=== PATIENT | female | born 1945 | race Caucasian/White ===

== ENCOUNTER 2019-09-13 08:36 | Outpatient (CLI) | payer MEDICARE, MEDICAID, SELFPAY ==
--- NOTE | 2019-09-13 08:41 | XR_ITS ---
WS: [id number] PROCEDURE: XR chest 2V* [id number] CLINICAL INFORMATION: COUGH COMPARISON: October 07, 2017 FINDINGS: Heart: Normal cardiac silhouette. Lungs: Lungs are clear. No consolidation or pleural fluid. Moderate chronic emphysematous changes. Bones: Mild thoracic curve convex right. Mild thoracic kyphosis. Cholecystectomy clips. XR/XR chest 2V* [id number] IMPRESSION: Moderate chronic emphysematous changes. No acute pulmonary infiltrates.
== END 2019-09-13 08:37 | disposition home or self-care (01) ==
LOC: RADWPI 08:41
PROVIDERS: Family Provider Physician Assistant Medical; PCP Physician Assistant Medical; Visit Provider Specialist
DX: R05 Cough (principal); J43.9 Emphysema, unspecified
CPT/HCPCS: 71046

== ENCOUNTER 2019-11-19 10:24 | Outpatient (CLI) | payer MEDICARE, MEDICAID, SELFPAY ==
[2019-11-19 10:56] LABS: Basophils % 0.5 %; Eosinophils # 0.2 10^3/uL (0.0-0.8); Eosinophils % 2.7 %; Hematocrit 44.4 % (37.0-47.0); Hemoglobin 14.2 g/dL (11.5-15.3); Lymphocytes # 2.4 10^3/uL (0.8-4.8); Lymphocytes % 32.2 %; Mean Corpuscular Hemoglobin 32.6 pg (28.0-34.0); Mean Corpuscular Volume 102.1 fL (81-99); Mean Platelet Volume 9.4 fL (7.4-10.4); Monocytes # 0.7 10^3/uL (0.2-0.9); Neutrophils # 4.15 10^3/uL (1.8-7.7); Neutrophils % 55.5 %; Nucleated Red Blood Cells % 0 %; Platelet Count 271 10^3/cmm (130-400); Red Blood Count 4.35 10^6/uL (4.1-5.3); Red Cell Distribution Width 12.6 % (12.1-15.1); White Blood Count 7.5 10^3/uL (4.0-10.0)
[2019-11-22 16:29] LABS: Bermuda Class 0/1; Bermuda Grass (G2) Ige 0.17 kU/L; Cat Dander (E1) Ige 0.17 kU/L; Cat Dander Class 0/1; Common Ragweed (Short) (W1) Ig 0.16 kU/L; Dog Dander (E5) Ige 0.26 kU/L; Dog Dander Class 0/1; Elm (T8) Ige <0.10 kU/L; Elm Class 0; English Plantain (W9) Ige 0.13 kU/L; English Plantain Class 0/1; Immunoglobulin E 359 kU/L (<OR=114); Immunoglobulin E 367 kU/L (<OR=114); Johnson Grass (G10) Ige 0.13 kU/L; Johnson Grass Cl 0/1; June Grass Class 0; June Grass(Kentucky Blue) (G8) <0.10 kU/L; Lamb'S Quarters (Goose Foot) 0.11 kU/L; Lamb'S Quarters Class 0/1; Maple (Box Elder) (T1) Ige <0.10 kU/L; Maple Class 0; Meadow Fescue (G4) Ige <0.10 kU/L; Meadow Fescue Class 0; Oak (T7) Ige 0.14 kU/L; Oak Class 0/1; Orchard Grass (Cocksfoot) (G3) <0.10 kU/L; Perennial Rye Grass Class 0/1; Ragweeed Class 0/1; Rough Marsh Elder (W16) Ige 0.13 kU/L; Rough Marsh Elder Class 0/1; Sweet Vernal Class 0/1; Sweet Vernal Grass (G1) Ige 0.12 kU/L; Timothy Grass (G6) Ige <0.10 kU/L; Timothy Grass Class 0
[2019-11-23 16:41] LABS: Alternaria Alternata (M6) Ige <0.10 kU/L; Alternaria Class 0; D. Farinae Class 1; Dermatophagoides Class 1; Dermatophagoides Farinae (D2) 0.51 kU/L; Dermatophagoides Pteronyssinus 0.57 kU/L; House Dust (Hollister- Stier) 0.19 kU/L; House Dust Class 0/1; Mucor Racemosus Class 0; Penicillium Class 0; Penicillium Notatum (M1) Ige <0.10 kU/L
== END 2019-11-19 10:25 | disposition home or self-care (01) ==
LOC: LAB 10:27
PROVIDERS: PCP Physician Assistant Medical; Visit Provider Internal Medicine Critical Care Medicine
DX: J45.909 Unspecified asthma, uncomplicated (principal); R06.02 Shortness of breath
CPT/HCPCS: 36415; 82785; 85025; 86003

== ENCOUNTER → 2019-12-23 09:19 | Outpatient (BNVA) | payer MEDICARE, MEDICAID, SELFPAY | PROVIDERS: PCP Nurse Practitioner Family; Visit Provider Podiatrist Foot & Ankle Surgery | DX: S92.502A Displaced unspecified fracture of left lesser toe(s), initial encounter for closed fracture (principal); X58.XXXA Exposure to other specified factors, initial encounter; M79.673 Pain in unspecified foot | CPT/HCPCS: 73630 ==

== ENCOUNTER → 2020-02-08 15:48 | Outpatient (BNVA) | payer MEDICARE, MEDICAID, SELFPAY | PROVIDERS: PCP Nurse Practitioner Family; Visit Provider Podiatrist Foot & Ankle Surgery | DX: S92.502A Displaced unspecified fracture of left lesser toe(s), initial encounter for closed fracture (principal); X58.XXXA Exposure to other specified factors, initial encounter | CPT/HCPCS: 73630 ==

== ENCOUNTER 2020-04-05 14:28 | Outpatient (RCR) | payer MEDICARE, MEDICAID, SELFPAY | END 2020-05-04 23:59 | disposition home or self-care (01) | LOC: SPT 14:28 | PROVIDERS: PCP Nurse Practitioner Family; Referring Provider Podiatrist Foot & Ankle Surgery; Visit Provider Podiatrist Foot & Ankle Surgery | DX: M76.72 Peroneal tendinitis, left leg (principal) | CPT/HCPCS: 97161 ==

== ENCOUNTER 2020-05-17 06:00 | Outpatient (RCR) | payer MEDICARE, MEDICAID, SELFPAY | END 2020-06-04 23:59 | disposition home or self-care (01) | LOC: SPT 06:00 | PROVIDERS: PCP Nurse Practitioner Family; Referring Provider Nurse Practitioner Family; Visit Provider Nurse Practitioner Family | DX: R42 Dizziness and giddiness (principal) | CPT/HCPCS: 95992; 97162 ==

== ENCOUNTER 2020-05-21 13:41 | Emergency (ER) | payer MEDICARE, MEDICAID, SELFPAY ==
[2020-05-21 13:47] VITALS: BP 120/58; PULSE 78; RESP 18; TEMP 37.1; O2SAT 98; BMI 31.5
--- NOTE | 2020-05-21 14:08 | ECG_ITS ---
[facility] Test Date: 2020-05-21 Pat Name: Elisabeth Brown Department: Room: Gender: Female Manager Of Purchasing: : 1945 Requested By: Mike Price Order Number: [id number] Alexys MD: Zach Patel M.D. Measurements Intervals [place] Rate: 80 P: 59 MT: 175 QRS: 1 QRSD: 85 T: 48 QT: 392 QTc: 454 Interpretive Statements SINUS RHYTHM LOW QRS VOLTAGE IN PRECORDIAL LEADS [QRS DEFLECTION < 1.0 mV IN CHEST LEADS] No previous ECG available for comparison Electronically Signed On 05-21-2020 20:22:11 FUR GLAZER by Zach Patel M.D. [id number]
--- NOTE | 2020-05-21 14:10 | W.ED.DIZZY ---
HPI - Dizziness General: Chief Complaint: Dizziness Stated Complaint: NEAR SYNCOPE/ HTN Time Seen by Provider: 05/21/20 13:42 History of Present Illness: HPI Narrative: The patient is a 74-year-old female with past medical history of hypertension who comes to the ER complaining that she passed out. She says she was eating a late Dwayne dinner with family and began to have abdominal cramping, went to urinate in the bathroom and on her way back she says she began to feel lightheaded and passed out falling on her couch as she was walking by it. She said if it was not there she would have hit the ground hard. She says her children helped her to the bathroom where she had a normal bowel movement and helped her back to the couch after. She says she continues to have abdominal cramping nausea, and vomiting. No other sick parties present. Associated symptoms: Reports nausea and vomiting; Denies chest pain, headache(s), nasal congestion or palpitations Associated neuro symptoms: Deny confusion or numbness in extremities Review of Systems General: Reports: 10 or more systems reviewed and unremarkable except in HPI and below Const: Denies: fatigue Eyes: Denies: change in vision, blurry vision or eye redness ENMT: Denies: throat pain, swelling of lips/tongue, ear or mastoid pain or nasal congestion Card: Denies: chest pain, palpitations, irregular heart rhythm, edema, dyspnea on exertion or orthopnea Resp: Denies: dyspnea, productive cough or non-productive cough GI: Reports: nausea, vomiting and GI cramping; Denies: abdominal pain or diarrhea : Denies: flank pain, difficulty voiding, urinary frequency or urinary urgency Musc: Denies: neck pain, back pain, extremity pain, joint pain, joint redness, limited range of motion or muscle weakness Skin/Breast: Denies: rash, pruritus, erythema, skin pain or skin tenderness Neuro: Denies: headache(s), numbness in extremities, weakness in extremities, sensory changes, difficulty walking, dizziness, confusion or Slurred speech present Psych: Denies: anxiety or depression Endo: Denies: polyuria All/Imm: Denies: urticaria, throat swelling or tongue swelling PFS ED PFSH: Medical History (Updated 05/21/20 @ 18:03 by Mike Price MD) Environmental and seasonal allergies Essential hypertension Patient was seen in the office several months ago and instructed to take home blood pressure readings and return to the office. Patient did not followup, but today has elevated pressure of 160/100. She states it goes up and down at home. GERD (gastroesophageal reflux disease) Surgical History S/P cholecystectomy Status post Hope fundoplication Patient reports GERD Wrap Surgery Status post total right knee replacement Social History Smoking and tobacco status: never smoked Second hand smoke exposure: No Alcohol intake: never Lives independently: Yes Household members: none Marital status: / Current occupational status: retired History of recent travel: No Current gender identity: Female Physical Exam Const: COMMON NORMALS: no acute distress, average body habitus, patient oriented x3, no limitations, healthy appearing, alert and well nourished GENERAL APPEARANCE: cooperative, comfortable, well kempt and well developed ORIENTATION/CONSCIOUSNESS: Yes awake, Yes oriented to person, Yes oriented to place and Yes oriented to time HENMT: COMMON NORMALS: normocephalic, external ears normal and Normal external nose present HEAD & SCALP: normal to inspection and normocephalic NOSE: Normal external nose present EXTERNAL EAR: Yes external ears normal MOUTH: Normal oral and palatal mucosa present THROAT: posterior oropharynx normal Eye: COMMON NORMALS: Equal, round and reactive pupils present and EOMs intact bilaterally GENERAL EYE: appearance normal, both eyes and all related structures PUPIL: Yes Equal, round and reactive pupils present Neck/C-Spine: COMMON NORMALS: full ROM, no lymphadenopathy, no meningeal signs and no JVD GENERAL: Yes normal visual inspection Lymph: LYMPHATIC: no lymphadenopathy noted Chest: COMMONS NORMALS: normal inspection of the chest and normal palpation of entire chest wall Resp: COMMON NORMALS: normal respiratory effort, No retractions, No use of accessory muscles, clear to auscultation bilaterally and percussion normal EFFORT & INSPECTION: Yes able to speak in complete sentences AUSCULTATION: clear to auscultation bilaterally PERCUSSION: percussion normal Cardio: COMMON NORMALS: no JVD, regular rate, regular rhythm, S1 normal heart sound present, S2 normal heart sound present and Peripheral pulses 2+ throughout RATE: regular rate RHYTHM: regular rhythm HEART SOUNDS: S1 normal heart sound present and S2 normal heart sound present PERIPHERAL PULSES: Peripheral pulses 2+ throughout GI: COMMON NORMALS: Normal to inspection, nondistended, normoactive bowel sounds present, Soft to palpation, non-tender and no masses INSPECTION: Yes normal to inspection PALPATION: Yes Soft to palpation : COMMON NORMALS: Yes no CVA tenderness BLADDER/KIDNEY EXAM: Yes no CVA tenderness Back/Pelvis: COMMON NORMALS: no CVA tenderness, thoracic and lumbar spine normal to inspection, no thoracic nor lumbar tenderness and thoraco-lumbar ROM normal Extremity: COMMON NORMALS: normal to inspection, full ROM, capillary refill normal, no joint enlargement and no pedal edema GENERAL: Yes normal exam except as noted Neuro: COMMON NORMALS: patient oriented x3, CN's II-XII intact bilaterally, moves all extremities, no focal motor deficits, no sensory deficits noted and gait normal SENSORIUM/ORIENTATION: Yes alert, Yes oriented to person, Yes oriented to place and Yes oriented to time MENINGEAL SIGNS: Yes no meningeal signs Psych: COMMON NORMALS: mental status grossly normal, Normal thought process present, cooperative, normal affect and speech normal APPEARANCE: Yes well kempt ATTITUDE: Yes calm SPEECH: Yes normal speech THOUGHT PROCESS: Normal thought process present Skin: COMMON NORMALS: no rashes or lesions noted GENERAL SKIN EXAM: no rashes or lesions noted Course Vital Signs: Vital signs: Vital Signs Temperature 98.7 F 05/21/20 13:47 Pulse Rate 78 05/21/20 17:33 Respiratory Rate 18 05/21/20 17:33 Blood Pressure 149/73 05/21/20 17:33 Pulse Oximetry 98 05/21/20 17:33 MDM - Dizziness MDM Narrative: Medical decision making narrative: The patient likely had a syncopal episode related to her gastroenteritis and dehydration. She vomited and regained consciousness at home. She was given IV fluids and Zofran here which resolved her symptoms completely. Recommended taking Zofran at home, drinking liquids, and getting her creatinine rechecked in a few days at primary care's office. Daughter is in the room and agrees with plan of care. She will not be home alone tonight Lab Data: Labs: Lab Results 05/21/20 05/21/20 05/21/20 Range/Units 15:00 15:00 15:14 WBC Corrected WBC RBC Hgb Hct MCV MCH MCHC RDW Plt Count MPV Gran % Neut % (Auto) Lymph % (Auto) [place] % (Auto) Eos % (Auto) Baso % (Auto) Neut # (Auto) Lymph # (Auto) [place] # (Auto) Eos # (Auto) Baso # (Auto) Absolute Gran (aut o) Nucleated RBC % (a uto) Nucleated RBCs # Sodium 140 (136-145) mmol/L Potassium 3.7 (3.5-5.1) mmol/L Chloride 101 (98-107) mmol/L Carbon Dioxide 28 (22-29) mmol/L Anion Gap 14.7 (5-19) BUN 19 (8-23) mg/dL Creatinine 1.6 H (0.5-0.9) mg/dL GFR Calculation Not Reportable Glucose 124 H (65-115) mg/dL Calculated Osmolal ity 294 (285-295) mOsm/k g Lactate (0.5-2.2) mmol/L Calcium 9.6 (8.5-10.5) mg/dL Total Bilirubin 0.9 (0.15-1.2) mg/dL AST 33 H (0-32) U/L ALT 14 (0-33) U/L Alkaline Phosphata se 92 (35-105) IU/L Troponin T Baselin e 30 H (0-10) ng/L Total Protein 7.4 (6.6-8.7) g/dL Albumin 4.0 (3.5-5.2) g/dL Globulin 3.4 (1.3-4.6) g/dL Lipase 28 (13-60) U/L Urine Color Yellow (Yellow) Urine Appearance Cloudy (CLEAR) Urine pH 5 (5-7) Ur Specific Gravit y 1.025 (1.005-1.030) Urine Protein 1+ H (Negative) Urine Glucose (UA) Norm (Normal) Urine Ketones 1+ H (Negative) Urine Blood Neg (Negative) Urine Nitrate Negative (Negative) Urine Bilirubin 1+ H (Negative) Urine Urobilinogen 1 H (Negative) mg/dL Ur Leukocyte Emilie ase Negative (Negative) Urine RBC None (0-2) /hpf Urine WBC 0-4 H (0-5) /hpf Ur Squamous Epith Cells None (0-5) /hpf Amorphous Sediment 3+ /hpf Urine Bacteria 1+ H (NONE) /hpf 05/21/20 05/21/20 05/21/20 Range/Units 16:25 16:48 16:48 WBC Cancelled 10.3 H Corrected WBC Cancelled RBC Cancelled 4.28 Hgb Cancelled 13.9 Hct Cancelled 42.8 MCV Cancelled 100.0 H MCH Cancelled 32.5 MCHC Cancelled 32.5 RDW Cancelled 12.0 L Plt Count Cancelled 164 MPV Cancelled 10.9 H Gran % Cancelled Neut % (Auto) Cancelled 76.3 Lymph % (Auto) Cancelled 15.7 [place] % (Auto) Cancelled 6.8 Eos % (Auto) Cancelled 0.6 Baso % (Auto) Cancelled 0.4 Neut # (Auto) Cancelled 7.84 H Lymph # (Auto) Cancelled 1.6 [place] # (Auto) Cancelled 0.7 Eos # (Auto) Cancelled 0.1 Baso # (Auto) Cancelled 0.0 Absolute Gran (aut o) Cancelled Nucleated RBC % (a uto) Cancelled 0 Nucleated RBCs # Cancelled 0.0 Sodium (136-145) mmol/L Potassium (3.5-5.1) mmol/L Chloride (98-107) mmol/L Carbon Dioxide (22-29) mmol/L Anion Gap (5-19) BUN (8-23) mg/dL Creatinine (0.5-0.9) mg/dL GFR Calculation Glucose (65-115) mg/dL Calculated Osmolal ity (285-295) mOsm/k g Lactate 1.8 (0.5-2.2) mmol/L Calcium (8.5-10.5) mg/dL Total Bilirubin (0.15-1.2) mg/dL AST (0-32) U/L ALT (0-33) U/L Alkaline Phosphata se (35-105) IU/L Troponin T Baselin e (0-10) ng/L Total Protein (6.6-8.7) g/dL Albumin (3.5-5.2) g/dL Globulin (1.3-4.6) g/dL Lipase (13-60) U/L Urine Color (Yellow) Urine Appearance (CLEAR) Urine pH (5-7) Ur Specific Gravit y (1.005-1.030) Urine Protein (Negative) Urine Glucose (UA) (Normal) Urine Ketones (Negative) Urine Blood (Negative) Urine Nitrate (Negative) Urine Bilirubin (Negative) Urine Urobilinogen (Negative) mg/dL Ur Leukocyte Emilie ase (Negative) Urine RBC (0-2) /hpf Urine WBC (0-5) /hpf Ur Squamous Epith Cells (0-5) /hpf Amorphous Sediment /hpf Urine Bacteria (NONE) /hpf Discharge Plan Discharge Patient Disposition: Home Clinical Impression: Gastroenteritis, Creatinine elevation Condition: Stable Prescriptions: New Zofran 4 mg tablet 4 mg PO Q8H 5 Days Qty: 15 RF: 0 No Action Combigan 0.2-0.5 % drops 1 drp ophthalmic (eye) BID RF: 0 Lumigan 0.01 % drops 1 drp ophthalmic (eye) DAILY RF: 0 amlodipine 5 mg tablet 5 mg PO DAILY@1000 RF: 0 losartan 100 mg tablet 100 mg PO DAILY@1000 RF: 0 Vitamin C 1 tab PO DAILY@1000 RF: 0 Discharge Orders: Discharge ED (Routine); Ordered 05/21/20 Ordered By: Mike Price Referrals: Ericka Collins FNP [Primary Care Provider] - Discharge Diet: Advance as tolerated Discharge Activity: Resume usual activity Patient Instructions: Gastroenteritis (ED), Impaired Kidney Function (ED) Activity Restrictions/Additional Instructions: You have gastroenteritis. Please take the Zofran to help you drink water and return to the ER if your symptoms worsen. Also your kidney function is impaired. Please get this rechecked to make sure it improves in a few days at your primary care physician's office. If you do not there is a small chance it could worsen and you could require dialysis in the future. Coding Level of Care Code ED Numerical Control Machine Machinist for Jose Fwd Exam Comprehensive
[2020-05-21] MEDS: sodium chloride 0.9% 1,000 ML 999 ML IV (14:25)
[2020-05-21] MEDS: ondansetron 2 mg/ML SDV 2 mL 4 MG IVP (14:26)
[2020-05-21] MEDS: ketorolac 30 mg/mL INJ 15 MG IVP (14:27)
[2020-05-21 15:50] LABS: Troponin(5th) Baseline 30 ng/L (0-10)
[2020-05-21 16:05] LABS: Alanine Aminotransferase 14 U/L (0-33); Alkaline Phosphatase 92 IU/L (35-105); Anion Gap 14.7 (5-19); Aspartate Amino Transferase 33 U/L (0-32); Blood Urea Nitrogen 19 mg/dL (8-23); Calcium 9.6 mg/dL (8.5-10.5); Carbon Dioxide 28 mmol/L (22-29); Chloride 101 mmol/L (98-107); Globulin 3.4 g/dL (1.3-4.6); Glucose 124 mg/dL (65-115); Lipase 28 U/L (13-60); Osmolality Calculated 294 mOsm/kg (285-295); Potassium 3.7 mmol/L (3.5-5.1); Sodium 140 mmol/L (136-145); Total Bilirubin 0.9 mg/dL (0.15-1.2); Total Protein 7.4 g/dL (6.6-8.7)
[2020-05-21 16:27] LABS: Specific Gravity, Urine 1.025 (1.005-1.030); Urine Appearance Cloudy (CLEAR); Urine Color Yellow (Yellow); pH Urine 5 (5-7)
[2020-05-21 16:28] LABS: Add Urine Culture? No; Add Urine Microscopic? YES; Amorphous Sediment Urine 3+ /hpf; Bacteria Urine 1+ /hpf; Bilirubin Urine 1+ (Negative); Blood Urine Neg (Negative); Glucose Urine UA Norm (Normal); Ketones Urine 1+ (Negative); Leukocyte Esterase Urine Negative (Negative); Nitrate Urine Negative (Negative); Protein Urine 1+ (Negative); Urobilinogen Urine 1 mg/dL (Negative); WBC Urine 0-4 /hpf (0-5)
[2020-05-21 16:56] LABS: Basophils % 0.4 %; Eosinophils # 0.1 10^3/uL (0.0-0.8); Eosinophils % 0.6 %; Hematocrit 42.8 % (37.0-47.0); Hemoglobin 13.9 g/dL (11.5-15.3); Lymphocytes # 1.6 10^3/uL (0.8-4.8); Lymphocytes % 15.7 %; Mean Corpuscular HGB Conc 32.5 g/dL (30.0-36.0); Mean Corpuscular Hemoglobin 32.5 pg (28.0-34.0); Mean Platelet Volume 10.9 fL (7.4-10.4); Monocytes # 0.7 10^3/uL (0.2-0.9); Monocytes % 6.8 %; Neutrophils # 7.84 10^3/uL (1.8-7.7); Neutrophils % 76.3 %; Nucleated Red Blood Cells % 0 %; Platelet Count 164 10^3/cmm (130-400); Red Blood Count 4.28 10^6/uL (4.1-5.3); White Blood Count 10.3 10^3/uL (4.0-10.0)
[2020-05-21 17:19] LABS: Lactate (Lactic Acid level) 1.8 mmol/L (0.5-2.2)
[2020-05-21 17:33] VITALS: BP 149/73; PULSE 78; RESP 18; O2SAT 98
[2020-05-21 18:33] VITALS: BP 124/76; PULSE 76; RESP 18; O2SAT 96
== END 2020-05-21 18:34 | disposition home or self-care (01) ==
PROVIDERS: Emergency Provider Family Medicine; PCP Nurse Practitioner Family
DX: K52.9 Noninfective gastroenteritis and colitis, unspecified (principal); R79.82 Elevated C-reactive protein (CRP); I10 Essential (primary) hypertension
CPT/HCPCS: 12345; 36415; 80053; 81001; 83605; 83690; 84484; 85025; 93005; 96361; 96374; 96375; 99282; 99283; J1885; J2405; J7030

== ENCOUNTER 2020-11-30 14:28 | Outpatient (CLI) | payer MEDICARE, MEDICAID, SELFPAY ==
--- NOTE | 2020-11-30 14:45 | CT_ITS ---
WS: [id number] Exam: CT thoracic spin wo con* [id number] Date/Time of Exam: 11/30/2020 2:45 PM Reason For Exam: T12 COMPRESSION FX DLP: 1112.[address] scans at [facility] use at least one of these dose optimization techniques: automat ed exposure control; mA and/or kV adjustment per patient size (includes targeted exams where dose is matched to clinical indication); or iterative reconstruction. The T-spine and evaluated in the axial plane with coronal and sagittal reformatted images. There is a compression fracture of the lower endplate of T12 with about 30% loss of vertebral height. No retropulsion or canal stenosis is identified. This may be a subacute fracture. The posterior lac vieux ents remain intact. There were no other fractures of the T-spine. There is increased thoracic kyphosi s noted. Facet DJD at all levels. Normal paraspinal soft tissue structures. CT/CT thoracic spin wo con* [id number] IMPRESSION: 1. Compression fracture of the lower endplate of T12 with about 30% loss of power tebral height. No retropulsion or canal stenosis is identified. The posterior e lements remain intact and no other fractures are seen. Fracture age is difficul t to determine but this could be a subacute fracture. 2. Increased thoracic kyphosis and mild degenerative changes.
== END 2020-11-30 14:29 | disposition home or self-care (01) ==
PROVIDERS: PCP Nurse Practitioner Family; Visit Provider Nurse Practitioner Family
DX: S22.080A Wedge compression fracture of T11-T12 vertebra, initial encounter for closed fracture (principal); X58.XXXA Exposure to other specified factors, initial encounter
CPT/HCPCS: 72128

== ENCOUNTER → 2020-12-05 14:18 | Outpatient (BNVA) | payer MEDICARE, MEDICAID, SELFPAY | PROVIDERS: PCP Nurse Practitioner Family; Referring Provider Nurse Practitioner Family; Visit Provider Orthopaedic Surgery | DX: S22.080A Wedge compression fracture of T11-T12 vertebra, initial encounter for closed fracture (principal); X58.XXXA Exposure to other specified factors, initial encounter | CPT/HCPCS: 72080 ==

== ENCOUNTER 2020-12-29 10:48 | Emergency (ER) | payer MEDICARE, MEDICAID, SELFPAY ==
--- NOTE | 2020-12-29 | XR_ITS ---
WS: [id number] Exam: XR elbow RT 2V [id number] Date/Time of Exam: 12/29/2020 12:00 AM Reason For Exam: TRAUMA; PT FELL R SHOULDER PAIN Lateral view of the elbow is suboptimal due to the patient's inability to fully cooperate for the adam dy. No acute fracture or dislocation noted. No obvious joint effusion is seen. XR/XR elbow RT 2V [id number] IMPRESSION: 1. No obvious elbow fracture or dislocation based on images presented.
[2020-12-29 11:10] VITALS: BP 135/90; PULSE 91; RESP 18; TEMP 37; O2SAT 94; BMI 31.8
--- NOTE | 2020-12-29 11:18 | CT_ITS ---
WS: [id number] CT FACIAL BONES HISTORY: laceration, R sided face TECHNIQUE: Images obtained from the supraorbital location through the mandible. Soft tissue and bone windows are reviewed. Coronal and sagittal reformats have also been submitted. DLP: 673.[address] scans at [facility] use at least one of these dose optimization techniques: automat ed exposure control; mA and/or kV adjustment per patient size (includes targeted exams where dose is matched to clinical indication); or iterative reconstruction. COMPARISON: None available. No facial bone fractures are identified. Nasal bones and zygomatic arches are intact. No fracture inv olving the roof or floor the orbits. Air-fluid level in the RIGHT sphenoid sinus. No sinus fractures are identified. Orbits and globes are intact. There is a moderate size acute scalp hematoma centered over the RIGHT superior orbit and extends acro ss the midline across the nasal bones. Hematoma extends into the RIGHT upper inner canthus but does n ot extend post septal. CT/CT facial bones wo con* [id number] IMPRESSION: 1. No facial bone fracture. 2. Scalp hematoma centered over the RIGHT superior orbit and extends across th e midline. 3. Suspect very tiny subdural bleed noted on the axial imaging over the RIGHT frontal lobe. This was not visualized on this CT head. Notified Sharonda Valiente MD at 12/29/2020 12:07 PM.
--- NOTE | 2020-12-29 11:18 | XR_ITS ---
WS: [id number] Exam: [place] [id number] Date/Time of Exam: 12/29/2020 11:21 AM Reason For Exam: rule out fx There is an impacted comminuted fracture of the surgical neck and head of the humerus. There is some posterior rotation of the humeral head. No dislocation is seen. XR/[place] [id number] IMPRESSION: 1. Impacted comminuted fracture of the surgical neck and head of the humerus wi th mild displacement and rotation as noted above. The remaining humerus appears to be intact.
--- NOTE | 2020-12-29 11:18 | CT_ITS ---
WS: [id number] CT HEAD NONCONTRAST HISTORY: fall, rule out brain bleed TECHNIQUE: Contiguous axial imaging performed through the brain in 2.5 mm imaging. Bone and soft tiss ue windows. Sagittal and coronal reformats reviewed. All CT scans at [facility] use at le ast one of these dose optimization techniques: automated exposure control; mA and/or kV adjustment pe r patient size (includes targeted exams where dose is matched to clinical indication); or iterative r econstruction. DLP: 1443.21 mGy.cm COMPARISON: None available. No acute intracranial hemorrhage, midline shift or mass effect. Mild atrophy and moderate chronic microvascular ischemic type changes. Ventricles: Normal size with no hydrocephalus. No inferior displacement of the cerebellar tonsils. Paranasal sinuses: Mucoperiosteal thickening in the RIGHT sphenoid sinus. No air-fluid levels otherwi se. Mastoid air cells: Well pneumatized. Calvarium and scalp: No skull fracture. Moderate acute scalp hematoma centered over the RIGHT frontal lobe extending into the anterior canthus of the RIGHT orbit and across the midline. CT/CT head wo con* [id number] IMPRESSION: 1. No acute intracranial hemorrhage or edema. 2. Moderate size frontal scalp hematoma centered along the superior RIGHT orbi t but does extend across the midline. No fracture identified.
--- NOTE | 2020-12-29 11:18 | XR_ITS ---
WS: [id number] Exam: XR shoulder RT min 2V* [id number] Date/Time of Exam: 12/29/2020 11:21 AM Reason For Exam: fall There is an impacted comminuted fracture of the surgical neck and head of the humerus. There is mild posterior rotation of the humeral head. No dislocation noted. Degenerative change and spurring at the AC joint. XR/XR shoulder RT min 2V* [id number] IMPRESSION: 1. Impacted comminuted fracture of the surgical neck and head of the humerus wi th some degree of rotation and displacement as noted.
--- NOTE | 2020-12-29 11:35 | W.ED.GENADLT ---
HPI - General Adult General: Chief complaint: Fall Stated complaint: R SHOULDER PAIN Time Seen by Provider: 12/29/20 10:55 History of Present Illness: HPI narrative: Patient is a 75-year-old female history of chronic cough, HTN, R hip replacement presents the emergency room for mechanical fall x 1 hr ago. Patient was walking when suddenly she fell to her right side. Patient cannot exactly what happened but reports significant right arm pain/shoulder after the incident. Also noticed a bump on the right side of her head. Patient denies any anticoagulation use. Denies any associated shortness of breath, chest pain, palpitation, abdominal complaints at this time. Patient denies any sensation of lightheadedness vertigo or other focal weakness. Onset: 1 hr ago Duration:1 hr Location:home Severity:mild Review of Systems Narrative: Constitutional: No fever, no chills. HEENT: No vision changes CV: No chest pain, no palpitations PULM: no cough, no dyspnea. GI: No abdominal pain, no N/V/D. : No dysuria MSKEL: +R shoulder/proximal arm pain SKIN: No new rashes, no lesions. NEURO: No headache, no focal weakness. HEME: No visible bruises PSYCH: Normal mood PFSH ED PFSH: Medical History (Updated 12/29/20 @ 11:44 by Sharonda Valiente MD) Environmental and seasonal allergies Essential hypertension Patient was seen in the office several months ago and instructed to take home blood pressure readings and return to the office. Patient did not followup, but today has elevated pressure of 160/100. She states it goes up and down at home. GERD (gastroesophageal reflux disease) Surgical History S/P cholecystectomy Status post Hope fundoplication Patient reports GERD Wrap Surgery Status post total right knee replacement Social History Smoking and tobacco status: never smoked Second hand smoke exposure: No Alcohol intake: never Lives independently: Yes Household members: none Marital status: / Current occupational status: retired History of recent travel: No Current gender identity: Female Physical Exam Narrative: EXAM NARRATIVE: Head: Atraumatic Eyes: PERRL, conjunctiva without injection ENT: Mucous membrane moist NECK: Supple, ROM intact LUNGS: LCTAB, no crackles/rhonchi CV: RRR ABDOMEN: Soft, nontender in all quadrants EXTREMITY: 2+ radial pulse R arm, R/M/U sensation intact in the R arm, patient able perform OK/Thumbs/Fist in the R hand, ROM of the R shoulder limited due to pain, +tenderness to palpation to the R proximal arm/+tenderness to palpation over the R elbow. R arm and forearm compartments nontense. SKIN:+R forehead hematoma NEURO: Awake and alert, no focal motor deficits PSYCH: Normal mood and affect Course Vital Signs: Vital signs: Vital Signs Temperature 98.6 F 12/29/20 11:10 Pulse Rate 86 12/29/20 14:41 Respiratory Rate 16 12/29/20 14:41 Blood Pressure 157/83 12/29/20 14:41 Pulse Oximetry 96 12/29/20 14:41 MDM - General Adult MDM Narrative: Medical decision making narrative: 75-year-old female presenting to the emergency room after mechanical fall with complaints of right elbow/shoulder pain. On exam, patient has a bump over the right temporal scalp and focal tenderness to palpation over the right proximal arm right shoulder area. XR showed surgical neck of the humerus fracture. Patient is placed in a sling. CT brain showed 2mm subdural R side. HDS, SBP < 160. HDS stable. GCS 15 on reassessment. No need for cardene drips currently. Case discussed with [facility] ER provider Dr. Wyatt who agrees with transfer. Disposition: Transfer to [facility]. Imaging Data^: Other Imaging: Radiologist's impression: [address] [address]QLmi ReportSigned Patient: Elisabeth Brown #: [id number]: 5Acct#:[id number]/Sex: 75 / FADM Date: 12/29/20Loc: ERRoom/Bed:Attending Dr: Ordering Provider/Ordering MD: Sharonda Valiente MD Date of Service: 12/29/20 Procedure(s): [place] [address] Accession Number(s): [id number] Report Number: [id number] WS: [id number] Exam: [place] [id number] Date/Time of Exam: 12/29/2020 11:21 AM Reason For Exam: rule out fx There is an impacted comminuted fracture of the surgical neck and head of the humerus. There is some posterior rotation of the humeral head. No dislocation is seen. XR/[place] [id number] IMPRESSION: 1. Impacted comminuted fracture of the surgical neck and head of the humerus with mild displacement and rotation as noted above. The remaining humerus appears to be intact. Dictated By:Jorge Bloom, BRAEDENigned By:Jorge Bloom, Earlene Date/Time:12/29/20 1144DD/ 1141 [facility] [place] [id number] Scan ReportSigned with Addenda Patient: Elisabeth Brown #: [id number]: 5Acct#:[id number]/Sex: 75 / FADM Date: 12/29/20Loc: ERRoom/Bed:Attending Dr: Ordering Provider/Ordering MD: Sharonda Valiente MD Date of Service: 12/29/20 Procedure(s): CT head wo con* [id number] Accession Number(s): [id number] Report Number: [id number] ADDENDUM WS: [email or web address] Addendum noncontrast head CT. There is a very small 2 mm acute subdural hematoma centered over the RIGHT temporal lobe. Suspected small amount of subdural blood on the facial bone CT but the blood centered along the anterior RIGHT frontal lobe is not identified with certainty on this head CT. Addendum Dictated By: Katie Fallon DOAddendum Signed By: Katie Fallon DOSigned Date/Time:12/29/20 1210Addendum Cosigned By: ADDENDUM CT/CT head wo con* [id number] IMPRESSION: Small acute, 2 mm, RIGHT subdural bleed centered over the RIGHT temporal lobe. Notified Sharonda Valiente MD at 12/29/2020 12:09 PM. Addendum Dictated By: Vasyl,Katie A DOAddendum Signed By: Katie Fallon DOSigned Date/Time:12/29/20 1214Addendum Cosigned By: WS: [email or web address] CT HEAD NONCONTRAST HISTORY: fall, rule out brain bleed TECHNIQUE: Contiguous axial imaging performed through the brain in 2.5 mm imaging. Bone and soft tissue windows. Sagittal and coronal reformats reviewed. All CT scans at [facility] use at least one of these dose optimization techniques: automated exposure control; mA and/or kV adjustment per patient size (includes targeted exams where dose is matched to clinical indication); or iterative reconstruction. DLP: 1443.21 mGy.cm COMPARISON: None available. No acute intracranial hemorrhage, midline shift or mass effect. Mild atrophy and moderate chronic microvascular ischemic type changes. Ventricles: Normal size with no hydrocephalus. No inferior displacement of the cerebellar tonsils. Paranasal sinuses: Mucoperiosteal thickening in the RIGHT sphenoid sinus. No air-fluid levels otherwise. Mastoid air cells: Well pneumatized. Calvarium and scalp: No skull fracture. Moderate acute scalp hematoma centered over the RIGHT frontal lobe extending into the anterior canthus of the RIGHT orbit and across the midline. CT/CT head wo con* [id number] IMPRESSION: 1. No acute intracranial hemorrhage or edema. 2. Moderate size frontal scalp hematoma centered along the superior RIGHT orbit but does extend across the midline. No fracture identified. Dictated By:Katie Fallon DOSigned By:Katie Fallon DOSigned Date/Time:12/29/20 1204DD/ [address] [id number] Scan ReportSigned Patient: Elisabeth Brown #: [id number]: 5Acct#:[id number]/Sex: 75 / FADM Date: 12/29/20Loc: ERRoom/Bed:Attending Dr: Ordering Provider/Ordering MD: Sharonda Valiente MD Date of Service: 12/29/20 Procedure(s): CT facial bones wo con* [id number] Accession Number(s): [id number] Report Number: [id number] WS: [email or web address] CT FACIAL BONES HISTORY: laceration, R sided face TECHNIQUE: Images obtained from the supraorbital location through the mandible. Soft tissue and bone windows are reviewed. Coronal and sagittal reformats have also been submitted. DLP: 673.[address] scans at [facility] use at least one of these dose optimization techniques: automated exposure control; mA and/or kV adjustment per patient size (includes targeted exams where dose is matched to clinical indication); or iterative reconstruction. COMPARISON: None available. No facial bone fractures are identified. Nasal bones and zygomatic arches are intact. No fracture involving the roof or floor the orbits. Air-fluid level in the RIGHT sphenoid sinus. No sinus fractures are identified. Orbits and globes are intact. There is a moderate size acute scalp hematoma centered over the RIGHT superior orbit and extends across the midline across the nasal bones. Hematoma extends into the RIGHT upper inner canthus but does not extend post septal. CT/CT facial bones wo con* [id number] IMPRESSION: 1. No facial bone fracture. 2. Scalp hematoma centered over the RIGHT superior orbit and extends across the midline. 3. Suspect very tiny subdural bleed noted on the axial imaging over the RIGHT frontal lobe. This was not visualized on this CT head. Notified Sharonda Valiente MD at 12/29/2020 12:07 PM. Dictated By:Katie Fallon DOSigned By:Katie Fallon DOSigned Date/Time:12/29/20 1208DD/ 1204 Discharge Plan Discharge Patient Disposition: Transfer to ED Clinical Impression: Fracture, humerus Condition: Stable Prescriptions: New Percocet 5-325 mg tablet 1 tab PO Q8H PRN (Reason: pain) 3 Days Qty: 12 RF: 0 No Action albuterol sulfate 2.5 mg /3 mL (0.083 %) solution for nebulization 2.5 mg inhalation QID PRN (Reason: shortness of breath or wheezing) Qty: 75 RF: 0 (DME) TLSO back brace See Rx Instructions .Route .MEDSUPPLY Qty: 1 RF: 0 Referrals: Ericka Collins FNP [Primary Care Provider] - Discharge Diet: Advance as tolerated Discharge Activity: Resume usual activity Activity Restrictions/Additional Instructions: Come back to the emergency room if you cannot fill your arm, if you have significant pain, numbness, or any other issue. Please follow-up with an orthopedic provider in the next few days for reevaluation of your fracture. Coding Level of Care Code ED Moderate Needs Teacher for Jose Terrell
[2020-12-29 11:48] VITALS: RESP 16
[2020-12-29] MEDS: fentaNYL 50 mcg/mL INJ 2mL IVP (11:48)
[2020-12-29] MEDS: tetanus-dipt-pertussis 0.5 mL SDV IM (11:51)
--- NOTE | 2020-12-29 12:17 | PC.PHAR ---
PT STATES SHE IS NOT TAKING THE AMLODIPINE 2.5MG DAILY. STATES SHE WAS TOLD AT HER LAST APPT THAT HER BP WAS HIGH AND WAS PRESCRIBED AMLODIPINE 2.5MG DAILY. PT ALSO STATES SHE DOES NOT TAKE HYDROCODONE-ACETAMINOPHEN OR CYCLOBENZAPRINE.
[2020-12-29 13:12] VITALS: BP 151/88; PULSE 83; RESP 16; O2SAT 98
[2020-12-29 14:41] VITALS: BP 157/83; PULSE 86; RESP 16; O2SAT 96
== END 2020-12-29 15:00 ==
PROVIDERS: Emergency Provider Emergency Medicine; PCP Nurse Practitioner Family
DX: S42.291A Other displaced fracture of upper end of right humerus, initial encounter for closed fracture (principal); S00.03XA Contusion of scalp, initial encounter; I10 Essential (primary) hypertension; W18.39XA Other fall on same level, initial encounter
CPT/HCPCS: 70450; 70486; 73030; 73060; 73070; 90471; 90715; 96374; 99285; J3010

== ENCOUNTER → 2021-01-18 13:18 | Outpatient (BNVA) | payer OTHER, MEDICARE, MEDICAID, SELFPAY | PROVIDERS: PCP Nurse Practitioner Family; Visit Provider Orthopaedic Surgery | DX: S22.080A Wedge compression fracture of T11-T12 vertebra, initial encounter for closed fracture (principal); X58.XXXA Exposure to other specified factors, initial encounter | CPT/HCPCS: 72080 ==

== ENCOUNTER → 2021-02-15 13:06 | Outpatient (BNVA) | payer MEDICARE, MEDICAID, SELFPAY | PROVIDERS: PCP Nurse Practitioner Family; Visit Provider Orthopaedic Surgery | DX: S22.080A Wedge compression fracture of T11-T12 vertebra, initial encounter for closed fracture (principal); X58.XXXA Exposure to other specified factors, initial encounter | CPT/HCPCS: 72080 ==

== ENCOUNTER → 2021-04-03 15:16 | Outpatient (BNVA) | payer MEDICARE, MEDICAID, SELFPAY | PROVIDERS: PCP Nurse Practitioner Family; Visit Provider Orthopaedic Surgery | DX: S22.080A Wedge compression fracture of T11-T12 vertebra, initial encounter for closed fracture (principal); X58.XXXA Exposure to other specified factors, initial encounter | CPT/HCPCS: 72080 ==

== ENCOUNTER 2021-05-11 12:18 | Outpatient (CLI) | payer MEDICARE, MEDICAID, SELFPAY ==
--- NOTE | 2021-05-11 13:00 | MR_ITS ---
WS: [email or web address] MRI THORACIC SPINE noncontrast HISTORY: S22.080A - Wedge compression fracture of T11-T12 vertebra... COMPARISON: 04/03/2021 TECHNIQUE: Multiplanar sequences are performed in sagittal and axial planes. Mild increase in the thoracic kyphosis. Mild LEFT curvature. No marrow edema within the vertebral bod ies. Severe compression fracture of T12 with 2 mm retropulsion of the superior and inferior endplate. There is still CSF surrounding the cord. There is minimal residual marrow edema body. Signal within the cord is normal. T1-2: Mild foraminal narrowing due to facet disease. T2-3: Moderate facet joint arthritis with moderate foraminal stenosis. T3-4: Mild facet arthritis. T4-5: Mild bilateral facet arthritis, moderate RIGHT foraminal stenosis. T5-6: Bilateral facet arthritis. Mild narrowing on the LEFT. T6-7: All foraminal narrowing due to facet disease. T7-8: Moderate bilateral facet joint arthritis with mild foraminal narrowing. T8-9: Moderate bilateral facet arthritis and foraminal narrowing. T9-10: Moderate bilateral facet joint arthritis and foraminal narrowing. T10-11: Facet joint arthritis encroaching into the thecal sac. There is near contact on the posterio r lateral thecal sac by the osteophytes. There is mild central and bilateral foraminal stenosis. T11-12: Bilateral facet joint arthritis and ligamentum flavum hypertrophy. Mild central and foramina l stenosis. T12-L1: Mild posterior encroachment upon the thecal sac at the retropulsion of the T12 vertebral body . Moderate bilateral facet joint arthritis. No central stenosis. Moderate bilateral foraminal stenosi s. Paravertebral soft tissues are normal. MR/MR thoracic spin wo con* [id number] IMPRESSION: 1. Severe, subacute T12 vertebral planar compression fracture with 2 mm retrop ulsion of the vertebral body. No contact on the cord. 2. There is multilevel facet joint arthritis throughout the thoracic spine. Fa cet joint arthritis resulting in mild to moderate bilateral foraminal stenosis as above. 3. Mild central and bilateral foraminal stenosis at T10-11 and T11-12. Moderat e bilateral facet joint arthritis and foraminal stenosis at T12-L1.
== END 2021-05-11 12:19 | disposition home or self-care (01) ==
PROVIDERS: PCP Nurse Practitioner Family; Visit Provider Orthopaedic Surgery
DX: S22.080A Wedge compression fracture of T11-T12 vertebra, initial encounter for closed fracture (principal); X58.XXXA Exposure to other specified factors, initial encounter; M48.04 Spinal stenosis, thoracic region
CPT/HCPCS: 72146

== ENCOUNTER → 2021-05-21 11:31 | Day surgery (SDC) | payer MEDICARE, MEDICAID, SELFPAY | PROVIDERS: PCP Nurse Practitioner Family; Visit Provider Orthopaedic Surgery | DX: Z01.818 Encounter for other preprocedural examination (principal); S22.080A Wedge compression fracture of T11-T12 vertebra, initial encounter for closed fracture; X58.XXXA Exposure to other specified factors, initial encounter | CPT/HCPCS: 87635; 93005 ==

== ENCOUNTER 2021-05-28 05:34 | Day surgery (SDC) | payer MEDICARE, MEDICAID, SELFPAY ==
[2021-05-21 08:00] VITALS: BMI 29.2
--- NOTE | 2021-05-21 08:06 | ECG_ITS ---
[facility] Test Date: 2021-05-21 Pat Name: Elisabeth Brown Department: Room: Gender: Female Pan Puller: : 1945 Requested By: Maximus Asher Order Number: [id number] Alexys MD: ALESSIA ANDREWS Measurements Intervals [place] Rate: 95 P: 22 NC: 149 QRS: -9 QRSD: 73 T: 25 QT: 347 QTc: 437 Interpretive Statements SINUS RHYTHM LOW QRS VOLTAGE IN PRECORDIAL LEADS [QRS DEFLECTION < 1.0 mV IN CHEST LEADS] Compared to ECG 05/21/2020 14:28:41 No significant changes Electronically Signed On 05-21-2021 20:57:02 SYSTEMS TEST TECHNICIAN by ALESSIA ANDREWS [email or web address]
--- NOTE | 2021-05-21 11:08 | ANES.PREANE2 ---
Pre-Anesthetic Assessment Pre-Anesthetic Assessment: Height/Weight: Height 1.63 m Weight 77.111 kg Proposed Procedure: Operation Date: 05/28/21 13:00 Proposed Procedures p T12 Kyphoplasty 59567 S22.080A(Not Applicable) - Herminio Barrios, DO Was Beta Danya taken within 24 hours: N/A Was Clonidine taken within 24 hours: N/A Social: Social History: No alcohol and No tobacco Exam: Pre-Anes Outpt Exam: alert, oriented x 3, clear to auscultation bilaterally and regular rate & rhythm Airway: Submandibular: WNL Cervical ROM: WNL MP: 2 Dentition: False (uppers) Pulmonary: Pulmonary: Asthma CV/HEM: CV/HEM: HTN Anesthetic Plan: ASA status: 3 Anesthesia: General Risk of > 500 ml blood loss (7ml/kg in children): No PFSH Anesthesia PFSH: Medical History Environmental and seasonal allergies Essential hypertension Patient was seen in the office several months ago and instructed to take home blood pressure readings and return to the office. Patient did not followup, but today has elevated pressure of 160/100. She states it goes up and down at home. GERD (gastroesophageal reflux disease) Surgical History S/P cholecystectomy Status post Hope fundoplication Patient reports GERD Wrap Surgery Status post total right knee replacement Social History Smoking and tobacco status: never smoked Second hand smoke exposure: No Alcohol intake: never Lives independently: Yes Household members: none Marital status: / Current occupational status: retired History of recent travel: No Current gender identity: Female Data Anesthesia Cardiac Studies: No Data to Display
[2021-05-28] VITALS (7 sets, daily range): BP systolic 107–176; BP diastolic 68–104; PULSE 67–92; RESP 18–20; TEMP 36.3–36.8; O2SAT 88–100
--- NOTE | 2021-05-28 | SCC_ITS ---
Procedure Done: T12 Kyphoplasty 60.9 seconds of fluoroscopic guidance, for a cumulative dose of 89.48 mGy and 14.99 mGy, was provided to Dr. Barrios by the radiology department. C-arm images of the thoracic spine were saved for the patient's permanent record. [facility]
--- NOTE | 2021-05-28 05:49 | SC_ITS ---
WS: [email or web address] C-arm fluoroscopy for kyphoplasty, 05/28/2021 Clinical Data: T12 kyphoplasty Comparison: None. Findings: T12 kyphoplasty. SC/C-arm FL for Kyphoplasty Impression: T12 kyphoplasty.
--- NOTE | 2021-05-28 06:31 | P.ANESUD_ITS ---
Pre-Anesthetic Update Pre-Anesthetic Assessment: Date of Surgery/Procedure: 05/28/21 Preop Kathleen gnosis: T12 compression fracture Proposed Procedure: Operation Date: 05/28/21 07:00 Proposed Procedures p T12 Kyphoplasty 47946 S22.080A(Not Applicable) - Herminio Barrios, DO Any changes to Pre-Anesthetic Assessment?: Yes Last Intake: Intake Last Liquid Date 05/27/21 Last Liquid Time 04:00 Last Solid Date 05/27/21 Last Solid Time 18:00 Vitals: Temperature 98.2 F 05/28/21 06:00 Temperature Source Temporal Artery S can 05/28/21 06:00 Pulse Rate 92 05/28/21 06:00 Respiratory Rate 20 H 05/28/21 06:00 Blood Pressure 176/104 05/28/21 06:00 Blood Pressure Amanda n 128 05/28/21 06:00 Pulse Oximetry 97 05/28/21 06:00 Oxygen Delivery Me thod 05/28/21 06:04 Exam: Pre-Anes Outpt Exam: alert, oriented x 3, clear to auscultation bilaterally and regular rate & rhythm Cardiac Studies: No Data to Display
[2021-05-28] MEDS: sodium chloride 0.9% 1,000 ML 30 ML IV (06:34)
--- NOTE | 2021-05-28 06:42 | W.PM.OPSUD ---
Surgery/Procedure H&P Update DATE OF PROCEDURE: May 28, 2021 DATE H&P PERFORMED: 05/17/21 H&P UPDATE INFORMATION: I have reviewed H&P completed within last 30 days, I have examined patient prior to procedure and No changes to prior documentation PREOP DIAGNOSIS: T12 compression fracture PLANNED PROCEDURE: Operation Date: 05/28/21 07:00 Proposed Procedures p T12 Kyphoplasty 78312 S22.080A(Not Applicable) - Herminio Barrios DO
[2021-05-28] MEDS: iohexol 300 mg/mL 50 mL Btl (OR ONLY) XX (07:41)
--- NOTE | 2021-05-28 08:06 | PM.OP ---
Operative Report Date of procedure: May 28, 2021 Pre-op Diagnosis: T12 pathologic osteoporotic wedge compression fracture Post-op diagnosis: same Procedure Done: T12 Kyphoplasty Surgeon: Herminio Barrios Anesthesia: General Estimated blood loss (mL): 5 Condition: stable Disposition: PACU Procedure: Patient was brought to the operative suite after undergoing anesthesia was placed in the prone position on the operating table. All areas impingement were well-padded. 2C arms were brought in to get AP and lateral fluoroscopy. Once the C arms were aligned patient was then prepped and draped in normal sterile fashion. Skin incision was made on the outside edge of the left pedicle at the 11 o'clock position the awl was inserted ensuring that it was on the lateral side of the medial aspect of the pedicle. Drill was then inserted this process then repeated on the right pedicle. Starting at the 1 o'clock position. Once the drill was inserted on the right side it was removed and then the balloons were placed and elevated. And then the cement was placed to fill the vertebral body this was done under C-arm guidance once all the cement was placed in the prone position x-rays were taken to ensure the fracture and the cement were good position the tubes were removed wounds were irrigated and closed with Steri-Strips. Sterile dressings were applied patient was transferred to the PACU in stable condition.
[2021-05-28] MEDS: HYDROcodone-acetaminophen 5-325 mg Tablet 1 TAB PO (09:04)
--- NOTE | 2021-05-28 09:54 | ANE.PACU2 ---
Inpatient post-anesthesia follow up: Airway intact: Yes Vital signs: Temperature 97.6 F Pulse Rate 68 Respiratory Rate 18 Blood Pressure 134/68 Pulse Oximetry 97 Oxygen Delivery Me thod Room Air Oxygen Flow Rate 6 Fraction of Inspir ed Oxygen Hydration adequate: Yes Nausea and vomiting: No Pain level: 3 Mental status: Baseline
== END 2021-05-28 09:30 | disposition home or self-care (01) ==
PROVIDERS: PCP Nurse Practitioner Family; Visit Provider Orthopaedic Surgery
PROC: (CPT 22513; principal; 2021-05-28 07:00)
DX: S22.080A Wedge compression fracture of T11-T12 vertebra, initial encounter for closed fracture (principal); X58.XXXA Exposure to other specified factors, initial encounter; I10 Essential (primary) hypertension; K21.9 Gastro-esophageal reflux disease without esophagitis
CPT/HCPCS: 22513; 76000; J0690; J2370; J2405; J2704; J2710; J3010; J3490; J7030

== ENCOUNTER → 2021-06-12 11:19 | Outpatient (BNVA) | payer MEDICARE, MEDICAID, SELFPAY | PROVIDERS: PCP Nurse Practitioner Family; Visit Provider Orthopaedic Surgery | DX: S22.080D Wedge compression fracture of T11-T12 vertebra, subsequent encounter for fracture with routine healing; X58.XXXD Exposure to other specified factors, subsequent encounter; Z47.89 Encounter for other orthopedic aftercare | CPT/HCPCS: 72070 ==

== ENCOUNTER 2021-06-15 16:53 | Emergency (ER) | payer MEDICARE, MEDICAID, SELFPAY ==
[2021-06-15 17:08] VITALS: BP 180/112; PULSE 88; RESP 16; TEMP 36.8; O2SAT 99; BMI 30.4
--- NOTE | 2021-06-15 17:17 | ED_ITS ---
HPI - Fall General: Chief Complaint: Fall Stated Complaint: fell, dizziness, knot on head, headache Time Seen by Provider: 06/15/21 17:17 History of Present Illness: 75-year-old female comes in today for evaluation of a fall from last Friday. Patient reports that she was getting out of bed last Friday and got up too fast causing her to become dizzy and fall to the ground. Patient hit the left side of her frontal scalp. Since then patient has had some dizziness and nausea that has persisted for the last week. Patient does have a history of a prior head injury with intracranial bleeding. Patient denies any nausea or vomiting. Patient denies any fever. Patient denies any o ther signs or symptoms. Patient has a history of arthritis, T12 compression fracture, right shoulder surgery, asthma, and hypertension. MD complaint: fall Onset (ago): day(s) Fall from: standing Fall witnessed: no Place fall occurred: home Loss of consciousness: None Prolonged down time: no Symptoms prior to fall: lightheadedness Context: tripped/slipped Location of injury: head Location of injury - extremities: Bilateral: knee Severity: mild Review of Systems General: Reports: 10 or more systems reviewed and unremarkable except in HPI and below GI: Reports: nausea Neuro: Reports: dizziness PFSH ED PFSH: Medical History (Updated 06/15/21 @ 19:39 by LEWIS Gracia) Environmental and seasonal allergies Essential hypertension Patient was seen in the office several months ago and instructed to take home blood pressure readings and return to the office. Patient did not followup, but today has elevated pressure of 160/100. She states it goes up and down at home. GERD (gastroesophageal reflux disease) Surgical History S/P cholecystectomy Status post Hope fundoplication Patient reports GERD Wrap Surgery Status post total right knee replacement Social History Smoking and tobacco status: never smoked Second hand smoke exposure: No Alcohol intake: never Lives independently: Yes Household members: none Marital status: / Current occupational status: retired History of recent travel: No Current gender identity: Female Physical Exam Const: COMMON NORMALS: alert HENMT: COMMON NORMALS: Normal external nose present HEAD & SCALP: contusion (Healing contusion left forehead); no palpable skull fracture NOSE: Normal external nose present and Normal nares present MOUTH: Normal oral and palatal mucosa present THROAT: posterior oropharynx normal Neck/C-Spine: COMMON NORMALS: full ROM and no lymphadenopathy CERVICAL SPINE: No Cervical spine tenderness Chest: COMMONS NORMALS: normal palpation of entire chest wall Resp: COMMON NORMALS: normal respiratory effort Cardio: COMMON NORMALS: regular rate and regular rhythm RATE: regular rate RHYTHM: regular rhythm GI: COMMON NORMALS: Soft to palpation and non-tender PALPATION: Yes Soft to palpation Back/Pelvis: THORACIC SPINE/UPPER BACK: No thoracic spinal tenderness LUMBAR SPINE/LOWER BACK: No lumbar spinal tenderness Extremity: RIGHT LOWER EXTREMITY: Yes knee joint (Anterior contusion) Right knee: Yes inspection, Yes palpation and Yes ROM LEFT LOWER EXTREMITY: Yes knee joint (Anterior contusion) Left knee: Yes inspection, Yes palpation and Yes ROM Neuro: MICHELLE COMA SCALE: document GCS findings Michelle coma scale eye opening: Spontaneous Sullivan coma scale verbal response: Orientated Sullivan coma scale motor response: Obey commands Michelle coma scale total score: 15 SENSORIUM/ORIENTATION: Yes alert CRANIAL NERVES: Yes CN normal except as noted GAIT: Yes Normal gait present MOTOR EXAM: Normal motor muscle tone present throughout PUPIL EXAM: Normal pupillary reactivity/response: bilateral Psych: COMMON NORMALS: cooperative Skin: TRAUMA: abrasion (Bilateral anterior knee, left forehead) Course Vital Signs: Vital signs: Vital Signs Temperature 98.2 F 06/15/21 17:08 Pulse Rate 81 06/15/21 19:10 Respiratory Rate 18 06/15/21 19:10 Blood Pressure 196/94 06/15/21 19:10 Pulse Oximetry 96 06/15/21 19:10 MDM - Fall Medical Decision Making 75-year-old female comes in for evaluation of head injury from 1 week ago. Patient has had a persistent headache since her fall and head injury. On exam patient is alert oriented. No signs of focal neural deficits. Pupils are equal and reactive. Patient does have some bruising to bilateral knees and a bruise to the left frontal scalp area. Differential diagnosis includes but not limited to skull fracture, intracranial bleeding, concussion syndrome. CT of the head was unremarkable except for some mild sinusitis. Patient believes that it might be a sinus infection after being informed of CT results. We will start patient on doxycycline 100 mg twice a day for the next 7 days. And also add some Flonase 1 spray each nostril twice a day for sinus inflammation. Encourage plenty of fluids and medications as directed and follow-up with primary care. Patient reported understanding. Lab Data Radiology Impressions Head CT 06/15/21 17:33 IMPRESSION: No acute intracranial abnormality. Mild sinusitis. Discharge Plan Discharge Patient Disposition: Home Clinical Impression: Acute rhinosinusitis Head injury Qualifiers: Encounter type: initial encounter Qualified Code(s): S09.90XA - Unspecified injury of head, initial encounter Headache Qualifiers: Headache type: post-traumatic Headache chronicity pattern: unspecified pattern Intractability: not intractable Qualified Code(s): G44.309 - Post-traumatic headache, unspecified, not intractable Condition: Stable Prescriptions: New doxycycline monohydrate 100 mg capsule 100 mg PO Q12H 7 Days Qty: 14 0RF Flonase Allergy Relief 50 mcg/actuation spray,suspension 1 spray intranasal BID 14 Days Qty: 16 0RF Rx Instructions: administer into each nostril No Action (DME) TLSO back brace See Rx Instructions .Route .MEDSUPPLY Qty: 1 0RF Rx Instructions: As directed prednisone 20 mg tablet 20 mg PO DAILY Qty: 15 0RF Rx Instructions: Take 60 mg daily for days 1, 2, 3 Take 40 mg daily for days 4, 5 Take 20 mg daily for 6, 7 hydrocodone-acetaminophen 5-325 mg tablet 1 - 2 tab PO .Q4-6H 7 Days Qty: 40 0RF hydrocodone-acetaminophen 5-325 mg tablet 1 tab PO QID 0RF Discharge Orders: Discharge ED (Routine); Ordered 06/15/21 Ordered By: Jorge Joel Referrals: Ericka Collins FNP [Primary Care Provider] - Discharge Diet: Usual diet Discharge Activity: Increase activity as tolerated Patient Instructions: Head Injury (ED), Opioid Safety Activity Restrictions/Additional Instructions: Drink plenty of fluids of medication. Take doxycycline for your sinus infection for the next 7 days. Use Flonase 1 spray each nostril twice a day to help with sinus inflammation. Drink plenty of water with medication. Follow-up with primary care. Return to ER for new concerns or worsening symptoms. Coding Level of Care Code ED Food And Nutrition Professor for Jose Fwd Exam Comprehensive
--- NOTE | 2021-06-15 17:33 | CTR_ITS ---
PROCEDURE INFORMATION: Exam: CT Head Without Contrast Exam date and time: 06/15/2021 5:33 PM Age: 75 years old Clinical indication: Injury or trauma; Fall; Blunt trauma (contusions or hematomas); Without loss of consciousness; Additional info: Fall head injury TECHNIQUE: Imaging protocol: Computed tomography of the head without contrast. Radiation optimization: All CT scans at this facility use at least one of these dose optimization techniques: automated exposure control; mA and/or kV adjustment per patient size (includes targeted exams where dose is matched to clinical indication); or iterative reconstruction. 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 Mild atrophy and mild white matter chronic microvascular changes are noted. No hemorrhage or evidence of acute infarction. Cerebral ventricles: No ventriculomegaly. Paranasal sinuses: Mild left sphenoid sinusitis is noted. Mastoid air cells: Visualized mastoid air cells are well aerated. Bones/joints: Unremarkable. No acute fracture. Soft tissues: Unremarkable. CT/CT head wo con* [id number] IMPRESSION: No acute intracranial abnormality. Mild sinusitis.
[2021-06-15 19:10] VITALS: BP 196/94; PULSE 81; RESP 18; O2SAT 96
[2021-06-15] MEDS: acetaminophen 500 mg Tablet 1000 MG PO (19:20)
[2021-06-15] MEDS: doxycycline 100 mg Tablet PO (19:46)
== END 2021-06-15 19:53 | disposition home or self-care (01) ==
PROVIDERS: Emergency Provider Nurse Practitioner Family; PCP Nurse Practitioner Family
DX: G44.309 Post-traumatic headache, unspecified, not intractable (principal); S09.90XA Unspecified injury of head, initial encounter; J01.90 Acute sinusitis, unspecified; I10 Essential (primary) hypertension; W18.30XA Fall on same level, unspecified, initial encounter
CPT/HCPCS: 70450; 99283

== ENCOUNTER → 2021-06-18 10:24 | Outpatient (BNVA) | payer MEDICARE, MEDICAID, SELFPAY | PROVIDERS: PCP Nurse Practitioner Family; Referring Provider Orthopaedic Surgery; Visit Provider Anesthesiology Pain Medicine | DX: S22.080A Wedge compression fracture of T11-T12 vertebra, initial encounter for closed fracture (principal); M19.072 Primary osteoarthritis, left ankle and foot; I10 Essential (primary) hypertension; X58.XXXA Exposure to other specified factors, initial encounter; Z79.891 Long term (current) use of opiate analgesic; M54.9 Dorsalgia, unspecified | CPT/HCPCS: 99205; 99214 ==

== ENCOUNTER 2021-07-07 18:03 | Emergency (ER) | payer MEDICARE, MEDICAID, SELFPAY ==
[2021-07-07 18:16] VITALS: BP 170/103; PULSE 88; RESP 20; TEMP 36.8; O2SAT 96; BMI 29.2
--- NOTE | 2021-07-07 19:06 | W.ED.EXTPRO ---
Documented by User: LEWIS Gracia 07/07/21 20:56 HPI - Extremity Problem General: Chief complaint: Extremity Injury, Lower Stated complaint: Right foot turning black Time Seen by Provider: 07/07/21 19:04 History of Present Illness: 76-year-old female comes in today with complaints of discoloration of the third and fourth digit of the right foot. Patient noticed it 2 days ago and her home health nurse had evaluated her today and thought she might have a blood clot. Patient reports soaking her foot in [place] salt water for the last 2 days. Patient denies injury that she can recall. Review of Systems General: Reports: 10 or more systems reviewed and unremarkable except in HPI and below Musc: Reports: extremity swelling (Swelling and ecchymosis to the right foot at the third and fourth toe) [facility] ED PFSH: Medical History (Updated 07/07/21 @ 20:52 by LEWIS Gracia) Environmental and seasonal allergies Essential hypertension Patient was seen in the office several months ago and instructed to take home blood pressure readings and return to the office. Patient did not followup, but today has elevated pressure of 160/100. She states it goes up and down at home. GERD (gastroesophageal reflux disease) Surgical History S/P cholecystectomy Status post Hope fundoplication Patient reports GERD Wrap Surgery Status post total right knee replacement Social History (Updated 06/18/21 @ 10:56 by Ghada Maurer LPN) Smoking and tobacco status: never smoked Second hand smoke exposure: No Alcohol intake: never Lives independently: Yes Household members: none Marital status: / Current occupational status: retired History of recent travel: No Current gender identity: Female Physical Exam Const: COMMON NORMALS: alert HENMT: COMMON NORMALS: normocephalic HEAD & SCALP: normocephalic Resp: COMMON NORMALS: normal respiratory effort Cardio: COMMON NORMALS: regular rate and regular rhythm RATE: regular rate RHYTHM: regular rhythm Extremity: RIGHT LOWER EXTREMITY: Yes foot & digits (Ecchymosis and mild swelling noted to the third and fourth digit of the rig) Right foot and digits: Yes inspection, Yes palpation, Yes ROM and Yes neurovascular exam Neuro: SENSORIUM/ORIENTATION: Yes alert Course Vital Signs: Vital signs: Vital Signs Temperature 98.2 F 07/07/21 18:16 Pulse Rate 75 07/07/21 21:19 Respiratory Rate 18 07/07/21 21:19 Blood Pressure 188/102 07/07/21 21:19 Pulse Oximetry 96 07/07/21 21:19 MDM - Extremity (Nontraumatic) Medical Decision Making 76-year-old female comes in today with concerns of discoloration to the third and fourth toe of the right foot. On exam patient appears well. Patient reports minimal pain and discomfort to the digits of the toe. Pulses are intact to the foot. Patient reports that home health said that they thought she might have a blood clot. Differential diagnosis includes contusion, fracture of the toe, DVT. Ultrasound of the extremity was negative for DVT. X-ray of the foot noted a distal tuft fracture of the third digit. Reviewed exam with patient with recommendations for treatment of fracture of the toe. Case management will make appointment for follow-up with orthopedics/podiatry for further evaluation and treatment. Patient routinely sees Dr. Cardenas for her care. Lab Data : 07/07/21 20:41 07/07/21 20:41 Radiology Impressions Foot X-Ray 07/07/21 19:14 IMPRESSION: No acute radiographic findings. Venous Duplex 07/07/21 19:14 IMPRESSION: No sonographic evidence of deep venous thrombosis. Laboratory Results WBC 6.7 10^3/uL (4.0-10.0) 07/07/21 20:41 RBC 4.55 10^6/uL (4.1-5.3) 07/07/21 20:41 Hgb 14.7 g/dL (11.5-15.3) 07/07/21 20:41 Hct 46.7 % (37.0-47.0) 07/07/21 20:41 MCV 102.6 fl (81-99) H 07/07/21 20:41 MCH 32.3 pg (28.0-34.0) 07/07/21 20:41 MCHC 31.5 g/dL (30.0-36.0) 07/07/21 20:41 RDW 13.2 % (12.1-15.1) 07/07/21 20:41 Plt Count 171 10^3/cmm (130-400) 07/07/21 20:41 MPV 10.8 fL (7.4-10.4) H 07/07/21 20:41 Neut % (Auto) 51.0 % 07/07/21 20:41 Lymph % (Auto) 36.1 % 07/07/21 20:41 Christian % (Auto) 9.1 % 07/07/21 20:41 Eos % (Auto) 3.3 % 07/07/21 20:41 Baso % (Auto) 0.4 % 07/07/21 20:41 Neut # (Auto) 3.42 10^3/uL (1.8-7.7) 07/07/21 20:41 Lymph # (Auto) 2.4 10^3/uL (0.8-4.8) 07/07/21 20:41 Christian # (Auto) 0.6 10^3/uL (0.2-0.9) 07/07/21 20:41 Eos # (Auto) 0.2 10^3/uL (0.0-0.8) 07/07/21 20:41 Baso # (Auto) 0.0 10^3/uL (0.0-0.1) 07/07/21 20:41 Nucleated RBC % (auto) 0 % 07/07/21 20: Nucleated RBCs # 0.0 /100WBC 07/07/21 20:41 PT 12.50 SECONDS (12.1-14.9) 07/07/21 20:41 INR 0.90 (0.8-1.2) 07/07/21 20:41 Sodium 137 mmol/L (136-145) 07/07/21 20:41 Potassium 5.3 mmol/L (3.5-5.1) H 07/07/21 20:41 Chloride 103 mmol/L (98-107) 07/07/21 20:41 Carbon Dioxide 22 mmol/L (22-29) 07/07/21 20:41 Anion Gap 17.3 (5-19) 07/07/21 20:41 BUN 15 mg/dL (8-23) 07/07/21 20:41 Creatinine 0.8 mg/dL (0.5-0.9) 07/07/21 20:41 GFR Calculation Not Reportable 07/07/21 20:41 Glucose 87 mg/dL (65-115) 07/07/21 20:41 Calculated Osmolality 284 mOsm/kg (285-295) L 07/07/21 20:41 Calcium 9.3 mg/dL (8.5-10.5) 07/07/21 20:41 Total Bilirubin 0.4 mg/dL (0.15-1.2) 07/07/21 20:41 AST 41 U/L (0-32) H 07/07/21 20:41 ALT 11 U/L (0-33) 07/07/21 20:41 Alkaline Phosphatase 86 IU/L (35-105) 07/07/21 20:41 Total Protein 7.4 g/dL (6.6-8.7) 07/07/21 20:41 Albumin 3.6 g/dL (3.5-5.2) 07/07/21 20:41 Globulin 3.8 g/dL (1.3-4.6) 07/07/21 20:41 Discharge Plan Discharge Patient Disposition: Home Clinical Impression: Fracture of toe Qualifiers: Encounter type: initial encounter Toe: lesser toe Fracture type: closed Phalanx: distal Fracture alignment: nondisplaced Laterality: right Qualified Code(s): S92.534A - Nondisplaced fracture of distal phalanx of right lesser toe(s), initial encounter for closed fracture Condition: Stable Prescriptions: No Action (DME) TLSO back brace See Rx Instructions .Route .MEDSUPPLY Qty: 1 0RF Rx Instructions: As directed prednisone 20 mg tablet 20 mg PO DAILY Qty: 15 0RF Rx Instructions: Take 60 mg daily for days 1, 2, 3 Take 40 mg daily for days 4, 5 Take 20 mg daily for 6, 7 hydrocodone-acetaminophen 5-325 mg tablet 1 - 2 tab PO .Q4-6H 7 Days Qty: 40 0RF hydrocodone-acetaminophen 5-325 mg tablet 1 tab PO QID 0RF Discharge Orders: Discharge ED (Routine); Ordered 07/07/21 Ordered By: Jorge Joel Referrals: Ericka Collins FNP [Primary Care Provider] - Discharge Diet: Usual diet Discharge Activity: Increase activity as tolerated Patient Instructions: Toe Fracture (ED), Opioid Safety Activity Restrictions/Additional Instructions: Ben tape the third and fourth toes together. Wear a supportive shoe. Elevate foot as much as possible. Follow-up with podiatry for further evaluation and treatment. Return to ER for new concerns. Coding Level of Care Code ED Hydrotreater Operator for Chg Fwd Exam Detailed Documented by User: Koffi Tejada, 07/07/21 23:04 HPI - Extremity Problem General: Chief complaint: Extremity Injury, Lower Stated complaint: Right foot turning black Time Seen by Provider: 07/07/21 19:04 PFSH ED PFSH: Medical History (Updated 07/07/21 @ 20:52 by LEWIS Gracia) Environmental and seasonal allergies Essential hypertension Patient was seen in the office several months ago and instructed to take home blood pressure readings and return to the office. Patient did not followup, but today has elevated pressure of 160/100. She states it goes up and down at home. GERD (gastroesophageal reflux disease) Surgical History S/P cholecystectomy Status post Hope fundoplication Patient reports GERD Wrap Surgery Status post total right knee replacement Social History (Updated 06/18/21 @ 10:56 by Ghada Maurer LPN) Smoking and tobacco status: never smoked Second hand smoke exposure: No Alcohol intake: never Lives independently: Yes Household members: none Marital status: / Current occupational status: retired History of recent travel: No Current gender identity: Female Course Vital Signs: Vital signs: Vital Signs Temperature 98.2 F 07/07/21 18:16 Pulse Rate 75 07/07/21 21:19 Respiratory Rate 18 07/07/21 21:19 Blood Pressure 188/102 07/07/21 21:19 Pulse Oximetry 96 07/07/21 21:19 MDM - Extremity (Nontraumatic) Medical Decision Making 76-year-old female comes in today with concerns of discoloration to the third and fourth toe of the right foot. On exam patient appears well. Patient reports minimal pain and discomfort to the digits of the toe. Pulses are intact to the foot. Patient reports that home health said that they thought she might have a blood clot. Differential diagnosis includes contusion, fracture of the toe, DVT. Ultrasound of the extremity was negative for DVT. X-ray of the foot noted a distal tuft fracture of the third digit. Reviewed exam with patient with recommendations for treatment of fracture of the toe. Case management will make appointment for follow-up with orthopedics/podiatry for further evaluation and treatment. Patient routinely sees Dr. Cardenas for her care. This patient was originally seen by LEWIS Pabon.? I agree with his history, evaluation, and treatment. Lab Data : 07/07/21 20:41 07/07/21 20:41 Radiology Impressions Foot X-Ray 07/07/21 19:14 IMPRESSION: No acute radiographic findings. Venous Duplex 07/07/21 19:14 IMPRESSION: No sonographic evidence of deep venous thrombosis. Laboratory Results WBC 6.7 10^3/uL (4.0-10.0) 07/07/21 20: RBC 4.55 10^6/uL (4.1-5.3) 07/07/21 20:41 Hgb 14.7 g/dL (11.5-15.3) 07/07/21 20:41 Hct 46.7 % (37.0-47.0) 07/07/21 20:41 MCV 102.6 fl (81-99) H 07/07/21 20:41 MCH 32.3 pg (28.0-34.0) 07/07/21 20: MCHC 31.5 g/dL (30.0-36.0) 07/07/21 20: RDW 13.2 % (12.1-15.1) 07/07/21 20:41 Plt Count 171 10^3/cmm (130-400) 07/07/21 20:41 MPV 10.8 fL (7.4-10.4) H 07/07/21 20:41 Neut % (Auto) 51.0 % 07/07/21 20:41 Lymph % (Auto) 36.1 % 07/07/21 20:41 Christian % (Auto) 9.1 % 07/07/21 20: Eos % (Auto) 3.3 % 07/07/21 20: Baso % (Auto) 0.4 % 07/07/21 20:41 Neut # (Auto) 3.42 10^3/uL (1.8-7.7) 07/07/21 20:41 Lymph # (Auto) 2.4 10^3/uL (0.8-4.8) 07/07/21 20:41 Christian # (Auto) 0.6 10^3/uL (0.2-0.9) 07/07/21 20:41 Eos # (Auto) 0.2 10^3/uL (0.0-0.8) 07/07/21 20:41 Baso # (Auto) 0.0 10^3/uL (0.0-0.1) 07/07/21 20:41 Nucleated RBC % (auto) 0 % 07/07/21 20: Nucleated RBCs # 0.0 /100WBC 07/07/21 20:41 PT 12.50 SECONDS (12.1-14.9) 07/07/21 20:41 INR 0.90 (0.8-1.2) 07/07/21 20:41 Sodium 137 mmol/L (136-145) 07/07/21 20:41 Potassium 5.3 mmol/L (3.5-5.1) H 07/07/21 20:41 Chloride 103 mmol/L (98-107) 07/07/21 20:41 Carbon Dioxide 22 mmol/L (22-29) 07/07/21 20:41 Anion Gap 17.3 (5-19) 07/07/21 20:41 BUN 15 mg/dL (8-23) 07/07/21 20:41 Creatinine 0.8 mg/dL (0.5-0.9) 07/07/21 20:41 GFR Calculation Not Reportable 07/07/21 20:41 Glucose 87 mg/dL (65-115) 07/07/21 20:41 Calculated Osmolality 284 mOsm/kg (285-295) L 07/07/21 20:41 Calcium 9.3 mg/dL (8.5-10.5) 07/07/21 20:41 Total Bilirubin 0.4 mg/dL (0.15-1.2) 07/07/21 20:41 AST 41 U/L (0-32) H 07/07/21 20:41 ALT 11 U/L (0-33) 07/07/21 20:41 Alkaline Phosphatase 86 IU/L (35-105) 07/07/21 20:41 Total Protein 7.4 g/dL (6.6-8.7) 07/07/21 20:41 Albumin 3.6 g/dL (3.5-5.2) 07/07/21 20:41 Globulin 3.8 g/dL (1.3-4.6) 07/07/21 20:41 Discharge Plan Discharge Patient Disposition: Home Clinical Impression: Fracture of toe Qualifiers: Encounter type: initial encounter Toe: lesser toe Fracture type: closed Phalanx: distal Fracture alignment: nondisplaced Laterality: right Qualified Code(s): S92.534A - Nondisplaced fracture of distal phalanx of right lesser toe(s), initial encounter for closed fracture Condition: Stable Prescriptions: No Action (DME) TLSO back brace See Rx Instructions .Route .MEDSUPPLY Qty: 1 0RF Rx Instructions: As directed prednisone 20 mg tablet 20 mg PO DAILY Qty: 15 0RF Rx Instructions: Take 60 mg daily for days 1, 2, 3 Take 40 mg daily for days 4, 5 Take 20 mg daily for 6, 7 hydrocodone-acetaminophen 5-325 mg tablet 1 - 2 tab PO .Q4-6H 7 Days Qty: 40 0RF hydrocodone-acetaminophen 5-325 mg tablet 1 tab PO QID 0RF Discharge Orders: Discharge ED (Routine); Ordered 07/07/21 Ordered By: Jorge Joel Referrals: Ericka Collins FNP [Primary Care Provider] - Discharge Diet: Usual diet Discharge Activity: Increase activity as tolerated Patient Instructions: Toe Fracture (ED), Opioid Safety Activity Restrictions/Additional Instructions: Ben tape the third and fourth toes together. Wear a supportive shoe. Elevate foot as much as possible. Follow-up with podiatry for further evaluation and treatment. Return to ER for new concerns. Coding Level of Care Code ED Hydrotreater Operator for Jose Fwema Exam Detailed
--- NOTE | 2021-07-07 19:14 | USR_ITS ---
PROCEDURE INFORMATION: Exam: US Duplex Right Lower Extremity Veins, Limited Exam date and time: 07/07/2021 7:14 PM Age: 76 years old Clinical indication: Pain; Leg, lower; Right; Additional info: Swelling, color changer right lower ext, R/O dvt TECHNIQUE: Imaging protocol: Real-time Duplex ultrasound of the Right Lower Extremity with 2-D santiago scale, color Doppler flow and spectral waveform analysis with image documentation. Limited exam was focused on the right lower extremity veins. COMPARISON: CR (LOW EXM, ) 07/07/2021 7:47 PM FINDINGS: Right deep veins: Unremarkable. The common femoral, femoral, proximal profunda femoral, popliteal, posterior tibial and peroneal veins are patent without thrombus. Normal Doppler waveforms. Normal compressibility and/or augmentation response. Right superficial veins: Unremarkable. Saphenofemoral junction is patent without thrombus. Soft tissues: Unremarkable. US/[place] [id number] IMPRESSION: No sonographic evidence of deep venous thrombosis.
--- NOTE | 2021-07-07 19:14 | XRR_ITS ---
PROCEDURE INFORMATION: Exam: XR Right Foot Exam date and time: 07/07/2021 7:14 PM Age: 76 years old Clinical indication: Injury or trauma; Fall; Blunt trauma; Right; Injury details: Bruising on top of foot. 3rd, 4th, 5th toes TECHNIQUE: Imaging protocol: XR Right foot. Views: 3 or more views. COMPARISON: CR Knee 3 views, RIGHT* [id number] 12/21/2016 1:51 PM FINDINGS: Bones/joints: Osteopenia. No radiographic evidence of acute fracture or dislocation. Alignment anatomic. Mild degenerative changes. Plantar calcaneal spur. Soft tissues: Enthesopathy at the Achilles tendon insertion. XR/XR foot RT min 3V* [id number] IMPRESSION: No acute radiographic findings.
[2021-07-07 20:52] LABS: Basophils % 0.4 %; Eosinophils # 0.2 10^3/uL (0.0-0.8); Eosinophils % 3.3 %; Hematocrit 46.7 % (37.0-47.0); Hemoglobin 14.7 g/dL (11.5-15.3); Lymphocytes # 2.4 10^3/uL (0.8-4.8); Lymphocytes % 36.1 %; Mean Corpuscular HGB Conc 31.5 g/dL (30.0-36.0); Mean Corpuscular Hemoglobin 32.3 pg (28.0-34.0); Mean Corpuscular Volume 102.6 fl (81-99); Mean Platelet Volume 10.8 fL (7.4-10.4); Monocytes # 0.6 10^3/uL (0.2-0.9); Monocytes % 9.1 %; Neutrophils # 3.42 10^3/uL (1.8-7.7); Nucleated Red Blood Cells % 0 %; Platelet Count 171 10^3/cmm (130-400); Red Blood Count 4.55 10^6/uL (4.1-5.3); Red Cell Distribution Width 13.2 % (12.1-15.1); White Blood Count 6.7 10^3/uL (4.0-10.0)
[2021-07-07 21:19] VITALS: BP 188/102; PULSE 75; RESP 18; O2SAT 96
[2021-07-07 21:53] LABS: Albumin Level 3.6 g/dL (3.5-5.2); Blood Urea Nitrogen 15 mg/dL (8-23); Calcium 9.3 mg/dL (8.5-10.5); Carbon Dioxide 22 mmol/L (22-29); Chloride 103 mmol/L (98-107); Globulin 3.8 g/dL (1.3-4.6); Glucose 87 mg/dL (65-115); Osmolality Calculated 284 mOsm/kg (285-295); Sodium 137 mmol/L (136-145); Total Bilirubin 0.4 mg/dL (0.15-1.2); Total Protein 7.4 g/dL (6.6-8.7)
[2021-07-07 21:55] LABS: Anion Gap 17.3 (5-19); Aspartate Amino Transferase 41 U/L (0-32); Potassium 5.3 mmol/L (3.5-5.1)
[2021-07-07 21:56] LABS: Alanine Aminotransferase 11 U/L (0-33)
[2021-07-07 21:58] LABS: Alkaline Phosphatase 86 IU/L (35-105)
--- NOTE | 2021-07-09 10:35 | DCPLANNER ---
Addendum entered by Lynn Gustafson 07/25/21 14:09: Patient had a follow up appointment scheduled for 07.12.[address] Cardenas at ortho - patient did attend appointment. Addendum entered by Lynn Gustafson 07/10/21 06:55: Patient has a follow up appointment scheduled for July at 3;[address] Cardenas at ortho. Clinic will call patient with appointment information. Original Note: central supply manager had message to schedule a follow up appointment for patient with ortho. central supply manager called the ortho clinic, spoke with Nena, gave clinic patients information. central supply manager was told that patients information would be printed and reviewed. Clinic will call patient with appointment information.
== END 2021-07-07 21:22 | disposition home or self-care (01) ==
PROVIDERS: Emergency Provider Nurse Practitioner Family; PCP Nurse Practitioner Family
DX: S92.534A Nondisplaced fracture of distal phalanx of right lesser toe(s), initial encounter for closed fracture (principal); I10 Essential (primary) hypertension; X58.XXXA Exposure to other specified factors, initial encounter
CPT/HCPCS: 36415; 73630; 80053; 85025; 85610; 93971; 99283

== ENCOUNTER → 2021-07-12 15:12 | Outpatient (BNVA) | payer MEDICARE, MEDICAID, SELFPAY | PROVIDERS: PCP Nurse Practitioner Family; Referring Provider Nurse Practitioner Family; Visit Provider Podiatrist Foot & Ankle Surgery | DX: M25.372 Other instability, left ankle (principal); Z46.89 Encounter for fitting and adjustment of other specified devices | CPT/HCPCS: 73630; 97760; L1902 ==

== ENCOUNTER 2021-07-12 16:21 | Outpatient (CLI) | payer MEDICARE, MEDICAID, SELFPAY | END 2021-07-12 16:22 | disposition home or self-care (01) | LOC: SPT 16:23 | PROVIDERS: PCP Nurse Practitioner Family; Visit Provider Podiatrist Foot & Ankle Surgery | DX: Z46.89 Encounter for fitting and adjustment of other specified devices (principal); M25.372 Other instability, left ankle | CPT/HCPCS: 73630; 97760; L1902 ==

== ENCOUNTER 2021-07-24 07:56 | Outpatient (CLI) | payer MEDICARE, MEDICAID, SELFPAY ==
--- NOTE | 2021-07-24 08:45 | MR_ITS ---
WS: [id number] MRI LUMBAR SPINE NONCONTRAST HISTORY: M54.50 - Low back pain, unspecified COMPARISON: None available. TECHNIQUE: Sagittal and axial multisequence imaging is submitted. Posterior lumbar alignment is normal. Again noted is the 50% compression fracture at T12 with prior k yphoplasty. Very slight retropulsion of posterior superior endplate by 2 mm. No progression. No acute fractures or marrow edema. Disc spaces are mildly desiccated. Vertebral body heights remain normal. Conus terminates normally at L2. At T11-12 and T12-L1 there is mild disc bulging and osteophytic ridging and facet arthritis causing m ild central and foraminal stenosis. Methylmethacrylate from the T12 kyphoplasty extends into the RIGH T thoracic canal at the T12 level. There is mild contact and displacement upon the RIGHT lateral cord . Methylmethacrylate extends over length of 12 mm and is centered just posterior to T12. L1-L2: Normal. L2-L3: Normal. L3-L4: Mild disc bulging with mild ligamentum flavum and facet arthritis. No stenosis or disc protrus ions. L4-L5: Mild asymmetric disc bulging with a shallow RIGHT proximal foraminal disc protrusion causing m ild contact on the traversing RIGHT L5 nerve root and subarticular recess narrowing on the RIGHT. L5-S1: Mild disc bulging with a focal LEFT paracentral disc protrusion contacting the LEFT S1 nerve r oot. Very mild central and LEFT subarticular recess stenosis. RIGHT renal cyst 3.6 cm. MR/MR lumbar spine wo con* [id number] IMPRESSION: 1. Prior kyphoplasty at T12. 50% compression fracture is unchanged. 2. LEFT paracentral disc protrusion at L5-S1 contacts the LEFT S1 nerve root. Mild central and LEFT subarticular recess stenosis at L5-S1. 3. Very minimal disc protrusion proximal RIGHT foramen of L4-5 with minimal co ntact on the traversing RIGHT L5 nerve root narrowing of the RIGHT subarticular recess. 4. Methylmethacrylate extends into the spinal canal at the T12 level extending over length of 12 mm. Very slight contact upon the RIGHT thoracic cord and dis placement at this level.
== END 2021-07-24 07:57 | disposition home or self-care (01) ==
LOC: RAD 07:58
PROVIDERS: PCP Nurse Practitioner Family; Visit Provider Orthopaedic Surgery
DX: M51.27 Other intervertebral disc displacement, lumbosacral region (principal); M48.07 Spinal stenosis, lumbosacral region
CPT/HCPCS: 72148

== ENCOUNTER → 2021-07-26 10:26 | Outpatient (BNVA) | payer MEDICARE, MEDICAID, SELFPAY | PROVIDERS: PCP Nurse Practitioner Family; Visit Provider Anesthesiology Pain Medicine | DX: M51.17 Intervertebral disc disorders with radiculopathy, lumbosacral region (principal); S22.080A Wedge compression fracture of T11-T12 vertebra, initial encounter for closed fracture; M19.072 Primary osteoarthritis, left ankle and foot; I10 Essential (primary) hypertension; X58.XXXA Exposure to other specified factors, initial encounter; Z79.891 Long term (current) use of opiate analgesic | CPT/HCPCS: 99214 ==

== ENCOUNTER → 2021-07-30 14:05 | Outpatient (BNVA) | payer MEDICARE, MEDICAID, SELFPAY | PROVIDERS: PCP Nurse Practitioner Family; Visit Provider Anesthesiology Pain Medicine | DX: M54.16 Radiculopathy, lumbar region (principal); Z79.891 Long term (current) use of opiate analgesic | CPT/HCPCS: 64483; 64484; J1100; J3490 ==

== ENCOUNTER 2021-08-11 11:31 | Emergency (ER) | payer MEDICARE, MEDICAID, SELFPAY ==
[2021-08-11 11:44] VITALS: BP 112/72; PULSE 90; RESP 18; TEMP 36.9; O2SAT 94; BMI 30.9
--- NOTE | 2021-08-11 11:50 | ECG_ITS ---
[facility] Test Date: 2021-08-11 Pat Name: Elisabeth Brown Department: Room: Gender: Female Visual Associate: : 1945 Requested By: Kevin Mg Order Number: [id number] Alexys MD: Zach Patel M.D. Measurements Intervals [place] Rate: 78 P: 53 IN: 171 QRS: 17 QRSD: 77 T: 45 QT: 366 QTc: 417 Interpretive Statements SINUS RHYTHM Compared to ECG 05/21/2021 08:15:25 No significant changes Electronically Signed On 08-11-2021 19:06:18 CDT by Zach Patel M.D. [id number]
--- NOTE | 2021-08-11 12:01 | CTR_ITS ---
PROCEDURE INFORMATION: Exam: CT Abdomen And Pelvis With Contrast Exam date and time: 08/11/2021 2:41 PM Age: 76 years old Clinical indication: Abdominal pain; Generalized; Prior surgery; Surgery date: 6+ months; Surgery type: Gb, al; Patient HX: C/O abd pain since last night TECHNIQUE: Imaging protocol: Computed tomography of the abdomen and pelvis with contrast. Radiation optimization: All CT scans at this facility use at least one of these dose optimization techniques: automated exposure control; mA and/or kV adjustment per patient size (includes targeted exams where dose is matched to clinical indication); or iterative reconstruction. Contrast material: OMNI 300; Contrast volume: 95 ml; Contrast route: INTRAVENOUS (IV); COMPARISON: CT Abdomen/Pelvis [facility] [id number] 02/14/2015 9:30 AM RADIATION DOSE METRICS: Total DLP (mGy-cm): 1661.51 FINDINGS: Lungs: Calcified granuloma anterior right lung base. Liver: Normal. No mass. Gallbladder and bile ducts: Cholecystectomy clips. No abnormal bile duct dilatation. Pancreas: Normal. No ductal dilation. Spleen: Normal. No splenomegaly. Adrenal glands: Normal. No mass. Kidneys and ureters: Left lower pole exophytic simple renal cyst measuring 4 cm. No hydronephrosis or obstructing calculi. Stomach and bowel: Colonic diverticulosis. There is a large amount of fecal retention in the ascending colon with moderate fecal burden in the distal descending colon, sigmoid and rectum. There is ascending colonic dilatation measuring up to 7.6 cm however no obvious obstructive mass or abrupt transition is identified. The transverse colon is also slightly distended and somewhat redundant. There is minimal proximal/mid sigmoid mural thickening with minimal regional pericolonic fat stranding and trace amount of non loculated fluid which may represent nonspecific colitis. Minimal cecal wall thickening is also present suggesting stercoral colitis or other nonspecific colitis, without significant pericolonic fat stranding. No obvious signs of regional acute diverticulitis. No pneumatosis. No small bowel dilatation. Gastric wall is suboptimally assessed due to nondistention. Irregular GE junction is likely related to prior Al fundoplication. Partially visualized distal esophagus demonstrates wall thickening which may be related to esophagitis. Follow-up assessment may be helpful. Appendix: No evidence of appendicitis. Intraperitoneal space: No free air or drainable abscess. Arteries: Unremarkable. No abdominal aortic aneurysm. Lymph nodes: No enlarged lymph nodes. Small calcified lymph node is again noted adjacent to the sigmoid colon, measuring 14 x 7 mm, unchanged with no regional acute inflammatory response. Urinary bladder: Unremarkable as visualized. Reproductive: Unremarkable as visualized. Bones/joints: No acute fracture. Soft tissues: No acute findings. There is a tiny fat containing umbilical hernia. CT/CT abdomen pelvis w con* [id number] IMPRESSION: 1. Significant colonic stool burden with distension of the ascending and transverse colon as described above, likely related to ileus. No other obvious imaging signs of mechanical bowel obstruction or obstructive mass. No pneumatosis, free air or drainable abscess. Mild proximal/mid sigmoid mural thickening with mild regional pericolonic fat stranding and trace amount of non loculated fluid, suggesting nonspecific colitis. Minimal cecal wall thickening is also present as described above. Clinical correlation and follow-up should be obtained. 2. Mild distal esophageal wall thickening. 3. Other nonacute findings as described. COMMENTS: Consistent with the [employer]'s Incidental Findings Committee white paper (J Am Danny Radiol 2018): Any incidental renal lesion less than 1 cm or classified as too small to characterize, or any incidental cystic renal lesion characterized as simple-appearing, is likely benign. No follow-up imaging is recommended for these lesions per consensus recommendations based on imaging criteria.
--- NOTE | 2021-08-11 12:02 | ED_ITS ---
HPI - Abdominal Pain General: Chief Complaint: Nausea/Vomiting/Diarrhea Stated Complaint: dizziness/vomiting/weakness Time Seen by Provider: 08/11/21 11:49 Source: patient Mode of arrival: ambulatory Limitations: no limitations History of Present Illness: 76-year-old female presents emergency room with complaint of moderate abdominal discomfort no bowel movement last several days she tried enemas suppositories with no significant relief. She not had any fever sweats chills she denies any hematochezia melena hematemesis or coffee- ground emesis. No dysuria urgency or frequency. Abdominal pain is crampy and intermittent. MD elicited complaint: abdominal pain Onset (ago): day(s) Pain Consistency: constant and colicky Location: Diffuse Severity: moderate Quality: cramping Radiation: none Migration to: no migration Exacerbating factors: nothing Relieving factors: nothing Associated Symptoms: Reports bloating, GI cramping, nausea, poor appetite and vomiting; Denies anorexia, belching, change in bowel habits, chills, coffee ground emesis, constipation, diarrhea, dyspepsia, dysuria, excessive flatus, fever(s), heartburn, hematochezia, hematuria, hematemesis, fecal incontinence, loose stools, melena and syncope Review of Systems Const: Denies: fever(s) or chills ENMT: Denies: throat pain, ear or mastoid pain, nasal discharge or nasal congestion Card: Denies: syncope Resp: Denies: dyspnea, productive cough or non-productive cough GI: Reports: abdominal pain, nausea, vomiting, bloating and GI cramping; Denies: hematemesis, coffee ground emesis, heartburn, diarrhea, constipation, belching, excessive flatus, fecal incontinence, change in bowel habits, hematochezia or melena : Denies: dysuria or hematuria Skin/Breast: Reports: rash and pruritus [facility] ED PFSH: Medical History (Updated 08/11/21 @ 16:42 by Kevin Arce DO) Environmental and seasonal allergies Essential hypertension Patient was seen in the office several months ago and instructed to take home blood pressure readings and return to the office. Patient did not followup, but today has elevated pressure of 160/100. She states it goes up and down at home. GERD (gastroesophageal reflux disease) Surgical History S/P cholecystectomy Status post Hope fundoplication Patient reports GERD Wrap Surgery Status post total right knee replacement Social History Smoking and tobacco status: never smoked Second hand smoke exposure: No Alcohol intake: never Lives independently: Yes Household members: none Marital status: / Current occupational status: retired History of recent travel: No Current gender identity: Female Physical Exam Const: COMMON NORMALS: no acute distress GENERAL APPEARANCE: cooperative and comfortable ORIENTATION/CONSCIOUSNESS: Yes awake, Yes oriented to person, Yes oriented to place and Yes oriented to time HENMT: COMMON NORMALS: normocephalic, atraumatic and hearing grossly normal b ilaterally HEAD & SCALP: normocephalic and atraumatic Neck/C-Spine: COMMON NORMALS: no JVD Resp: COMMON NORMALS: normal respiratory effort, No retractions, No use of accessory muscles and clear to auscultation bilaterally AUSCULTATION: clear to auscultation bilaterally Cardio: COMMON NORMALS: no JVD, regular rate, regular rhythm and No murmurs present (Cardio) RATE: regular rate RHYTHM: regular rhythm GI: COMMON NORMALS: No hepatosplenomegaly present INSPECTION: Yes abdominal distension AUSCULTATION: Yes normoactive bowel sounds PALPATION: Yes Tenderness to palpation present (GI) (difuse), No Guarding due to palpation present (GI) and Yes No hepatosplenomegaly present PERCUSSION: tympanic to percussion : COMMON NORMALS: Yes no CVA tenderness BLADDER/KIDNEY EXAM: Yes no CVA t enderness Back/Pelvis: COMMON NORMALS: no CVA tenderness Extremity: COMMON NORMALS: normal to inspection, capillary refill normal, no clubbing, cyanosis or edema, no calf tenderness and no pedal edema Neuro: SENSORIUM/ORIENTATION: Yes oriented to person, Yes oriented to place and Yes oriented to time Skin: COMMON NORMALS: no rashes or lesions noted GENERAL SKIN EXAM: no rashes or lesions noted Course Vital Signs: Vital signs: Vital Signs Temperature 98.5 F 08/11/21 11:44 Pulse Rate 76 08/11/21 16:18 Respiratory Rate 16 08/11/21 16:18 Blood Pressure 165/94 08/11/21 16:18 Pulse Oximetry 94 08/11/21 16:18 MDM - Abdominal Pain Medical Decision Making CT reviewed patient has large amount of constipation but no evidence of obs truction reviewed the findings with her. Will discharge home encourage clear liquid diet can use mag citrate or GoLYTELY can use suppositories versus glycerin or other [id number] suppositories would discourage the use of enemas at this point the stool mass causing concern is high enough to know that that will particularly be helpful and the CT finding of questionable diverticulitis. Recheck if has any worsening. White count is slightly elevated in the body of the CT report to suggest her may be a little mild diverticular inflammation. We will set her up on some Cipro and Flagyl. Medical Records I reviewed the patient's medical records. Lab Data I reviewed the patient's lab results. : 08/11/21 13:40 08/11/21 13:40 Labs/Radiology: Radiology Impressions Abdomen/Pelvis CT 08/11/21 12:01 IMPRESSION: 1. Significant colonic stool burden with distension of the ascending and transverse colon as described above, likely related to ileus. No other obvious imaging signs of mechanical bowel obstruction or obstructive mass. No pneumatosis, free air or drainable abscess. Mild proximal/mid sigmoid mural thickening with mild regional pericolonic fat stranding and trace amount of non loculated fluid, suggesting nonspecific colitis. Minimal cecal wall thickening is also present as described above. Clinical correlation and follow-up should be obtained. 2. Mild distal esophageal wall thickening. 3. Other nonacute findings as described. COMMENTS: Consistent with the [place] [employer]'s Incidental Findings Committee white paper (J Am Danny Radiol 2018): Any incidental renal lesion less than 1 cm or classified as too small to characterize, or any incidental cystic renal lesion characterized as simple-appearing, is likely benign. No follow-up imaging is recommended for these lesions per consensus recommendations based on imaging criteria. Laboratory Results WBC 14.0 10^3/uL (4.0-10.0) H 08/11/21 13:40 RBC 5.00 10^6/uL (4.1-5.3) 08/11/21 13:40 Hgb 16.0 g/dL (11.5-15.3) H 08/11/21 13:40 Hct 48.3 % (37.0-47.0) H 08/11/21 13:40 MCV 96.6 fl (81-99) 08/11/21 13:40 MCH 32.0 pg (28.0-34.0) 08/11/21 13:40 MCHC 33.1 g/dL (30.0-36.0) 08/11/21 13:40 RDW 12.9 % (12.1-15.1) 08/11/21 13:40 Plt Count 188 10^3/cmm (130-400) 08/11/21 13:40 MPV 10.1 fL (7.4-10.4) 08/11/21 13:40 Neut % (Auto) 83.0 % 08/11/21 13:40 Lymph % (Auto) 11.0 % 08/11/21 13:40 Toole % (Auto) 5.4 % 08/11/21 13:40 Eos % (Auto) 0.0 % 08/11/21 13:40 Baso % (Auto) 0.2 % 08/11/21 13:40 Neut # (Auto) 11.59 10^3/uL (1.8-7.7) H 08/11/21 13:40 Lymph # (Auto) 1.5 10^3/uL (0.8-4.8) 08/11/21 13:40 Toole # (Auto) 0.8 10^3/uL (0.2-0.9) 08/11/21 13:40 Eos # (Auto) 0.0 10^3/uL (0.0-0.8) 08/11/21 13:40 Baso # (Auto) 0.0 10^3/uL (0.0-0.1) 08/11/21 13:40 Nucleated RBC % (auto) 0 % 08/11/21 13:40 Nucleated RBCs # 0.0 /100WBC 08/11/21 13:40 Sodium 139 mmol/L (136-145) 08/11/21 13:40 Potassium 4.2 mmol/L (3.5-5.1) 08/11/21 13:40 Chloride 100 mmol/L (98-107) 08/11/21 13:40 Carbon Dioxide 30 mmol/L (22-29) H 08/11/21 13:40 Anion Gap 13.2 (5-19) 08/11/21 13:40 BUN 19 mg/dL (8-23) 08/11/21 13:40 Creatinine 0.7 mg/dL (0.5-0.9) 08/11/21 13:40 GFR Calculation Not Reportable 08/11/21 13:40 Glucose 123 mg/dL (65-115) H 08/11/21 13:40 Calculated Osmolality 292 mOsm/kg (285-295) 08/11/21 13:40 Lactic Acid 1.4 mmol/L (0.5-2.2) 08/11/21 13:40 Calcium 9.6 mg/dL (8.5-10.5) 08/11/21 13:40 Total Bilirubin 1.2 mg/dL (0.15-1.2) 08/11/21 13:40 AST 23 U/L (0-32) 08/11/21 13:40 ALT 9 U/L (0-33) 08/11/21 13:40 Alkaline Phosphatase 95 IU/L (35-105) 08/11/21 13:40 Total Protein 8.1 g/dL (6.6-8.7) 08/11/21 13:40 Albumin 4.1 g/dL (3.5-5.2) 08/11/21 13:40 Globulin 4.0 g/dL (1.3-4.6) 08/11/21 13:40 Lipase 11 U/L (13-60) L 08/11/21 13:40 Discharge Plan Discharge Patient Disposition: Home Clinical Impression: Constipation by delayed colonic transit, Diverticulitis Condition: Stable Prescriptions: New magnesium citrate Solution 150 ml PO BID PRN (Reason: constipation) Qty: 296 0RF ciprofloxacin HCl 500 mg tablet 500 mg PO BID Qty: 14 0RF metronidazole 500 mg tablet 500 mg PO TID Qty: 21 0RF No Action gabapentin 100 mg capsule 100 mg PO BID Qty: 60 0RF duloxetine 30 mg capsule,delayed release(DR/EC) 30 mg PO DAILY 0RF hydrocodone-acetaminophen 5-325 mg tablet 1 - 2 tab PO .Q4-6H PRN (Reason: Pain) 0RF Discharge Orders: Discharge ED (Routine); Ordered 08/11/21 Ordered By: Kevin Arce Referrals: Ericka Collins FNP [Primary Care Provider] - Discharge Diet: Clear Liquid Discharge Activity: Increase activity as tolerated Patient Instructions: Opioid Safety Activity Restrictions/Additional Instructions: Use [id number] glycerin suppositories or other suppositories to stimulate bowel movement can also use mag citrate half bottle every 8-12 hours until adequate results achieved follow-up with your primary care doctor. Coding Level of Care Code ED Value Analysis Coordinator for Chg Fwd Exam Comprehensive
--- NOTE | 2021-08-11 12:28 | PC.NURSE ---
RN made two attempts at IV, unsuccessful, another RN going in at this time.
--- NOTE | 2021-08-11 12:37 | PC.NURSE ---
conveyor monitor placed on patient.
[2021-08-11 12:59] VITALS: BP 148/74; PULSE 75; RESP 17; O2SAT 97
--- NOTE | 2021-08-11 13:13 | PC.NURSE ---
Delay in medication and blood work due to no IV access, RN and 2 other nurses attempted IV. Dr. Yazmin chris.
--- NOTE | 2021-08-11 13:27 | PC.NURSE ---
Dr. Arce at bedside.
[2021-08-11 13:50] LABS: Basophils % 0.2 %; Hematocrit 48.3 % (37.0-47.0); Lymphocytes # 1.5 10^3/uL (0.8-4.8); Mean Corpuscular HGB Conc 33.1 g/dL (30.0-36.0); Mean Corpuscular Volume 96.6 fl (81-99); Mean Platelet Volume 10.1 fL (7.4-10.4); Monocytes # 0.8 10^3/uL (0.2-0.9); Monocytes % 5.4 %; Neutrophils # 11.59 10^3/uL (1.8-7.7); Nucleated Red Blood Cells % 0 %; Platelet Count 188 10^3/cmm (130-400); Red Cell Distribution Width 12.9 % (12.1-15.1)
[2021-08-11] MEDS: sodium chloride 0.9% 1,000 ML 999 ML IV (13:51)
[2021-08-11 13:52] VITALS: RESP 16
[2021-08-11] MEDS: ondansetron 2 mg/ML SDV 2 mL 4 MG IVP (13:52)
[2021-08-11] MEDS: morphine 4 mg/mL SDV 1 mL IVP (13:52)
[2021-08-11 14:05] LABS: Lactic Sepsis W/Reflex 1.4 mmol/L (0.5-2.2)
[2021-08-11 14:11] VITALS: BP 140/79; PULSE 79; RESP 18; O2SAT 95
[2021-08-11 14:16] LABS: Alanine Aminotransferase 9 U/L (0-33); Albumin Level 4.1 g/dL (3.5-5.2); Alkaline Phosphatase 95 IU/L (35-105); Aspartate Amino Transferase 23 U/L (0-32); Blood Urea Nitrogen 19 mg/dL (8-23); Calcium 9.6 mg/dL (8.5-10.5); Carbon Dioxide 30 mmol/L (22-29); Chloride 100 mmol/L (98-107); Glucose 123 mg/dL (65-115); Lipase 11 U/L (13-60); Osmolality Calculated 292 mOsm/kg (285-295); Sodium 139 mmol/L (136-145); Total Bilirubin 1.2 mg/dL (0.15-1.2); Total Protein 8.1 g/dL (6.6-8.7)
[2021-08-11 14:25] LABS: Anion Gap 13.2 (5-19); Potassium 4.2 mmol/L (3.5-5.1)
[2021-08-11] MEDS: iohexol 300 mg/mL 100 mL Btl IV (14:41)
[2021-08-11 14:51] VITALS: BP 151/90; PULSE 75; RESP 13; O2SAT 93
--- NOTE | 2021-08-11 14:52 | PC.NURSE ---
Patient returned from CT, warm blankets provided, pain under control. Lights turned off.
--- NOTE | 2021-08-11 15:02 | PC.NURSE ---
RN verified with Dr. Arce regarding second dose of morphine, okay to hold off per DR. Arce, patient pain 0/10 at this time.
[2021-08-11 16:18] VITALS: BP 165/94; PULSE 76; RESP 16; O2SAT 94
--- NOTE | 2021-08-11 16:52 | PC.NURSE ---
medications called into [facility] per Dr. Arce Cipro 500mg PO BID x7days Flagyl 500mg PO TID x 7 days
== END 2021-08-11 16:20 | disposition home or self-care (01) ==
PROVIDERS: Emergency Provider Family Medicine; PCP Nurse Practitioner Family
DX: K59.01 Slow transit constipation (principal); K57.92 Diverticulitis of intestine, part unspecified, without perforation or abscess without bleeding; Z79.891 Long term (current) use of opiate analgesic
CPT/HCPCS: 74177; 80053; 83605; 83690; 85025; 93005; 96361; 96374; 96375; 99284; J2270; J2405; J7030; Q9967

== ENCOUNTER → 2021-08-29 09:20 | Outpatient (BNVA) | payer MEDICARE, MEDICAID, SELFPAY | PROVIDERS: PCP Nurse Practitioner Family; Visit Provider Anesthesiology Pain Medicine | DX: M51.16 Intervertebral disc disorders with radiculopathy, lumbar region (principal); S22.080A Wedge compression fracture of T11-T12 vertebra, initial encounter for closed fracture; M19.072 Primary osteoarthritis, left ankle and foot; X58.XXXA Exposure to other specified factors, initial encounter; I10 Essential (primary) hypertension; Z79.891 Long term (current) use of opiate analgesic | CPT/HCPCS: 99214 ==

== ENCOUNTER → 2021-09-05 14:25 | Outpatient (BNVA) | payer MEDICARE, MEDICAID, SELFPAY | PROVIDERS: PCP Nurse Practitioner Family; Visit Provider Anesthesiology Pain Medicine | DX: Z79.891 Long term (current) use of opiate analgesic (principal); M47.816 Spondylosis without myelopathy or radiculopathy, lumbar region | CPT/HCPCS: 64493; 64494; 64495 ==

== ENCOUNTER 2021-09-14 12:48 | Outpatient (CLI) | payer MEDICARE, MEDICAID, SELFPAY ==
--- NOTE | 2021-09-14 12:57 | MR_ITS ---
WS: [id number] MRI HEAD WITHOUT CONTRAST WITH ATTENTION TO THE INTERNAL AUDITORY CANALS TECHNIQUE: Sagittal T1, T2 axial, T2 axial flair, axial susceptibility weighted imaging, axial diffus ion weighted images, and coronal T2 images were obtained. Pre T1 axial and T1 coronal images. ADC and FSPGR images. Pregadolinium T1 images with attention to the internal auditory canals. Axial fiesta i maging. CLINICAL INFORMATION: DIZZINESS COMPARISON: CT June 15, 2021 FINDINGS: Gadolinium was not administered. Unable to obtain IV access. No evidence of restricted diffusion to suggest acute ischemia. Ventricular system and basal cisterns are patent. Moderate small vessel changes. Mild parenchymal volume loss. 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 Additional tiny chronic infarcts in the super cerebellum. Normal ICA f low voids at the skull base. Tiny basilar artery with dominant anterior circulation. No extra-axial f luid coallections. No evidence of mass or mass effect. Mild mucosal thickening in the paranasal sinus es. Mastoid air cells well aerated. No hemosiderin on the susceptibly weighted images. Normal optic chiasm and pituitary infundibulum. Mi ld symmetric atrophy temporal lobes and hippocampal formations. Noncontrast Proximal 7th and 8th cran ial nerves are normal. Normal trigeminal nerve root entry zones. MR/MR iac's wo con [id number] IMPRESSION: Gadolinium was not administered. Unable to obtain IV access. 1. No evidence of restricted diffusion to suggest acute ischemia. 2. Moderate small vessel changes with mild parenchymal volume loss. 3. 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 Additional tiny chronic lacunar infarcts in the cerebellum bilaterally. 4. Noncontrast IACs and 7th and 8th cranial nerves are normal in appearance. N ormal trigeminal nerve root entry zones. 5. Paranasal sinuses and mastoid air cells are well aerated. 6. No hemosiderin on susceptibly weighted images. 7. Tiny basilar artery flow-void. Dominant anterior circulation. This can be f urther evaluated with MRA head and neck without and with gadolinium enhancement if indicated.
== END 2021-09-14 12:49 | disposition home or self-care (01) ==
LOC: RAD 12:49
PROVIDERS: PCP Nurse Practitioner Family; Visit Provider Specialist
DX: R42 Dizziness and giddiness (principal)
CPT/HCPCS: 70551

== ENCOUNTER → 2021-09-26 09:29 | Outpatient (BNVA) | payer MEDICARE, MEDICAID, SELFPAY | PROVIDERS: PCP Nurse Practitioner Family; Visit Provider Anesthesiology Pain Medicine | DX: M51.16 Intervertebral disc disorders with radiculopathy, lumbar region (principal); M19.072 Primary osteoarthritis, left ankle and foot; S22.080A Wedge compression fracture of T11-T12 vertebra, initial encounter for closed fracture; I10 Essential (primary) hypertension; X58.XXXA Exposure to other specified factors, initial encounter; Z79.891 Long term (current) use of opiate analgesic | CPT/HCPCS: 99214 ==

== ENCOUNTER 2021-10-08 12:24 | Outpatient (RCR) | payer MEDICARE, MEDICAID, SELFPAY | END 2021-11-01 23:59 | disposition home or self-care (01) | LOC: SPT 12:24 | PROVIDERS: PCP Nurse Practitioner Family; Referring Provider Otolaryngology; Visit Provider Otolaryngology | DX: H81.12 Benign paroxysmal vertigo, left ear (principal) | CPT/HCPCS: 95992; 97112; 97162 ==

== ENCOUNTER → 2021-10-11 13:04 | Outpatient (BNVA) | payer MEDICARE, MEDICAID, SELFPAY | PROVIDERS: PCP Nurse Practitioner Family; Visit Provider Anesthesiology Pain Medicine | DX: Z79.891 Long term (current) use of opiate analgesic (principal); M47.816 Spondylosis without myelopathy or radiculopathy, lumbar region | CPT/HCPCS: 64635; 64636; J1030 ==

== ENCOUNTER → 2021-10-29 12:43 | Outpatient (BNVA) | payer MEDICARE, MEDICAID, SELFPAY | PROVIDERS: PCP Nurse Practitioner Family; Visit Provider Anesthesiology Pain Medicine | DX: Z79.891 Long term (current) use of opiate analgesic (principal); M47.816 Spondylosis without myelopathy or radiculopathy, lumbar region | CPT/HCPCS: 64635; 64636; J1030 ==

== ENCOUNTER → 2021-11-13 08:45 | Outpatient (BNVA) | payer MEDICARE, MEDICAID, SELFPAY | PROVIDERS: PCP Nurse Practitioner Family; Visit Provider Anesthesiology Pain Medicine | DX: M51.16 Intervertebral disc disorders with radiculopathy, lumbar region (principal); M19.072 Primary osteoarthritis, left ankle and foot; I10 Essential (primary) hypertension; S22.080A Wedge compression fracture of T11-T12 vertebra, initial encounter for closed fracture; X58.XXXA Exposure to other specified factors, initial encounter; Z79.891 Long term (current) use of opiate analgesic | CPT/HCPCS: 99214 ==

== ENCOUNTER → 2022-01-17 09:36 | Outpatient (BNVA) | payer MEDICARE, MEDICAID, SELFPAY | PROVIDERS: PCP Nurse Practitioner Family; Visit Provider Anesthesiology Pain Medicine | DX: M51.16 Intervertebral disc disorders with radiculopathy, lumbar region (principal); S22.080A Wedge compression fracture of T11-T12 vertebra, initial encounter for closed fracture; M19.072 Primary osteoarthritis, left ankle and foot; I10 Essential (primary) hypertension; X58.XXXA Exposure to other specified factors, initial encounter | CPT/HCPCS: 99214 ==

== ENCOUNTER → 2022-03-14 09:45 | Outpatient (BNVA) | payer MEDICARE, MEDICAID, SELFPAY | PROVIDERS: PCP Nurse Practitioner Family; Visit Provider Anesthesiology Pain Medicine | DX: M51.16 Intervertebral disc disorders with radiculopathy, lumbar region (principal); S22.080A Wedge compression fracture of T11-T12 vertebra, initial encounter for closed fracture; M19.072 Primary osteoarthritis, left ankle and foot; I10 Essential (primary) hypertension; I95.1 Orthostatic hypotension; M25.552 Pain in left hip; X58.XXXA Exposure to other specified factors, initial encounter; Z91.81 History of falling | CPT/HCPCS: 99213 ==

== ENCOUNTER 2022-03-17 09:08 | Emergency (ER) | payer MEDICARE, MEDICAID, SELFPAY ==
--- NOTE | 2022-03-17 09:16 | XRR_ITS ---
PROCEDURE INFORMATION: Exam: XR Right Hip Exam date and time: 03/17/2022 10:29 AM Age: 76 years old Clinical indication: Injury or trauma; Fall; Blunt trauma (contusions or hematomas); Right; Hip; Additional info: Fall/hip pain TECHNIQUE: Imaging protocol: Radiologic exam of the Right hip. Views: 1 view hip with pelvis when performed. COMPARISON: CT abdomen pelvis w con* [id number] 08/11/2021 2:41 PM FINDINGS: Bones/joints: No acute fracture or malalignment. Mild degenerative changes of the right hip. Osteopenia. Soft tissues: Unremarkable. XR/XR hip RT 2-3V wo/w pel* [id number] IMPRESSION: No acute fracture or malalignment.
[2022-03-17 09:20] VITALS: BP 130/70; PULSE 85; RESP 18; TEMP 36.8; O2SAT 95
--- NOTE | 2022-03-17 09:25 | W.ED.FALL ---
HPI - Fall General: Chief Complaint: Fall Stated Complaint: RIGHT HIP PAIN S/P FALL Time Seen by Provider: 03/17/22 09:12 Source: patient Mode of arrival: EMS History of Present Illness: 76-year-old female presents emergency room ground-level mechanical fall, stumbling while getting out of walkout shower. She complaining of right hip pain. EMS was called she was able to stand and bear weight to when she was assisted upright. She is not on any blood thinner she did not strike her head she did not lose consciousness she denies any other injuries. No chest pain or shortness of breath MD complaint: fall Onset (ago): minute(s) Fall from: standing Place fall occurred: home Loss of consciousness: None Prolonged down time: no Symptoms prior to fall: none Context: tripped/slipped Location of injury: pelvis (Right hip) Severity: moderate Quality: sharp Associated symptoms-after fall: Reports difficulty walking; Denies abdominal pain, chest pain, confusion, headache(s), hematuria, lightheadedness, neck pain, numbness, short of breath, vertigo or weakness Review of Systems Const: Denies: fever(s), chills, body aches, change in appetite, fatigue or malaise ENMT: Denies: throat pain, ear or mastoid pain, nasal discharge or nasal congestion Card: Denies: chest pain, palpitations or lightheadedness Resp: Denies: dyspnea, productive cough or non-productive cough GI: Denies: abdominal pain, nausea, vomiting or diarrhea : Denies: hematuria Musc: Reports: joint pain (Right hip); Denies: neck pain Skin/Breast: Denies: rash or pruritus Neuro: Reports: difficulty walking; Denies: headache(s), vertigo or confusion PFSH ED PFSH: Medical History (Updated 03/25/22 @ 00:00 by ) Environmental and seasonal allergies Essential hypertension Patient was seen in the office several months ago and instructed to take home blood pressure readings and return to the office. Patient did not followup, but today has elevated pressure of 160/100. She states it goes up and down at home. GERD (gastroesophageal reflux disease) Surgical History S/P cholecystectomy Status post Hope fundoplication Patient reports GERD Wrap Surgery Status post total right knee replacement Social History Smoking and tobacco status: never smoked Second hand smoke exposure: No Alcohol intake: never Lives independently: Yes Household members: none Marital status: / Current occupational status: retired History of recent travel: No Current gender identity: Female Physical Exam Const: COMMON NORMALS: no acute distress GENERAL APPEARANCE: cooperative and comfortable ORIENTATION/CONSCIOUSNESS: Yes awake, Yes oriented to person, Yes oriented to place and Yes oriented to time HENMT: COMMON NORMALS: normocephalic, atraumatic and hearing grossly normal bilaterally HEAD & SCALP: normocephalic and atraumatic Resp: COMMON NORMALS: normal respiratory effort, No retractions, No use of accessory muscles and clear to auscultation bilaterally AUSCULTATION: clear to auscultation bilaterally Cardio: COMMON NORMALS: regular rate, regular rhythm and No murmurs present (Cardio) RATE: regular rate RHYTHM: regular rhythm GI: COMMON NORMALS: Soft to palpation and No hepatosplenomegaly present AUSCULTATION: Yes normoactive bowel sounds PALPATION: Yes Soft to palpation, No Tenderness to palpation present (GI), No Guarding due to palpation present (GI) and Yes No hepatosplenomegaly present Extremity: COMMON NORMALS: normal to inspection, capillary refill normal, no clubbing, cyanosis or edema, no calf tenderness and no pedal edema OTHER: Examination of the right hip no external rotation no shortening dorsalis pedis posterior tibialis pulses are normal no difficulty with pain or discomfort or deformities with palpation of the foot ankle or knee. Patient is able to flex at the hip with active range of motion with little to no pain in the right hip Neuro: SENSORIUM/ORIENTATION: Yes oriented to person, Yes oriented to place and Yes oriented to time Skin: COMMON NORMALS: no rashes or lesions noted GENERAL SKIN EXAM: no rashes or lesions noted Course Vital Signs: Vital signs: Vital Signs Temperature 98.3 F 03/17/22 10:33 Pulse Rate 83 03/17/22 10:33 Respiratory Rate 18 03/17/22 10:33 Blood Pressure 155/64 03/17/22 10:33 Pulse Oximetry 99 03/17/22 10:33 Oxygen Delivery Me thod 03/17/22 09:20 MDM - Fall Medical Decision Making No acute fracture on CT patient able to ambulate will discharge home if has any worsening or change problems return to the emergency room for reevaluation. Medical Records I reviewed the patient's medical records. Lab Data I reviewed the patient's lab results. Radiology Impressions Hip/Pelvis X-Ray 03/17/22 09:16 IMPRESSION: No acute fracture or malalignment. Discharge Plan Discharge Patient Disposition: Home Clinical Impression: Fall, Acute hip pain Condition: Stable Prescriptions: No Action bupivacaine (PF) 0.25 % (2.5 mg/mL) solution 3 ml intra-articular ONCE Qty: 1 0RF duloxetine [Cymbalta] 20 mg capsule,delayed release(DR/EC) 20 mg PO BID prednisone 20 mg tablet 40 mg PO DAILY 5 Days Qty: 10 0RF gabapentin 100 mg capsule 200 mg PO TID 30 Days Qty: 180 1RF hydrocodone-acetaminophen 5-325 mg tablet 1 tab PO BID PRN (Reason: pain) 30 Days Qty: 60 0RF magnesium citrate Solution 150 ml PO BID PRN (Reason: constipation) Qty: 296 0RF Discharge Orders: Discharge ED (Routine); Ordered 03/17/22 Ordered By: Kevin Arce Referrals: Ericka Collins FNP [Primary Care Provider] - Discharge Diet: Usual diet Discharge Activity: Increase activity as tolerated Patient Instructions: Opioid Safety, Pain Management Activity Restrictions/Additional Instructions: Use previously prescribed hydrocodone as needed for pain. You can also use Tylenol or ibuprofen. Coding Level of Care Code ED Clinical Services Professional for Chg Fwd Exam Detailed
[2022-03-17 10:33] VITALS: BP 155/64; PULSE 83; RESP 18; TEMP 36.8; O2SAT 99
== END 2022-03-17 10:20 | disposition home or self-care (01) ==
PROVIDERS: Emergency Provider Family Medicine; PCP Nurse Practitioner Family
DX: M25.551 Pain in right hip (principal); W18.2XXA Fall in (into) shower or empty bathtub, initial encounter
CPT/HCPCS: 73502; 99283

== ENCOUNTER → 2022-04-20 14:24 | Outpatient (BNVA) | payer MEDICARE, MEDICAID, SELFPAY | PROVIDERS: PCP Nurse Practitioner Family; Visit Provider Nurse Practitioner | DX: N39.0 Urinary tract infection, site not specified (principal) | CPT/HCPCS: 81000 ==

== ENCOUNTER → 2022-05-16 10:41 | Outpatient (BNVA) | payer MEDICARE, MEDICAID, SELFPAY | PROVIDERS: PCP Nurse Practitioner Family; Visit Provider Anesthesiology Pain Medicine | DX: M51.16 Intervertebral disc disorders with radiculopathy, lumbar region (principal); S22.080A Wedge compression fracture of T11-T12 vertebra, initial encounter for closed fracture; M19.072 Primary osteoarthritis, left ankle and foot; I10 Essential (primary) hypertension; X58.XXXA Exposure to other specified factors, initial encounter | CPT/HCPCS: 99214 ==

== ENCOUNTER 2022-06-10 13:43 | Outpatient (CLI) | payer MEDICARE, MEDICAID, SELFPAY ==
--- NOTE | 2022-06-10 13:51 | XR_ITS ---
WS: [id number] DEXA (DUAL ENERGY X-RAY ABSORPTIOMETRY) Bone mineral density was performed using a [employer] machine. HISTORY: AGE RELATED OSTEOPOROSIS W/CURRENT PATHOLOGICAL FX COMPARISON: None available. Left forearm BMD: 0.638 g/cm2. T score: -2.7 Z score: -0.2 Total hip BMD: Left: 0.738 g/cm2. T score: -2.1 Z score: -0.6 Right: 0.773 g/cm2. T score: -1.9 Z score: -0.3 10 year probability of a major osteoporotic fracture is 24.4%. XR/XR DEXA axial skeleton* [id number] IMPRESSION: OSTEOPOROSIS based upon the WHO classification for females.
== END 2022-06-10 13:44 | disposition home or self-care (01) ==
LOC: RAD 13:45
PROVIDERS: PCP Nurse Practitioner Family; Visit Provider Nurse Practitioner
DX: M80.08XA Age-related osteoporosis with current pathological fracture, vertebra(e), initial encounter for fracture (principal)
CPT/HCPCS: 77080

== ENCOUNTER 2022-07-22 06:40 | Outpatient (CLI) | payer MEDICARE, MEDICAID, SELFPAY ==
--- NOTE | 2022-07-22 | US_ITS ---
WS: [id number] Right upper quadrant ultrasound, 07/22/2022 Clinical Data: RUQ Pain Comparison: Right upper quadrant ultrasound, 01/19/2014 Findings: The gallbladder is absent. The common bile duct is 0.5 cm and there are no intrahepatic ductal abnormalities. Liver shows no cysts, masses or dilated intrahepatic ducts. The liver shows fatty infiltration. The p ortal vein shows antegrade flow. The pancreas is not obscured by overlying bowel gas and no cyst, pseudocyst, or evidence of pancreati tis is noted. Right kidney measures 9.7 cm and there is a 4.50 simple cyst. The aorta and inferior vena cava show no vascular abnormalities. US/US abdomen limited [id number] Impression: 1. Absent gallbladder. 2. Right renal cyst. 3. Fatty infiltration of the liver.
== END 2022-07-22 06:41 | disposition home or self-care (01) ==
LOC: RAD 06:41
PROVIDERS: PCP Nurse Practitioner Family; Visit Provider Nurse Practitioner Family
DX: R10.11 Right upper quadrant pain (principal); N28.1 Cyst of kidney, acquired; K76.0 Fatty (change of) liver, not elsewhere classified
CPT/HCPCS: 76705

== ENCOUNTER → 2022-07-31 11:16 | Outpatient (BNVA) | payer MEDICARE, MEDICAID, SELFPAY | PROVIDERS: PCP Nurse Practitioner Family; Visit Provider Anesthesiology Pain Medicine | DX: M51.16 Intervertebral disc disorders with radiculopathy, lumbar region (principal); M19.072 Primary osteoarthritis, left ankle and foot; I10 Essential (primary) hypertension; S22.080A Wedge compression fracture of T11-T12 vertebra, initial encounter for closed fracture; X58.XXXA Exposure to other specified factors, initial encounter | CPT/HCPCS: 99214 ==

== ENCOUNTER → 2022-09-24 19:03 | Outpatient (BNVA) | payer MEDICARE, MEDICAID, SELFPAY | PROVIDERS: PCP Nurse Practitioner Family; Visit Provider Emergency Medicine | DX: N39.0 Urinary tract infection, site not specified (principal) | CPT/HCPCS: 81000; 87086 ==

== ENCOUNTER → 2022-09-26 10:37 | Outpatient (BNVA) | payer MEDICARE, MEDICAID, SELFPAY | PROVIDERS: PCP Nurse Practitioner Family; Visit Provider Anesthesiology Pain Medicine | DX: M51.16 Intervertebral disc disorders with radiculopathy, lumbar region (principal); M19.072 Primary osteoarthritis, left ankle and foot; X58.XXXA Exposure to other specified factors, initial encounter; S22.080A Wedge compression fracture of T11-T12 vertebra, initial encounter for closed fracture | CPT/HCPCS: 99214 ==

== ENCOUNTER → 2022-10-17 08:28 | Outpatient (BNVA) | payer MEDICARE, MEDICAID, SELFPAY | PROVIDERS: PCP Family Medicine; Visit Provider Family Medicine | DX: I10 Essential (primary) hypertension (principal); E55.9 Vitamin D deficiency, unspecified; J45.909 Unspecified asthma, uncomplicated; M51.16 Intervertebral disc disorders with radiculopathy, lumbar region; M81.0 Age-related osteoporosis without current pathological fracture; S22.080A Wedge compression fracture of T11-T12 vertebra, initial encounter for closed fracture; E03.9 Hypothyroidism, unspecified; Z13.6 Encounter for screening for cardiovascular disorders; X58.XXXA Exposure to other specified factors, initial encounter | CPT/HCPCS: 80053; 80061; 82306; 82607; 82652; 84443; 85025 ==

== ENCOUNTER 2022-12-09 09:18 | Outpatient (RCR) | payer MEDICARE, MEDICAID, SELFPAY | END 2023-01-02 23:59 | disposition home or self-care (01) | LOC: SPT 09:18 | PROVIDERS: Visit Provider Family Medicine | DX: R42 Dizziness and giddiness (principal) | CPT/HCPCS: 95992; 97161 ==

== ENCOUNTER 2022-12-10 21:14 | Emergency (ER) | payer MEDICARE, MEDICAID, SELFPAY ==
--- NOTE | 2022-12-10 21:24 | ECG_ITS ---
[facility] Test Date: 2022-12-10 Pat Name: Elisabeth Brown Department: Room: Gender: Female Booking Prizer: : 1945 Requested By: Adam Murphy Order Number: [id number] Reardon MD: Dillon Horn M.D. Measurements Intervals [place] Rate: 89 P: 17 ND: 168 QRS: -7 QRSD: 74 T: 32 QT: 348 QTc: 425 Interpretive Statements SINUS RHYTHM SEPTAL MYOCARDIAL INFARCTION , OF INDETERMINATE AGE [40+ ms Q WAVE IN V1/V2] Compared to ECG 08/11/2021 11:54:52 Myocardial infarct finding now present Electronically Signed On 12-11-2022 6:58:03 CDT by Dillon Horn M.D. [id number]
[2022-12-10 21:26] VITALS: BP 143/79; PULSE 101; RESP 16; TEMP 36.6; O2SAT 95; BMI 30.1
--- NOTE | 2022-12-10 22:10 | XRR_ITS ---
PROCEDURE INFORMATION: Exam: XR Chest Exam date and time: 12/10/2022 10:25 PM Age: 77 years old Clinical indication: Pain; Chest pressure; Additional info: Chest pain TECHNIQUE: Imaging protocol: Radiologic exam of the chest. Views: 1 view. COMPARISON: CR XR chest 2V* [id number] 09/13/2019 8:46 AM FINDINGS: Lungs: Left lower lobe atelectasis. Pleural spaces: Unremarkable. No pleural effusion. No pneumothorax. Heart/Mediastinum: Unremarkable. No cardiomegaly. Bones/joints: Unremarkable. XR/XR chest 1V portable [id number] IMPRESSION: Left lower lobe atelectasis.
[2022-12-10 22:51] VITALS: BP 166/90; PULSE 77; RESP 16; O2SAT 95
[2022-12-10 23:13] LABS: Basophils % 0.5 %; Eosinophils # 0.1 10^3/uL (0.0-0.8); Eosinophils % 1.7 %; Hematocrit 46.8 % (37.0-47.0); Hemoglobin 15.7 g/dL (11.5-15.3); Lymphocytes # 2.7 10^3/uL (0.8-4.8); Lymphocytes % 35.4 %; Mean Corpuscular HGB Conc 33.5 g/dL (30.0-36.0); Mean Corpuscular Hemoglobin 33.3 pg (28.0-34.0); Mean Corpuscular Volume 99.2 fl (81-99); Mean Platelet Volume 10.1 fL (7.4-10.4); Monocytes # 0.8 10^3/uL (0.2-0.9); Monocytes % 10.4 %; Neutrophils % 51.7 %; Nucleated Red Blood Cells % 0 %; Platelet Count 167 10^3/cmm (130-400); Red Blood Count 4.72 10^6/uL (4.1-5.3); Red Cell Distribution Width 12.7 % (12.1-15.1); White Blood Count 7.7 10^3/uL (4.0-10.0)
[2022-12-10 23:28] LABS: Alanine Aminotransferase 10 U/L (0-33); Albumin Level 4.1 g/dL (3.5-5.2); Alkaline Phosphatase 84 U/L (35-105); Blood Urea Nitrogen 21 mg/dL (8-23); Calcium 9.8 mg/dL (8.5-10.5); Carbon Dioxide 30 mmol/L (22-29); Chloride 100 mmol/L (98-107); Glucose 95 mg/dL (65-115); Osmolality Calculated 293 mOsm/kg (285-295); Sodium 140 mmol/L (136-145); Total Bilirubin 0.5 mg/dL (0.15-1.2); Total Protein 7.1 g/dL (6.6-8.7)
[2022-12-10 23:33] LABS: Anion Gap 14.4 (5-19); Aspartate Amino Transferase 31 U/L (0-32); Potassium 4.4 mmol/L (3.5-5.1)
[2022-12-10 23:35] LABS: Troponin(5th) Baseline 19 ng/L (0-10)
[2022-12-11] VITALS: BP 186/103; PULSE 75; RESP 16; O2SAT 100
--- NOTE | 2022-12-11 00:10 | ECG_ITS ---
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 Measurements Intervals [place] Rate: 71 P: 53 [place]: 184 QRS: 26 QRSD: 84 T: 61 QT: 401 QTc: 437 Interpretive Statements SINUS RHYTHM WITH SINUS ARRHYTHMIA Compared to ECG 12/10/2022 21:24:08 Myocardial infarct finding no longer present Electronically Signed On 12-11-2022 6:58:51 CDT by Dillon Horn M.D. [email or web address] [email or web address]/store/[id number]
[2022-12-11 00:12] VITALS: BP 186/103; PULSE 80; RESP 22; O2SAT 98
[2022-12-11] MEDS: labetalol 5 mg/mL SDV 20mL 10 MG IVP (00:26)
--- NOTE | 2022-12-11 00:30 | PC.NURSE ---
Spoke with Dr Murphy, re continued elevation of BP. verbal order for Labetolol 10mg given. rbvo. current bp 203/95
[2022-12-11 01:02] LABS: Troponin 5 2HR 20.31 ng/L (0-10)
[2022-12-11 01:03] LABS: Troponin 5 2HR Delta 1.31 ABS# (0-10)
[2022-12-11 01:30] VITALS: BP 153/96; PULSE 68; RESP 20; O2SAT 96
--- NOTE | 2022-12-11 02:22 | ED_ITS ---
HPI - Chest Pain General: Chief Complaint: Chest Pain Stated Complaint: chest pain Time Seen by Provider: 12/11/22 01:55 History of Present Illness: 77 yo f presents with chief complaint of chest discomfort aching in the right chest and arm that started at rest. She did have an episode of n/v the day before--she says she's in PT for BPPV (vertigo) and this is what makes her vomit. Pain resolved shortly after arrival. No cardiac hx. Denies dyspnea, diaphoresis, nausea today, jaw/neck/back pain, near syncope, palpitation. BP elevated on arrival--says its been up before but never dx'd with HTN. Associated symptoms: Deny abdominal pain, dyspnea, fever(s) or syncope Review of Systems General: Reports: 10 or more systems reviewed and unremarkable except in HPI and below Const: Denies: fever(s), chills or body aches Card: Denies: edema or syncope Resp: Denies: dyspnea or productive cough GI: Denies: abdominal pain or diarrhea : Denies: flank pain, dysuria or urinary frequency Musc: Denies: neck pain, back pain, extremity pain or extremity swelling Skin/Breast: Denies: rash or erythema Neuro: Denies: headache(s), numbness in extremities, weakness in extremities, lack of coordination or difficulty walking PFSH ED PFSH: Medical History (Updated 12/11/22 @ 02:22 by Adam Murphy MD) Environmental and seasonal allergies Essential hypertension Patient was seen in the office several months ago and instructed to take home blood pressure readings and return to the office. Patient did not followup, but today has elevated pressure of 160/100. She states it goes up and down at home. GERD (gastroesophageal reflux disease) Surgical History S/P cholecystectomy Status post Hope fundoplication Patient reports GERD Wrap Surgery Status post total right knee replacement Social History Smoking and tobacco status: never smoked Second hand smoke exposure: No Alcohol intake: never Substance/Drug Use: never Lives independently: Yes Household members: none Marital status: / Current occupational status: retired Do you think of yourself as: Straight/Heterosexual Current gender identity: Female Physical Exam Const: COMMON NORMALS: no limitations, alert and well nourished EXAM LIMITATIONS: no altered mental status HENMT: COMMON NORMALS: normocephalic, atraumatic and external ears normal HEAD & SCALP: normocephalic and atraumatic EXTERNAL EAR: Yes external ears normal MOUTH: no muffled voice Eye: COMMON NORMALS: conjunctivae normal and no scleral icterus CONJUNCTIVA: Yes conjunctivae normal Neck/C-Spine: COMMON NORMALS: no JVD GENERAL: Yes normal visual inspection and Yes trachea midline Resp: COMMON NORMALS: normal respiratory effort, No use of accessory muscles and clear to auscultation bilaterally AUSCULTATION: clear to auscultation bilaterally Cardio: COMMON NORMALS: no JVD, regular rate and regular rhythm RATE: regular rate RHYTHM: regular rhythm HEART SOUNDS: Murmur heart sound present (faint mitral) GI: COMMON NORMALS: Soft to palpation and non-tender PALPATION: Yes Soft to palpation and No Guarding due to palpation present (GI) Extremity: COMMON NORMALS: normal to inspection Neuro: COMMON NORMALS: moves all extremities, no focal motor deficits and no sensory deficits noted SENSORIUM/ORIENTATION: Yes alert SPEECH: speech normal Psych: COMMON NORMALS: mental status grossly normal, Normal thought process present, cooperative, normal affect and speech normal SPEECH: Yes normal speech THOUGHT PROCESS: Normal thought process present Skin: COMMON NORMALS: no rashes or lesions noted, turgor normal and no jaundice GENERAL SKIN EXAM: no rashes or lesions noted and turgor normal Course Vital Signs: Vital signs: Vital Signs Temperature 97.8 F 12/10/22 21:26 Pulse Rate 68 12/11/22 01:30 Respiratory Rate 20 H 12/11/22 01:30 Blood Pressure 153/96 12/11/22 01:30 Pulse Oximetry 96 12/11/22 01:30 Oxygen Delivery Me thod Room Air 12/11/22 01:30 MDM - Chest Pain Medical Decision Making This is a pleasant 77-year-old female who presents to the emergency department with chief complaint of chest discomfort radiating to her right arm. She was found to be quite hypertensive on arrival. EKG at 00 35 shows sinus arrhythmia at a rate of 71, normal axis, no ischemic changes, no ectopy. Patient was given medication for hypertension. 10 mg of labetalol IV. This brought her blood pressure down but not back to normal. It did resolve all of her discomfort. Her initial troponin was mildly elevated at 19 so a 2-hour delta was obtained which came back at 20. Patient was asking for discharge. I discussed the troponin test and what it means and its limitations. We discussed that the blood pressure could be the primary problem or a secondary issue. We discussed the need to follow-up with cardiology and consider stress test given the mildly elevated troponin and her chest discomfort. Patient is in agreement with this plan. I went ahead and made a referral through case managem ent. I am going to start her on metoprolol succinate 12.5 mg daily. I am also going to start her on clonidine 0.1 up to twice a day as needed for persistent hypertension. The patient knows that she is to check her blood pressure prior to taking her metoprolol. She was given hold parameters. She is also going to create a journal so that when she follows up we can tell if this was going to be chronic hypertension or just an anomaly today. She was noted to have some metabolic alkalosis. She says she has been vomiting intermittently for a while because of her vertigo. Chest x-ray does not show cardiomegaly, pulmonary edema or other acute pathology. Lab Data 12/10/22 23:05 12/10/22 23:05 Radiology Impressions Chest X-Ray 12/10/22 22:10 IMPRESSION: Left lower lobe atelectasis. Laboratory Results WBC 7.7 10^3/uL (4.0-10.0) 12/10/22 23:05 RBC 4.72 10^6/uL (4.1-5.3) 12/10/22 23:05 Hgb 15.7 g/dL (11.5-15.3) H 12/10/22 23:05 Hct 46.8 % (37.0-47.0) 12/10/22 23:05 MCV 99.2 fl (81-99) H 12/10/22 23:05 MCH 33.3 pg (28.0-34.0) 12/10/22 23:05 MCHC 33.5 g/dL (30.0-36.0) 12/10/22 23:05 RDW 12.7 % (12.1-15.1) 12/10/22 23:05 Plt Count 167 10^3/cmm (130-400) 12/10/22 23:05 MPV 10.1 fL (7.4-10.4) 12/10/22 23:05 Neut % (Auto) 51.7 % 12/10/22 23:05 Lymph % (Auto) 35.4 % 12/10/22 23:05 [place] % (Auto) 10.4 % 12/10/22 23:05 Eos % (Auto) 1.7 % 12/10/22 23:05 Baso % (Auto) 0.5 % 12/10/22 23:05 Neut # (Auto) 4.00 10^3/uL (1.8-7.7) 12/10/22 23:05 Lymph # (Auto) 2.7 10^3/uL (0.8-4.8) 12/10/22 23:05 [place] # (Auto) 0.8 10^3/uL (0.2-0.9) 12/10/22 23:05 Eos # (Auto) 0.1 10^3/uL (0.0-0.8) 12/10/22 23:05 Baso # (Auto) 0.0 10^3/uL (0.0-0.1) 12/10/22 23:05 Nucleated RBC % (auto) 0 % 12/10/22 23:05 Nucleated RBCs # 0.0 /100WBC 12/10/22 23:05 Sodium 140 mmol/L (136-145) 12/10/22 23:05 Potassium 4.4 mmol/L (3.5-5.1) 12/10/22 23:05 Chloride 100 mmol/L (98-107) 12/10/22 23:05 Carbon Dioxide 30 mmol/L (22-29) H 12/10/22 23:05 Anion Gap 14.4 (5-19) 12/10/22 23:05 BUN 21 mg/dL (8-23) 12/10/22 23:05 Creatinine 1.0 mg/dL (0.5-0.9) H 12/10/22 23:05 GFR Calculation Not Reportable 12/10/22 23:05 Glucose 95 mg/dL (65-115) 12/10/22 23:05 Calculated Osmolality 293 mOsm/kg (285-295) 12/10/22 23:05 Calcium 9.8 mg/dL (8.5-10.5) 12/10/22 23:05 Total Bilirubin 0.5 mg/dL (0.15-1.2) 12/10/22 23:05 AST 31 U/L (0-32) 12/10/22 23:05 ALT 10 U/L (0-33) 12/10/22 23:05 Alkaline Phosphatase 84 U/L (35-105) 12/10/22 23:05 Troponin T Baseline 19 ng/L (0-10) H 12/10/22 23:05 Troponin T 120 Minute 20.31 ng/L (0-10) H 12/11/22 00:26 Delta Troponin T 1.31 ABS# (0-10) 12/11/22 00:26 Total Protein 7.1 g/dL (6.6-8.7) 12/10/22 23:05 Albumin 4.1 g/dL (3.5-5.2) 12/10/22 23:05 Globulin 3.0 g/dL (1.3-4.6) 12/10/22 23:05 Discharge Plan Discharge Patient Disposition: Home Clinical Impression: Blood pressure elevated without history of HTN, Chest pain Condition: Stable Prescriptions: New Adult Aspirin Regimen 81 mg tablet,delayed release (DR/EC) 81 mg PO DAILY Qty: 30 0RF metoprolol succinate 25 mg tablet extended release 24 hr 12.5 mg PO DAILY Qty: 30 0RF clonidine HCl 0.1 mg tablet 0.1 mg PO BID PRN (Reason: hypertensive emergency) 30 Days Qty: 14 0RF Rx Instructions: PRN BP >160 on top or >90 on bottom despite metoprolol. Discontinued ondansetron 8 mg tablet,disintegrating 8 mg PO Q8H 5 Days Qty: 15 0RF No Action bupivacaine (PF) 0.25 % (2.5 mg/mL) solution 3 ml intra-articular ONCE Qty: 1 0RF gabapentin 100 mg capsule 100 mg PO BID 30 Days Qty: 60 1RF hydrocodone-acetaminophen 5-325 mg tablet 1 tab PO DAILY PRN (Reason: pain) 30 Days Qty: 60 0RF duloxetine [Cymbalta] 20 mg capsule,delayed release(DR/EC) 20 mg PO BID ondansetron 4 mg tablet,disintegrating 4 mg PO Q8H PRN (Reason: nausea and vomiting) Qty: 20 0RF magnesium citrate Solution 150 ml PO BID PRN (Reason: constipation) Qty: 296 0RF Discharge Orders: Discharge ED (Routine); Ordered 12/11/22 Ordered By: Adam Murphy Referrals: Dillon Horn M.D [Physician] - 4-7 days (Chest pain) Chad De La Fuente, [Primary Care Provider] - Discharge Diet: Usual diet Discharge Activity: Increase activity as tolerated Patient Instructions: Chest Pain (ED), Hypertension (ED), Opioid Safety, Pain Management Activity Restrictions/Additional Instructions: Keep a blood pressure log. Take medications as directed. Make a follow-up with cardiology. Additional information has been provided as handouts, please take the time to read and understand this information. It is very important that you follow up with a Doctor as discussed during your visit today, the information to contact your doctor is included in your discharge instructions. Failure to adhere to your follow up instructions may lead to severe disability, injury, or so please make sure to keep your appointments. Please return to the Emergency Department immediately and without fail if you experience any new, worsening, or concerning problems such as:_ chest pain, shortness of breath, headache or body pain, fever, lightheadedness, weakness, numbness, or any other concerning symptoms. Thank you for allowing us to participate in your care today. Coding Level of Care Code ED Neighborhood Aide for Jose Terrell
[2022-12-11] MEDS: metoprolol succinate ER (24 HR) 25 mg Tablet 12.5 MG PO (02:23)
[2022-12-11 02:24] VITALS: BP 150/82
[2022-12-11] MEDS: cloNIDine 0.1 mg Tablet PO (02:24)
[2022-12-11 02:29] VITALS: BP 157/87; PULSE 68; RESP 18; O2SAT 97
--- NOTE | 2022-12-11 07:53 | DCPLANNER ---
Addendum entered by Lynn Gustafson 12/12/22 11:33: Patient has a follow up appointment scheduled for Friday, January 13, 2023 at 1:[address] Horn at [facility]. Original Note: sales communications manager had message to schedule a follow up appointment for patient with cardiology. sales communications manager sent patients information to the front office staff at [facility]. Patients information will be printed and reviewed. Clinic will call patient with appointment information.
== END 2022-12-11 02:34 | disposition home or self-care (01) ==
PROVIDERS: Emergency Provider Emergency Medicine; PCP Family Medicine
DX: R07.9 Chest pain, unspecified (principal); R03.0 Elevated blood-pressure reading, without diagnosis of hypertension; Z79.899 Other long term (current) drug therapy
CPT/HCPCS: 71045; 80053; 84484; 85025; 93005; 96374; 99285; J3490

== ENCOUNTER 2023-01-03 06:00 | Outpatient (RCR) | payer MEDICARE, MEDICAID, SELFPAY | END 2023-02-01 23:59 | disposition home or self-care (01) | LOC: SPT 06:00 | PROVIDERS: PCP Family Medicine; Visit Provider Family Medicine | DX: R42 Dizziness and giddiness (principal) | CPT/HCPCS: 95992 ==

== ENCOUNTER → 2023-08-20 13:26 | Outpatient (BNVA) | payer MEDICARE, MEDICAID, SELFPAY | PROVIDERS: PCP Family Medicine; Visit Provider Dermatology | DX: L57.0 Actinic keratosis (principal); L82.1 Other seborrheic keratosis; D18.01 Hemangioma of skin and subcutaneous tissue; L81.4 Other melanin hyperpigmentation; L57.8 Other skin changes due to chronic exposure to nonionizing radiation | CPT/HCPCS: 17000; 99213 ==

== ENCOUNTER 2023-08-21 12:00 | Inpatient (IN) | payer MEDICARE, MEDICAID, SELFPAY ==
[2023-08-21] VITALS (10 sets, daily range): BP systolic 124–186; BP diastolic 65–93; PULSE 71–84; RESP 15–22; TEMP 36.7–37.1; O2SAT 94–99; BMI 30.8
--- NOTE | 2023-08-21 12:08 | ECG_ITS ---
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 Measurements Intervals [place] Rate: 84 P: 8 IA: 158 QRS: 15 QRSD: 81 T: 42 QT: 365 QTc: 432 Interpretive Statements SINUS RHYTHM LOW QRS VOLTAGE IN PRECORDIAL LEADS [QRS DEFLECTION < 1.0 mV IN CHEST LEADS] Compared to ECG 12/11/2022 00:35:52 Low QRS voltage now present Sinus arrhythmia no longer present Electronically Signed On 08-21-2023 14:20:43 CDT by Dillon Horn M.D. [id number]
--- NOTE | 2023-08-21 12:08 | CT_ITS ---
WS: [id number] CT HEAD TECHNIQUE: Noncontrast CT of the head obtained from the skullbase to the vertex. CLINICAL INFORMATION: Symptoms of acute stroke COMPARISON: 06/15/2021 DLP: 952.[address] scans at [facility] use at least one of these dose optimization techniques: automated e xposure control; mA and/or kV adjustment per patient size (includes targeted exams where dose is matc hed to clinical indication); or iterative reconstruction. FINDINGS: No evidence of intracranial hemorrhage or mass effect. Ventricular system and basal cisterns are casarez nt. Mild small vessel changes with moderate parenchymal volume loss. No extra-axial fluid collections . No evidence of mass or mass effect. Intracranial vascular calcification. Chronic infarct LEFT cereb ellum unchanged. Paranasal sinuses and mastoid air cells are well aerated. .Normal visualized soft tissues. IMPRESSION: 1. No evidence of intracranial hemorrhage or mass effect. 2. No acute intracranial findings. Notified Holly Smith MD at 08/21/2023 12:21 PM.
--- NOTE | 2023-08-21 12:08 | XR_ITS ---
WS: [id number] Exam: XR chest 1V portable [id number] Date/Time of Exam: 08/21/2023 12:08 PM Reason For Exam: cva No priors. The lungs are fully expanded. Mild plaque atelectasis in the LEFT base. Mildly elevated LEFT diaphrag m. Normal cardiomediastinal silhouette. No infiltrates. RIGHT reverse shoulder prosthesis. IMPRESSION: 1. No acute cardiopulmonary finding.
--- NOTE | 2023-08-21 12:10 | W.ED.NEUROSD ---
HPI - Neuro Symptoms/Deficit General: Chief Complaint: Neuro Symptoms/Deficit Stated Complaint: stroke like symptoms Time Seen by Provider: 08/21/23 12:03 Source: patient Mode of arrival: ambulatory Limitations: no limitations History of Present Illness: 78-year-old female whose history of stroke in the past. She states at 1030 this morning she started having some numbness to the right side of her face she denies any other symptoms she denies any weakness she denies any slurred speech she is able to transfer to the bed here denies headache denies any vision changes Associated symptoms: Deny chest pain, headache(s), nausea or vomiting Review of Systems Const: Denies: fever(s), chills, body aches or change in appetite ENMT: Denies: throat pain or dental pain Card: Denies: chest pain Resp: Denies: dyspnea GI: Denies: abdominal pain, nausea, vomiting or diarrhea Musc: Denies: neck pain or back pain Skin/Breast: Denies: rash Neuro: Reports: sensory changes; Denies: headache(s), weakness in extremities or Slurred speech present [facility] ED PFSH: Medical History (Updated 08/21/23 @ 13:45 by Holly Smith MD) Environmental and seasonal allergies Essential hypertension Patient was seen in the office several months ago and instructed to take home blood pressure readings and return to the office. Patient did not followup, but today has elevated pressure of 160/100. She states it goes up and down at home. GERD (gastroesophageal reflux disease) Surgical History Status post Hope fundoplication Patient reports GERD Wrap Surgery Status post total right knee replacement S/P cholecystectomy Social History Smoking and tobacco/nicotine status: never used tobacco/nicotine Second hand smoke exposure: No Alcohol intake: never Substance/Drug Use: never Lives independently: Yes Household members: none Marital status: / Current occupational status: retired Do you think of yourself as: Straight/Heterosexual Current gender identity: Female NIH stroke score NIHSS: Level Of Consciousness - 1a: 0 Level Of Consciousness Questions - 1b: Both Correct Level Of Consciousness Commands - 1c: Both Correct Best Gaze - 2: Normal Visual Swan - 3: No Visual Loss Facial Palsy - 4: Normal Motor Arm Right - 5: No Drift Motor Arm Left - 5: No Drift Motor Leg Right - 6: No Drift Motor Leg Left - 6: No Drift Limb Ataxia - 7: Absent Sensory - 8: Mild To Moderate Loss Best Language - 9: No Aphasia Dysarthia - 10: Normal Extinction And Inattention - 11: 0 Score: Total Score: 1 Physical Exam Const: COMMON NORMALS: no acute distress, patient oriented x3 and healthy appearing HENMT: COMMON NORMALS: normocephalic and atraumatic HEAD & SCALP: normocephalic and atraumatic Eye: COMMON NORMALS: Equal, round and reactive pupils present and EOMs intact bilaterally PUPIL: Yes Equal, round and reactive pupils present Neck/C-Spine: COMMON NORMALS: full ROM and supple Chest: COMMONS NORMALS: normal inspection of the chest Resp: COMMON NORMALS: normal respiratory effort Cardio: COMMON NORMALS: regular rate, regular rhythm and No murmurs present (Cardio) RATE: regular rate RHYTHM: regular rhythm Extremity: COMMON NORMALS: normal to inspection and full ROM Neuro: COMMON NORMALS: patient oriented x3, moves all extremities and no focal motor deficits CRANIAL NERVES: Yes CN normal except as noted SPEECH: speech normal MOTOR EXAM: 5/5 motor strength present throughout Psych: COMMON NORMALS: mental status grossly normal, Normal thought process present and cooperative THOUGHT PROCESS: Normal thought process present Skin: COMMON NORMALS: no rashes or lesions noted and no wounds GENERAL SKIN EXAM: no rashes or lesions noted Course Vital Signs: Vital signs: Vital Signs Temperature 98.8 F 08/21/23 13:19 Pulse Rate 84 08/21/23 13:19 Respiratory Rate 22 H 08/21/23 13:19 Blood Pressure 177/93 08/21/23 13:19 Pulse Oximetry 99 08/21/23 13:19 Oxygen Delivery Me thod Room Air 08/21/23 13:19 MDM - Neuro Symptoms/Deficit Medical Decision Making Patient presents here with right-sided facial paresthesias she said she felt wobbly walking she was able to ambulate here on her own patient was evaluated by neurologist at [facility] who did not recommend lytics due to low NIH. Spoke to the hospitalist and will admit at this time. Medical Records I reviewed the patient's medical records. Lab Data I reviewed the patient's lab results. 08/21/23 12:38 08/21/23 12:38 Laboratory Results WBC 7.92 10^3/uL (3.29-11.43) 08/21/23 12:38 RBC 4.37 10^6/uL (3.85-5.65) 08/21/23 12:38 Hgb 14.50 g/dL (11.27-16.99) 08/21/23 12:38 Hct 44.2 % (36-47) 08/21/23 12:38 MCV 101.1 fl (85-98) H 08/21/23 12:38 MCH 33.2 pg (27-33) H 08/21/23 12:38 MCHC 32.8 g/dL (30-55) 08/21/23 12:38 RDW 12.5 % (12.1-15.1) 08/21/23 12:38 Plt Count 150 10^3/cmm (157-399) L 08/21/23 12:38 MPV 10.5 fL (7.4-10.4) H 08/21/23 12:38 Neut % (Auto) 67.7 % 08/21/23 12:38 Lymph % (Auto) 23.9 % 08/21/23 12:38 [place] % (Auto) 5.6 % 08/21/23 12:38 Eos % (Auto) 2.0 % 08/21/23 12:38 Baso % (Auto) 0.5 % 08/21/23 12:38 Neut # (Auto) 5.37 10^3/uL (1.8-7.7) 08/21/23 12:38 Lymph # (Auto) 1.9 10^3/uL (0.8-4.8) 08/21/23 12:38 [place] # (Auto) 0.4 10^3/uL (0.2-0.9) 08/21/23 12:38 Eos # (Auto) 0.2 10^3/uL (0.0-0.8) 08/21/23 12:38 Baso # (Auto) 0.0 10^3/uL (0.0-0.1) 08/21/23 12:38 Nucleated RBC % (auto) 0 % 08/21/23 12:38 Nucleated RBCs # 0.0 /100WBC 08/21/23 12:38 PT 13.40 SECONDS (12.1-14.9) 08/21/23 12:38 INR 0.99 (0.8-1.2) 08/21/23 12:38 APTT 22.4 SECONDS (23.9-36.7) L 08/21/23 12:38 Sodium 141 mmol/L (136-145) 08/21/23 12:38 Potassium 4.2 mmol/L (3.5-5.1) 08/21/23 12:38 Chloride 103 mmol/L (98-107) 08/21/23 12:38 Carbon Dioxide 26 mmol/L (22-29) 08/21/23 12:38 Anion Gap 16.2 (5-19) 08/21/23 12:38 BUN 20 mg/dL (8-23) 08/21/23 12:38 Creatinine 0.8 mg/dL (0.5-0.9) 08/21/23 12:38 GFR Calculation Not Reportable 08/21/23 12:38 Glucose 126 mg/dL (65-115) H 08/21/23 12:38 POC Glucose 126 mg/dL (70-110) H 08/21/23 12:18 Calculated Osmolality 296 mOsm/kg (285-295) H 08/21/23 12:38 Calcium 9.2 mg/dL (8.5-10.5) 08/21/23 12:38 Total Bilirubin 0.7 mg/dL (0.15-1.2) 08/21/23 12:38 AST 39 U/L (0-32) H 08/21/23 12:38 ALT 14 U/L (0-33) 08/21/23 12:38 Alkaline Phosphatase 71 U/L (35-105) 08/21/23 12:38 Total Protein 7.4 g/dL (6.6-8.7) 08/21/23 12:38 Albumin 3.9 g/dL (3.5-5.2) 08/21/23 12:38 Globulin 3.5 g/dL (1.3-4.6) 08/21/23 12:38 All radiology interpretation(s) finalized by discharge EKG Data EKG 1: I personally reviewed and interpreted this EKG as follows: EKG interpretation date: 08/21/23 EKG interpretation time: 12:23 Interpretation: nsr hr [address] or t wave abnormalities qrs 81 qtc 406 Discharge Plan Discharge Patient Disposition: Admitted As Inpatient Clinical Impression: Cerebrovascular accident Condition: Stable Prescriptions: No Action hydrocodone-acetaminophen 5-325 mg tablet 1 tab PO DAILY PRN (Reason: pain) 30 Days Qty: 60 0RF Calcium 500 500 mg calcium (1,250 mg) Tablet 500 mg PO DAILY Vitamin D3 25 mcg (1,000 unit) Capsule 25 mcg PO DAILY [id number]-bku-ywo-jiw-ccqf-hor [phone] mg Tablet 1 tab PO DAILY Referrals: Chad De La Fuente DO [Primary Care Provider] - Coding Level of Care Code ED 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
[2023-08-21 12:43] LABS: Glucose Point of Care 126 mg/dL (70-110)
[2023-08-21 12:53] LABS: Basophils % 0.5 %; Eosinophils # 0.2 10^3/uL (0.0-0.8); Hematocrit 44.2 % (36-47); Lymphocytes # 1.9 10^3/uL (0.8-4.8); Lymphocytes % 23.9 %; Mean Corpuscular HGB Conc 32.8 g/dL (30-55); Mean Corpuscular Hemoglobin 33.2 pg (27-33); Mean Corpuscular Volume 101.1 fl (85-98); Mean Platelet Volume 10.5 fL (7.4-10.4); Monocytes # 0.4 10^3/uL (0.2-0.9); Monocytes % 5.6 %; Neutrophils # 5.37 10^3/uL (1.8-7.7); Neutrophils % 67.7 %; Nucleated Red Blood Cells % 0 %; Platelet Count 150 10^3/cmm (157-399); Red Blood Count 4.37 10^6/uL (3.85-5.65); Red Cell Distribution Width 12.5 % (12.1-15.1); White Blood Count 7.92 10^3/uL (3.29-11.43)
[2023-08-21 13:10] LABS: INR 0.99 (0.8-1.2)
[2023-08-21 13:11] LABS: Partial Thromboplastin Time 22.4 SECONDS (23.9-36.7)
[2023-08-21] MEDS: aspirin 81 mg Chew Tablet 324 MG PO (13:15)
[2023-08-21 13:18] LABS: Alanine Aminotransferase 14 U/L (0-33); Albumin Level 3.9 g/dL (3.5-5.2); Alkaline Phosphatase 71 U/L (35-105); Blood Urea Nitrogen 20 mg/dL (8-23); Calcium 9.2 mg/dL (8.5-10.5); Carbon Dioxide 26 mmol/L (22-29); Chloride 103 mmol/L (98-107); Globulin 3.5 g/dL (1.3-4.6); Glucose 126 mg/dL (65-115); Osmolality Calculated 296 mOsm/kg (285-295); Sodium 141 mmol/L (136-145); Total Bilirubin 0.7 mg/dL (0.15-1.2); Total Protein 7.4 g/dL (6.6-8.7)
[2023-08-21 13:38] LABS: Anion Gap 16.2 (5-19); Aspartate Amino Transferase 39 U/L (0-32); Potassium 4.2 mmol/L (3.5-5.1)
--- NOTE | 2023-08-21 13:57 | USCV_ITS ---
Kevin Elisabeth Age: 78 Gender: F : 1945 Exam Date: 08/21/2023 14:44 Ordering Phys: Marcus Da Silva MD Technologist: Exam Location: [facility] [place] Indication: cca disease Risk Factors: Previous Vascular Surgery: Right Brachial BP: / Left Brachial BP: / Right Left Velocity (cm/s) Spectral Plaque Velocity (cm/s) Spectral Plaque Syst/Diast Broadening Syst/Diast Broadening 91.30/ 23.70 Prox CCA 47.00 / 8.00 89.10/ 28.10 Mid CCA 46.70 / 7.50 110.90/28.10 Hetro Distal CCA 60.20 / 15.90 Hetro 132.60/32.50 Hetro Prox ICA 62.00 / 15.00 Hetro 92.10/ 23.20 Mid ICA 53.00 / 12.50 90.00/ 25.00 Distal ICA 55.00 / 14.00 108.70 ECA 84.60 1.20 ICA/CCA 0.90 Antegrade Vertebral Antegrade 22.00/ 6.00 cm/s 37.90/ 4.80 cm/s Tri Subclavian Tri 58.00 101.0 0 CONCLUSIONS Right ICA stenosis 50-69% at the lower end of the range. Moderate calcified atheromatous plaque right carotid bulb/ICA. Left ICA stenosis <50%. Moderate calcified atheromatous plaque left carotid bulb/ICA. Normal antegrade Doppler flow noted in the right vertebral artery. Normal antegrade Doppler flow noted in the left vertebral artery. Charly Judd MD (Electronically Signed) Final Date: 21 August 2023 15:28 S
--- NOTE | 2023-08-21 13:57 | USCV_ITS ---
Elisabeth Brown Age: 78 Gender: F : 1945 Exam Date: 08/21/2023 14:23 Ordering Phys: Marcus Da Silva MD Technologist: Exam Location: [facility] – [place] Indication: cva BP: 183 / 83 HR: 76 Rhythm: Sinus Technical Quality: Adequate MEASUREMENTS (Male / Female) Normal Values 2D ECHO LV Diastolic Diameter PLAX 4.0 cm 4.2 - 5.9 / 3.9 - 5.3 cm IVS Diastolic Thickness 0.7 cm 0.6 - 1.0 / 0.6 - 0.9 cm IVS Systolic Thickness 1.4 cm LVPW Diastolic Thickness 1.1 cm 0.6 - 1.0 / 0.6 - 0.9 cm LVPW Systolic Thickness 1.3 cm LV Ejection Fraction 2D Teich 61.1 % LV Ejection Fraction MOD 2C 61.1 % LV Ejection Fraction 2C AL 61.4 % RA Systolic Volume 4C AL 21.3 ml RA Systolic Volume 4C MOD 21.1 ml IVC Diameter 1.3 cm DOPPLER AV Peak Velocity 128.0 cm/s LVOT Peak Velocity 101.0 cm/s MV Area PHT 3.5 cm squared Mitral E to A Ratio 0.9 TR Peak Velocity 218.0 cm/s TR Peak Gradient 19.0 mmHg Right Atrial Pressure 3.0 mmHg Pulmonary Artery Systolic Pressu 22.0 mmHg PV Peak Velocity 98.0 cm/s FINDINGS Left Ventricle Normal left ventricular size and systolic function, EF 61%.no regional wall motion abnormalities. Grade I/IV diastolic dysfunction (abnormal relaxation filling pattern), normal to mildly elevated filling pressures. Right Ventricle The right ventricle is normal in size and function. Right Atrium The right atrium is normal in size. Left Atrium Mildly increased left atrial size. Mitral Valve No gross abnormalities noted Aortic Valve Thickened aortic valve. Tricuspid Valve Trace tricuspid valve regurgitation. Pulmonic Valve No gross abnormalities noted Pericardium Normal pericardium without effusion. Aorta Normal ascending aorta dimension. IVC The inferior vena cava appears normal. CONCLUSIONS Normal left ventricular size and systolic function, EF 61%.no regional wall motion abnormalities. Grade I/IV diastolic dysfunction (abnormal relaxation filling pattern), normal to mildly elevated filling pressures. Mildly increased left atrial size. Thickened aortic valve. Trace tricuspid valve regurgitation. Estimated pulmonary artery peak systolic pressure within normal limits There is no pericardial effusion. There are no intracardiac masses. Dr Zach Patel MD FACC (Electronically Signed) Final Date: 21 August 2023 16:57 S
--- NOTE | 2023-08-21 13:58 | P.HP_ITS ---
Providers/Chief Complaint 2 Primary Care Provider: Chad De La Fuente DO Chief Complaint: stroke like symptoms History of Present Illness Elisabeth Brown is a 78 year old female 78-year-old female, with a past medical history of hypertension not on medications, history of prior cerebellar CVA, history of subdural hematoma, history of T12 compression fracture, asthma, who presents [facility] due to right facial numbness, unsteadiness on her feet. Currently patient is alert oriented x 4, following all commands, she does have right facial numbness, along the right nasal bridge, right temporal region, no slurring of words, no facial droop, no visual deficits no focal neurologic deficits, however according to ER physician when they got her up and walked her she was unsteady on her feet, does have positive bilateral cerebellar signs, NIH stroke scale is 1, ER physician spoke to [facility], the patient did not meet criteria for tPA, I was told at [facility] want to admit for concerns for TIA versus stroke, MRI of the brain, medical management. Patient tells me that this morning she woke up around 6 AM, she watch TV in bed, nothing out of the ordinary, around 1045, she started noticing that the right side of her face was numb, she called her daughter, who is very worried, and told her to call 911, when her daughter emergently came over, she had noticed that Elisabeth was very unsteady on her feet, here in the emergency room when she ambulated she was unsteady on her feet no dizziness no vertigo, no other paresthesias, no tick bites, no facial droop, no history of A-fib, she had a history of stroke patient's daughter tells me that about 2 years ago, she came to the ER due to concerns for strokes this was around [place] time she was unsteady on her feet confused, and she was discharged home with concerns for dehydration however when she followed up with Dr. Eason due to persistent dizziness they he did a CAT scan which indeed showed a stroke, this was in 2020 Review of Systems 2 Card: Denies: chest pain Resp: Denies: dyspnea GI: Denies: abdominal pain : Denies: flank pain Musc: Denies: neck pain Neuro: Denies: headache(s) Medications/Allergies Home Medications Medication Instructions Recorded Confirmed Last Taken Type hydrocodone 5 mg-acetaminophen 325 1 tab PO DAILY PRN pain 30 days 07/16/23 08/21/23 Unknown Rx mg tablet #60 tabs calcium carbonate 500 mg PO DAILY 08/21/23 08/21/23 08/21/23 History cholecalciferol (vitamin D3) 25 25 mcg PO DAILY 08/21/23 08/21/23 08/21/23 History mcg (1,000 unit) capsule (Vitamin D3) wbsbuyly-jyniqo-mbm-noy-pog-msko-horse 1 tab PO DAILY 08/21/23 08/21/23 08/21/23 History 100 mg-100 mg-100 mg-125 mg tab Allergies Allergy/AdvReac Type Severity Reaction Status Date / Time sumatriptan [From Imitrex] Allergy ADR/ALGY-Pa Verified 08/21/23 12:44 lpitations PFSH Acute 2 PFSH: Medical History (Updated 08/21/23 @ 14:16 by Marcus Da Silva MD) Environmental and seasonal allergies Essential hypertension Patient was seen in the office several months ago and instructed to take home blood pressure readings and return to the office. Patient did not followup, but today has elevated pressure of 160/100. She states it goes up and down at home. GERD (gastroesophageal reflux disease) Surgical History Status post Hope fundoplication Patient reports GERD Wrap Surgery Status post total right knee replacement S/P cholecystectomy Social History Smoking and tobacco/nicotine status: never used tobacco/nicotine Second hand smoke exposure: No Alcohol intake: never Substance/Drug Use: never Lives independently: Yes Household members: none Marital status: / Current occupational status: retired Do you think of yourself as: Straight/Heterosexual Current gender identity: Female Vitals/I&O/Wt Last Vital Signs Temp 98.8 F 08/21/23 13:19 Pulse 84 08/21/23 13:19 Resp 22 H 08/21/23 13:19 BP 177/93 08/21/23 13:19 Pulse Ox 99 08/21/23 13:19 O2 Del Method Room Air 08/21/23 13:19 Physical Exam 2 Const: COMMON NORMALS: no acute distress and patient oriented x3 HENMT: COMMON NORMALS: normocephalic Eye: COMMON NORMALS: Equal, round and reactive pupils present and EOMs intact bilaterally Neck/C-Spine: COMMON NORMALS: full ROM Resp: COMMON NORMALS: normal respiratory effort, No retractions, No use of accessory muscles and clear to auscultation bilaterally AUSCULTATION: clear to auscultation bilaterally Cardio: COMMON NORMALS: regular rate, regular rhythm, S1 normal heart sound present and S2 normal heart sound present RATE: regular rate RHYTHM: r egular rhythm HEART SOUNDS: S1 normal heart sound present and S2 normal heart sound present GI: COMMON NORMALS: Normal to inspection, nondistended, normoactive bowel sounds present, Soft to palpation and non-tender Extremity: COMMON NORMALS: no pedal edema Neuro: COMMON NORMALS: patient oriented x3, CN's II-XII intact bilaterally, moves all extremities and no focal motor deficits OTHER: Right facial numbness, along right nasal bridge, right temporal region, pupils equal round reactive to light, Psych: COMMON NORMALS: mental status grossly normal Data 08/21/23 12:38 08/21/23 12:38 A&P Assessment and plan (1) CVA (cerebral vascular accident): (2) Hypertensive urgency: Plan Acute CVA versus TIA ? MRI in Chronic infarct in the LEFT cerebellum measuring 9 x 4 mm. Additional tiny chronic lacunar infarcts in the cerebellum bilaterally 09/2021 -NIH stroke scale 1, not a tPA candidate, [facility] neurology consulted Plan -Admit to medical floors ? Neurochecks -NIH stroke scale # IV fluids ? Carotid ultrasound ? Cardiac echo ? Telemetry monitoring ? Monitor closely A1c lipid panel ? Allow for permissive hypertension treat systolic blood pressure greater than 220 diastolic is greater than 120 ? Patient has had bilateral cerebellar strokes, possible atrial fibrillation?, Telemetry monitoring, will consider discharging patient on an event monitor ? Full code ? Lovenox for DVT prophylaxis Attestations 2 Medical Necessity Statement*: Patient requires hospitalization, outpatient observation, for concerns for acute CVA versus TIA, hypertensive urgency Diagnoses CVA (cerebral vascular accident) I63.9 Hypertensive urgency I16.0
--- NOTE | 2023-08-21 14:11 | ECG_ITS ---
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 Measurements Intervals [place] Rate: 70 P: 15 NE: 166 QRS: 15 QRSD: 80 T: 49 QT: 370 QTc: 401 Interpretive Statements SINUS RHYTHM LOW QRS VOLTAGE IN PRECORDIAL LEADS [QRS DEFLECTION < 1.0 mV IN CHEST LEADS] Compared to ECG 08/21/2023 12:23:54 No significant changes Electronically Signed On 08-21-2023 14:20:26 CDT by Dillon Horn M.D. [id number]
[2023-08-21 14:35] LABS: Troponin(5th) Baseline 13 ng/L (0-10)
[2023-08-21 15:17] LABS: Add Urine Microscopic? NO; Charge for UA Resulting for Rev
[2023-08-21 15:27] LABS: Bilirubin Urine Neg (Negative); Blood Urine Neg (Negative); Glucose Urine UA Norm (Normal); Ketones Urine Negative (Negative); Leukocyte Esterase Urine Negative (Negative); Nitrate Urine Negative (Negative); Protein Urine Neg (Negative); Specific Gravity, Urine 1.005 (1.005-1.030); Urine Appearance Clear (CLEAR); Urine Color Light yellow (Yellow); Urobilinogen Urine Norm (Negative); pH Urine 7 (5-7)
[2023-08-21 15:29] LABS: Amphetamines Screen Urine Negative (Negative); Barbiturates Screen Urine Negative (Negative); Benzodiazepines Screen Urine Negative (Negative); Cocaine Screen Urine Negative (Negative); Opiate Screen Urine Positive (Negative); PCP Screen Urine Negative (Negative); THC Screen Urine Negative (Negative)
--- NOTE | 2023-08-21 16:01 | CTR_ITS ---
PROCEDURE INFORMATION: Exam: CTA Head With Contrast, Arteriography Exam date and time: 08/21/2023 4:34 PM Age: 78 years old Clinical indication: Numbness and other: Right facial numbness; Additional info: Right carotid stenosis, CVA TECHNIQUE: Imaging protocol: Computed tomographic angiography of the head with contrast. Exam focused on the arteries. 3D rendering (Not supervised by radiologist): MIP and/or 3D reconstructed images were created by the technologist. Radiation optimization: All CT scans at this facility use at least one of these dose optimization techniques: automated exposure control; mA and/or kV adjustment per patient size (includes targeted exams where dose is matched to clinical indication); or iterative reconstruction. Contrast material: OMNI 350; Contrast volume: 100 ml; Contrast route: INTRAVENOUS (IV); COMPARISON: CT head thrombolytic [id number] 08/21/2023 12:12 PM RADIATION DOSE METRICS: Total DLP (mGy-cm): 968.85 FINDINGS: ANTERIOR CIRCULATION: Right internal carotid artery: Moderate calcified plaque is seen involving the right cavernous and supraclinoid carotid arteries without any significant stenosis. Right middle cerebral artery: No occlusion or significant stenosis. No aneurysm. Right anterior cerebral artery: No occlusion or significant stenosis. No aneurysm. Left internal carotid artery: Moderate calcified plaque is seen involving the left cavernous and supraclinoid carotid arteries without any significant stenosis. Left middle cerebral artery: No occlusion or significant stenosis. No aneurysm. Left anterior cerebral artery: No occlusion or significant stenosis. No aneurysm. POSTERIOR CIRCULATION: Right vertebral artery: Focal moderate narrowing of the right intradural vertebral artery secondary to atherosclerotic plaque. Left vertebral artery: Intradural left vertebral artery demonstrates no occlusion or significant stenosis. No aneurysm. The left vertebral artery terminates in the left posteroinferior cerebeller artery Basilar artery: . Diminutive basilar artery Right posterior cerebral artery: No occlusion or significant stenosis. No aneurysm. origin of the right posterior cerebral artery. Left posterior cerebral artery: No occlusion or significant stenosis. No aneurysm. origin of the left posterior cerebral artery. Brain: No acute confluent lobar ischemic infarct. Moderate nonspecific white matter low attenuation which may be related to microvascular ischemic changes. Left cerebellar lacune. Cerebral ventricles: The ventricles and sulci are prominent in size compatible with mild atrophy. Bones/joints: Unremarkable. No acute fracture. Soft tissues: Visualized soft tissues are unremarkable. PROCEDURE INFORMATION: Exam: CTA Neck With Contrast Exam date and time: 08/21/2023 4:34 PM Age: 78 years old Clinical indication: Numbness and other: Right facial numbness; Additional info: Right carotid stenosis, CVA TECHNIQUE: Imaging protocol: Computed tomographic angiography of the neck with contrast. Exam focused on the cervical segments of the vasculature. 3D rendering (Not supervised by radiologist): MIP and/or 3D reconstructed images were created by the technologist. Radiation optimization: All CT scans at this facility use at least one of these dose optimization techniques: automated exposure control; mA and/or kV adjustment per patient size (includes targeted exams where dose is matched to clinical indication); or iterative reconstruction. Contrast material: OMNI 350; Contrast volume: 100 ml; Contrast route: INTRAVENOUS (IV); COMPARISON: CT head thrombolytic [id number] 08/21/2023 12:12 PM RADIATION DOSE METRICS: Total DLP (mGy-cm): 968.85 FINDINGS: Right common carotid artery: No stenosis. No dissection or occlusion. Right internal carotid artery: Moderate calcified and noncalcified plaque is seen involving the left carotid bulb and proximal left cervical internal carotid artery resulting in a focal minimal narrowing of 2.3 mm with a distal reference diameter of 4.8 mm corresponding to a 52% stenosis by NASCET criteria. Right external carotid artery: No occlusion or stenosis of the origin. Left common carotid artery: No stenosis. No dissection or occlusion. Left internal carotid artery: Moderate calcified plaque is seen involving the left carotid bulb with a focal minimal narrowing of 3.0 mm in the distal reference diameter of 3.6 mm corresponding to a 17% stenosis by NASCET criteria. Left external carotid artery: No occlusion or stenosis of the origin. Right vertebral artery: No cervical vertebral artery stenosis. No dissection or occlusion. Left vertebral artery: No cervical vertebral artery stenosis. No dissection or occlusion. Soft tissues: Visualized soft tissues of the neck are unremarkable. Bones/joints: No acute bony abnormality. CT/CT angio headneck* [id number] IMPRESSION: Focal moderate narrowing of the right intradural vertebral artery. Otherwise, no significant intracranial arterial stenosis or aneurysm. IMPRESSION: Calcified and noncalcified plaque involving the right carotid bulb and proximal right cervical internal carotid artery resulting in a focal minimal narrowing of 2.3 mm corresponding to a 52% stenosis by NASCET criteria. Moderate calcified plaque involving the left carotid bulb with a focal minimal narrowing 3.0 mm corresponding to a 17% stenosis by NASCET criteria. REFERENCES: NASCET CRITERIA. The degree of stenosis in the cervical segment of the internal carotid artery is based on NASCET criteria. Normal is no stenosis. Mild is less than 50% stenosis. Moderate is 50-69% stenosis. Severe is 70% to 99% stenosis. Total occlusion is no detectable patent lumen.
--- NOTE | 2023-08-21 16:12 | ECG_ITS ---
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 Measurements Intervals Lee Rate: 79 P: 66 [place]: 185 QRS: 1 QRSD: 74 T: 37 QT: 366 QTc: 421 Interpretive Statements SINUS RHYTHM LOW QRS VOLTAGE IN PRECORDIAL LEADS [QRS DEFLECTION < 1.0 mV IN CHEST LEADS] Compared to ECG 08/21/2023 14:11:25 No significant changes Electronically Signed On 08-21-2023 17:25:46 CDT by Dillon Horn M.D. [id number]
[2023-08-21] MEDS: iohexol 350 mg/mL 500 mL Btl (per mL) IV (16:44)
[2023-08-21 17:26] LABS: Estmated Average Glucose 100; Hemoglobin A1C 5.1 % (4.0-6.0)
[2023-08-21 17:45] LABS: Chol HDL Ratio 2.79 mg/dL (0.0-4.40); Cholesterol 173 mg/dL (0-200); HDL Cholesterol 62 mg/dL (60-100); LDL Cholesterol Calculated 91 mg/dL (50-129); LDL HDL Ratio 1.47 RATIO (0.00-3.22); Thyroid Stimulating Hormone 3.78 uIU/mL (0.27-4.20); Triglycerides 102 mg/dL (0-150)
[2023-08-21] MEDS: sodium chloride 0.9% 1,000 ML 75 ML IV (18:02)
[2023-08-21] MEDS: enoxaparin 40 mg/0.4 mL Syringe SUBCUT (18:02)
[2023-08-21 20:51] LABS: Troponin 5 6HR 15.74 ng/L (0-10); Troponin 5 6HR Delta 2.74 ng/L (0-12)
--- NOTE | 2023-08-21 23:07 | PC.NURSE ---
pt refused SCD. pt stated they were uncomfortable and im getting the shot so i don't need them . pt is still getting Lovenox for VTE prevention.
[2023-08-22] VITALS (13 sets, daily range): BP systolic 124–174; BP diastolic 65–86; PULSE 69–84; RESP 16–19; TEMP 36.3–36.8; O2SAT 91–99
[2023-08-22 05:17] LABS: Basophils % 0.5 %; Eosinophils # 0.2 10^3/uL (0.0-0.8); Hematocrit 40.2 % (36-47); Lymphocytes # 1.7 10^3/uL (0.8-4.8); Lymphocytes % 28.4 %; Mean Corpuscular HGB Conc 32.8 g/dL (30-55); Mean Corpuscular Hemoglobin 33.4 pg (27-33); Mean Corpuscular Volume 101.8 fl (85-98); Mean Platelet Volume 10.6 fL (7.4-10.4); Monocytes # 0.5 10^3/uL (0.2-0.9); Monocytes % 8.4 %; Neutrophils # 3.64 10^3/uL (1.8-7.7); Neutrophils % 59.5 %; Nucleated Red Blood Cells % 0 %; Platelet Count 150 10^3/cmm (157-399); Red Blood Count 3.95 10^6/uL (3.85-5.65); Red Cell Distribution Width 12.5 % (12.1-15.1)
[2023-08-22 05:31] LABS: Anion Gap 10.1 (5-19); Blood Urea Nitrogen 15 mg/dL (8-23); Calcium 8.7 mg/dL (8.5-10.5); Carbon Dioxide 28 mmol/L (22-29); Chloride 107 mmol/L (98-107); Creatinine Clr Calc Pharmacy 58.9084; Glucose 93 mg/dL (65-115); Osmolality Calculated 293 mOsm/kg (285-295); Potassium 4.1 mmol/L (3.5-5.1); Sodium 141 mmol/L (136-145)
[2023-08-22] MEDS: sodium chloride 0.9% 1,000 ML 75 ML IV (06:23)
[2023-08-22] MEDS: aspirin 81 mg EC Tablet PO (08:01)
[2023-08-22] MEDS: clopidogrel 75 mg Tablet PO (08:01)
[2023-08-22] MEDS: albuterol 2.5 mg/3 mL Neb INHALATION (09:17)
--- NOTE | 2023-08-22 09:33 | PC.CHAP ---
Pastoral Care Encounter/Spiritual Assessment Type of Contact [] Declined operation manager visit [] Patient/Family/Request visit [] Outpatient visit [] Follow-up visit [] Physician referral [] Code/Alert [x] Routine visit [] Staff referral [] Actively dying [] Patient sleeping [] Family support [] [] Out of room [] Palliative care [] [] Receiving care in room [] Pre-surgical visit [] Trauma [] Long length of stay [] ICU visit [] Other: Relational/Emotional Strength [x] Patient feels connected with others/family/visitors/staff [] Distress [] Loneliness/isolation [] Abandonment Spirituality of Patient [x] Person of Gisella [] Attends Congregational of their Gisella [x] Believes in Prayer [] Reads Bible or Synagogue materials [] There are Spiritual issues 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 addressed 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 [x] Prayer [x Active listening [] Non-anxious presence [x] Spiritual/emotional support [] Crisis/trauma care [] Spiritual counseling [] Bereavement support [] Provided bereavement packet [] Provided Bible/devotional materials [] Provided toy/stuffed animal, coloring book to patient or family member [] Provided Communion [] Anointing/[place] [] Salvation [x] Completed spiritual assessment [] Other: Impact on Illness or Injury [] Angry [] Fearful [] Anxious [] Often cries [] Exhaustion [] Unable to work [] Unable to attend zoroastrian [] Unable to walk/stand [] Unable to read [] Unable to drive [] Unable to eat/drink [] Unable to sleep [] Unable to be with family [] Patient intubated [] Other: Summary Time spent with patient 5 min
[2023-08-22] MEDS: acetaminophen 325 mg Tablet 650 MG PO (11:51)
--- NOTE | 2023-08-22 13:13 | MR_ITS ---
WS: [id number] MRI BRAIN WITHOUT CONTRAST HISTORY: cva COMPARISON: 09/14/2021 TECHNIQUE: Diffusion imaging, multiplanar T1, T2 and FLAIR imaging obtained. No evidence for acute infarct or hemorrhage. Aguiar-white matter differentiation is normal. Remote lacunar infarct is reidentified in the cerebellum. Moderate periventricular small vessel ische kathryn disease. There has been mild progression of small vessel ischemic disease since 09/14/2021. Ventricles and extra-axial spaces are normal. No inferior displacement of cerebellar tonsils. The sella turcica and pituitary gland are unremarkabl e. Dural venous sinuses and [place] of [place] demonstrate no abnormality on this unenhanced studies. Paranasal sinuses: Clear. Mastoid air cells: Normal. Calvarium and scalp: Intact. IMPRESSION: 1. Normal diffusion imaging. No acute infarct. 2. Remote stable LEFT cerebellar lacunar infarct. 3. Moderate small vessel ischemic disease in the supratentorial white matter with mild progression s cortes 09/14/2021.
--- NOTE | 2023-08-22 14:05 | PM.PN ---
Subjective Subjective: Patient was seen this morning, she does report unsteadiness on her feet but improved, her facial numbness has improved, denies any other focal neurologic deficits, no headache, no blurry vision, no nausea, vomiting, spoke to patient daughter at bedside, concerns for persistent unsteadiness on her feet Vitals/I&O/Wt Last Vital Signs Temp 98.2 F 08/22/23 12:00 Pulse 69 08/22/23 12:00 Resp 17 08/22/23 12:00 BP 151/80 08/22/23 12:00 Pulse Ox 91 08/22/23 12:00 O2 Del Method Room Air 08/22/23 09:21 08/21/23 08/22/23 08/22/23 22:59 06:59 14:59 Intake Total 540 / 540 926.25 / 1466.25 150 / 150 Balance 540 / 540 926.25 / 1466.25 150 / 150 Weight last 48 hrs Weight 85.003 kg Weight 78.925 kg Physical Exam Const: COMMON NORMALS: no acute distress and patient oriented x3 Resp: COMMON NORMALS: normal respiratory effort, No retractions, No use of accessory muscles and clear to auscultation bilaterally AUSCULTATION: clear to auscultation bilaterally Cardio: COMMON NORMALS: regular rate, regular rhythm, S1 normal heart sound present and S2 normal heart sound present RATE: regular rate RHYTHM: regular rhythm HEART SOUNDS: S1 normal heart sound present and S2 normal heart sound present GI: COMMON NORMALS: Normal to inspection, nondistended, normoactive bowel sounds present and non-tender Extremity: COMMON NORMALS: no pedal edema Neuro: COMMON NORMALS: patient oriented x3 Psych: COMMON NORMALS: mental status grossly normal Data 08/22/23 04:51 08/22/23 04:51 A&P Assessment and plan (1) CVA (cerebral vascular accident): (2) Hypertensive urgency: Plan Acute CVA ? MRI in Chronic infarct in the LEFT cerebellum measuring 9 x 4 mm. Additional tiny chronic lacunar infarcts in the cerebellum bilaterally 09/2021 -NIH stroke scale 1, not a tPA candidate, [facility] neurology consulted ? Continues to have unsteadiness on her feet facial numbness has resolved CTA head and neck - CT/CT angio headneck* [id number] IMPRESSION: Focal moderate narrowing of the right intradural vertebral artery. Otherwise, no significant intracranial arterial stenosis or aneurysm. Plan -Admit to medical floors ? Continue aspirin, Plavix ? Neurochecks -NIH stroke scale ? Telemetry monitoring ? Monitor closely ? Allow for permissive hypertension treat systolic blood pressure greater than 220 diastolic is greater than 120 ? Patient has had bilateral cerebellar strokes, possible atrial fibrillation?, Telemetry monitoring, will consider discharging patient on an event monitor ? Full code ? Lovenox for DVT prophylaxis Plan for today, up out of bed PT OT, allow for permissive hypertension, monitor clinical status closely, MRI of the brain, plan on discharging in the next 24 hours Attestations Medical Necessity Statement*: Patient requires hospitalization inpatient, greater than 2 minutes for acute CVA Diagnoses CVA (cerebral vascular accident) I63.9 Hypertensive urgency I16.0
[2023-08-22] MEDS: enoxaparin 40 mg/0.4 mL Syringe SUBCUT (16:15)
[2023-08-23] VITALS (8 sets, daily range): BP systolic 147–182; BP diastolic 79–82; PULSE 73–93; RESP 16–18; TEMP 36.6; O2SAT 93–96
[2023-08-23] MEDS: acetaminophen 325 mg Tablet 650 MG PO (05:29)
[2023-08-23] MEDS: clopidogrel 75 mg Tablet PO (08:42)
[2023-08-23] MEDS: aspirin 81 mg EC Tablet PO (08:42)
[2023-08-23] MEDS: amlodipine 10 mg Tablet PO (10:11)
[2023-08-23] MEDS: HYDROcodone-acetaminophen 5-325 mg Tablet 1 TAB PO (10:11)
--- NOTE | 2023-08-23 11:59 | PM.DCS ---
Discharge Providers Date of Admission: 08/22/23 14:10 Date of Discharge: August 23, 2023 Attending Provider at Admission: Marcus Da Silva MD Attending Provider at Discharge: Marcus Da Silva MD Primary Care Provider: Chad De La Fuente DO Diagnoses at Discharge Discharge Diagnosis (1) CVA (cerebral vascular accident): Status: Acute (2) Hypertensive urgency: Status: Acute Reason for Visit Reason for Visit: stroke like symptoms Hospital Course Hospital Course Elisabeth Brown is a 78 year old female 78-year-old female, with a past medical history of hypertension not on medications, history of prior cerebellar CVA, history of subdural hematoma, history of T12 compression fracture, asthma, who presents [facility] due to right facial numbness, unsteadiness on her feet. Currently patient is alert oriented x 4, following all commands, she does have right facial numbness, along the right nasal bridge, right temporal region, no slurring of words, no facial droop, no visual deficits no focal neurologic deficits, however according to ER physician when they got her up and walked her she was unsteady on her feet, does have positive bilateral cerebellar signs, NIH stroke scale is 1, ER physician spoke to [facility], the patient did not meet criteria for tPA, I was told at [facility] want to admit for concerns for TIA versus stroke, MRI of the brain, medical management. Patient tells me that this morning she woke up around 6 AM, she watch TV in bed, nothing out of the ordinary, around 1045, she started noticing that the right side of her face was numb, she called her daughter, who is very worried, and told her to call 911, when her daughter emergently came over, she had noticed that Elisabeth was very unsteady on her feet, here in the emergency room when she ambulated she was unsteady on her feet no dizziness no vertigo, no other paresthesias, no tick bites, no facial droop, no history of A-fib, she had a history of stroke patient's daughter tells me that about 2 years ago, she came to the ER due to concerns for strokes this was around Dwayne time she was unsteady on her feet confused, and she was discharged home with concerns for dehydration however when she followed up with Dr. Eason due to persistent dizziness they he did a CAT scan which indeed showed a stroke, this was in 2020 Acute CVA ? MRI in Chronic infarct in the LEFT cerebellum measuring 9 x 4 mm. Additional tiny chronic lacunar infarcts in the cerebellum bilaterally 09/2021 -NIH stroke scale 1, not a tPA candidate, [facility] neurology consulted ? 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 Otherwise, no significant intracranial arterial stenosis or aneurysm. IMPRESSION: 1. Normal diffusion imaging. No acute infarct. 2. Remote stable LEFT cerebellar lacunar infarct. 3. Moderate small vessel ischemic disease in the supratentorial white matter with mild progression since 09/14/2021. -echo CONCLUSIONS Normal left ventricular size and systolic function, EF 61%.no regional wall motion abnormalities. Grade I/IV diastolic dysfunction (abnormal relaxation filling pattern), normal to mildly elevated filling pressures. Mildly increased left atrial size. Thickened aortic valve. Trace tricuspid valve regurgitation. Estimated pulmonary artery peak systolic pressure within normal limits There is no pericardial effusion. There are no intracardiac masses. -Patient was admitted to [facility] for acute CVA, NIH stroke scale 1, not a tPA candidate, [facility] neurology consulted, recommended medical management, patient was monitored as inpatient, on aspirin, Plavix, and a stroke scale neurochecks telemetry monitoring permissive hypertension ? Overall patient clinically improved to right facial numbness resolved ? In terms of her balance she continues to have unsteadiness on her feet, will be discharged home with home with outpatient physical therapy ? Discharged on aspirin 81 mg daily indefinitely, Plavix 75 mg once daily for 21 days, statin, Norvasc for hypertension ? In terms of the etiology of her stroke it could be ischemic stroke given her episodes of hypertension, discharged on Norvasc as above, record blood pressures follow-up with primary care provider for blood pressure monitoring ? However given that she has had these recurrent strokes, and bilateral cerebellar stroke, suspicious for A-fib events although telemetry monitoring has not shown any A-fib events, discharged with order for event monitor Patient was advised if she had were to have any recurrent strokelike symptoms call 911, if any chest pain or palpitations to go to the emergency room, had extensive discussion with her about her fall risk given the location of her strokes, ambulate with care, - Please follow-up with your primary care provider in 1 week ? Please monitor your blood pressures twice daily, please bring blood pressure logs to your primary care physician's office ? Please follow-up with neurology in 2 weeks ? Please follow-up with cardiology in 1 month ? Please continue aspirin 81 mg indefinitely ? Please continue 75 mg of Plavix once daily, stop after 21 days, this is being stopped early after 21 days due to ear bleed risk ? Continue statin ? If you have any recurrent strokelike symptoms please call 911, ? Please ambulate with care, given your cerebellar stroke event increased risk of falls especially as you are on antiplatelet agent as above you have high risk of bleeding, and trauma with bleeding, ? If you have any significant fall if you hit your head go to the emergency room ? Please change position and ambulate with extreme care ? Physical Exam Const: COMMON NORMALS: no acute distress and patient oriented x3 Resp: COMMON NORMALS: normal respiratory effort, No retractions, No use of accessory muscles and clear to auscultation bilaterally AUSCULTATION: clear to auscultation bilaterally Cardio: COMMON NORMALS: regular rate, regular rhythm, S1 normal heart sound present and S2 normal heart sound present RATE: regular rate RHYTHM: regular rhythm HEART SOUNDS: S1 normal heart sound present and S2 normal heart sound present GI: COMMON NORMALS: Normal to inspection, nondistended, normoactive bowel sounds present and non-tender Extremity: COMMON NORMALS: no pedal edema Neuro: COMMON NORMALS: patient oriented x3, CN's II-XII intact bilaterally, moves all extremities, no focal motor deficits and no sensory deficits noted Psych: COMMON NORMALS: mental status grossly normal Discharge Data Studies Completed and Pending Completed Studies During Hospitalization Category Date Time Status CT angio head neck [CT angio headneck* [id number]] Cat Scan 08/21/23 16:[address] head thrombolytic [id number] Stat Cat Scan 08/21/23 12:08 Completed XR chest 1V portable [id number] Stat Exams 08/21/23 12:08 Completed MR head wo con* [id number] Stat MRI 08/22/23 13:13 Completed CV carotid duplex BI* [id number] Routine Ultrasound 08/21/23 13:57 Completed CV. 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 Otherwise, no significant intracranial arterial stenosis or aneurysm. IMPRESSION: Calcified and noncalcified plaque involving the right carotid bulb and proximal right cervical internal carotid artery resulting in a focal minimal narrowing of 2.3 mm corresponding to a 52% stenosis by NASCET criteria. Moderate calcified plaque involving the left carotid bulb with a focal minimal narrowing 3.0 mm corresponding to a 17% stenosis by NASCET criteria. REFERENCES: NASCET CRITERIA. The degree of stenosis in the cervical segment of the internal carotid artery is based on NASCET criteria. Normal is no stenosis. Mild is less than 50% stenosis. Moderate is 50-69% stenosis. Severe is 70% to 99% stenosis. Total occlusion is no detectable patent lumen. Laboratory Results WBC 6.10 10^3/uL (3.29-11.43) 08/22/23 04:51 RBC 3.95 10^6/uL (3.85-5.65) 08/22/23 04:51 Hgb 13.20 g/dL (11.27-16.99) 08/22/23 04:51 Hct 40.2 % (36-47) 08/22/23 04:51 MCV 101.8 fl (85-98) H 08/22/23 04:51 MCH 33.4 pg (27-33) H 08/22/23 04:51 MCHC 32.8 g/dL (30-55) 08/22/23 04:51 RDW 12.5 % (12.1-15.1) 08/22/23 04:51 Plt Count 150 10^3/cmm (157-399) L 08/22/23 04:51 MPV 10.6 fL (7.4-10.4) H 08/22/23 04:51 Neut % (Auto) 59.5 % 08/22/23 04:51 Lymph % (Auto) 28.4 % 08/22/23 04:51 [place] % (Auto) 8.4 % 08/22/23 04:51 Eos % (Auto) 3.0 % 08/22/23 04:51 Baso % (Auto) 0.5 % 08/22/23 04:51 Neut # (Auto) 3.64 10^3/uL (1.8-7.7) 08/22/23 04:51 Lymph # (Auto) 1.7 10^3/uL (0.8-4.8) 08/22/23 04:51 [place] # (Auto) 0.5 10^3/uL (0.2-0.9) 08/22/23 04:51 Eos # (Auto) 0.2 10^3/uL (0.0-0.8) 08/22/23 04:51 Baso # (Auto) 0.0 10^3/uL (0.0-0.1) 08/22/23 04:51 Nucleated RBC % (auto) 0 % 08/22/23 04:51 Nucleated RBCs # 0.0 /100WBC 08/22/23 04:51 PT 13.40 SECONDS (12.1-14.9) 08/21/23 12:38 INR 0.99 (0.8-1.2) 08/21/23 12:38 APTT 22.4 SECONDS (23.9-36.7) L 08/21/23 12:38 Sodium 141 mmol/L (136-145) 08/22/23 04:51 Potassium 4.1 mmol/L (3.5-5.1) 08/22/23 04:51 Chloride 107 mmol/L (98-107) 08/22/23 04:51 Carbon Dioxide 28 mmol/L (22-29) 08/22/23 04:51 Anion Gap 10.1 (5-19) 08/22/23 04:51 BUN 15 mg/dL (8-23) 08/22/23 04:51 Creatinine 0.8 mg/dL (0.5-0.9) 08/22/23 04:51 GFR Calculation Not Reportable 08/22/23 04:51 Glucose 93 mg/dL (65-115) 08/22/23 04:51 POC Glucose 126 mg/dL (70-110) H 08/21/23 12:18 Estimat Average Glucose 100 08/21/23 12:38 Hemoglobin A1c 5.1 % (4.0-6.0) 08/21/23 12:38 Calculated Osmolality 293 mOsm/kg (285-295) 08/22/23 04:51 Calcium 8.7 mg/dL (8.5-10.5) 08/22/23 04:51 Total Bilirubin 0.7 mg/dL (0.15-1.2) 08/21/23 12:38 AST 39 U/L (0-32) H 08/21/23 12:38 ALT 14 U/L (0-33) 08/21/23 12:38 Alkaline Phosphatase 71 U/L (35-105) 08/21/23 12:38 Troponin T Baseline 13 ng/L (0-10) H 08/21/23 12:38 Troponin T 120 Minute Cancelled 08/21/23 17:42 Delta Troponin T Cancelled 08/21/23 17:42 Troponin T Hi Sens 6Hr 15.74 ng/L (0-10) H 08/21/23 20:10 Troponin T Hi Sens 6Hr Delta 2.74 ng/L (0-12) 08/21/23 20:10 Total Protein 7.4 g/dL (6.6-8.7) 08/21/23 12:38 Albumin 3.9 g/dL (3.5-5.2) 08/21/23 12:38 Globulin 3.5 g/dL (1.3-4.6) 08/21/23 12:38 Triglycerides 102 mg/dL (0-150) 08/21/23 12:38 Cholesterol 173 mg/dL (0-200) 08/21/23 12:38 LDL Cholesterol, Calc 91 mg/dL (50-129) 08/21/23 12:38 HDL Cholesterol 62 mg/dL (60-100) 08/21/23 12:38 LDL/HDL Ratio 1.47 RATIO (0.00-3.22) 08/21/23 12:38 Cholesterol/HDL Ratio 2.79 mg/dL (0.0-4.40) 08/21/23 12:38 TSH 3.78 uIU/mL (0.27-4.20) 08/21/23 12:38 Urine Color Light yellow (Yellow) 08/21/23 15:11 Urine Appearance Clear (CLEAR) 08/21/23 15:11 Urine pH 7 (5-7) 08/21/23 15:11 Ur Specific [place] 1.005 (1.005-1.030) 08/21/23 15:11 Urine Protein Neg (Negative) 08/21/23 15:11 Urine Glucose (UA) Norm (Normal) 08/21/23 15:11 Urine Ketones Negative (Negative) 08/21/23 15:11 Urine Blood Neg (Negative) 08/21/23 15:11 Urine Nitrate Negative (Negative) 08/21/23 15:11 Urine Bilirubin Neg (Negative) 08/21/23 15:11 Urine Urobilinogen Norm mg/dL (Negative) 08/21/23 15:11 Ur Leukocyte Esterase Negative (Negative) 08/21/23 15:11 Urine Opiates Screen Positive ng/mL (Negative) H 08/21/23 15:11 Ur Barbiturates Screen Negative ng/mL (Negative) 08/21/23 15:11 Ur Phencyclidine Scrn Negative ng/mL (Negative) 08/21/23 15:11 Ur Amphetamines Screen Negative ng/mL (Negative) 08/21/23 15:11 U Benzodiazepines Scrn Negative ng/mL (Negative) 08/21/23 15:11 Urine Cocaine Screen Negative ng/mL (Negative) 08/21/23 15:11 U Marijuana (THC) Screen Negative ng/mL (Negative) 08/21/23 15:11 Vitals Last Vital Signs Temp 97.9 F 08/23/23 11:56 Pulse 74 08/23/23 11:56 Resp 17 08/23/23 11:56 BP 182/80 08/23/23 11:56 Pulse Ox 96 08/23/23 11:56 O2 Del Method Room Air 08/23/23 11:56 Discharge Plan Discharge Patient Disposition: Home Condition: Stable Prescriptions: New amlodipine 10 mg Tablet 10 mg PO DAILY 30 Days Qty: 30 0RF aspirin 81 mg Tablet,Delayed Release (Dr/Ec) 81 mg PO DAILY 30 Days Qty: 30 0RF clopidogrel 75 mg Tablet 75 mg PO DAILY 21 Days Qty: 21 0RF atorvastatin 40 mg tablet 40 mg PO DAILY 30 Days Qty: 30 0RF Continued hydrocodone-acetaminophen 5-325 mg tablet 1 tab PO DAILY PRN (Reason: pain) 30 Days Qty: 60 0RF Calcium 500 500 mg calcium (1,250 mg) Tablet 500 mg PO DAILY Vitamin D3 25 mcg (1,000 unit) Capsule 25 mcg PO DAILY [id number] mg Tablet 1 tab PO DAILY Discharge Orders: Discharge Order (Routine); Ordered 08/23/23 Ordered By: Marcus Da Silva Other Ambulatory Orders: Physical Therapy Eval and Treat Outpatient (Order) Timeframe: 2 Days Facility: [facility] - Location: Physical Therapy [place] Ordered By: Marcus Da Silva MCT/Event Monitor 30 Days (Routine) Timeframe: 1 Day Facility: [facility] - Location: Radiology Ordered By: Marcus Da Silva Referrals: Jaskaran Eaton MD [Physician] - 2 weeks (cva) Zach Patel MD [Physician] - 1 month (event monitor) Chad De La Fuente DO [Primary Care Provider] - Discharge Diet: Cardiac Discharge Activity: Resume usual activity Patient Instructions: Ischemic Stroke (DC), Opioid Safety Activity Restrictions/Additional Instructions: - Please follow-up with your primary care provider in 1 week ? Please monitor your blood pressures twice daily, please bring blood pressure logs to your primary care physician's office ? Please follow-up with neurology in 2 weeks ? Please follow-up with cardiology in 1 month ? Please continue aspirin 81 mg indefinitely ? Please continue 75 mg of Plavix once daily, stop after 21 days, this is being stopped early after 21 days due to ear bleed risk ? Continue statin ? If you have any recurrent strokelike symptoms please call 911, ? Please ambulate with care, given your cerebellar stroke event increased risk of falls especially as you are on antiplatelet agent as above you have high risk of bleeding, and trauma with bleeding, ? If you have any significant fall if you hit your head go to the emergency room ? Please change position and ambulate with extreme care ? Discharge Attestations Time Spent in Discharge Care*: greater than 30 min Quality Metrics Clinical Quality Measures [ Cerebrovascular Accident { Contraindication to Antithrombotic: None; antithrombotic prescribed; Contraindication to Anticoagulation: Overlap treatment not indicated; Contraindication to Statin: None; Statin prescribed;}] Coding Level of Care Code 84255 Total time (in minutes) for Discharge: 45 Diagnoses CVA (cerebral vascular accident) I63.9 Hypertensive urgency I16.0
== END 2023-08-23 13:09 | disposition home or self-care (01) | DRG 66 ==
LOC: ER 13:45 → MEDSURG 15:32
PROVIDERS: Admitting Provider Family Medicine; Emergency Provider Emergency Medicine; PCP Family Medicine; Visit Provider Family Medicine
DX: I63.81 Other cerebral infarction due to occlusion or stenosis of small artery (principal); R29.810 Facial weakness; R29.701 NIHSS score 1; I16.0 Hypertensive urgency; I10 Essential (primary) hypertension; Z86.73 Personal history of transient ischemic attack (TIA), and cerebral infarction without residual deficits
CPT/HCPCS: 17000; 36415; 36416; 70450; 70496; 70498; 70551; 71045; 80048; 80053; 80061; 80306; 81003; 82962; 83036; 84443; 84484; 85025; 85610; 85730; 92523; 92610; 93005; 93306; 93880; 94640; 94664; 96372; 97110; 97161; 97165; 99213; 99285; G0378; J1650; J7030; J7613; Q9967

== ENCOUNTER → 2023-09-25 08:11 | Outpatient (BNVA) | payer MEDICARE, MEDICAID, SELFPAY | PROVIDERS: PCP Family Medicine; Visit Provider Specialist | DX: Z09 Encounter for follow-up examination after completed treatment for conditions other than malignant neoplasm (principal); R26.9 Unspecified abnormalities of gait and mobility; G45.9 Transient cerebral ischemic attack, unspecified; R42 Dizziness and giddiness | CPT/HCPCS: 99204; 99205 ==

== ENCOUNTER 2023-10-02 09:12 | Outpatient (RCR) | payer MEDICARE, MEDICAID, SELFPAY | END 2023-10-03 23:59 | disposition home or self-care (01) | LOC: SPT 09:12 | PROVIDERS: PCP Family Medicine; Visit Provider Family Medicine | DX: I63.9 Cerebral infarction, unspecified (principal) | CPT/HCPCS: 97161 ==

== ENCOUNTER 2023-10-04 06:00 | Outpatient (RCR) | payer MEDICARE, MEDICAID, SELFPAY | END 2023-11-02 23:59 | disposition home or self-care (01) | LOC: SPT 06:00 | PROVIDERS: PCP Family Medicine; Visit Provider Family Medicine | DX: I63.9 Cerebral infarction, unspecified (principal) | CPT/HCPCS: 97110 ==

== ENCOUNTER 2023-11-03 06:00 | Outpatient (RCR) | payer MEDICARE, MEDICAID, SELFPAY | END 2023-12-03 23:59 | disposition home or self-care (01) | LOC: SPT 06:00 | PROVIDERS: PCP Family Medicine; Visit Provider Family Medicine | DX: I63.9 Cerebral infarction, unspecified (principal) | CPT/HCPCS: 97110; 97530 ==

== ENCOUNTER 2023-12-04 06:00 | Outpatient (RCR) | payer MEDICARE, MEDICAID, SELFPAY | END 2024-01-03 23:59 | disposition home or self-care (01) | LOC: SPT 06:00 | PROVIDERS: PCP Family Medicine; Visit Provider Family Medicine | DX: I63.9 Cerebral infarction, unspecified (principal) | CPT/HCPCS: 97110; 97112; 97530 ==

== ENCOUNTER 2024-01-04 06:00 | Outpatient (RCR) | payer MEDICARE, MEDICAID, SELFPAY | END 2024-02-02 23:59 | disposition home or self-care (01) | LOC: SPT 06:00 | PROVIDERS: PCP Family Medicine; Visit Provider Radiology Diagnostic Radiology | DX: I63.9 Cerebral infarction, unspecified (principal) | CPT/HCPCS: 97110; 97530 ==

== ENCOUNTER 2024-02-03 07:27 | Outpatient (RCR) | payer MEDICARE, MEDICAID, SELFPAY | END 2024-03-04 23:59 | disposition home or self-care (01) | LOC: SPT 07:27 | PROVIDERS: PCP Family Medicine; Visit Provider Radiology Diagnostic Radiology | DX: I63.9 Cerebral infarction, unspecified (principal) | CPT/HCPCS: 97110 ==

== ENCOUNTER → 2024-02-20 11:22 | Outpatient (BNVA) | payer MEDICARE, MEDICAID, SELFPAY | PROVIDERS: PCP Family Medicine; Visit Provider Family Medicine | DX: I10 Essential (primary) hypertension (principal); I63.9 Cerebral infarction, unspecified; R42 Dizziness and giddiness | CPT/HCPCS: 80053; 85025 ==

== ENCOUNTER 2024-03-05 06:00 | Outpatient (RCR) | payer MEDICARE, MEDICAID, SELFPAY | END 2024-03-18 23:59 | disposition home or self-care (01) | LOC: SPT 06:00 | PROVIDERS: PCP Family Medicine; Visit Provider Radiology Diagnostic Radiology | DX: I63.9 Cerebral infarction, unspecified (principal) | CPT/HCPCS: 97110 ==

== ENCOUNTER 2024-07-20 14:35 | Emergency (ER) | payer MEDICARE, MEDICAID, SELFPAY ==
[2024-07-20 14:38] VITALS: BP 143/73; PULSE 84; TEMP 36.4; O2SAT 92
--- NOTE | 2024-07-20 14:38 | ECG_ITS ---
[facility] Test Date: 2024-07-20 Pat Name: Elisabeth Brown Department: Room: Gender: Female Manager Studio: : 1945 Requested By: Kevin Mg Order Number: [id number] Alexys MD: Zach Patel M.D. Measurements Intervals [place] Rate: 80 P: 1 [place]: 142 QRS: 6 QRSD: 80 T: 36 QT: 375 QTc: 433 Interpretive Statements SINUS RHYTHM LOW QRS VOLTAGE IN PRECORDIAL LEADS [QRS DEFLECTION < 1.0 mV IN CHEST LEADS] POSSIBLE ANTERIOR MYOCARDIAL INFARCTION , PROBABLY OLD [30 ms Q WAVE IN V3/V4, OR R < 0.2 mV IN V4] Compared to ECG 08/21/2023 16:12:40 Myocardial infarct finding now present Electronically Signed On 07-20-2024 19:17:50 CDT by Zach Patel M.D. [id number] [id number]
--- NOTE | 2024-07-20 15:49 | W.ED.WEAKNES ---
Documented by User: Kevin Arce DO 07/21/24 05:58 HPI - Weakness General: Chief complaint: Weakness Stated complaint: low bp, weakness, dizzy Time Seen by Provider: 07/20/24 15:25 History of Present Illness: 79-year-old female presents emergency room complaining of weakness dizziness low blood pressure. She denies any chest pain. Blood pressure normotensive on arrival here. No abdominal pain no shortness of breath no fever sweats chills no dysuria urgency or frequency. No diarrhea. Associated symptoms: Denies chest pain, chills, dysuria or fever(s) Review of Systems Const: Reports: fatigue; Denies: fever(s) or chills Card: Denies: chest pain Resp: Denies: dyspnea GI: Denies: abdominal pain : Denies: dysuria, urinary frequency or urinary urgency Musc: Denies: neck pain or back pain Skin/Breast: Denies: rash PFSH ED PFSH: Medical History Enrolled in chronic care management please do not remove from active Environmental and seasonal allergies Essential hypertension Patient was seen in the office several months ago and instructed to take home blood pressure readings and return to the office. Patient did not followup, but today has elevated pressure of 160/100. She states it goes up and down at home. GERD (gastroesophageal reflux disease) Surgical History Status post Hope fundoplication Patient reports GERD Wrap Surgery Status post total right knee replacement S/P cholecystectomy Social History Smoking and tobacco/nicotine status: never used tobacco/nicotine Second hand smoke exposure: No Alcohol intake: never Substance/Drug Use: never Lives independently: Yes Household members: none Marital status: / Current occupational status: retired Do you think of yourself as: Straight/Heterosexual Current gender identity: Female Physical Exam Const: COMMON NORMALS: no acute distress GENERAL APPEARANCE: cooperative and comfortable ORIENTATION/CONSCIOUSNESS: Yes awake HENMT: COMMON NORMALS: normocephalic, atraumatic and hearing grossly normal bilaterally HEAD & SCALP: normocephalic and atraumatic Resp: COMMON NORMALS: normal respiratory effort, No retractions, No use of accessory muscles and clear to auscultation bilaterally AUSCULTATION: clear to auscultation bilaterally Cardio: COMMON NORMALS: regular rate, regular rhythm and No murmurs present (Cardio) RATE: regular rate RHYTHM: regular rhythm GI: COMMON NORMALS: Soft to palpation and No hepatosplenomegaly present AUSCULTATION: Yes normoactive bowel sounds PALPATION: Yes Soft to palpation, No Tenderness to palpation present (GI), No Guarding due to palpation present (GI) and Yes No hepatosplenomegaly present Extremity: COMMON NORMALS: normal to inspection, capillary refill normal, no clubbing, cyanosis or edema, no calf tenderness and no pedal edema Skin: COMMON NORMALS: no rashes or lesions noted GENERAL SKIN EXAM: no rashes or lesions noted Course Vital Signs: Vital signs: Vital Signs Temperature 97.5 F L 07/20/24 14:38 Pulse Rate 71 07/20/24 21:47 Respiratory Rate 16 07/20/24 21:47 Blood Pressure 121/81 07/20/24 21:47 Pulse Oximetry 91 07/20/24 21:47 Oxygen Delivery Me thod Room Air 07/20/24 17:36 MDM - Weakness Medical Decision Making Care signed out to Dr. Jennings at change of shift. See final notes for diagnosis and disposition. Patient care transitioned me at shift change Medical decision making: Differential diagnosis for patient presenting with generalized weakness including but not limited to and based on the above HPI, review of systems and physical exam: Sepsis. Dehydration. Renal failure. Electrolyte abnormalities. Anemia. Congestive heart failure. Hypotension. Coronary syndrome. Hepatitis. Cirrhosis. Infections such as pneumonia, urinary tract infection, Tick bourne illness, Cellulitis, Viral infections including influenza and Covid-19. Chest x-ray: No acute process. No infiltrate. No pneumothorax. This was reviewed and interpreted by myself the emergency room physician. I also reviewed the radiology report. Lab Review: Laboratory results were reviewed and interpreted by myself the emergency room physician. No leukocytosis. No anemia. Patient does have increased BUN and creatinine over her baseline as well as concentrated urine which would indicate dehydration. No signs of infection. Chest x-ray is clear urinalysis clear. Flu COVID and RSV are negative. Serial troponins are negative I reviewed the patient's medical record. Reexamination: Patient remained stable. No increased work of breathing. No altered mental status. No focal motor deficits. Discussed better hydration and family agrees she does not drink enough. They are ready to go home. Patient says she is hungry Assessment and plan: Dehydration Weakness ? Normal saline bolus in the emergency room. - Discharged home - Discussed plan with patient. Answered any questions. - Evaluation and treatment of this problem were appropriate in the emergency setting. Lab Data 07/20/24 17:28 07/20/24 17: Radiology Impressions Chest X-Ray 07/20/24 17:33 IMPRESSION: No acute cardiopulmonary process. Laboratory Results WBC 10.20 10^3/uL (3.29-11.43) 07/20/24 17: RBC 4.54 10^6/uL (3.85-5.65) 07/20/24 17: Hgb 14.90 g/dL (11.27-16.99) 07/20/24 17: Hct 46.0 % (36-47) 07/20/24 17: MCV 101.3 fl (85-98) H 07/20/24 17: MCH 32.8 pg (27-33) 07/20/24 17: MCHC 32.4 g/dL (30-55) 07/20/24: RDW 13.2 % (12.1-15.1) 07/20/24 17: Plt Count 193 10^3/cmm (157-399) 07/20/24 17: MPV 10.4 fL (7.4-10.4) 07/20/24: Neut % (Auto) 70.7 % 07/20/24 17: Lymph % (Auto) 22.3 % 07/20/24 17: [place] % (Auto) 6.3 % 07/20/24: Eos % (Auto) 0.2 % 07/20/24: Baso % (Auto) 0.3 % 07/20/24: Neut # (Auto) 7.22 10^3/uL (1.8-7.7) 07/20/24 17: Lymph # (Auto) 2.3 10^3/uL (0.8-4.8) 07/20/24 17:28 [place] # (Auto) 0.6 10^3/uL (0.2-0.9) 07/20/24 17:28 Eos # (Auto) 0.0 10^3/uL (0.0-0.8) 07/20/24 17:28 Baso # (Auto) 0.0 10^3/uL (0.0-0.1) 07/20/24 17:28 Nucleated RBC % (auto) 0 % 07/20/24 17: Nucleated RBCs # 0.0 /100WBC 07/20/24 17:28 Sodium 140 mmol/L (136-145) 07/20/24 17: Potassium 4.1 mmol/L (3.5-5.1) 07/20/24 17: Chloride 100 mmol/L (98-107) 07/20/24 17: Carbon Dioxide 23 mmol/L (22-29) 07/20/24 17: Anion Gap 21.1 (5-19) H 07/20/24 17: BUN 30 mg/dL (8-23) H 07/20/24 17:28 Creatinine 1.1 mg/dL (0.5-0.9) H 07/20/24 17:28 GFR Calculation Not Reportable 07/20/24 17: Glucose 99 mg/dL (65-115) 07/20/24 17: Calculated Osmolality 296 mOsm/kg (285-295) H 07/20/24 17: Calcium 9.7 mg/dL (8.5-10.5) 07/20/24 17: Total Bilirubin 0.6 mg/dL (0.15-1.2) 07/20/24 17: AST 39 U/L (0-32) H 07/20/24 17:28 ALT 14 U/L (0-33) 07/20/24 17:28 Alkaline Phosphatase 79 U/L (35-105) 07/20/24 17:28 Troponin T Baseline 10 ng/L (0-10) 07/20/24 17:28 Troponin T 120 Minute 9.02 ng/L (0-10) 07/20/24 19:18 Delta Troponin T -0.98 ABS# (0-10) L 07/20/24 19:18 Total Protein 7.6 g/dL (6.6-8.7) 07/20/24 17: Albumin 4.2 g/dL (3.5-5.2) 07/20/24 17: Globulin 3.4 g/dL (1.3-4.6) 07/20/24 17:28 Urine Color Dark yellow (Yellow) A 07/20/24 16:40 Urine Appearance Cloudy (CLEAR) A 07/20/24 16:40 Urine pH 5.0 (5-7) 07/20/24 16:40 Ur Specific [place] 1.043 (1.005-1.030) H 07/20/24 16:40 Urine Protein 1+ (Negative) A 07/20/24 16:40 Urine Glucose (UA) Negative (Normal) 07/20/24 16:40 Urine Ketones Trace (Negative) 07/20/24 16:40 Urine Blood Negative (Negative) 07/20/24 16:40 Urine Nitrate Negative (Negative) 07/20/24 16:40 Urine Bilirubin Negative (Negative) 07/20/24 16:40 Urine Urobilinogen 1.0 mg/dL (Negative) 07/20/24 16:40 Ur Leukocyte Esterase Negative (Negative) 07/20/24 16:40 Urine RBC 3-5 /hpf (0-2) 07/20/24 16:40 Urine WBC 0-5 /hpf (0-5) 07/20/24 16:40 Ur Squamous Epith Cells 6-10 /hpf (0-5) 07/20/24 16:40 Calcium Oxalate Crystal 40-55 /hpf H 07/20/24 16:40 Amorphous Sediment Not Reportable 07/20/24 16:40 Urine Bacteria None seen /hpf (NONE) 07/20/24 16:40 Hyaline Casts 57.91 /lpf 07/20/24 16:40 Fine Granular Casts 0-4 /lpf H 07/20/24 16:40 Influenza A (PCR) Negative (Negative) 07/20/24 18:47 Influenza Type B (PCR) Negative (Negative) 07/20/24 18:47 RSV (PCR) Negative (Negative) 07/20/24 18:47 SARS-CoV-2 (PCR) Negative (Negative) 07/20/24 18:47 Discharge Plan Discharge Patient Disposition: Home Clinical Impression: Dehydration, Weakness Condition: Stable Prescriptions: No Action fluoxetine 20 mg capsule 20 mg PO DAILY Qty: 90 1RF amlodipine 5 mg tablet 5 mg PO DAILY Qty: 90 1RF hydrocodone-acetaminophen 5-325 mg tablet 1 tab PO DAILY PRN (Reason: pain) 30 Days Qty: 60 0RF atorvastatin 40 mg tablet 40 mg PO DAILY Rx Instructions: TAKE 1 TABLET BY MOUTH EVERY DAY aspirin 81 mg tablet,delayed release (DR/EC) 81 mg PO DAILY Rx Instructions: TAKE 1 TABLET BY MOUTH EVERY DAY multivitamin Tablet 1 tab PO DAILY Discharge Orders: Discharge ED (Routine); Ordered 07/20/24 Ordered By: Gladys Jennings Referrals: Chad De La Fuente DO [Primary Care Provider] - Discharge Diet: Usual diet Discharge Activity: Increase activity as tolerated Patient Instructions: Dehydration (ED), Opioid Safety, Pain Management Activity Restrictions/Additional Instructions: Thank you for choosing [facility] for your healthcare needs today. Please realize this is an emergency room and that we are providing you with a medical screening exam and this may not be complete and all inclusive of all the testing and or work up that you may need to determine your ailment or severity of your illness. You have been screened and evaluated and felt safe for discharge. Health conditions do change or evolve sometimes and as such it is important that you follow up with your Primary Doctor to be re checked, 3-5 days is a general good time frame for follow up. You are always welcome to return to the ED for re assessment if your symptoms are worsening or you have new concerns Print Language: Cypriot Coding Level of Care Code ED Information Systems Security Manager for Chg Fwd Related Data Home Medications ?Medication ?Instructions ?Recorded ?Confirmed aspirin 81 mg tablet,delayed 81 mg PO DAILY 07/20/24 07/20/24 release atorvastatin 40 mg tablet 40 mg PO DAILY 07/20/24 07/20/24 multivitamin 1 tab PO DAILY 07/20/24 07/20/24 Previous Rx's ?Medication ?Instructions ?Recorded amlodipine 5 mg tablet 5 mg PO DAILY bp #90 tabs 04/07/24 fluoxetine 20 mg capsule 20 mg PO DAILY depression #90 caps 04/07/24 hydrocodone 5 mg-acetaminophen 325 1 tab PO DAILY PRN pain 30 days 04/13/24 mg tablet #60 tabs Allergies Allergy/AdvReac Type Severity Reaction Status Date / Time sumatriptan (From Imitrex) Allergy ADR/ALGY-Pa Verified 07/20/24 14:47 lpitations Documented by User: Gladys Jennings MD 07/20/24 21:03 HPI - Weakness General: Chief complaint: Weakness Stated complaint: low bp, weakness, dizzy Time Seen by Provider: 07/20/24 15:25 PFSH ED PFSH: Medical History Enrolled in chronic care management please do not remove from active Environmental and seasonal allergies Essential hypertension Patient was seen in the office several months ago and instructed to take home blood pressure readings and return to the office. Patient did not followup, but today has elevated pressure of 160/100. She states it goes up and down at home. GERD (gastroesophageal reflux disease) Surgical History Status post Hope fundoplication Patient reports GERD Wrap Surgery Status post total right knee replacement S/P cholecystectomy Social History Smoking and tobacco/nicotine status: never used tobacco/nicotine Second hand smoke exposure: No Alcohol intake: never Substance/Drug Use: never Lives independently: Yes Household members: none Marital status: / Current occupational status: retired Do you think of yourself as: Straight/Heterosexual Current gender identity: Female Course Vital Signs: Vital signs: Vital Signs Temperature 97.5 F L 07/20/24 14:38 Pulse Rate 71 07/20/24 21:47 Respiratory Rate 16 07/20/24 21:47 Blood Pressure 121/81 07/20/24 21:47 Pulse Oximetry 91 07/20/24 21:47 Oxygen Delivery Me thod Room Air 07/20/24 17:36 MDM - Weakness Medical Decision Making Patient care transitioned me at shift change Medical decision making: Differential diagnosis for patient presenting with generalized weakness including but not limited to and based on the above HPI, review of systems and physical exam: Sepsis. Dehydration. Renal failure. Electrolyte abnormalities. Anemia. Congestive heart failure. Hypotension. Coronary syndrome. Hepatitis. Cirrhosis. Infections such as pneumonia, urinary tract infection, Tick bourne illness, Cellulitis, Viral infections including influenza and Covid-19. Chest x-ray: No acute process. No infiltrate. No pneumothorax. This was reviewed and interpreted by myself the emergency room physician. I also reviewed the radiology report. Lab Review: Laboratory results were reviewed and interpreted by myself the emergency room physician. No leukocytosis. No anemia. Patient does have increased BUN and creatinine over her baseline as well as concentrated urine which would indicate dehydration. No signs of infection. Chest x-ray is clear urinalysis clear. Flu COVID and RSV are negative. Serial troponins are negative I reviewed the patient's medical record. Reexamination: Patient remained stable. No increased work of breathing. No altered mental status. No focal motor deficits. Discussed better hydration and family agrees she does not drink enough. They are ready to go home. Patient says she is hungry Assessment and plan: Dehydration Weakness ? Normal saline bolus in the emergency room. - Discharged home - Discussed plan with patient. Answered any questions. - Evaluation and treatment of this problem were appropriate in the emergency setting. Lab Data 07/20/24 17:28 07/20/24 17:28 Radiology Impressions Chest X-Ray 07/20/24 17:33 IMPRESSION: No acute cardiopulmonary process. Laboratory Results WBC 10.20 10^3/uL (3.29-11.43) 07/20/24 17: RBC 4.54 10^6/uL (3.85-5.65) 07/20/24 17: Hgb 14.90 g/dL (11.27-16.99) 07/20/24 17: Hct 46.0 % (36-47) 07/20/24 17: MCV 101.3 fl (85-98) H 07/20/24 17: MCH 32.8 pg (27-33) 07/20/24 17: MCHC 32.4 g/dL (30-55) 07/20/24 17: RDW 13.2 % (12.1-15.1) 07/20/24 17: Plt Count 193 10^3/cmm (157-399) 07/20/24 17:28 MPV 10.4 fL (7.4-10.4) 07/20/24 17: Neut % (Auto) 70.7 % 07/20/24 17: Lymph % (Auto) 22.3 % 07/20/24 17: [place] % (Auto) 6.3 % 07/20/24 17: Eos % (Auto) 0.2 % 07/20/24 17: Baso % (Auto) 0.3 % 07/20/24 17: Neut # (Auto) 7.22 10^3/uL (1.8-7.7) 07/20/24 17: Lymph # (Auto) 2.3 10^3/uL (0.8-4.8) 07/20/24 17: [place] # (Auto) 0.6 10^3/uL (0.2-0.9) 07/20/24 17: Eos # (Auto) 0.0 10^3/uL (0.0-0.8) 07/20/24 17: Baso # (Auto) 0.0 10^3/uL (0.0-0.1) 07/20/24 17: Nucleated RBC % (auto) 0 % 07/20/24: Nucleated RBCs # 0.0 /100WBC 07/20/24 17: Sodium 140 mmol/L (136-145) 07/20/24 17: Potassium 4.1 mmol/L (3.5-5.1) 07/20/24: Chloride 100 mmol/L (98-107) 07/20/24: Carbon Dioxide 23 mmol/L (22-29) 07/20/24 17: Anion Gap 21.1 (5-19) H 07/20/24 17: BUN 30 mg/dL (8-23) H 07/20/24 17: Creatinine 1.1 mg/dL (0.5-0.9) H 07/20/24 17: GFR Calculation Not Reportable 07/20/24: Glucose 99 mg/dL (65-115) 07/20/24 17: Calculated Osmolality 296 mOsm/kg (285-295) H 07/20/24: Calcium 9.7 mg/dL (8.5-10.5) 07/20/24 17: Total Bilirubin 0.6 mg/dL (0.15-1.2) 07/20/24 17: AST 39 U/L (0-32) H 07/20/24 17: ALT 14 U/L (0-33) 07/20/24 17: Alkaline Phosphatase 79 U/L (35-105) 07/20/24 17: Troponin T Baseline 10 ng/L (0-10) 07/20/24 17: Troponin T 120 Minute 9.02 ng/L (0-10) 07/20/24 19:18 Delta Troponin T -0.98 ABS# (0-10) L 07/20/24 19:18 Total Protein 7.6 g/dL (6.6-8.7) 07/20/24 17: Albumin 4.2 g/dL (3.5-5.2) 07/20/24 17: Globulin 3.4 g/dL (1.3-4.6) 07/20/24 17: Urine Color Dark yellow (Yellow) A 07/20/24 16:40 Urine Appearance Cloudy (CLEAR) A 07/20/24 16:40 Urine pH 5.0 (5-7) 07/20/24 16:40 Ur Specific [place] 1.043 (1.005-1.030) H 07/20/24 16:40 Urine Protein 1+ (Negative) A 07/20/24 16:40 Urine Glucose (UA) Negative (Normal) 07/20/24 16:40 Urine Ketones Trace (Negative) 07/20/24 16:40 Urine Blood Negative (Negative) 07/20/24 16:40 Urine Nitrate Negative (Negative) 07/20/24 16:40 Urine Bilirubin Negative (Negative) 07/20/24 16:40 Urine Urobilinogen 1.0 mg/dL (Negative) 07/20/24 16:40 Ur Leukocyte Esterase Negative (Negative) 07/20/24 16:40 Urine RBC 3-5 /hpf (0-2) 07/20/24 16:40 Urine WBC 0-5 /hpf (0-5) 07/20/24 16:40 Ur Squamous Epith Cells 6-10 /hpf (0-5) 07/20/24 16:40 Calcium Oxalate Crystal 40-55 /hpf H 07/20/24 16:40 Amorphous Sediment Not Reportable 07/20/24 16:40 Urine Bacteria None seen /hpf (NONE) 07/20/24 16:40 Hyaline Casts 57.91 /lpf 07/20/24 16:40 Fine Granular Casts 0-4 /lpf H 07/20/24 16:40 Influenza A (PCR) Negative (Negative) 07/20/24 18:47 Influenza Type B (PCR) Negative (Negative) 07/20/24 18:47 RSV (PCR) Negative (Negative) 07/20/24 18:47 SARS-CoV-2 (PCR) Negative (Negative) 07/20/24 18:47 All radiology interpretation(s) finalized by discharge Discharge Plan Discharge Patient Disposition: Home Clinical Impression: Dehydration, Weakness Condition: Stable Prescriptions: No Action fluoxetine 20 mg capsule 20 mg PO DAILY Qty: 90 1RF amlodipine 5 mg tablet 5 mg PO DAILY Qty: 90 1RF hydrocodone-acetaminophen 5-325 mg tablet 1 tab PO DAILY PRN (Reason: pain) 30 Days Qty: 60 0RF atorvastatin 40 mg tablet 40 mg PO DAILY Rx Instructions: TAKE 1 TABLET BY MOUTH EVERY DAY aspirin 81 mg tablet,delayed release (DR/EC) 81 mg PO DAILY Rx Instructions: TAKE 1 TABLET BY MOUTH EVERY DAY multivitamin Tablet 1 tab PO DAILY Discharge Orders: Discharge ED (Routine); Ordered 07/20/24 Ordered By: Gladys Jennings Referrals: Chad De La Fuente, [Primary Care Provider] - Discharge Diet: Usual diet Discharge Activity: Increase activity as tolerated Patient Instructions: Dehydration (ED), Opioid Safety, Pain Management Activity Restrictions/Additional Instructions: Thank you for choosing [facility] for your healthcare needs today. Please realize this is an emergency room and that we are providing you with a medical screening exam and this may not be complete and all inclusive of all the testing and or work up that you may need to determine your ailment or severity of your illness. You have been screened and evaluated and felt safe for discharge. Health conditions do change or evolve sometimes and as such it is important that you follow up with your Primary Doctor to be re checked, 3-5 days is a general good time frame for follow up. You are always welcome to return to the ED for re assessment if your symptoms are worsening or you have new concerns Print Language: Cypriot Coding Level of Care Code ED Information Systems Security Manager for Chg Fwd Related Data Home Medications ?Medication ?Instructions ?Recorded ?Confirmed aspirin 81 mg tablet,delayed 81 mg PO DAILY 07/20/24 07/20/24 release atorvastatin 40 mg tablet 40 mg PO DAILY 07/20/24 07/20/24 multivitamin 1 tab PO DAILY 07/20/24 07/20/24 Previous Rx's ?Medication ?Instructions ?Recorded amlodipine 5 mg tablet 5 mg PO DAILY bp #90 tabs 04/07/24 fluoxetine 20 mg capsule 20 mg PO DAILY depression #90 caps 04/07/24 hydrocodone 5 mg-acetaminophen 325 1 tab PO DAILY PRN pain 30 days 04/13/24 mg tablet #60 tabs Allergies Allergy/AdvReac Type Severity Reaction Status Date / Time sumatriptan (From Imitrex) Allergy ADR/YUKI-Pa Verified 07/20/24 14:47 lpitations
[2024-07-20 16:48] LABS: Bilirubin Urine Negative (Negative); Blood Urine Negative (Negative); Glucose Urine UA Negative (Normal); Ketones Urine Trace (Negative); Leukocyte Esterase Urine Negative (Negative); Nitrate Urine Negative (Negative); Protein Urine 1+ (Negative); Urine Appearance Cloudy (CLEAR); Urine Color Dark Yellow (Yellow)
[2024-07-20 16:51] LABS: Add Urine Microscopic? YES; Bacteria Urine None Seen /hpf; Hyaline Casts Urine 57.91 /lpf; WBC Urine 0-5 /hpf (0-5)
[2024-07-20 17:01] VITALS: BP 147/102; BP 147/75; BP 149/99; PULSE 74; PULSE 77; PULSE 78
--- NOTE | 2024-07-20 17:01 | ECG_ITS ---
[facility] Test Date: 2024-07-20 Pat Name: Elisabeth Brown Department: Room: Gender: Female Front End Manager: : 1945 Requested By: Kevin Mg Order Number: [id number] Alexys MD: Zach Patel M.D. Measurements Intervals [place] Rate: 76 P: 60 NH: 170 QRS: 25 QRSD: 92 T: 52 QT: 364 QTc: 410 Interpretive Statements SINUS RHYTHM LOW QRS VOLTAGE IN PRECORDIAL LEADS [QRS DEFLECTION < 1.0 mV IN CHEST LEADS] SEPTAL MYOCARDIAL INFARCTION , OF INDETERMINATE AGE [40+ ms Q WAVE IN V1/V2] Compared to ECG 07/20/2024 14:43:30 No significant changes Electronically Signed On 07-20-2024 19:15:32 CDT by Zach Patel M.D. [email or web address]
[2024-07-20 17:03] LABS: Specific Gravity, Urine 1.043 (1.005-1.030); UA Slide Review UA Slide Review Perf
[2024-07-20 17:04] LABS: Add Urine Culture? No; Calcium Oxalate Crystals Urine 40-55 /hpf; Fine Granular Casts Urine 0-4 /lpf
[2024-07-20 17:32] LABS: Basophils % 0.3 %; Eosinophils % 0.2 %; Lymphocytes # 2.3 10^3/uL (0.8-4.8); Lymphocytes % 22.3 %; Mean Corpuscular HGB Conc 32.4 g/dL (30-55); Mean Corpuscular Hemoglobin 32.8 pg (27-33); Mean Corpuscular Volume 101.3 fl (85-98); Mean Platelet Volume 10.4 fL (7.4-10.4); Monocytes # 0.6 10^3/uL (0.2-0.9); Monocytes % 6.3 %; Neutrophils # 7.22 10^3/uL (1.8-7.7); Neutrophils % 70.7 %; Nucleated Red Blood Cells % 0 %; Platelet Count 193 10^3/cmm (157-399); Red Blood Count 4.54 10^6/uL (3.85-5.65); Red Cell Distribution Width 13.2 % (12.1-15.1)
--- NOTE | 2024-07-20 17:33 | XRR_ITS ---
PROCEDURE INFORMATION: Exam: XR Chest Exam date and time: 07/20/2024 5:58 PM Age: 79 years old Clinical indication: Dyspnea; Additional info: Dyspnea/cough TECHNIQUE: Imaging protocol: Radiologic exam of the chest. Views: 1 view. COMPARISON: CR XR chest 1V portable [id number] 08/21/2023 12:45 PM FINDINGS: Lungs: Unremarkable. No consolidation. Pleural spaces: Unremarkable. No pleural effusion. No pneumothorax. Heart/Mediastinum: Unremarkable. No cardiomegaly. Bones/joints: Partially visualized right shoulder arthroplasty. XR/XR chest 1V portable [id number] IMPRESSION: No acute cardiopulmonary process.
[2024-07-20 17:36] VITALS: PULSE 67; RESP 16; O2SAT 99
[2024-07-20 17:57] LABS: Troponin(5th) Baseline 10 ng/L (0-10)
[2024-07-20 18:15] LABS: Alanine Aminotransferase 14 U/L (0-33); Albumin Level 4.2 g/dL (3.5-5.2); Alkaline Phosphatase 79 U/L (35-105); Blood Urea Nitrogen 30 mg/dL (8-23); Calcium 9.7 mg/dL (8.5-10.5); Carbon Dioxide 23 mmol/L (22-29); Chloride 100 mmol/L (98-107); Globulin 3.4 g/dL (1.3-4.6); Glucose 99 mg/dL (65-115); Osmolality Calculated 296 mOsm/kg (285-295); Sodium 140 mmol/L (136-145); Total Bilirubin 0.6 mg/dL (0.15-1.2); Total Protein 7.6 g/dL (6.6-8.7)
[2024-07-20 18:18] LABS: Anion Gap 21.1 (5-19); Aspartate Amino Transferase 39 U/L (0-32); Potassium 4.1 mmol/L (3.5-5.1)
[2024-07-20] MEDS: sodium chloride 0.9% 1,000 ML 999 ML IV (18:53)
[2024-07-20 19:50] LABS: Troponin 5 2HR 9.02 ng/L (0-10)
[2024-07-20 19:52] LABS: Troponin 5 2HR Delta -0.98 ABS# (0-10)
[2024-07-20 20:47] LABS: Influenza A NEGATIVE (Negative); Influenza B NEGATIVE (Negative); Respiratory Syncytial Virus Ce NEGATIVE (Negative); SARS-CoV-2 PCR NEGATIVE (Negative)
[2024-07-20 21:47] VITALS: BP 121/81; PULSE 71; RESP 16; O2SAT 91
== END 2024-07-20 21:43 | disposition home or self-care (01) ==
PROVIDERS: Family Medicine; Emergency Provider Emergency Medicine; PCP Family Medicine
DX: R53.1 Weakness (principal); Z79.82 Long term (current) use of aspirin; E86.0 Dehydration; Z11.52 Encounter for screening for COVID-19; I10 Essential (primary) hypertension
CPT/HCPCS: 36415; 71045; 80053; 81001; 84484; 85025; 87637; 93005; 96360; 99285; J7030

== ENCOUNTER 2024-10-08 13:14 | Emergency (ER) | payer MEDICARE, MEDICAID, SELFPAY ==
[2024-10-08 13:15] VITALS: BP 146/73; PULSE 83; RESP 16; TEMP 36.7; O2SAT 96; BMI 29.4
--- NOTE | 2024-10-08 13:42 | USCV_ITS ---
Elisabeth Brown Age: 79 Gender: F : 1945 Exam Date: 10/08/2024 13:55 Ordering Phys: Ezekiel Pa MD Technologist: REZA [place] [facility] [place]: thigh pain left PROCEDURES: Venous duplex imaging was performed in only the left lower extremity. The following venous structures were evaluated: common femoral vein, profunda vein, proximal portion of the greater saphenous vein, superficial femoral vein, and the popliteal vein. In addition, the posterior tibial and peroneal trunk were evaluated. Serial compression, augmentation maneuvers, and spectral Doppler flow evaluation were performed. FINDINGS: Normal 2-D Doppler and augmentation and compressibility throughout the lower extremity venous structures. Additional imaging through the proximal calf veins also reveals no thrombus. Limited evaluation of the greater saphenous vein is patent with no thrombus. CONCLUSIONS No evidence of left lower extremity DVT. Charly Judd MD (Electronically Signed) Final Date: 08 October 2024 16:20 S
--- NOTE | 2024-10-08 13:42 | XR_ITS ---
WS: [id number] XR femur LT min 2V* [id number] REASON FOR EXAM: nontraumatic pain FINDINGS: The femur is intact without fracture. No periosteal reaction or focal bone lesion is identified. XR/XR femur LT min 2V* [id number] IMPRESSION: No acute abnormality.
[2024-10-08 13:55] VITALS: BP 127/65; PULSE 80; O2SAT 95
--- NOTE | 2024-10-08 14:53 | ED_ITS ---
HPI - Extremity Problem General: Chief complaint: Extremity Problem,Nontraumatic Stated complaint: pain in left leg Time Seen by Provider: 10/08/24 13:23 Source: patient History of Present Illness: Patient is an 79yo female who presents to the ED with acute onset left thigh pain that began at approximately 7:30 AM this morning. The pain is described as stabbing in nature, located in the anterior left thigh region. Patient denies any preceding trauma, falls, or injuries. The pain has been persistent and reportedly worsening throughout the day. Patient denies any radiation of pain to the buttocks or down the leg. No associated swelling, redness, or skin changes noted. Patient has not taken any medications for pain relief prior to presentation. Related Data Home Medications ?Medication ?Instructions ?Recorded ?Confirmed aspirin 81 mg tablet,delayed 81 mg PO DAILY 07/20/24 0 09/14/24 release atorvastatin 40 mg tablet 40 mg PO DAILY 07/20/2409/02 multivitamin 1 tab PO DAILY 07/20/2409/02 Previous Rx's ?Medication ?Instructions ?Recorded amlodipine 5 mg tablet 5 mg PO DAILY bp #90 tabs fluoxetine 20 mg capsule 20 mg PO DAILY depression #9 0 caps 04/07/24 hydrocodone 5 mg-acetaminophen 325 1 tab PO DAILY PRN pain 30 days 04/13/24 mg tablet #60 tabs Allergies Allergy/AdvReac Type Severity Reaction Status Date / Time sumatriptan (From Imitrex) Allergy ADR/ALGY-Pa Verified 10/08/24 13:19 lpitations [facility] ED 2 [facility]: Medical History Enrolled in chronic care management please do not remove from active Environmental and seasonal allergies Essential hypertension Patient was seen in the office several months ago and instructed to take home blood pressure readings and return to the office. Patient did not followup, but today has elevated pressure of 160/100. She states it goes up and down at home. GERD (gastroesophageal reflux disease) Surgical History Status post Hope fundoplication Patient reports GERD Wrap Surgery Status post total right knee replacement S/P cholecystectomy Social History Smoking and tobacco/nicotine status: never used tobacco/nicotine Second hand smoke exposure: No Alcohol intake: never Substance/Drug Use: never Lives independently: Yes Household members: none Marital status: / Current occupational status: retired Do you think of yourself as: Straight/Heterosexual Current gender identity: Female Physical Exam Const: COMMON NORMALS: no acute distress, average body habitus, alert and well nourished GENERAL APPEARANCE: cooperative ORIENTATION/CONSCIOUSNESS: Yes awake HENMT: COMMON NORMALS: normocephalic and atraumatic HEAD & SCALP: normocephalic and atraumatic Eye: COMMON NORMALS: conjunctivae normal CONJUNCTIVA: Yes conjunctivae normal Neck/C-Spine: GENERAL: Yes normal visual inspection Resp: COMMON NORMALS: normal respiratory effort, No retractions and No use of accessory muscles Cardio: COMMON NORMALS: regular rhythm and Peripheral pulses 2+ throughout RHYTHM: regular rhythm PERIPHERAL PULSES: Peripheral pulses 2+ throughout GI: COMMON NORMALS: Soft to palpation and non-tender PALPATION: Yes Soft to palpation Extremity: COMMON NORMALS: full ROM and no pedal edema Neuro: COMMON NORMALS: no focal motor deficits SENSORIUM/ORIENTATION: Yes alert Skin: COMMON NORMALS: no rashes or lesions noted GENERAL SKIN EXAM: no rashes or lesions noted Course Vital Signs: Vital signs: Vital Signs Temperature 98.0 F 10/08/24 13:15 Pulse Rate 80 10/08/24 13:55 Respiratory Rate 16 10/08/24 13:15 Blood Pressure 127/65 10/08/24 13:55 Pulse Oximetry 95 10/08/24 13:55 Oxygen Delivery Me thod Room Air 10/08/24 13:55 MDM - Extremity (Nontraumatic) Medical Decision Making ROS: Constitutional: Denies fever Musculoskeletal: Positive for left thigh pain. Denies knee pain, ankle pain except for known tendonitis Neurological: Denies radiating pain Skin: Denies redness or discoloration All other systems reviewed and negative MEDICATIONS AND ALLERGIES: Medications: - Aspirin (daily) - Parsley supplement - Multivitamin Allergies: No known drug allergies PAST HISTORICAL DATA: PMH: History of kidney stones PSH: None reported Social History: Not specifically discussed Family History: Not specifically discussed PHYSICAL EXAM: General: Alert, non-toxic appearing, in no apparent distress HEENT: Head normocephalic and atraumatic. Mucous membranes moist Neck: Supple Respiratory: No increased work of breathing, No wheezing Cardiac: Regular rate and rhythm, 2+ pulses in all extremities Abdomen: Soft, non-distended, no rebound or guarding Musculoskeletal: Left thigh examination reveals no visible swelling, erythema, or warmth compared to contralateral side Neuro: Neurovascularly intact to bilateral lower extremities. 5/5 strength to bilateral lower extremities Vascular: 2+ dorsalis pedis and posterior tibial pulses bilaterally INITIAL IMPRESSION AND PLAN: Given the acute onset of thigh pain without trauma, primary concern is to rule out deep vein thrombosis. Additional considerations include meralgia paresthetica, muscle strain, or contusion. Plan: 1. Left femur X-ray to evaluate for any bone abnormality 2. Venous duplex ultrasound of left lower extremity to rule out DVT TEST INTERPRETATIONS: Left Femur X-ray: Negative for acute abnormality Venous Duplex Ultrasound: Negative for deep vein thrombosis in left lower extremity PROCEDURES: No procedures performed during this encounter CONSIDERED BUT NOT PERFORMED: CT imaging was not performed due to negative X-ray findings and lack of trauma history Pain medications were offered but patient had not tried [id number] options yet FINAL IMPRESSION: Based on all the above, my clinical impression is most compatible with meralgia paresthetica versus musculoskeletal strain. The clinical picture is not currently suggestive of deep vein thrombosis, fracture, or other acute pathology. Although other conditions were also considered, they were deemed unlikely based on the clinical information available. CLINICAL DISPOSITION: The patient's current condition is stable in my estimation and the most appropriate and indicated disposition at this time is discharge home with supportive care and PCP follow-up. Rationale for Discharge: Patient is stable with normal vital signs, intact neurovascular exam, and negative diagnostic workup for concerning pathology. Patient demonstrates ability to ambulate, has good understanding of discharge instructions, and has appropriate follow-up resources. RISK STRATIFICATION AND CLINICAL DECISION RULES APPLIED: Wells DVT Score: Low risk (0 points) - No active cancer - No paralysis/recent cast - No recent surgery or immobilization - No tenderness along deep veins - No entire leg swelling - No calf swelling - No pitting edema - No collateral superficial veins - No alternative diagnosis less likely than DVT Combined with negative ultrasound, DVT effectively ruled out CASE SUMMARY: Patient presented with acute onset left thigh pain without trauma. Given concern for possible DVT, appropriate imaging studies were obtained including X-ray and venous duplex ultrasound, both of which were negative. Physical exam revealed no concerning findings, with intact neurovascular status and normal strength. Final diagnosis of meralgia paresthetica versus musculoskeletal strain was made, and patient was discharged home with conservative management instructions. Lab Data Radiology Impressions Femur X-Ray 10/08/24 13:42 IMPRESSION: No acute abnormality. All radiology interpretation(s) finalized by discharge Discharge Plan Discharge Patient Disposition: Home Clinical Impression: Acute thigh pain Condition: Stable Prescriptions: No Action fluoxetine 20 mg capsule 20 mg PO DAILY Qty: 90 1RF amlodipine 5 mg tablet 5 mg PO DAILY Qty: 90 1RF hydrocodone-acetaminophen 5-325 mg tablet 1 tab PO DAILY PRN (Reason: pain) 30 Days Qty: 60 0RF atorvastatin 40 mg tablet 40 mg PO DAILY Rx Instructions: TAKE 1 TABLET BY MOUTH EVERY DAY aspirin 81 mg tablet,delayed release (DR/EC) 81 mg PO DAILY Rx Instructions: TAKE 1 TABLET BY MOUTH EVERY DAY multivitamin Tablet 1 tab PO DAILY Discharge Orders: Discharge ED (Routine); Ordered 10/08/24 Ordered By: Ezekiel Pa Referrals: Chad De La Fuente DO [Primary Care Provider, Family Practice] Discharge Activity: Increase activity as tolerated Patient Instructions: Leg Pain (ED), Opioid Safety, Pain Management Activity Restrictions/Additional Instructions: DISCHARGE INSTRUCTIONS: You have been diagnosed with thigh pain likely due to nerve irritation or muscle strain. You may use [id number] pain medications such as acetaminophen or ibuprofen as needed for pain relief. Apply ice for 20 minutes at a time several times per day for the first 48 hours, then switch to heat if still having discomfort. Return to the Emergency Department if you develop: - Severe worsening of pain - New swelling or redness in the leg - Difficulty walking - Numbness or tingling in the leg - Fever Follow up with your primary care physician within 1 week or sooner if symptoms worsen. Print Language: Uzbek Coding Level of Care Code ED Research Staff Member for Jose Terrell
[2024-10-08 15:06] VITALS: BP 124/86; PULSE 81; O2SAT 94
== END 2024-10-08 15:07 | disposition home or self-care (01) ==
PROVIDERS: Emergency Provider Student in an Organized Health Care Education/Training Program; PCP Family Medicine
DX: M79.605 Pain in left leg (principal); Z79.82 Long term (current) use of aspirin; I10 Essential (primary) hypertension
CPT/HCPCS: 73552; 93971; 99284

== ENCOUNTER 2024-10-24 13:55 | Inpatient (IN) | payer MEDICARE, MEDICAID, SELFPAY ==
[2024-10-24] VITALS (9 sets, daily range): BP systolic 104–136; BP diastolic 51–87; PULSE 54–80; RESP 16; TEMP 36.8–36.9; O2SAT 92–99; BMI 29.2
--- NOTE | 2024-10-24 14:03 | XRR_ITS ---
PROCEDURE INFORMATION: Exam: XR Chest Exam date and time: 10/24/2024 2:14 PM Age: 79 years old Clinical indication: Injury or trauma; Fall; Blunt trauma (contusions or hematomas); Additional info: Preop TECHNIQUE: Imaging protocol: Radiologic exam of the chest. Views: 1 view. COMPARISON: CR XR chest 1V portable [id number] 07/20/2024 5:58 PM FINDINGS: Lungs: Unremarkable. No consolidation or mass. Pleural spaces: Unremarkable. No pleural effusion. No pneumothorax. Heart/Mediastinum: Unremarkable. No cardiomegaly. Bones/joints: A right shoulder prosthesis is well seated and well aligned. XR/XR chest 1V portable [id number] IMPRESSION: No acute findings.
--- NOTE | 2024-10-24 14:03 | XRR_ITS ---
PROCEDURE INFORMATION: Exam: XR Right Hip Exam date and time: 10/24/2024 2:14 PM Age: 79 years old Clinical indication: Right hip; RT hip pain post fall TECHNIQUE: Imaging protocol: Radiologic exam of the right hip. Views: 1 view hip with pelvis when performed. COMPARISON: CR XR hip RT 2-3V wo/w pel* [id number] 03/17/2022 10:29 AM FINDINGS: Bones/joints: There is an acute transverse displaced intertrochanteric fracture involving the proximal right femur. No other fracture noted. Soft tissues: Unremarkable. XR/XR hip RT 2-3V wo/w pel* [id number] IMPRESSION: Acute intertrochanteric fracture of the right hip
--- NOTE | 2024-10-24 14:08 | ED_ITS ---
HPI - Fall 2 General: Chief Complaint: Fall Stated Complaint: right hip pain s/p fall Time Seen by Provider: 10/24/24 13:58 History of Present Illness: 79-year-old female presents with right h ip pain. She reports that she turned wrong and lost her balance and fell on her right hip. She has obvious shortening and rotation and swelling of the right hip/femur area. Patient was brought in via EMS. She received 100 fentanyl and route. She denies any other injuries from the fall. Associated symptoms-after fall: Denies abdominal pain or chest pain Related Data Home Medications ?Medication ?Instructions ?Recorded ?Confirmed aspirin 81 mg tablet,delayed 81 mg PO DAILY 07/20/24 0 10/12/24 release atorvastatin 40 mg tablet 40 mg PO DAILY 07/20/2410/03 multivitamin 1 tab PO DAILY 07/20/2410/03 amlodipine 5 mg tablet 5 mg PO QPM bp 10/24/2410/04 fluoxetine 20 mg capsule 20 mg PO QPM depression 10/0410/24/24 Previous Rx's ?Medication ?Instructions ?Recorded hydrocodone 5 mg-acetaminophen 325 1 tab PO DAILY PRN pain 30 days 10/14/24 mg tablet #30 tabs Allergies Allergy/AdvReac Type Severity Reaction Status Date / Time sumatriptan (From Imitrex) Allergy ADR/ALGY-Pa Verified 10/12/24 16:09 lpitations Review of Systems 2 Const: Denies: fever(s) or chills Card: Denies: chest pain or palpitations Resp: Denies: dyspnea or wheezing GI: Denies: abdominal pain, nausea or vomiting Musc: Reports: other (Please see HPI) Skin/Breast: Denies: rash Psych: Denies: anxiety PFSH ED 2 PFSH: Medical History Enrolled in chronic care management please do not remove from active Environmental and seasonal allergies Essential hypertension Patient was seen in the office several months ago and instructed to take home blood pressure readings and return to the office. Patient did not followup, but today has elevated pressure of 160/100. She states it goes up and down at home. GERD (gastroesophageal reflux disease) Surgical History Status post Hope fundoplication Patient reports GERD Wrap Surgery Status post total right knee replacement S/P cholecystectomy Social History Smoking and tobacco/nicotine status: never used tobacco/nicotine Second hand smoke exposure: No Alcohol intake: never Substance/Drug Use: never Lives independently: Yes Household members: none Marital status: / Current occupational status: retired Do you think of yourself as: Straight/Heterosexual Current gender identity: Female Physical Exam 2 Const: COMMON NORMALS: patient oriented x3, alert and well nourished Resp: COMMON NORMALS: normal respiratory effort and clear to auscultation bilaterally AUSCULTATION: clear to auscultation bilaterally Cardio: COMMON NORMALS: regular rate and regular rhythm RATE: regular rate RHYTHM: regular rhythm GI: COMMON NORMALS: Soft to palpation and non-tender PALPATION: Yes Soft to palpation Extremity: NARRATIVE EXTREMITY EXAM: Right hip/femur with some obvious mild deformity with rotation shortening of the right leg Neuro: COMMON NORMALS: patient oriented x3 and no sensory deficits noted S ENSORIUM/ORIENTATION: Yes alert Psych: COMMON NORMALS: mental status grossly normal, normal affect and speech normal SPEECH: Yes normal speech Skin: COMMON NORMALS: no rashes or lesions noted and no wounds GENERAL SKIN EXAM: no rashes or lesions noted Course 2 Vital Signs: Vital signs: Vital Signs Temperature 98.2 F 10/24/24 13:58 Pulse Rate 80 10/24/24 13:58 Respiratory Rate 16 10/24/24 13:58 Blood Pressure 122/87 10/24/24 13:58 Pulse Oximetry 98 10/24/24 13:58 Oxygen Delivery Me thod Room Air 10/24/24 13:58 MDM - Fall Medical Decision Making Patient with a displaced subtrochanteric fracture of the right femur. Discussed case with Dr. Barrios grievance and appeals specialist with admission to hospitalist Dr. Da Silva. Patient's labs were reviewed and showed no acute findings. Lab Data 10/24/24 14:02 10/24/24 14:02 Laboratory Results WBC 10.55 10^3/uL (3.29-11.43) 10/24/24 14:02 RBC 4.63 10^6/uL (3.85-5.65) 10/24/24 14:02 Hgb 15.20 g/dL (11.27-16.99) 10/24/24 14:02 Hct 45.1 % (36-47) 10/24/24 14:02 MCV 97.4 fl (85-98) 10/24/24 14:02 MCH 32.8 pg (27-33) 10/24/24 14:02 MCHC 33.7 g/dL (30-55) 10/24/24 14:02 RDW 12.9 % (12.1-15.1) 10/24/24 14:02 Plt Count 182 10^3/cmm (157-399) 10/24/24 14:02 MPV 10.4 fL (7.4-10.4) 10/24/24 14:02 Neut % (Auto) 48.3 % 10/24/24 14:02 Lymph % (Auto) 41.1 % 10/24/24 14:02 Blanco % (Auto) 7.3 % 10/24/24 14:02 Eos % (Auto) 2.2 % 10/24/24 14:02 Baso % (Auto) 0.7 % 10/24/24 14:02 Neut # (Auto) 5.10 10^3/uL (1.8-7.7) 10/24/24 14:02 Lymph # (Auto) 4.3 10^3/uL (0.8-4.8) 10/24/24 14:02 Blanco # (Auto) 0.8 10^3/uL (0.2-0.9) 10/24/24 14:02 Eos # (Auto) 0.2 10^3/uL (0.0-0.8) 10/24/24 14:02 Baso # (Auto) 0.1 10^3/uL (0.0-0.1) 10/24/24 14:02 Nucleated RBC % (auto) 0 % 10/24/24 14:02 Nucleated RBCs # 0.0 /100WBC 10/24/24 14:02 Sodium 142 mmol/L (136-145) 10/24/24 14:02 Potassium 4.4 mmol/L (3.5-5.1) 10/24/24 14:02 Chloride 102 mmol/L (98-107) 10/24/24 14:02 Carbon Dioxide 25 mmol/L (22-29) 10/24/24 14:02 Anion Gap 19.4 (5-19) H 10/24/24 14:02 BUN 18 mg/dL (8-23) 10/24/24 14:02 Creatinine 0.9 mg/dL (0.5-0.9) 10/24/24 14:02 GFR Calculation Not Reportable 10/24/24 14:02 Glucose 104 mg/dL (65-115) 10/24/24 14:02 Calculated Osmolality 296 mOsm/kg (285-295) H 10/24/24 14:02 Calcium 9.6 mg/dL (8.5-10.5) 10/24/24 14:02 Total Bilirubin 0.9 mg/dL (0.15-1.2) 10/24/24 14:02 AST 38 U/L (0-32) H 10/24/24 14:02 ALT 15 U/L (0-33) 10/24/24 14:02 Alkaline Phosphatase 102 U/L (35-105) 10/24/24 14:02 Total Protein 7.8 g/dL (6.6-8.7) 10/24/24 14:02 Albumin 4.1 g/dL (3.5-5.2) 10/24/24 14:02 Globulin 3.7 g/dL (1.3-4.6) 10/24/24 14:02 All radiology interpretation(s) finalized by discharge Discharge Plan Discharge Patient Disposition: Admitted As Inpatient Clinical Impression: Subtrochanteric fracture of right femur Qualifiers: Encounter type: initial encounter Fracture type: closed Fracture alignment: d isplaced Qualified Code(s): S72.21XA - Displaced subtrochanteric fracture of right femur, initial encounter for closed fracture Condition: Stable Coding Level of Care Code ED Entry Level Account Executive for Jose Terrell
[2024-10-24 14:09] LABS: Basophils # 0.1 10^3/uL (0.0-0.1); Basophils % 0.7 %; Eosinophils # 0.2 10^3/uL (0.0-0.8); Eosinophils % 2.2 %; Hematocrit 45.1 % (36-47); Lymphocytes # 4.3 10^3/uL (0.8-4.8); Lymphocytes % 41.1 %; Mean Corpuscular HGB Conc 33.7 g/dL (30-55); Mean Corpuscular Hemoglobin 32.8 pg (27-33); Mean Corpuscular Volume 97.4 fl (85-98); Mean Platelet Volume 10.4 fL (7.4-10.4); Monocytes # 0.8 10^3/uL (0.2-0.9); Monocytes % 7.3 %; Neutrophils % 48.3 %; Nucleated Red Blood Cells % 0 %; Platelet Count 182 10^3/cmm (157-399); Red Blood Count 4.63 10^6/uL (3.85-5.65); Red Cell Distribution Width 12.9 % (12.1-15.1); White Blood Count 10.55 10^3/uL (3.29-11.43)
--- NOTE | 2024-10-24 14:24 | ECG_ITS ---
[employer] Test Date: 2024-10-24 Pat Name: Elisabeth Brown Department: Room: Gender: Female Stem Setter: : 1945 Requested By: Marbin Remy Order Number: [id number] Reardon MD: Gallito Traylor M.D. Measurements Intervals [place]ock Rate: 64 P: -2 AL: 161 QRS: -1 QRSD: 81 T: 31 QT: 422 QTc: 436 Interpretive Statements SINUS RHYTHM LOW QRS VOLTAGE IN PRECORDIAL LEADS [QRS DEFLECTION < 1.0 mV IN CHEST LEADS] Compared to ECG 07/20/2024 17:23:45 Myocardial infarct finding no longer present Electronically Signed On 10-24-2024 19:32:47 CDT by Gallito Traylor M.D. [email or web address]
[2024-10-24 14:28] LABS: Alanine Aminotransferase 15 U/L (0-33); Albumin Level 4.1 g/dL (3.5-5.2); Alkaline Phosphatase 102 U/L (35-105); Anion Gap 19.4 (5-19); Aspartate Amino Transferase 38 U/L (0-32); Blood Urea Nitrogen 18 mg/dL (8-23); Calcium 9.6 mg/dL (8.5-10.5); Carbon Dioxide 25 mmol/L (22-29); Chloride 102 mmol/L (98-107); Globulin 3.7 g/dL (1.3-4.6); Glucose 104 mg/dL (65-115); Osmolality Calculated 296 mOsm/kg (285-295); Potassium 4.4 mmol/L (3.5-5.1); Sodium 142 mmol/L (136-145); Total Bilirubin 0.9 mg/dL (0.15-1.2); Total Protein 7.8 g/dL (6.6-8.7)
[2024-10-24] MEDS: fentaNYL 50 mcg/mL INJ 2mL IVP (14:43)
--- OUTSIDE RECORDS SUMMARY | 2024-10-24 15:13 | XMS_ITS | Clinical Summary ---
Author Organization [facility] Address [address] [place] [address] Phone Care Team Providers Care Filler Spreader Name Role Phone Non-Staff, Physician Primary Care Provider Unava ilable Allergies Active Allergy Reactions Criticality Noted Date Comments Sumatriptan Succinate Palpitations Low 10/11/2008 Medications DEXTRAN 70/HYPROMELLOSE (ARTIFICIAL TEARS, PF, OP) by Ophthalmic route. Active calcium as carbonate (TUMS ES) 750 mg (300 mg elemental) Tablet, Chewable Take by mouth 1 time daily as needed. Active fluticasone propionate (FLONASE) 50 mcg/spray Cheney, Suspension nasal inhalerIndicati ons:Respiratory tract infection ADMINISTER 2 SPRAYS IN EACH NOSTRIL DAILY 48 Gram 2 0 Active umeclidinium-vi lanteroL (ANORO ELLIPTA) 62.5-25 mcg/actuation Disk with Device Take 1 Puff by inhalation daily. 1 Each 11 0 Active predniSONE (DELTASONE) 20 mg tablet Take 1 Tablet (20 mg) by mouth daily. 7 Tablet 0 Active amLODIPine (Norvasc) 5 mg tablet Take 1 Tablet (5 mg) by mouth daily. 90 Tablet 1 0 Active cetirizine (ZyrTEC) 10 mg tablet Take 1 Tablet (10 mg) by mouth daily. 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 Essential hypertension 10/30/2016 JORDI (obstructive sleep apnea) 10/30/2016 Tremor 10/30/2016 Thrombocytopenia 10/30/2016 Obesity (BMI 30.0-34.9) 10/30/2016 Elevated AST (SGOT) 10/30/2016 Elevated serum creatinine 10/30/2016 Chronic cough 01/26/2014 Hiatal hernia 12/05/2008 GERD (gastroesophageal reflux disease) 9 Overview (10/11/2008): S/P Hope Fundiplication Asthma 10/11/2008 Preoperative general physical examination Primary osteoarthritis of right knee Resolved Problems Problem Noted Date Diagnosed Date Resolved Date Breast CA Screening 10/11/2008 10/31/19 17 Overview (10/11/2008): Mammo: Fall 2007 Immunizations Immunization Administration Dates Next Due (PREVNAR 13)(6 WKS UP) PNEUM OCOCCAL CONJUGATE (PCV13) 0.5 ML, IM 02/05/2009 Influenza Seasonal Unspecifi ed Formulation IM 02/09/2018,02/17/2017,02/10/2004 Influenza Vaccine High Dose 65+ Yrs IM 6,03/07/2015 Influenza Vaccine Split 3+ Yrs PF IM 02/19/2013, 02/11/2012 Pneumococcal Polysaccharide Vacc 23-evan IM SCHIP 03/07/2015 Skin Test TB 10/22/2011 Family History Medical History Relation Name Comments Other Brother 1 Alexey Unknown Brother 2 Godwin Unknown Brother 3 Jimbo Unknown Brother 4 Clark Healthy Daughter 1 Samantha Other Daughter 2 Montserrat IBS Lung Cancer Father Melanoma Mother Unknown Sister 1 Tricia Unknown Sister 2 Kareen Unknown Sister 3 Daily Unknown Sister 4 Janey Breast Cancer Neg Hx Colon Cancer Neg Hx Heart Disease Neg Hx Ovarian Cancer Neg Hx Relation Name Status Comments Brother 1 Alexey (Age 66) Brother 2 Godwin Alive Brother 3 Jimbo Alive Brother 4 Clark Alive Daughter 1 Samantha Alive Daughter 2 Montserrat Alive Father (Age 62) Mother (Age 82) Sister 1 Tricia Alive Sister 2 Kareen Alive Sister 3 Daily Alive Sister 4 Janey Alive Social History Tobacco Use Types Packs/Day Years Used Date Smoking Tobacco: Never Smokeless Tobacco: Never Alcohol Use Standard Drinks/Week Comments No 0 (1 standard drink = 0.6 oz pur e alcohol) 1 glass of wine 2-3 x weekly Comments No Sex and Gender Information Value Date Recorded Sex Assigned at Not on file 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 Gender Identity Not on file Sexual Orientation Not on file Occupation Industry Job Start Date Job End Date Not on file Not on file Not on file Not on file Last Filed Vital Signs Vital Sign Reading Time Taken Comments Blood Pressure 142/90 08/04/2019 10:26 AM CDT Pulse 73 08/04/2019 10:26 AM CDT Temperature 36.3 C (97.3 F) 08/04/2019 10:26 AM CDT Respiratory Rate 18 08/04/2019 10:26 AM CDT Oxygen Saturation 97% 08/04/2019 10:26 AM CDT Inhaled Oxygen Concentration - - Weight 84.5 kg (186 lb 3.2 oz) 08/04/2019 10:26 AM CDT Height 162.6 cm (5' 4 ) 08/04/2019 10:26 AM CDT Body Mass Index 31.96 08/04/2019 10:26 AM CDT Plan of Treatment Health Maintenance Due Date Last Done Comments DTAP/TDAP/TD VACCINES (1 - Tdap) 07/04/1963 ZOSTER VACCINE (1 of 2) 1994 RSV VACCINE (60+ or ) (1 - 1-dose 75+ series) 07/04/2019 COLORECTAL SCREENING 12/11/2020 12/12/2015, 12/12/19 16 OSTEOPOROSIS SCREENING 08/11/2023 08/10/2018 INFLUENZA VACCINE (#1) 2023 8, 02/17/2017, 04/11/2016, Additional history exists PNEUMOCOCCAL VACCINE 50+ YEARS Completed 03/07/2015 , 02/05/2009 Medical Devices Implanted Type Area Horse Show Manager Device Identifier Shelf Expiration Date Model / Serial / Lot Cement Simplex Hvisc 6194-1-010 - [id number] Implanted:Qty: 1 on 11/08/2016 by Gibson Canas MD at [facility] Cement Right: Knee [employer]NE- [employer] 07/02/2018 6194-1-010 / / [id number] Cement Simplex Hvisc 6194-1-010 - [id number] Implanted:Qty: 1 on 11/08/2016 by Gibson Canas MD at [facility] Cement Right: Knee [employer]NE- [employer] 07/02/2018 6194-1-010 / / [id number] Patella Attune Fatuma 35mm 1518-10-035 - [id number] Implanted:Qty: 1 on 11/08/2016 by Gibson Canas MD at [facility] Knee Right: Knee [employer]- [employer] 08/02/2021 [id number] / / [id number] Ins Attn Fb Cr Sz5 5mm 1516-20-505 - [id number] Implanted:Qty: 1 on 11/08/2016 by Gibson Canas MD at [facility] Knee Right: Knee [employer] 08/02/2021 [id number] / / [id number] Comp Fem Attn Cr Cmnt Sz5 1504-00-225 - [id number] Implanted:Qty: 1 on 11/08/2016 by Gibson Canas MD at [facility] Knee Right: Knee [employer] 09/01/2026 [id number] / / [id number] Comp Tib Attn Fb Cmnt Sz4 1506-00-004 - [id number] Implanted:Qty: 1 on 11/08/2016 by Gibson Canas MD at [facility] Knee Right: Knee [employer] 08/02/2026 [id number] / / [id number] Procedures Procedure Name Priority Date/Time Associated Diagnosis Comments XR DEXA BONE DENSITY AXIAL 1 OR MORE SITES Routine 08/10/2018 1:44 PM CDT Postmenopausal ENDOSCOPY, COLON, DIAGNOSTIC Routine 12/12/2015 8:32 AM CDT Colon polyps from Last 3 Months or Most Recently Relevant to Health Maintenance Results * XR DEXA BONE DENSITY AXIAL 1 OR MORE SITES (08/10/2018 1:44 PM CDT) Anatomical Region Laterality Modality Digital Radiogra phy 08/10/2018 1:45 PM CDT Impressions 08/10/2018 5:48 PM CDT IMPRESSION: Abnormal examination Bone density lies in the osteoporotic range in the lumbar spine lying near the average the patient's age-matched control. NOF guidelines recommend consideration of FDA-approved medical therapies in patients with T-scores of the spine or hip equal to or less than -2.5. Also consider remeasuring no sooner than two years only as clinically needed. Narrative 08/10/2018 5:48 PM CDT DEXA Evaluation of the Lumbar Spine and Left Proximal Femur Reason for Consultation: Ovarian failure. Evaluation of bone mineral density. The following absorptiometry data were obtained. The quality of this examination is acceptable with regards to count density, processed images, data display and lack of important artifacts (including but not limited to motion and attenuation artifacts). Serial examination number one. L1-L4 BMD (g/cm2): 0.765 Adult T-score: -2.6 Adult Z-score: -0.2 Left Femoral Neck BMD (g/cm2): 0.608 Adult T-score: -2.2 Adult Z-score: -0.1 Left Total Hip BMD (g/cm2): 0.814 Adult T-score: -1.0 Adult Z-score: 0.7 Procedure Note Gunnar Thorne MD - 08/10/2018 DEXA Evaluation of the Lumbar Spine and Left Proximal Femur Reason for Consultation: Ovarian failure. Evaluation of bone mineral density. The following absorptiometry data were obtained. The quality of this examination is acceptable with regards to count density, processed images, data display and lack of important artifacts (including but not limited to motion and attenuation artifacts). Serial examination number one. L1-L4 BMD (g/cm2): 0.765 Adult T-score: -2.6 Adult Z-score: -0.2 Left Femoral Neck BMD (g/cm2): 0.608 Adult T-score: -2.2 Adult Z-score: -0.1 Left Total Hip BMD (g/cm2): 0.814 Adult T-score: -1.0 Adult Z-score: 0.7 IMPRESSION: Abnormal examination Bone density lies in the osteoporotic range in the lumbar spine lying near the average the patient's age-matched control. NOF guidelines recommend consideration of FDA-approved medical therapies in patients with T-scores of the spine or hip equal to or less than -2.5. Also consider remeasuring no sooner than two years only as clinically needed. Diaz [facility] ORDERABLES Final Result from Last 3 Months or Most Recently Relevant to Health Maintenance Insurance MEDICAID [place] MEDICARE PART A AND B Advance Directives For more information, please contact: [phone] * Full Code (Latest Code Status on File) Date Activated Date Inactivated Comments 07/30/2017 11:34 AM 07/30/2017 3:46 PM * Full Code Date Activated Date Inactivated Comments 11/08/2016 12:06 PM 11/10/2016 5:07 PM * Full Code Date Activated Date Inactivated Comments 11/08/2016 8:05 AM 11/08/2016 12:06 PM * Full Code Date Activated Date Inactivated Comments 12/12/2015 8:32 AM 12/12/2015 1:25 PM * Full Code Date Activated Date Inactivated Comments 08/08/2011 7:41 AM 08/08/2011 11:34 AM Care Teams Filler Spreader Relationship Specialty Start Date End Date Non-Staff, Physician NO ADDRESS ON FILE PCP - General 10/18/20
--- OUTSIDE RECORDS SUMMARY | 2024-10-24 15:13 | XMS_ITS | Encounter Summary ---
Author Organization [facility] Address [address] [place] [address] Care Team Providers Care Enforcement Manager Name Role Phone Non-Staff, Physician Primary Care Provider Unava ilable Reason for Referral * Radiology Services (Routine) - Closed Specialty Diagnoses / Procedures Referred By Contac t Referred To Contact Radiology Diagnoses Breast cancer screening by mammogram Procedures MAMMO SCREEN BILAT W OR WO CAD Ulices Yadav, E MARKETING SPECIALIST [facility] [address] Phone: tel: fax: [facility] [address] [place] [address] Phone: tel: fax: Referral ID Status Reason Start Date Expiration Date V isits Requested Visits Authorized [id number] Closed [facility] View CTS to Schedule (SGF) 01/27/2019 02/27/2020 1 1 Encounter Details Date Type Department Care Team (Latest Contact Info) Description 01/27/2019 Ancillary Orders [facility] Centralized Scheduling [address] [facility] [address] [place] [address] Ulices Yadav, E MARKETING SPECIALIST [address] [place] [phone] Breast cancer screening by mammogram Social History Tobacco Use Types Packs/Day Years Used Date Smoking Tobacco: Never Smokeless Tobacco: Never Alcohol Use Standard Drinks/Week Comments No 0 (1 standard drink = 0.6 oz pur e alcohol) 1 glass of wine 2-3 x weekly Comments No Sex and Gender Information Value Date Recorded Sex Assigned at Not on file Legal Sex Female 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 BI-RADS ASSESSMENT: 0 - Incomplete Recommendation: Additional Imaging [id number] Narrative 02/04/2019 2:42 PM CDT EXAM: MAMMO SCREEN BILAT W OR WO CAD INDICATION: Screening COMPARISON: Mammogram 08/18/2012, 03/24/2008, 03/23/2007 TECHNIQUE: MLO and CC digital mammographic images were acquired. This digital mammogram was also analyzed by the Computer Aided Detection System (CAD). FINDINGS: There are scattered areas of fibroglandular density. There is a focal asymmetry in the 12:00 left breast located 9.5 cm from the nipple . In the right breast, there are no suspicious masses, calcifications, or architectural distortions. us Dj Gross E MARKETING SPECIALIST MAMMO ORDERABLES Final Result documented in this encounter Visit Diagnoses Diagnosis Breast cancer screening by mammogram Breast cancer screening by mammogram documented in this encounter Care Teams Enforcement Manager Relationship Specialty Start Date End Date Non-Staff, Physician NO ADDRESS ON FILE PCP - General 10/18/20 documented as of this encounter
--- OUTSIDE RECORDS SUMMARY | 2024-10-24 15:14 | XMS_ITS | Encounter Summary ---
Author Organization [facility] Address [address] [place] [address] Care Team Providers Care Robotic Welding Operator Name Role Phone Non-Staff, Physician Primary Care Provider Unava ilable Encounter Details Date Type Department Care Team (Latest Contact Info) Description 02/10/2004 Outpatient Historical [address] [phone] Diaz Le PA NO ADDRESS ON FILE Vaccine for influenza (Primary Dx) Social History Tobacco Use Types Packs/Day Years Used Date Smoking Tobacco: Never Assessed Comments Unknown Sex and Gender Information Value Date Recorded Sex Assigned at Not on file Legal Sex Female 4:28 AM FLUOROSCOPE OPERATOR Gender Identity Not on file Sexual Orientation Not on file documented as of this encounter Plan of Treatment Not on file documented as of this encounter Visit Diagnoses Diagnosis Vaccine for influenza- Primary Need for prophylactic vaccination and inoculation against influenza documented in this encounter Care Teams Robotic Welding Operator Relationship Specialty Start Date End Date Non-Staff, Physician NO ADDRESS ON FILE PCP - General 10/18/20 documented as of this encounter
--- OUTSIDE RECORDS SUMMARY | 2024-10-24 15:14 | XMS_ITS | Encounter Summary ---
Author Organization [facility] Address [address] [place] [address] Care Team Providers Care Dynamite Reclaimer Name Role Phone Non-Staff, Physician Primary Care Provider Unava ilable Encounter Details Date Type Department Care Team (Latest Contact Info) Description 02/04/2019 Ancillary Orders [facility] [address] [facility] [address] [place] [address] Chelo Courtney MD [address] [place] [address] Inconclusive mammography Social History Tobacco Use Types Packs/Day Years Used Date Smoking Tobacco: Never Smokeless Tobacco: Never Alcohol Use Standard Drinks/Week Comments No 0 (1 standard drink = 0.6 oz pur e alcohol) 1 glass of wine 2-3 x weekly Comments No Sex and Gender Information Value Date Recorded Sex Assigned at Not on file Legal Sex Female 4:28 AM 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
--- OUTSIDE RECORDS SUMMARY | 2024-10-24 15:14 | XMS_ITS | Encounter Summary ---
Author Organization [facility] Address [address] [place] [address] Care Team Providers Care Director Prison Name Role Phone Non-Staff, Physician Primary Care Provider Unava ilable Encounter Details Date Type Department Care Team (Latest Contact Info) Description 07/28/2000 Outpatient Historical [facility] Medicine [address] [phone] Chata John MD [address] [place] [phone] Gynecologic examination (Primary Dx) Social History Tobacco Use Types Packs/Day Years Used Date Smoking Tobacco: Never Assessed Comments Unknown Sex and Gender Information Value Date Recorded Sex Assigned at Not on file Legal Sex Female 4:28 AM BRAND AMBASSADOR PROMOTIONAL MODEL Gender Identity Not on file Sexual Orientation Not on file documented as of this encounter Plan of Treatment Not on file documented as of this encounter Visit Diagnoses Diagnosis Gynecologic examination- Primary Gynecological examination documented in this encounter Care Teams Director Prison Relationship Specialty Start Date End Date Non-Staff, Physician NO ADDRESS ON FILE PCP - General 10/18/20 documented as of this encounter
--- OUTSIDE RECORDS SUMMARY | 2024-10-24 15:14 | XMS_ITS | Encounter Summary ---
Author Organization [facility] Address [address] [place] [address] Care Team Providers Care Analytical Engineer Name Role Phone Non-Staff, Physician Primary Care Provider Unava ilable Encounter Details Date Type Department Care Team (Latest Contact Info) Description 01/08/2005 Outpatient Historical [facility]- [address] [phone] Kit Boggs MD [address] [address] HYPERTENSION NOS (Primary Dx) Social History Tobacco Use Types Packs/Day Years Used Date Smoking Tobacco: Never Assessed Comments Unknown Sex and Gender Information Value Date Recorded Sex Assigned at Not on file Legal Sex Female 4:28 AM VIDEOGAME DESIGNER Gender Identity Not on file Sexual Orientation Not on file documented as of this encounter Plan of Treatment Not on file documented as of this encounter Visit Diagnoses Diagnosis Unspecified essential hypertension- Primary documented in this encounter Care Teams Analytical Engineer Relationship Specialty Start Date End Date Non-Staff, Physician NO ADDRESS ON FILE PCP - General 10/18/20 documented as of this encounter
--- OUTSIDE RECORDS SUMMARY | 2024-10-24 15:14 | XMS_ITS | Encounter Summary ---
Author Organization [facility] Address [address] [place] [address] Care Team Providers Care Distribution Center Manager Name Role Phone Non-Staff, Physician Primary Care Provider Unava ilable Encounter Details Date Type Department Care Team (Late st Contact Info) Description 02/12/2005 Outpatient Historical [facility]- 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
--- OUTSIDE RECORDS SUMMARY | 2024-10-24 15:14 | XMS_ITS | Encounter Summary ---
Author Organization [facility] Address [address] [place] [address] Care Team Providers Care Prime Minister Name Role Phone Non-Staff, Physician Primary Care Provider Unava ilable Encounter Details Date Type Department Care Team (Late st Contact Info) Description 07/08/2002 Outpatient Historical [facility] [address] [place] [address] Social History Tobacco Use Types Packs/Day Years Used Date Smoking Tobacco: Never Assessed Comments Unknown Sex and Gender Information Value Date Recorded Sex Assigned at Not on file Legal Sex Female 4:28 AM BRUISE TRIMMER Gender Identity Not on file Sexual Orientation Not on file documented as of this encounter Plan of Treatment Not on file documented as of this encounter Visit Diagnoses Not on filedocumented in this encounter Care Teams Prime Minister Relationship Specialty Start Date End Date Non-Staff, Physician NO ADDRESS ON FILE PCP - General 10/18/20 documented as of this encounter
--- OUTSIDE RECORDS SUMMARY | 2024-10-24 15:14 | XMS_ITS | Encounter Summary ---
Author Organization [facility] Address [address] [place] [address] Care Team Providers Care Reading Interventionist Name Role Phone Non-Staff, Physician Primary Care Provider Unava ilable Encounter Details Date Type Department Care Team (Latest Contact Info) Description 06/27/1999 Outpatient Historical [facility]- [address] [phone] Kit Boggs MD [address] [phone] Acute bronchitis (Primary Dx) Social History Tobacco Use Types Packs/Day Years Used Date Smoking Tobacco: Never Assessed Comments Unknown Sex and Gender Information Value Date Recorded Sex Assigned at Not on file 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
--- OUTSIDE RECORDS SUMMARY | 2024-10-24 15:14 | XMS_ITS | Encounter Summary ---
Author Organization [facility] Address [address] [place] [address] Care Team Providers Care Cartoon Designer Name Role Phone Non-Staff, Physician Primary Care Provider Unava ilable Encounter Details Date Type Department Care Team (Latest Contact Info) Description 04/13/1999 Outpatient Historical [facility] Medicine [address] [phone] Chata John MD [address] [place] [phone] Abn Pap Smear-Cervix (Primary Dx) Social History Tobacco Use Types Packs/Day Years Used Date Smoking Tobacco: Never Assessed Comments Unknown Sex and Gender Information Value Date Recorded Sex Assigned at Not on file Legal Sex Female 4:28 AM SOUND EFFECTS PERSON Gender Identity Not on file Sexual Orientation Not on file documented as of this encounter Plan of Treatment Not on file documented as of this encounter Visit Diagnoses Diagnosis Abn Pap Smear-Cervix- Primary Abnormal Papanicolaou smear of cervix and cervical HPV documented in this encounter Care Teams Cartoon Designer Relationship Specialty Start Date End Date Non-Staff, Physician NO ADDRESS ON FILE PCP - General 10/18/20 documented as of this encounter
--- OUTSIDE RECORDS SUMMARY | 2024-10-24 15:14 | XMS_ITS | Encounter Summary ---
Author Organization [facility] Address [address] [place] [address] Care Team Providers Care Electrical Hardware Engineer Name Role Phone Non-Staff, Physician Primary Care Provider Unava ilable Encounter Details Date Type Department Care Team (Latest Contact Info) Description 02/11/2000 Outpatient Historical [facility] Medicine [address] [phone] Chata John MD [address] [place] [phone] Dysplasia of cervix (uteri) (Primary Dx); Hiccough Social History Tobacco Use Types Packs/Day Years Used Date Smoking Tobacco: Never Assessed Comments Unknown Sex and Gender Information Value Date Recorded Sex Assigned at Not on file 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
--- OUTSIDE RECORDS SUMMARY | 2024-10-24 15:14 | XMS_ITS | Encounter Summary ---
Author Organization [facility] Address [address] [place] [address] Care Team Providers Care Customer Solutions Coordinator Name Role Phone Non-Staff, Physician Primary Care Provider Unava ilable Encounter Details Date Type Department Care Team (Latest Contact Info) Description 03/29/2002 Outpatient Historical [facility]- [address] [phone] Kit Boggs MD [address] [phone] URIN TRACT INFECTION NOS (Primary Dx) Social History Tobacco Use Types Packs/Day Years Used Date Smoking Tobacco: Never Assessed Comments Unknown Sex and Gender Information Value Date Recorded Sex Assigned at Not on file Legal Sex Female 4:28 AM PRESS MANAGER Gender Identity Not on file Sexual Orientation Not on file documented as of this encounter Plan of Treatment Not on file documented as of this encounter Visit Diagnoses Diagnosis Urinary tract infection, site not specified- Primary documented in this encounter Care Teams Customer Solutions Coordinator Relationship Specialty Start Date End Date Non-Staff, Physician NO ADDRESS ON FILE PCP - General 10/18/20 documented as of this encounter
--- OUTSIDE RECORDS SUMMARY | 2024-10-24 15:14 | XMS_ITS | Encounter Summary ---
Author Organization [facility] Address [address] [place]: Epic Prelude ADT [place] [address] Care Team Providers Care Rubber Worker Name Role Phone Non-Staff, Physician Primary Care Provider Unava ilable Encounter Details Date Type Department Care Team (Late st Contact Info) Description 07/20/1999 Outpatient Historical Chata John MD [address] [place] [phone] Social History Tobacco Use Types Packs/Day Years Used Date Smoking Tobacco: Never Assessed Comments Unknown Sex and Gender Information Value Date Recorded Sex Assigned at Not on file Legal Sex Female 4:28 AM RN MILITARY Gender Identity Not on file Sexual Orientation Not on file documented as of this encounter Plan of Treatment Not on file documented as of this encounter Visit Diagnoses Not on filedocumented in this encounter Care Teams Rubber Worker Relationship Specialty Start Date End Date Non-Staff, Physician NO ADDRESS ON FILE PCP - General 10/18/20 documented as of this encounter
--- OUTSIDE RECORDS SUMMARY | 2024-10-24 15:14 | XMS_ITS | Encounter Summary ---
Author Organization [facility] Address [address] [place] [address] Care Team Providers Care Transfer Pumper Name Role Phone Non-Staff, Physician Primary Care Provider Unava ilable Encounter Details Date Type Department Care Team ([facility] st Contact Info) Description 02/03/2019 Ancillary Orders [facility] [address] [facility] [address] [place] [address] Ulices Yadav, ELECTRICAL SUPERINTENDENT [address] [facility] [address] [place] [address] Breast cancer screening by mammogram Social [...] on file Legal Sex Female 4:28 AM MONUMENT CARVER Gender Identity Not on file Sexual Orientation Not on file Occupation Industry Job Start Date Job End Date Not on file Not on file Not on file Not on file documented as of this encounter Plan of Treatment Not on file documented as of this encounter Results * MAMMO PRIOR STUDY (08/18/2012 1:40 PM CDT) Narrative 02/03/2019 1:38 PM CDT This exam was auto finalized to allow images to be scanned to PACS. us Ulices Yadav ELECTRICAL SUPERINTENDENT DIAGNOSTIC IMAGING ORDERABLES Fi nal Result * MAMMO PRIOR STUDY (03/24/2008 1:40 PM MONUMENT CARVER) Narrative 02/03/2019 1:39 PM CDT This exam was auto finalized to allow images to be scanned to PACS. us Dj Gross ELECTRICAL SUPERINTENDENT DIAGNOSTIC IMAGING ORDERABLES Fi nal Result * MAMMO PRIOR STUDY (03/23/2007 1:40 PM MONUMENT CARVER) Narrative 02/03/2019 1:39 PM CDT This exam was auto finalized to allow images to be scanned to PACS. us Dj Gross ELECTRICAL SUPERINTENDENT DIAGNOSTIC IMAGING ORDERABLES Fi nal Result documented in this encounter Visit Diagnoses Diagnosis Breast cancer screening by mammogram Breast cancer screening by mammogram Breast cancer screening by mammogram Breast cancer screening by mammogram documented in this encounter Care Teams Transfer Pumper Relationship Specialty Start Date End Date Non-Staff, Physician NO ADDRESS ON FILE PCP - General 10/18/20 documented as of this encounter
--- OUTSIDE RECORDS SUMMARY | 2024-10-24 15:14 | XMS_ITS | Encounter Summary ---
Author Organization [facility] Address [address] [place] [address] Care Team Providers Care Green Jobs Trainer Name Role Phone Non-Staff, Physician Primary Care Provider Unava ilable Encounter Details Date Type Department Care Team (Latest Contact Info) Description 01/11/2004 Outpatient Historical [facility]- [address] [phone] Kit Boggs MD [address] [address] HYPERTENSION NOS (Primary Dx) Social History Tobacco Use Types Packs/Day Years Used Date Smoking Tobacco: Never Assessed Comments Unknown Sex and Gender Information Value Date Recorded Sex Assigned at Not on file Legal Sex Female 4:28 AM NURSE INFORMATICS EDUCATOR Gender Identity Not on file Sexual Orientation Not on file documented as of this encounter Plan of Treatment Not on file documented as of this encounter Visit Diagnoses Diagnosis Unspecified essential hypertension- Primary documented in this encounter Care Teams Green Jobs Trainer Relationship Specialty Start Date End Date Non-Staff, Physician NO ADDRESS ON FILE PCP - General 10/18/20 documented as of this encounter
--- OUTSIDE RECORDS SUMMARY | 2024-10-24 15:14 | XMS_ITS | Encounter Summary ---
Author Organization [facility] Address [address] [place] [address] Care Team Providers Care Supervisor Wet Pour Name Role Phone Non-Staff, Physician Primary Care Provider Unava ilable Encounter Details Date Type Department Care Team (Latest Contact Info) Description 06/29/2001 Outpatient Historical [facility] Medicine [address] [phone] Chata John MD [address] [place] [phone] Gynecologic examination (Primary Dx) Social History Tobacco Use Types Packs/Day Years Used Date Smoking Tobacco: Never Assessed Comments Unknown Sex and Gender Information Value Date Recorded Sex Assigned at Not on file Legal Sex Female 4:28 AM FIREFIGHTER MARINE Gender Identity Not on file Sexual Orientation Not on file documented as of this encounter Plan of Treatment Not on file documented as of this encounter Visit Diagnoses Diagnosis Gynecologic examination- Primary Gynecological examination documented in this encounter Care Teams Supervisor Wet Pour Relationship Specialty Start Date End Date Non-Staff, Physician NO ADDRESS ON FILE PCP - General 10/18/20 documented as of this encounter
--- OUTSIDE RECORDS SUMMARY | 2024-10-24 15:14 | XMS_ITS | Encounter Summary ---
Author Organization [facility] Address [address] [place] [address] Care Team Providers Care Apprentice Machinist Outside Name Role Phone Non-Staff, Physician Primary Care Provider Unava ilable Encounter Details Date Type Department Care Team (Latest Contact Info) Description 08/29/2003 Outpatient Historical [facility]- [address] [place] [phone] Saúl Gallardo MD NO ADDRESS ON FILE ALLERGIC RHINITIS NOS (Primary Dx); RESPIRATORY ABNORM NEC Social History Tobacco Use Types Packs/Day Years Used Date Smoking Tobacco: Never Assessed Comments Unknown Sex and Gender Information Value Date Recorded Sex Assigned at Not on file Legal Sex Female 4:28 AM CLAY TEMPERER Gender Identity Not on file Sexual Orientation Not on file documented as of this encounter Plan of Treatment Not on file documented as of this encounter Visit Diagnoses Diagnosis Allergic rhinitis, cause unspecified- Primary Other dyspnea and respiratory abnormality documented in this encounter Care Teams Apprentice Machinist Outside Relationship Specialty Start Date End Date Non-Staff, Physician NO ADDRESS ON FILE PCP - General 10/18/20 documented as of this encounter
--- OUTSIDE RECORDS SUMMARY | 2024-10-24 15:14 | XMS_ITS | Encounter Summary ---
Author Organization [facility] Address [address] [place] [address] Care Team Providers Care Animal Assisted Therapist Name Role Phone Non-Staff, Physician Primary Care Provider Unava ilable Encounter Details Date Type Department Care Team (Late st Contact Info) Description 12/19/1999 Outpatient Historical [facility] [address] [place] [phone] Alex Prince MD [address] [place] [address] Actinic keratosis (Primary Dx) Social History Tobacco Use Types Packs/Day Years Used Date Smoking Tobacco: Never Assessed Comments Unknown Sex and Gender Information Value Date Recorded Sex Assigned at Not on file Legal Sex Female 4:28 AM EARLY CHILDHOOD EDUCATION INSTRUCTOR Gender Identity Not on file Sexual Orientation Not on file documented as of this encounter Plan of Treatment Not on file documented as of this encounter Visit Diagnoses Diagnosis Actinic keratosis- Primary documented in this encounter Care Teams Animal Assisted Therapist Relationship Specialty Start Date End Date Non-Staff, Physician NO ADDRESS ON FILE PCP - General 10/18/20 documented as of this encounter
--- OUTSIDE RECORDS SUMMARY | 2024-10-24 15:14 | XMS_ITS | Encounter Summary ---
Author Organization [facility] Address [address] [place] [address] Care Team Providers Care Forepart Rounder Name Role Phone Non-Staff, Physician Primary Care Provider Unava ilable Encounter Details Date Type Department Care Team (Latest Contact Info) Description 04/03/2001 Outpatient Historical [address] [phone] Jakub Sims DO NO ADDRESS ON FILE ACUTE BRONCHITIS (Primary Dx) Social History Tobacco Use Types Packs/Day Years Used Date Smoking Tobacco: Never Assessed Comments Unknown Sex and Gender Information Value Date Recorded Sex Assigned at Not on file Legal Sex Female 4:28 AM SOLAR INSTALLATION MANAGER Gender Identity Not on file Sexual Orientation Not on file documented as of this encounter Plan of Treatment Not on file documented as of this encounter Visit Diagnoses Diagnosis Acute bronchitis- Primary documented in this encounter Care Teams Forepart Rounder Relationship Specialty Start Date End Date Non-Staff, Physician NO ADDRESS ON FILE PCP - General 10/18/20 documented as of this encounter
--- OUTSIDE RECORDS SUMMARY | 2024-10-24 15:14 | XMS_ITS | Encounter Summary ---
Author Organization [facility] Address [address] [place] [address] Care Team Providers Care Lithographic Proofer Name Role Phone Non-Staff, Physician Primary Care Provider Unava ilable Encounter Details Date Type Department Care Team (Late st Contact Info) Description 09/30/2007 Outpatient Historical [facility] [place] [address] [place] [address] Steve Winn MD NO ADDRESS ON FILE Social History Tobacco Use Types Packs/Day Years Used Date Smoking Tobacco: Never Assessed Comments Unknown Sex and Gender Information Value Date Recorded Sex Assigned at Not on file Legal Sex Female 4:28 AM DIESEL ENGINE OPERATOR Gender Identity Not on file Sexual Orientation Not on file documented as of this encounter Plan of Treatment Not on file documented as of this encounter Procedures Procedure Name Priority Date/Time Associated Diagnosis Comments PATHOLOGY Routine 10/08/2007 8:20 AM CDT documented in this encounter Results * PATHOLOGY (10/08/2007 8:20 AM CDT) PATHOLOGY/CYT OLOGY REPORT [facility] Anatomic Pathology Dept [address] [facility] [address] Patient: ELISABETH BROWN Accn No: [id number] Collected: 10/08/2007 8:20:00 AM SURGICAL PATHOLOGY FINAL REPORT Diagnosis A. Stomach, antrum, biopsy - mild chronic gastritis - no Helicobacter-li ke organisms identified with a Giemsa stain. Noemy Leon M.D. (Corky y signed by) Verified: 10/12/07 LISSY/NADER Clinical Information None. Specimen Source AStomach, ANTRUM Microscopic Description Microscopic examination was performed. Gross Description Part A. Submitted in a container of formalin labelled Kevin, #1 biopsy gastric antrum is a witt soft tissue fragment measuring 0.3 x 0.1 x 0.1 cm. The specimen is submitted The specimen is submitted entirely in A1. DLS/CEP INTERFACE SYSTEM 10/08/2007 8:20 AM CDT us Steve Winn MD PATHOLOGY/CYTOLOGY ORDERABLES F inal Result INTERFACE SYSTEM Refer to clinic/hospital department documented in this encounter Visit Diagnoses Not on filedocumented in this encounter Care Teams Lithographic Proofer Relationship Specialty Start Date End Date Non-Staff, Physician NO ADDRESS ON FILE PCP - General 10/18/20 documented as of this encounter
--- OUTSIDE RECORDS SUMMARY | 2024-10-24 15:14 | XMS_ITS | Encounter Summary ---
Author Organization [facility] Address [address] [place] [address] Care Team Providers Care Director Audience Marketing Name Role Phone Non-Staff, Physician Primary Care Provider Unava ilable Encounter Details Date Type Department Care Team (Latest Contact Info) Description 07/02/2002 Outpatient Historical [address] [phone] Elizabeth Sánchez MD NO ADDRESS ON FILE TINNITUS NOS (Primary Dx) Social History Tobacco Use Types Packs/Day Years Used Date Smoking Tobacco: Never Assessed Comments Unknown Sex and Gender Information Value Date Recorded Sex Assigned at Not on file Legal Sex Female 4:28 AM STRAIGHT PIN MAKING MACHINE OPERATOR Gender Identity Not on file Sexual Orientation Not on file documented as of this encounter Plan of Treatment Not on file documented as of this encounter Visit Diagnoses Diagnosis Unspecified tinnitus- Primary documented in this encounter Care Teams Director Audience Marketing Relationship Specialty Start Date End Date Non-Staff, Physician NO ADDRESS ON FILE PCP - General 10/18/20 documented as of this encounter
--- OUTSIDE RECORDS SUMMARY | 2024-10-24 15:14 | XMS_ITS | Encounter Summary ---
Author Organization [facility] Address [address] [place] [address] Care Team Providers Care Color Control Operator Name Role Phone Non-Staff, Physician Primary Care Provider Unava ilable Encounter Details Date Type Department Care Team (Late st Contact Info) Description 02/06/2015 Ancillary Orders [facility] [address] [place] [address] Wendy Zeng, AGRICULTURE SCIENCE TEACHER [address] [place] [address] Finger pain, right (Primary Dx) Social History Tobacco Use Types Packs/Day Years Used Date Smoking Tobacco: Never Smokeless Tobacco: Never Alcohol Use Standard Drinks/Week Comments No 0 (1 standard drink = 0.6 oz pur e alcohol) Comments No Sex and Gender Information Value Date Recorded Sex Assigned at Not on file Legal Sex Female 4:28 AM FOOD ORDER EXPEDITER Gender Identity Not on file Sexual Orientation Not on file Occupation Industry Job Start Date Job End Date Not on file Not on file Not on file Not on file documented as of this encounter Plan of Treatment Not on file documented as of this encounter Results * XR HAND 3+ VW RIGHT (02/06/2015 9:48 AM CDT) Anatomical Region Laterality Modality Wrist / Hand Computed Radiogr aphy 02/06/2015 9:42 AM CDT Narrative 02/06/2015 10:38 AM CDT PROCEDURE XR RIGHT HAND, 3 views, 06 February 2015 DESCRIPTION PA, oblique, and lateral views of the right hand show no acute fracture, dislocation, or deformity. Attention is drawn to the fourth digit on the lateral view showing no acute changes. No periosteal reaction or soft tissue changes are identified. There may be some early degenerative change with narrowing of the distal interphalangeal joints. IMPRESSION unremarkable right hand views Procedure Note Scott Horowitz MD - 02/06/2015 PROCEDURE XR RIGHT HAND, 3 views, 06 February 2015 DESCRIPTION PA, oblique, and lateral views of the right hand show no acute fracture, dislocation, or deformity. Attention is drawn to the fourth digit on the lateral view showing no acute changes. No periosteal reaction or soft tissue changes are identified. There may be some early degenerative change with narrowing of the distal interphalangeal joints. IMPRESSION unremarkable right hand views us Wendy DELATORREP DIAGNOSTIC IMAGING ORDERABL ES Final Result documented in this encounter Visit Diagnoses Diagnosis Finger pain, right Pain in limb Finger pain, right- Primary Pain in limb documented in this encounter Care Teams Color Control Operator Relationship Specialty Start Date End Date Non-Staff, Physician NO ADDRESS ON FILE PCP - General 10/18/20 documented as of this encounter
--- OUTSIDE RECORDS SUMMARY | 2024-10-24 15:14 | XMS_ITS | Encounter Summary ---
Author Organization [facility] Address [address] [place] [address] Care Team Providers Care Pile Operator Name Role Phone Non-Staff, Physician Primary Care Provider Unava ilable Encounter Details Date Type Department Care Team (Latest Contact Info) Description 07/20/1999 Outpatient Historical [facility] Medicine [address] [phone] Chata John MD [address] [place] [phone] Dysplasia of cervix (uteri) (Primary Dx) Social History Tobacco Use Types Packs/Day Years Used Date Smoking Tobacco: Never Assessed Comments Unknown Sex and Gender Information Value Date Recorded Sex Assigned at Not on file Legal Sex Female 4:28 AM GANDY DANCER Gender Identity Not on file Sexual Orientation Not on file documented as of this encounter Plan of Treatment Not on file documented as of this encounter Visit Diagnoses Diagnosis Dysplasia of cervix (uteri)- Primary documented in this encounter Care Teams Pile Operator Relationship Specialty Start Date End Date Non-Staff, Physician NO ADDRESS ON FILE PCP - General 10/18/20 documented as of this encounter
--- OUTSIDE RECORDS SUMMARY | 2024-10-24 15:14 | XMS_ITS | Encounter Summary ---
Author Organization [facility] Address [address] [place] [address] Care Team Providers Care Parking Patroller Name Role Phone Non-Staff, Physician Primary Care Provider Unava ilable Encounter Details Date Type Department Care Team (Latest Contact Info) Description 02/20/1999 Outpatient Historical [facility] Medicine [address] [phone] Chata John MD [address] [place] [phone] Gynecologic examination (Primary Dx); Cuong Social History Tobacco Use Types Packs/Day Years Used Date Smoking Tobacco: Never Assessed Comments Unknown Sex and Gender Information Value Date Recorded Sex Assigned at Not on file Legal Sex Female 4:28 AM GAS PUMPER Gender Identity Not on file Sexual Orientation Not on file documented as of this encounter Plan of Treatment Not on file documented as of this encounter Visit Diagnoses Diagnosis Gynecologic examination- Primary Gynecological examination Cuong documented in this encounter Care Teams Parking Patroller Relationship Specialty Start Date End Date Non-Staff, Physician NO ADDRESS ON FILE PCP - General 10/18/20 documented as of this encounter
--- OUTSIDE RECORDS SUMMARY | 2024-10-24 15:14 | XMS_ITS | Encounter Summary ---
Author Organization [facility] Address [address] [place] [address] Care Team Providers Care Commercial Teller Name Role Phone Non-Staff, Physician Primary Care Provider Unava ilable Encounter Details Date Type Department Care Team (Latest Contact Info) Description 01/26/2002 Outpatient Historical [address] [phone] Jakub Sims DO NO ADDRESS ON FILE ACUTE URI NOS (Primary Dx) Social History Tobacco Use Types Packs/Day Years Used Date Smoking Tobacco: Never Assessed Comments Unknown Sex and Gender Information Value Date Recorded Sex Assigned at Not on file Legal Sex Female 4:28 AM RAIL SPECIALIST Gender Identity Not on file Sexual Orientation Not on file documented as of this encounter Plan of Treatment Not on file documented as of this encounter Visit Diagnoses Diagnosis Acute upper respiratory infections of unspecified site- Primary documented in this encounter Care Teams Commercial Teller Relationship Specialty Start Date End Date Non-Staff, Physician NO ADDRESS ON FILE PCP - General 10/18/20 documented as of this encounter
--- OUTSIDE RECORDS SUMMARY | 2024-10-24 15:14 | XMS_ITS | Encounter Summary ---
Author Organization [facility] Address [address] [place] [address] Care Team Providers Care Social Studies Teacher Name Role Phone Non-Staff, Physician Primary Care Provider Unava ilable Encounter Details Date Type Department Care Team (Latest Contact Info) Description 03/20/1999 Outpatient Historical [facility] Medicine [address] [phone] Chata John MD [address] [place] [phone] Unspecified asthma(493.90) (Primary Dx); [place] Social History Tobacco Use Types Packs/Day Years Used Date Smoking Tobacco: Never Assessed Comments Unknown Sex and Gender Information Value Date Recorded Sex Assigned at Not on file Legal Sex Female 4:28 AM SR. STRATEGIC SOURCING MANAGER Gender Identity Not on file Sexual Orientation Not on file documented as of this encounter Plan of Treatment Not on file documented as of this encounter Visit Diagnoses Diagnosis Unspecified asthma(493.90)- Primary Unspecified asthma Cuong documented in this encounter Care Teams Social Studies Teacher Relationship Specialty Start Date End Date Non-Staff, Physician NO ADDRESS ON FILE PCP - General 10/18/20 documented as of this encounter
--- OUTSIDE RECORDS SUMMARY | 2024-10-24 15:14 | XMS_ITS | Clinical Summary ---
Author Organization [facility] de Address [address] [place] [address] Phone Care Team Providers Care Film Cutter Name Role Phone Non-Staff, Physician Primary Care Provider Unava ilable Allergies Active Allergy Reactions Criticality Noted Date Comments Sumatriptan Succinate Palpitations Low 10/11/2008 Medications calcium as carbonate (TUMS ES) 750 mg (300 mg elemental) Tablet, Chewable Take by mouth 1 time daily as needed. 0 Active predniSONE (DELTASONE) 20 mg tablet Take 1 Tablet (20 mg) by mouth daily. 7 Tablet 0 0 Active fluticasone propionate (FLONASE) 50 mcg/spray [place], Suspension nasal inhalerIndicati ons:Respiratory tract infection ADMINISTER 2 SPRAYS IN EACH NOSTRIL DAILY 48 Gram 2 0 Active amLODIPine (NORVASC) 5 mg tablet Take 1 Tablet (5 mg) by mouth daily. 90 Tablet 1 0 Active cetirizine (ZyrTEC) 10 mg tablet Take 1 Tablet (10 mg) by mouth daily. 90 Tablet 1 0 Active umeclidinium-vi lanteroL (ANORO ELLIPTA) 62.5-25 mcg/actuation Disk with Device Take 1 Puff by inhalation daily. 1 Each 11 0 Active dextran 70/hypromellose (ARTIFICIAL TEARS, PF, OP) by Ophthalmic route. 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 JORID (obstructive sleep apnea) 10/30/2016 Essential hypertension 10/30/2016 Tremor 10/30/2016 Thrombocytopenia 10/30/2016 Elevated AST (SGOT) 10/30/2016 Obesity (BMI 30.0-34.9) 10/30/2016 Elevated serum creatinine 10/30/2016 Chronic cough 01/26/2014 Hiatal hernia 12/05/2008 GERD (gastroesophageal reflux disease) 9 Overview (08/31/2020): S/P Hope Fundiplication Asthma 10/11/2008 Preoperative general physical examination Primary osteoarthritis of right knee Resolved Problems Problem Noted Date Diagnosed Date Resolved Date Breast CA Screening 10/11/2008 10/31/19 17 Overview (08/30/2020): Mammo: Fall 2007 Immunizations Immunization Administration Dates [...] Other Brother 1 Alexey Unknown Brother 2 Jimbo Unknown Brother 3 Clark Unknown Brother 4 Godwin Healthy Daughter 1 Samantha Other Daughter 2 Montserrat IBS Lung Cancer Father Melanoma Mother Unknown Sister 1 Tricia Unknown Sister 2 Janey Unknown Sister 3 Daily Unknown Sister 4 Kareen Breast Cancer Neg Hx Colon Cancer Neg Hx Heart Disease Neg Hx Ovarian Cancer Neg Hx Relation Name Status Comments Brother 1 Alexey (Age 66) Brother 2 Jimbo Alive Brother 3 Clark Alive Brother 4 Godwin Alive Daughter 1 Samantha Alive Daughter 2 Montserrat Alive Father (Age 62) Mother (Age 82) Sister 1 Tricia Alive Sister 2 Janey Alive Sister 3 Daily Alive Sister 4 Kareen Alive Social History Tobacco Use Types Packs/Day Years Used Date Smoking Tobacco: Never Smokeless Tobacco: Never Alcohol Use Standard Drinks/Week Comments No 0 (1 standard drink = 0.6 oz pur e alcohol) Comments Unknown Sex and Gender Information Value Date Recorded Sex Assigned at Not on file Legal Sex Female 3:32 PM INTAKE COORDINATOR Gender Identity Not on file Sexual Orientation Not on file Last Filed Vital Signs Vital Sign Reading Time Taken Comments Blood Pressure 142/90 08/04/2019 10:26 AM CDT Pulse 73 08/04/2019 10:26 AM CDT Temperature 36.3 C (97.3 F) 08/04/2019 10:26 AM CDT Respiratory Rate 18 08/04/2019 10:26 AM CDT Oxygen Saturation - - Inhaled Oxygen Concentration - - Weight 84.5 [...] , 02/05/2009 Medical Devices Implanted Type Area Crew Director Device Identifier Shelf Expiration Date Model / Serial / Lot Cement Simplex Hvisc 6194-1-010 - [id number] Implanted:Qty : 1 on 11/08/2016 by Gibson Canas MD Cement Right: Knee [employer]- [employer] 07/02/2018 6194-1-010 / / [id number] Cement Simplex Hvisc 6194-1-010 - [id number] Implanted:Qty : 1 on 11/08/2016 by Gibson Canas MD Cement Right: Knee [employer]- [employer] 07/02/2018 6194-1-010 / / [id number] Comp Fem Attn Cr Cmnt Sz5 1504-00-225 - [id number] Implanted:Qty : 1 on 11/08/2016 by Gibson Canas MD Knee Right: Knee [employer] 09/01/2026 [id number] / / [id number] Comp Tib Attn Fb Cmnt Sz4 1506-00-004 - [id number] Implanted:Qty : 1 on 11/08/2016 by Gibson Canas MD Knee Right: Knee [employer] 08/02/2026 [id number] / / [id number] Ins Attn Fb Cr Sz5 5mm 1516-20-505 - [id number] Implanted:Qty : 1 on 11/08/2016 by Gibson Canas MD Knee Right: Knee [employer] 08/02/2021 [id number] / / [id number] Patella Attune Fatuma 35mm 1518-10-035 - [id number] Implanted:Qty : 1 on 11/08/2016 by Gibson Canas MD Knee Right: Knee [employer] 08/02/2021 [id number] / / [id number] Procedures Procedure Name Priority Date/Time Associated Diagnosis Comments XR DEXA BONE DENSITY AXIAL 1 OR MORE SITES Routine 08/10/2018 1:44 PM CDT Postmenopausal from Last 3 Months or Most Recently Relevant to Health Maintenance Results * XR DEXA BONE DENSITY AXIAL 1 OR MORE SITES (08/10/2018 1:44 PM CDT) Anatomical Region Laterality Modality Other Impressions 08/10/2018 5:48 PM CDT Abnormal examination Bone density lies in the [...] 0.7 Procedure Note Gunnar Thorne MD - 09/19/2020 DEXA Evaluation of the Lumbar Spine and [...] 0.814 Adult T-score: -1.0 Adult Z-score: 0.7 IMPRESSION Abnormal examination Bone density lies in the [...] or Most Recently Relevant to Health Maintenance Care Teams Film Cutter Relationship Specialty Start Date End Date Non-Staff, Physician NO ADDRESS ON FILE PCP - General 10/18/20
--- OUTSIDE RECORDS SUMMARY | 2024-10-24 15:14 | XMS_ITS | Encounter Summary ---
Author Organization [facility] Address [address] [place] [address] Care Team Providers Care Motorman/Woman Name Role Phone Non-Staff, Physician Primary Care Provider Unava ilable Encounter Details Date Type Department Care Team (Latest Contact Info) Description 07/20/2002 Outpatient Historical [facility] Ear, Nose and Throat [address] [place] [address] Chad Magana MD [address] [address] TINNITUS NOS (Primary Dx); DIZZINESS AND GIDDINESS Social History Tobacco Use Types Packs/Day Years Used Date Smoking Tobacco: Never Assessed Comments Unknown Sex and Gender Information Value Date Recorded Sex Assigned at Not on file Legal Sex Female 4:28 AM DEMENTIA PROGRAM DIRECTOR Gender Identity Not on file Sexual Orientation Not on file documented as of this encounter Plan of Treatment Not on file documented as of this encounter Visit Diagnoses Diagnosis Unspecified tinnitus- Primary Dizziness and giddiness documented in this encounter Care Teams Motorman/Woman Relationship Specialty Start Date End Date Non-Staff, Physician NO ADDRESS ON FILE PCP - General 10/18/20 documented as of this encounter
--- OUTSIDE RECORDS SUMMARY | 2024-10-24 15:14 | XMS_ITS | Encounter Summary ---
Author Organization [facility] Address [address] [place] [address] Care Team Providers Care Compressed Gas Plant Worker Name Role Phone Non-Staff, Physician Primary Care Provider Unava ilable Encounter Details Date Type Department Care Team (Latest Contact Info) Description 01/28/2001 Outpatient Historical [facility]- [address] [phone] Jakub Sims DO NO ADDRESS ON FILE Migraine, unspecified, without mention of intractable migraine without mention of status migrainosus (Primary Dx); Unspecified essential hypertension Social History Tobacco Use Types Packs/Day Years Used Date Smoking Tobacco: Never Assessed Comments Unknown Sex and Gender Information Value Date Recorded Sex Assigned at Not on file Legal Sex Female 4:28 AM BUSINESS DEVELOPMENT EXECUTIVE Gender Identity Not on file Sexual Orientation Not on file documented as of this encounter Plan of Treatment Not on file documented as of this encounter Visit Diagnoses Diagnosis Migraine, unspecified, without mention of intractable migraine without mention of status migrainosus- Primary Unspecified essential hypertension documented in this encounter Care Teams Compressed Gas Plant Worker Relationship Specialty Start Date End Date Non-Staff, Physician NO ADDRESS ON FILE PCP - General 10/18/20 documented as of this encounter
--- OUTSIDE RECORDS SUMMARY | 2024-10-24 15:14 | XMS_ITS | Encounter Summary ---
Author Organization [facility] Address [address] [place] [address] Care Team Providers Care Air Export Logistics Manager Name Role Phone Non-Staff, Physician Primary Care Provider Unava ilable Encounter Details Date Type Department Care Team (Latest Contact Info) Description 07/08/2002 Outpatient Historical [facility] Ear, Nose and Throat [address] [place] [address] Chad Magana MD [address] [facility] [address] [place] [address] CHR NONSUP OM NOS/NEC (Primary Dx); TINNITUS NOS; PERIPHERAL VERTIGO NOS Social History Tobacco Use Types Packs/Day Years Used Date Smoking Tobacco: Never Assessed Comments Unknown Sex and Gender Information Value Date Recorded Sex Assigned at Not on file Legal Sex Female 4:28 AM WOOD DIE MAKER Gender Identity Not on file Sexual Orientation Not on file documented as of this encounter Plan of Treatment Not on file documented as of this encounter Visit Diagnoses Diagnosis Other and unspecified chronic nonsuppurative otitis media- Primary Unspecified tinnitus Peripheral vertigo, unspecified documented in this encounter Care Teams Air Export Logistics Manager Relationship Specialty Start Date End Date Non-Staff, Physician NO ADDRESS ON FILE PCP - General 10/18/20 documented as of this encounter
--- OUTSIDE RECORDS SUMMARY | 2024-10-24 15:14 | XMS_ITS | Encounter Summary ---
Author Organization [facility] Address [address] [place] [address] Care Team Providers Care Reference Librarian Name Role Phone Non-Staff, Physician Primary Care Provider Unava ilable Encounter Details Date Type Department Care Team (Latest Contact Info) Description 09/10/2002 Outpatient Historical [facility]- [address] [phone] Elizabeth Sánchez MD NO ADDRESS ON FILE URINARY FREQUENCY (Primary Dx); TINNITUS NOS Social History Tobacco Use Types Packs/Day Years Used Date Smoking Tobacco: Never Assessed Comments Unknown Sex and Gender Information Value Date Recorded Sex Assigned at Not on file Legal Sex Female 4:28 AM FEED CRUSHER Gender Identity Not on file Sexual Orientation Not on file documented as of this encounter Plan of Treatment Not on file documented as of this encounter Visit Diagnoses Diagnosis Urinary frequency- Primary Unspecified tinnitus documented in this encounter Care Teams Reference Librarian Relationship Specialty Start Date End Date Non-Staff, Physician NO ADDRESS ON FILE PCP - General 10/18/20 documented as of this encounter
--- OUTSIDE RECORDS SUMMARY | 2024-10-24 15:14 | XMS_ITS | Encounter Summary ---
Author Organization [facility] Address [address] [place] [address] Care Team Providers Care Client Insights Consultant Name Role Phone Non-Staff, Physician Primary Care Provider Unava ilable Encounter Details Date Type Department Care Team (Late st Contact Info) Description 10/16/[address] [facility] Dermatology- [address] [place] [address] Alex Prince MD [address] [place] [address] Foreign body granuloma of skin and subcutaneous tissue (Primary Dx) Social History Tobacco Use Types Packs/Day Years Used Date Smoking Tobacco: Never Assessed Comments Unknown Sex and Gender Information Value Date Recorded Sex Assigned at Not on file Legal Sex Female 4:28 AM RIVER PILOT Gender Identity Not on file Sexual Orientation Not on file documented as of this encounter Plan of Treatment Not on file documented as of this encounter Visit Diagnoses Diagnosis Foreign body granuloma of skin and subcutaneous tissue- Primary documented in this encounter Care Teams Client Insights Consultant Relationship Specialty Start Date End Date Non-Staff, Physician NO ADDRESS ON FILE PCP - General 10/18/20 documented as of this encounter
--- OUTSIDE RECORDS SUMMARY | 2024-10-24 15:14 | XMS_ITS | Encounter Summary ---
Author Organization [facility] Address [address] [place] [address] Care Team Providers Care Appliance Worker Name Role Phone Non-Staff, Physician Primary Care Provider Unava ilable Encounter Details Date Type Department Care Team (Latest Contact Info) Description 11/21/2000 Outpatient Historical [address] [phone] Jakub Sims DO NO ADDRESS ON FILE Wheezing (Primary Dx) Social History Tobacco Use Types Packs/Day Years Used Date Smoking Tobacco: Never Assessed Comments Unknown Sex and Gender Information Value Date Recorded Sex Assigned at Not on file Legal Sex Female 4:28 AM MOVEMENT EDUCATION SPECIALIST Gender Identity Not on file Sexual Orientation Not on file documented as of this encounter Plan of Treatment Not on file documented as of this encounter Visit Diagnoses Diagnosis Wheezing- Primary documented in this encounter Care Teams Appliance Worker Relationship Specialty Start Date End Date Non-Staff, Physician NO ADDRESS ON FILE PCP - General 10/18/20 documented as of this encounter
--- OUTSIDE RECORDS SUMMARY | 2024-10-24 15:14 | XMS_ITS | Encounter Summary ---
Author Organization [facility] Address [address] [place] [address] Care Team Providers Care Braided Rug Maker Name Role Phone Non-Staff, Physician Primary Care Provider Unava ilable Encounter Details Date Type Department Care Team (Late st Contact Info) Description 02/04/2003 Outpatient Historical [facility] Dermatology- [address] [place] [address] Alex Prince MD [address] [place] [address] DYSCHROMIA OTHER (Primary Dx); Inflamed seborr keratos Social History Tobacco Use Types Packs/Day Years Used Date Smoking Tobacco: Never Assessed Comments Unknown Sex and Gender Information Value Date Recorded Sex Assigned at Not on file Legal Sex Female 4:28 AM REGIONAL SALES COORDINATOR Gender Identity Not on file Sexual Orientation Not on file documented as of this encounter Plan of Treatment Not on file documented as of this encounter Visit Diagnoses Diagnosis Other dyschromia- Primary Inflamed seborr keratos Inflamed seborrheic keratosis documented in this encounter Care Teams Braided Rug Maker Relationship Specialty Start Date End Date Non-Staff, Physician NO ADDRESS ON FILE PCP - General 10/18/20 documented as of this encounter
--- OUTSIDE RECORDS SUMMARY | 2024-10-24 15:14 | XMS_ITS | Encounter Summary ---
Author Organization [facility] Address [address] [place] [address] Care Team Providers Care Laundry Assistant Name Role Phone Non-Staff, Physician Primary Care Provider Unava ilable Encounter Details Date Type Department Care Team (Latest Contact Info) Description 08/20/1999 Outpatient Historical [facility] [address] [phone] Chata John MD [address] [place] [phone] Unspecified asthma(493.90) (Primary Dx); Abn Pap Smear-Cervix Social History Tobacco Use Types Packs/Day Years Used Date Smoking Tobacco: Never Assessed Comments Unknown Sex and Gender Information Value Date Recorded Sex Assigned at Not on file Legal Sex Female 4:28 AM BODY TRIMMER UPHOLSTERER Gender Identity Not on file Sexual Orientation Not on file documented as of this encounter Plan of Treatment Not on file documented as of this encounter Visit Diagnoses Diagnosis Unspecified asthma(493.90)- Primary Unspecified asthma Abn Pap Smear-Cervix Abnormal Papanicolaou smear of cervix and cervical HPV documented in this encounter Care Teams Laundry Assistant Relationship Specialty Start Date End Date Non-Staff, Physician NO ADDRESS ON FILE PCP - General 10/18/20 documented as of this encounter
--- OUTSIDE RECORDS SUMMARY | 2024-10-24 15:14 | XMS_ITS | Encounter Summary ---
Author Organization [facility] Address [address] [place] [address] Care Team Providers Care Manager Corporate Marketing Name Role Phone Non-Staff, Physician Primary Care Provider Unava ilable Encounter Details Date Type Department Care Team (Latest Contact Info) Description 01/07/2001 Outpatient Historical [facility] Medicine- [address] [phone] Kit Boggs MD [address] [phone] Unspecified essential hypertension (Primary Dx); Dietary surveil/adult school counselor Social History Tobacco Use Types Packs/Day Years Used Date Smoking Tobacco: Never Assessed Comments Unknown Sex and Gender Information Value Date Recorded Sex Assigned at Not on file Legal Sex Female 4:28 AM GLOBAL CATEGORY MANAGER Gender Identity Not on file Sexual Orientation Not on file documented as of this encounter Plan of Treatment Not on file documented as of this encounter Visit Diagnoses Diagnosis Unspecified essential hypertension- Primary Dietary surveil/adult school counselor Dietary surveillance and counseling documented in this encounter Care Teams Manager Corporate Marketing Relationship Specialty Start Date End Date Non-Staff, Physician NO ADDRESS ON FILE PCP - General 10/18/20 documented as of this encounter
--- OUTSIDE RECORDS SUMMARY | 2024-10-24 15:14 | XMS_ITS | Encounter Summary ---
Author Organization [facility] Address [address] [place] [address] Care Team Providers Care Golf Teacher Name Role Phone Non-Staff, Physician Primary Care Provider Unava ilable Encounter Details Date Type Department Care Team (Latest Contact Info) Description 10/23/1999 Outpatient Historical [facility] Medicine [address] [phone] Chata John MD [address] [place] [phone] Personal history of malignant neoplasm of cervix uteri (Primary Dx); Other voice and resonance disorders Social History Tobacco Use Types Packs/Day Years Used Date Smoking Tobacco: Never Assessed Comments Unknown Sex and Gender Information Value Date Recorded Sex Assigned at Not on file Legal Sex Female 4:28 AM FIRE CHIEF'S AIDE Gender Identity Not on file Sexual Orientation Not on file documented as of this encounter Plan of Treatment Not on file documented as of this encounter Visit Diagnoses Diagnosis Personal history of malignant neoplasm of cervix uteri- Primary Other voice and resonance disorders documented in this encounter Care Teams Golf Teacher Relationship Specialty Start Date End Date Non-Staff, Physician NO ADDRESS ON FILE PCP - General 10/18/20 documented as of this encounter
--- OUTSIDE RECORDS SUMMARY | 2024-10-24 15:14 | XMS_ITS | Encounter Summary ---
Author Organization [facility] Address [address] [place] [address] Care Team Providers Care Lopper Name Role Phone Non-Staff, Physician Primary Care Provider Unava ilable Encounter Details Date Type Department Care Team (Latest Contact Info) Description 02/04/2000 Outpatient Historical [facility]- [address] [phone] Kit Boggs MD [address] [phone] Contusion of unspecified part of lower limb (Primary Dx) Social History Tobacco Use Types Packs/Day Years Used Date Smoking Tobacco: Never Assessed Comments Unknown Sex and Gender Information Value Date Recorded Sex Assigned at Not on file Legal Sex Female 4:28 AM CELL TESTER Gender Identity Not on file Sexual Orientation Not on file documented as of this encounter Plan of Treatment Not on file documented as of this encounter Visit Diagnoses Diagnosis Contusion of unspecified part of lower limb- Primary documented in this encounter Care Teams Lopper Relationship Specialty Start Date End Date Non-Staff, Physician NO ADDRESS ON FILE PCP - General 10/18/20 documented as of this encounter
--- OUTSIDE RECORDS SUMMARY | 2024-10-24 15:14 | XMS_ITS | Encounter Summary ---
Author Organization [facility] Address [address] [place] [address] Care Team Providers Care Transcription Manager Name Role Phone Non-Staff, Physician Primary Care Provider Unava ilable Encounter Details Date Type Department Care Team (Latest Contact Info) Description 02/03/2001 Outpatient Historical [address] [phone] Daily Finney MD [address] [place] [address] Unspecified asthma(493.90) (Primary Dx); Acute upper respiratory infections of unspecified site; Nasal/sinus dis NEC Social History Tobacco Use Types Packs/Day Years Used Date Smoking Tobacco: Never Assessed Comments Unknown Sex and Gender Information Value Date Recorded Sex Assigned at Not on file Legal Sex Female 4:28 AM GROUND EQUIPMENT MECHANIC Gender Identity Not on file Sexual Orientation Not on file documented as of this encounter Plan of Treatment Not on file documented as of this encounter Visit Diagnoses Diagnosis Unspecified asthma(493.90)- Primary Unspecified asthma Acute upper respiratory infections of unspecified site Nasal/sinus dis NEC Other diseases of nasal cavity and sinuses documented in this encounter Care Teams Transcription Manager Relationship Specialty Start Date End Date Non-Staff, Physician NO ADDRESS ON FILE PCP - General 10/18/20 documented as of this encounter
--- OUTSIDE RECORDS SUMMARY | 2024-10-24 15:14 | XMS_ITS | Data Portability ---
Author Organization [facility], [facility], [facility] Address [address] [place] [address] Care Team Providers Care Paste Thinner Name Role Phone ANDERSON SUAREZ Primary Care Provider Assessment No assessment recorded. Plan of Treatment Reminders Order Date Submit Date Provider Last Modified By Organization Details Last Modified Time Details Appointments None recorded. Lab None recorded. Referral orthopedic surgeon referral 2024 025 [facility], [address] [place], [address], 16:41:18 Procedures None recorded. Surgeries None recorded. Imaging XR, foot, 3 or more view 2024 025 [email or web address] [facility], [address] [place], [address], 11:30:43 Medication Orders amoxicillin 875 mg tablet 2023 025 [facility], [address], [place], [address], 5 17:42:30 Tessalon Perles 100 mg capsule 2023 024 [email or web address] Henderson [facility], [address], [place], [address], 16:08:25 fluconazole 150 mg tablet 2023 025 [facility], [address], [place], [address], 5 13:54:40 albuterol sulfate HFA 90 mcg/actuati on aerosol inhaler 2023 024 [facility], [address], [place], [address], 4 15:30:13 Patient TargetsNo targets recorded. Patient InstructionsNo instructions recorded. Reason for Referral Orthopedic Surgeon Referral for Closed fracture of fifth metatarsal bone Referring Physician: Latasha Ritter, Family Medicine, Encounter Date: 07/31/2024 Results Created Date Observation Date Name Description Value Unit Range Abnormal Flag Note LastModifiedBy Organization Detail LastModifiedTime 08/03/1908/02/2024 XR, foot, 3 or more view No observ ation record ed. [email or web address] [facility] [address] [facility] [address], [place], [address], 08/02/2024 13:17:17 08/21/19 25 07/31/2024 XR, foot, 3 or more view No observ ation record ed. [email or web address] [facility] [address] [facility] [address], [place], [address], 08/20/2024 13:21:31 Result Notes None recorded. Problems Name Problem SNOMED Code Status Onset Date Resolution Date Notes Provider Name and Address Organization Details Recorded Time Chronic cough 50226415 Active 2022 CHRONIC COUGH; Recorded 3 9:21AM by Yessenia Baker LPN, Office Visit; Promoted; acuity set as *; Not Available [facility] 3 15:21:15 Gastroesop hageal reflux disease 910337667 Active 2022 GERD (GASTROES OPHAGEAL REFLUX DISEASE); Impressio n: make appt with GI; Recorded 3 9:21AM by Yessenia Baker LPN, Office Visit; Promoted; acuity set as *; Not Available [facility] 3 15:21:15 Problem Notes None recorded. Medical Equipment None Reported. Allergies Allergen ID Allergen Name Allergen Category Reaction Reaction Severity Criticality Documentation Date Start Date Code Code System Note Provider Name and Address Organization Details Recorded Time 17524 Imitrex medicatio n irregular heart rate Not available Not available 11/30/2022 12194 3 RxNorm React ion: Irreg ular heart rate; Comme nt: Recor ded 05/21 9:21A M by Saundra maurice LPN, Offic e Visit ; Promo laverne; Mairaluisa jara ce: *; Reaso n: Drug aller gy; ; Not Available [facility] 3 02:23:47 Medications Name Sig Start Date Stop Date Status Note LastModified by Organization Details LastModified Time atorvasta tin 40 mg tablet TAKE 1 TABLET BY MOUTH EVERY DAY active Not Available Not Available No t Available albuterol sulfate 0.63 mg/3 mL solution for nebulizat ion inhale 3ml EVERY 6 HOURS NEEDED FOR bronchos pasm active Not Available Not Available No t Available prednison e 10 mg tablet TAKE 1 TABLET BY MOUTH EVERY DAY FOR INFLAMMA TION/COU GH 07/31 completed Not Available Not Available Not Available fluconazo le 150 mg tablet TAKE 1 TABLET BY MOUTH A ONE TIME DOSE NEEDED FOR SECONDAR Y YEAST INFECTIO N FROM ANTIBIOT IC USE 10/08 completed Not Available Not Available Not Available hydrocodo ne 5 mg-acetam inophen 325 mg tablet TAKE 1 TABLET BY MOUTH EVERY DAY NEEDED FOR PAIN FOR 30 DAYS 11/08 completed Not Available Not Available Not Available Space Chamber USE DIRECTED active Not Available Not Available No t Available clopidogr el 75 mg tablet 11/08 completed Not Available Not Available Not Available amlodipin e 5 mg tablet TAKE 1 TABLET BY MOUTH EVERY DAY FOR BLOOD PRESSURE 11/08 completed Not Available Not Available Not Available aspirin 81 mg tablet,de layed release TAKE 1 TABLET BY MOUTH EVERY DAY active Not Available Not Available No t Available amoxicill in 875 mg tablet TAKE 1 TABLET BY MOUTH EVERY 12 HOURS FOR 10 DAYS 07/31 completed Not Available Not Available Not Available amlodipin e 10 mg tablet TAKE 1 TABLET BY MOUTH EVERY DAY active Not Available Not Available No t Available benzonata te 100 mg capsule TAKE 1 CAPSULE BY MOUTH THREE TIMES DAILY 07/31 completed Not Available Not Available Not Available fluoxetin e 10 mg capsule take 1 capsule BY MOUTH EVERY DAY FOR depressi on 11/08 completed Not Available Not Available Not Available albuterol sulfate HFA 90 mcg/actua tion aerosol inhaler INHALE 2 PUFFS BY MOUTH EVERY 4 TO 6 HOURS NEEDED active Not Available Not Available No t Available fluoxetin e 20 mg capsule take 1 capsule BY MOUTH EVERY DAY FOR depressi on active Not Available Not Available No t Available cyclobenz aprine 5 mg tablet at bedtime 11/08 completed Recorded 06/21/19 22 1:41PM by Angelique Casas CMT, Historic al Summary; Refill Quantity : 30; Tablet; Not Available Not Available Not Available duloxetin e 30 mg capsule,d elayed release daily 11/08 completed Recorded 05/21/19 23 10:02AM by LEWIS Mclain, Office Visit; Refill Quantity : 90; Capsule; Not Available Not Available Not Available hydrocodo ne-acetam inophen as needed 11/[address] isabel; 0; Recorded 05/21/19 23 9:28AM by Yessenia Baker LPN, Office Visit; Not Available Not Available Not Available aspirin 07/31 completed Not Available Not Available Not Available nystatin two times daily 11/08 completed x 10 days; 0; Recorded 05/21/19 23 9:28AM by Yessenia Baker LPN, Office Visit; Not Available Not Available Not Available diclofena c sodium two times daily, as needed 11/08 completed Recorded 04/13/20 21 9:30AM by Lyudmila Elliott, Office Visit; Refill Quantity : 100; Gram; Not Available Not Available Not Available albuterol sulfate every 6 hours as needed for bronchos pasm 11/08 completed 03532; Recorded 12/07/19 22 11:20AM by Angelique Casas CMT (Authori zed through [facility]clain), Refill Request; Refill Quantity : 30; Millilit er; Not Available Not Available Not Available ibuprofen daily 11/08 completed 0; Recorded 05/21/19 9:28AM by Yessenia Baker LPN, Office Visit; Not Available Not Available Not Available gabapenti n three times daily 11/[address] isabel; 0; Recorded 05/21/19 9:28AM by Yessenia Baker LPN, Office Visit; Not Available Not Available Not Available Hydrocodo ne 07/31 completed Not Available Not Available Not Available amlodipin e besylate (bulk) daily 11/08 completed Recorded 05/21/19 9:50AM by LEWIS Mclain, Office Visit; Refill Quantity : 90; Tablet; Not Available Not Available Not Available Vitals Date Recorded Body height Body mass index (BMI) Body weight Body temperature Respiratory rate Heart rate Oxygen saturation Oxygen saturation in Arterial blood by Pulse oximetry Systolic blood pressure Diastolic blood pressure Provider Name and Address Organization Details Last Updated DateTime 5 160.02 cm 30.1 kg/m2 48182.7 g 98.1 [degF] 20 /min 90 /min 94 % 94 % 118 mm[Hg] 70 mm[Hg] GUILLERMO MOYER [facility] 5 17:51:10 Date Recorded Body height Body mass index (BMI) Body weight Oxygen saturation Oxygen saturation in Arterial blood by Pulse oximetry Heart rate Respiratory rate Body temperature Systolic blood pressure Diastolic blood pressure Provider Name and Address Organization Details Last Updated DateTime 5 160.02 cm 29.5 kg/m2 40753.1 3 g 95 % 95 % 86 /min 16 /min 98.2 [degF] 140 mm[Hg] 74 mm[Hg] Miracle He [facility] 5 14:02:03 Date Recorded Body height Body mass index (BMI) Body weight Oxygen saturation Oxygen saturation in Arterial blood by Pulse oximetry Heart rate Respiratory rate Body temperature Systolic blood pressure Diastolic blood pressure Provider Name and Address Organization Details Last Updated DateTime 4 160.02 cm 30.5 kg/m2 91572.8 9 g 92 % 92 % 108 /min 20 /min 98.2 [degF] 144 mm[Hg] 84 mm[Hg] Miracle He [facility] 14:50:34 Social History Question Answer Notes LastModified by Organizat ion Details LastModified Time Tobacco Smoking Status Never Smoker Miracle He hunter [facility] 11/09/2023 14:42:41 What Was The Date Of Your Most Recent Tobacco Screening? 10/08/2024 [email or web address] Information not available 10/08/2024 Sex: Unknown Functional Status None recorded. Mental Status None recorded. Family History Nothing Reported. Medical History No medical history recorded. Gynecological HistoryNo gynecological history recorded. Obstetrics History GPAL:G 0 P 0 0 0 0 Immunizations Vaccine Type Date Status Note Provider Nam e and Address Organization Details Recorded Time zoster recombinant 0 completed Not Available [facility] 11/30/2022 02:32:17 Pneumococcal conjugate PCV 13 0 completed Not Available [facility] 11/30/2022 02:32:17 Past Encounters Encounter ID Performer Location Encounter Start Date Encounter Closed Date Diagnosis/Indication Diagnosis SNOMED-CT Code Diagnosis ICD10 Code Diagnosis Note [id number] [facility]) [address] [place] [id number] 11/09/2023 14:19:00 11/09/2023 15:34:26 Acute suppurative otitis media without spontaneous rupture of ear drum 29450173 H66.002 Cough 95378504 R05.9 [id number] [facility] ([facility]) [address] [place] [phone] 07/31/2024 17:37:36 08/01/2024 08:16:09 Pain in right foot 4888795254 49154 M79.671 Closed fra cture of fifth metatarsal bone 62729694 S92.351A X ray to radiology. RICE. Walking boot placed. Will send to ortho. [id number] [facility] ([facility]) [address] [place] [address], [place] [address] 10/08/2024 13:51:49 10/08/2024 15:13:30 Pain in left lower limb 464314194 M79.605 Patient wishes to have imaging, no US available at time of visit. Discussed this with patient. She agrees to go to ER for further evaluation . Report called to ER nursing staff per Miracle BLACKWELL. Health Concerns Section Related Observation LastModified by Organization Detai ls LastModified Time None Recorded Concern Status LastModified by Organization Details LastModified Time None Recorded Advance Directives Directive None Recorded Payers Insurance Date Sequence Insurance Name Policy Number Policy Cornejo Covered Member ID Cornejo Member ID Guarantor Name 10/08/2024 [place] - [facility] (MEDICARE) Elisabeth Brown [id number] Elisabeth Brown 10/08/2024 1 [place] Elisabeth Brown [id number] Elisabeth Brown 08/17/2024 2 [place] Elisabeth Brown [id number] Elisabeth Brown Notes Date Note Type Note Provider Name and Address Organization Details Recorded Time 11/09/2023 text/html CoughReported bypatient.Quality:pro ductive Severity:worsening Duration:constant Associated Symptoms:no fever; no chills;wheezing;chest wall tenderness;shortness of breathNotes:Chest tenderness when coughing. walk in patientpatient is here today for a productive cough and chest congestion with a wheeze that started 2 days ago [facility] [address] [place], [address], [facility], [place] 11/09/2023 15:31:24 07/31/2024 text/html Musculoskeletal PainReported bypatient.Location:[facility] foot Quality:dull Severity:worsening Context:trauma Associated Symptoms:no tingling; no numbness of the legs/feet ADLs Affected:walking walk-inPt is here today for persistent Right foot pain and swelling. She stated that she tripped over a box on Friday and fell. She has had pain in foot since that is not improving. Uses a walker to assist with ambulation. [facility] [address] [place], [address], [facility], [place] 07/31/2024 18:15:19 10/08/2024 text/html walk in patientpatient is here today for upper left inner thigh pain that started about 5 hours ago without injury. Patient said that she was lying in bed and the pain started. States that pain is constant but does have times of less intensity. Patient states that the pain is 10/10 at worst. Currently 7/10 on pain scale. Denies any other symptoms. [facility] [address] [place], [address], [facility], [place] 10/08/2024 15:07:47 OBGyn Episode No OBEpisode recorded.
--- OUTSIDE RECORDS SUMMARY | 2024-10-24 15:14 | XMS_ITS | Encounter Summary ---
Author Organization [facility] Address [address] [place] [address] Care Team Providers Care Drying Room Operator Name Role Phone Non-Staff, Physician Primary Care Provider Unava ilable Encounter Details Date Type Department Care Team (Latest Contact Info) Description 12/08/2000 Outpatient Historical [facility]- [address] [phone] Jakub Sims DO NO ADDRESS ON FILE Headache(784.0) (Primary Dx); Unspecified asthma(493.90) Social History Tobacco Use Types Packs/Day Years Used Date Smoking Tobacco: Never Assessed Comments Unknown Sex and Gender Information Value Date Recorded Sex Assigned at Not on file Legal Sex Female 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
--- OUTSIDE RECORDS SUMMARY | 2024-10-24 15:14 | XMS_ITS | Encounter Summary ---
Author Organization [facility] Address [address] [place] [address] Care Team Providers Care Watcher Lookout Tower Name Role Phone Non-Staff, Physician Primary Care Provider Unava ilable Encounter Details Date Type Department Care Team (Latest Contact Info) Description 09/01/2000 Outpatient Historical [facility]- [address] [phone] Kit Boggs MD [address] [phone] Allergy, unspecified not elsewhere classified (Primary Dx); Acute upper respiratory infections of unspecified site Social History Tobacco Use Types Packs/Day Years Used Date Smoking Tobacco: Never Assessed Comments Unknown Sex and Gender Information Value Date Recorded Sex Assigned at Not on file Legal Sex Female 4:28 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
--- OUTSIDE RECORDS SUMMARY | 2024-10-24 15:14 | XMS_ITS | Data Portability ---
Author Organization [facility] [employer] [facility] Address [address] [address] Assessment No assessment recorded. Plan of Treatment Reminders Order Date Submit Date Provider Last Modified By Organization Details Last Modified Time Details Appointments None recorded. Lab None recorded. Referral None recorded. Procedures None recorded. Surgeries None recorded. Imaging ultrasound, lower extremity, nonvascular 2014 015 [email or web address] Not available 09:55:01 Medication Orders oxycodone-a cetaminophe n 5 mg-325 mg tablet 2015 016 [email or web address] [facility][id number], [address] [place] [address], [id number], 6 19:10:42 hydrocodone 5 mg-acetamin ophen 325 mg tablet 2014 015 [email or web address] [facility] #[id number], [address] [place] [address], [id number], 5 09:37:05 Patient TargetsNo targets recorded. Patient Instructions Encounter Date Encounter Id Patient Instructions Last Modified By Organization Details Last Modified Time 03/03/2015 [id number] knee arthritis: care instructions [email or web address] Not available 03/03/2015 09:37:05 03/03/2015 [id number] knee arthritis: care instructions [email or web address] Not available 03/03/2015 09:37:05 06/16/2015 [id number] knee arthritis: care instructions [email or web address] Not available 06/16/2015 19:10:42 Reason for Referral None Reported. Problems Name Problem SNOMED Code Status Onset Date Resolution Date Notes Provider Name and Address Organization Details Recorded Time Osteoarthritis of knee 165668034 [facility] 17:37[facility]43 Problem Notes None recorded. Procedures Surgical History Date Name Laterality Status Provider Name and Address Organization Details Recorded Time 6 Generic Procedure completed Becky Nelson [facility] 06/16/2015 19:13:47 5 Generic Procedure completed Becky Nelson [facility] 03/03/2015 09:14:06 Imaging Results None recorded. Procedure Notes None recorded. Medical Equipment None Reported. Allergies Allergen ID Allergen Name Allergen Category Reaction Reaction Severity Criticality Documentation Date Start Date Code Code System Note Provider Name and Address Organization Details Recorded Time 32423 prednisol one medicatio n Not available Not available Not available 03/03/2015 8638 RxNorm Shiv Casas [facility] 5 08:42:36 74719 Imitrex medicatio n Not available Not available Not available 03/03/2015 76129 3 RxNorm Sihv Casas [facility] 5 08:42:36 Medications Name Sig Start Date Stop Date Status Note LastModified by Organization Details LastModified Time nystatin 100,000 unit/mL oral suspension active Not Available Not Available N ot Available prednisone 10 mg tablet active Not Available Not Available No t Available doxycycline hyclate 100 mg capsule active Not Available Not Available N ot Available azithromycin 250 mg tablet active Not Available Not Availabl e Not Available hydrocodone 5 mg-acetaminop hen 325 mg tablet Take 1 or 2 tabs PO Q 4-6 PRN Pain active Not Available Not Available No t Available prednisone 20 mg tablet active Not Available Not Available No t Available Nexium 40 mg capsule,delay ed release active Not Available Not Available N ot Available TobraDex 0.3 %-0.1 % eye ointment active Not Available Not Available Not Available acyclovir 800 mg tablet active Not Available Not Available No t Available oxycodone-tiera taminophen 5 mg-325 mg tablet Take 1 to 2 tablet(s) EVERY 4-6 HOURS by oral route PRN pain active Not Available Not Available No t Available meclizine 25 mg tablet active Not Available Not Available No t Available cephalexin 500 mg capsule active Not Available Not Available Not Available erythromycin 5 mg/gram (0.5 %) eye ointment active Not Available Not Available Not Available gabapentin 300 mg capsule active Not Available Not Available Not Available diazepam 10 mg tablet TAKE 1 TAB PO 90 MINS PRIOR TO TREATMENT PRN ANXIETY, REPEAT W/ 1 TAB PO Q HR PRN 2014 active Not Available Not Available Not Avai lable methylprednis olone 4 mg tablets in a dose pack active Not Available Not Available No t Available cefdinir 300 mg capsule active Not Available Not Available N ot Available amoxicillin 875 mg-potassium clavulanate 125 mg tablet active Not Available Not Availabl e Not Available tobramycin 0.3 %-dexamethaso ne 0.1 % eye drops,suspens ion active Not Available Not Available Not Available Vigamox 0.5 % eye drops active Not Available Not Available No t Available albuterol active Not Available Not Katherine ilable Not Available Singulair active Not Available Not Katherine ilable Not Available Vibramycin active Not Available Not Av ailable Not Available gabapentin active Not Available Not Av ailable Not Available Xopenex active Not Available Not Avail able Not Available Nexium active Not Available Not Availa ble Not Available Ventolin HFA active Not Available Not Available Not Available Xopenex HFA 45 mcg/actuation aerosol inhaler active Not Available Not Available Not Available Durezol 0.05 % eye drops active Not Available Not Available Not Available Dexilant 60 mg capsule, delayed release active Not Available Not Available Not Available Lotemax 0.5 % eye gel drops active Not Available Not Availabl e Not Available Breo Ellipta 100 mcg-25 mcg/dose powder for inhalation active Not Available Not Available N ot Available Vitals Date Recorded Body height Heart rate Body mass index (BMI) Body weight Systolic blood pressure Diastolic blood pressure Provider Name and Address Organization Details Last Updated DateTime 6 160.02 cm 88 /min 32.4 kg/m2 86533.4 0371 g 140 mm[Hg] 100 mm[Hg] Shiv AUGUSTE [facility] [employer] [facility], [facility] 6 17:37:43 Date Recorded Body height Body mass index (BMI) Heart rate Body weight Body height Body mass index (BMI) Heart rate Body weight Systolic blood pressure Diastolic blood pressure Systolic blood pressure Diastolic blood pressure Provider Name and Address Organization Details Last Updated DateTime 10/30/201 5 160.02 cm 32.8 kg/m2 84 /min 75282.5 8845 g 160.02 cm 32.8 kg/m2 84 /min 21829.5 8845 g 110 mm[Hg] 70 mm[Hg] 110 mm[Hg] 70 mm[Hg] Shiv Yessenia [facility] [employer] 5 08:52:20 Social History Question Answer Notes LastModified by Organization D etails LastModified Time Marital Status [email or web address] Informatio n not available 03/03/2015 How Much Tobacco Do You Smoke? No [email or web address] Information not available 03/03/2015 General Stress Level Low [email or web address] Information not available 03/03/2015 Sex: Unknown Functional Status Question Answer Note LastModified by Organization D etails LastModified Time What is your level of alcohol consumption? None [email or web address] Information not available 03/03/2015 Mental Status None recorded. Family History Nothing Reported. Medical History Condition Response HIV or AIDS N Coronary Artery Disease N Gout N Kidney Stones N Hyperthyroidism N Head Trauma/Injury N Hernia N COPD Y Depression N Hypothyroidism N Lung Disease N Blood Clots N Pacemaker N Anxiety Disorder N Arthritis N Cancer N Stroke N Leg or Foot Ulcers N Neck Injury N High Cholesterol N Liver Disease N Rheumatoid Arthritis N Fibromyalgia N Headaches N Kidney Disease N Heart Problems N Migraines N Thyroid Problems N Anemia N Multiple Sclerosis N Ulcers N Heart Attack (DC) N Diabetes N Bleeding Disorder N Seizures/Epilepsy N Tuberculosis N Urinary Tract Infection N Back Problems N Diverticulitis N Asthma Y Lupus N Peripheral Vascular Disease N Sleep Disorder N GERD/Reflux Y Hepatitis N Aneurysm N Heart Disease N Pulmonary Embolism N Hypertension N Osteoporosis N Gynecological HistoryNo gynecological history recorded. Obstetrics History GPAL:G 0 P 0 0 0 0 Past Encounters Encounter ID Performer Location Encounter Start Date Encounter Closed Date Diagnosis/Indication Diagnosis SNOMED-CT Code Diagnosis ICD10 Code Diagnosis Note [id number] Becky Nelson MD [facility] [address] [place] [phone] 03/03/2015 07:56:09 03/03/2015 09:55:07 Osteoarthritis of knee 213605766 M17.0 [id number] Becky Nelson MD [facility] [address] [address] 03/03/2015 08:43:46 03/03/2015 09:55:01 Osteoarthritis of knee 984141328 M17.0 [id number] Becky Nelson MD [facility] [address] [facility], [address] [place] [address] 06/16/2015 16:11:33 06/16/2015 17:01:00 Osteoarthritis of knee 517983078 M17.0 Health Concerns Section Related Observation LastModified by Organization Detai ls LastModified Time None Recorded Concern Status LastModified by Organization Details LastModified Time None Recorded Advance Directives Directive None Recorded Payers Insurance Date Sequence Insurance Name Policy Number Policy Cornejo Covered Member ID Cornejo Member ID Guarantor Name 06/16/2015 2 [place] Elisabeth Brown [id number] Elisabeth Brown 08/08/2015 1 [place] Elisabeth Brown [id number] Elisabeth Brown Notes Date Note Type Note Provider Name and Address Organization Details Recorded Time 06/16/2015 text/html overall L knee is 50% improved but R is only 25% vs pretx levels Becky [facility] [employer] [facility] 06/16/2015 19:15:47 OBGyn Episode No OBEpisode recorded.
--- OUTSIDE RECORDS SUMMARY | 2024-10-24 15:14 | XMS_ITS | Encounter Summary ---
Author Organization [facility] Address [address] [place] [address] Care Team Providers Care Section Gang Worker Name Role Phone Non-Staff, Physician Primary Care Provider Unava ilable Encounter Details Date Type Department Care Team (Latest Contact Info) Description 02/17/1998 Outpatient Historical [facility] Medicine [address] [phone] Chata John MD [address] [place] [phone] Gynecologic examination (Primary Dx) Social History Tobacco Use Types Packs/Day Years Used Date Smoking Tobacco: Never Assessed Comments Unknown Sex and Gender Information Value Date Recorded Sex Assigned at Not on file 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
--- OUTSIDE RECORDS SUMMARY | 2024-10-24 15:14 | XMS_ITS | Encounter Summary ---
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
--- OUTSIDE RECORDS SUMMARY | 2024-10-24 15:14 | XMS_ITS | Encounter Summary ---
Author Organization [facility] Address [address] [place] [address] Care Team Providers Care Sales Designer Name Role Phone Non-Staff, Physician Primary Care Provider Unava ilable Encounter Details Date Type Department Care Team (Latest Contact Info) Description 06/16/2002 Outpatient Historical [facility]- [address] [phone] Kit Boggs MD [address] [phone] Dysfunct eustachian tube (Primary Dx) Social History Tobacco Use Types Packs/Day Years Used Date Smoking Tobacco: Never Assessed Comments Unknown Sex and Gender Information Value Date Recorded Sex Assigned at Not on file Legal Sex Female 4:28 AM LAST WAXER Gender Identity Not on file Sexual Orientation Not on file documented as of this encounter Plan of Treatment Not on file documented as of this encounter Visit Diagnoses Diagnosis Dysfunct eustachian tube- Primary Dysfunction of Eustachian tube documented in this encounter Care Teams Sales Designer Relationship Specialty Start Date End Date Non-Staff, Physician NO ADDRESS ON FILE PCP - General 10/18/20 documented as of this encounter
--- OUTSIDE RECORDS SUMMARY | 2024-10-24 15:14 | XMS_ITS | Encounter Summary ---
Author Organization [facility] Address [address] [place] [address] Care Team Providers Care Embedded Case Manager Name Role Phone Non-Staff, Physician Primary Care Provider Unava ilable Encounter Details Date Type Department Care Team (Latest Contact Info) Description 04/13/2002 Outpatient Historical [facility]- [address] [phone] Kit Boggs MD [address] [phone] URIN TRACT INFECTION NOS (Primary Dx) Social History Tobacco Use Types Packs/Day Years Used Date Smoking Tobacco: Never Assessed Comments Unknown Sex and Gender Information Value Date Recorded Sex Assigned at Not on file Legal Sex Female 4:28 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
--- OUTSIDE RECORDS SUMMARY | 2024-10-24 15:14 | XMS_ITS | Encounter Summary ---
Author Organization [facility] Address [address] [place] [address] Care Team Providers Care Railcar Switchman Name Role Phone Non-Staff, Physician Primary Care Provider Unava ilable Encounter Details Date Type Department Care Team (Latest Contact Info) Description 11/09/2003 Outpatient Historical [facility] Medicine- [address] [phone] Kit Boggs MD [address] [phone] ACUTE BRONCHITIS (Primary Dx) Social History Tobacco Use Types Packs/Day Years Used Date Smoking Tobacco: Never Assessed Comments Unknown Sex and Gender Information Value Date Recorded Sex Assigned at Not on file Legal Sex Female 4:28 AM PADDING GLUER Gender Identity Not on file Sexual Orientation Not on file documented as of this encounter Plan of Treatment Not on file documented as of this encounter Visit Diagnoses Diagnosis Acute bronchitis- Primary documented in this encounter Care Teams Railcar Switchman Relationship Specialty Start Date End Date Non-Staff, Physician NO ADDRESS ON FILE PCP - General 10/18/20 documented as of this encounter
--- OUTSIDE RECORDS SUMMARY | 2024-10-24 15:14 | XMS_ITS | Encounter Summary ---
Author Organization [facility] Address [address] [place] [address] Care Team Providers Care Mysql Database Developer Name Role Phone Non-Staff, Physician Primary Care Provider Unava ilable Encounter Details Date Type Department Care Team (Latest Contact Info) Description 09/22/2003 Outpatient Historical [facility] Allergy and Asthma- [address] [place] [phone] Saúl Gallardo MD NO ADDRESS ON FILE ALLERGIC RHINITIS NOS (Primary Dx); RESPIRATORY ABNORM NEC Social History Tobacco Use Types Packs/Day Years Used Date Smoking Tobacco: Never Assessed Comments Unknown Sex and Gender Information Value Date Recorded Sex Assigned at Not on file Legal Sex Female 4:28 AM ICT BUSINESS ANALYST Gender Identity Not on file Sexual Orientation Not on file documented as of this encounter Plan of Treatment Not on file documented as of this encounter Visit Diagnoses Diagnosis Allergic rhinitis, cause unspecified- Primary Other dyspnea and respiratory abnormality documented in this encounter Care Teams Mysql Database Developer Relationship Specialty Start Date End Date Non-Staff, Physician NO ADDRESS ON FILE PCP - General 10/18/20 documented as of this encounter
--- OUTSIDE RECORDS SUMMARY | 2024-10-24 15:14 | XMS_ITS | Encounter Summary ---
Author Organization [facility] Address [address] [place] [address] Care Team Providers Care Advisory Intern Name Role Phone Non-Staff, Physician Primary Care Provider Unava ilable Encounter Details Date Type Department Care Team (Latest Contact Info) Description 02/11/2001 Outpatient Historical [facility] Medicine- [address] [phone] Kit Boggs MD [address] [phone] Migraine, unspecified, without mention of intractable migraine without mention of status migrainosus (Primary Dx) Social History Tobacco Use Types Packs/Day Years Used Date Smoking Tobacco: Never Assessed Comments Unknown Sex and Gender Information Value Date Recorded Sex Assigned at Not on file 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
--- OUTSIDE RECORDS SUMMARY | 2024-10-24 15:14 | XMS_ITS | Encounter Summary ---
Author Organization [facility] Address [address] [place] [address] Care Team Providers Care Commission Specialist Name Role Phone Non-Staff, Physician Primary Care Provider Unava ilable Encounter Details Date Type Department Care Team (Latest Contact Info) Description 06/25/1999 Outpatient Historical [facility]- [address] [phone] Jakub Sims DO NO ADDRESS ON FILE Acute upper respiratory infections of unspecified site (Primary Dx); Unspecified asthma(493.90) Social History Tobacco Use Types Packs/Day Years Used Date Smoking Tobacco: Never Assessed Comments Unknown Sex and Gender Information Value Date Recorded Sex Assigned at Not on file Legal Sex Female 4:28 AM BILLING CLERK Gender Identity Not on file Sexual Orientation Not on file documented as of this encounter Plan of Treatment Not on file documented as of this encounter Visit Diagnoses Diagnosis Acute upper respiratory infections of unspecified site- Primary Unspecified asthma(493.90) Unspecified asthma documented in this encounter Care Teams Commission Specialist Relationship Specialty Start Date End Date Non-Staff, Physician NO ADDRESS ON FILE PCP - General 10/18/20 documented as of this encounter
--- OUTSIDE RECORDS SUMMARY | 2024-10-24 15:14 | XMS_ITS | Encounter Summary ---
Author Organization [facility] Address [address] [place] [address] Care Team Providers Care Timber Sprinkler Name Role Phone Non-Staff, Physician Primary Care Provider Unava ilable Encounter Details Date Type Department Care Team (Latest Contact Info) Description 12/26/2000 Outpatient Historical [facility] Family Medicine- [place] [address] [place] [phone] Jakub Sims DO NO ADDRESS ON FILE Headache(784.0) (Primary Dx); Unspecified asthma(493.90) Social History Tobacco Use Types Packs/Day Years Used Date Smoking Tobacco: Never Assessed Comments Unknown Sex and Gender Information Value Date Recorded Sex Assigned at Not on file Legal Sex Female 4:28 AM 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
--- OUTSIDE RECORDS SUMMARY | 2024-10-24 15:14 | XMS_ITS | Encounter Summary ---
Author Organization [facility] Address [address] [place] [address] Care Team Providers Care Manager Technology Name Role Phone Non-Staff, Physician Primary Care Provider Unava ilable Encounter Details Date Type Department Care Team (Latest Contact Info) Description 02/13/2001 Outpatient Historical [facility] Medicine- [address] [phone] Kit Boggs MD [address] [phone] Migraine, unspecified, without mention of intractable migraine without mention of status migrainosus (Primary Dx); Anxiety state, unspecified Social History Tobacco Use Types Packs/Day Years Used Date Smoking Tobacco: Never Assessed Comments Unknown Sex and Gender Information Value Date Recorded Sex Assigned at Not on file Legal Sex Female 4:28 AM CONCRETE BUCKET LOADER Gender Identity Not on file Sexual Orientation Not on file documented as of this encounter Plan of Treatment Not on file documented as of this encounter Visit Diagnoses Diagnosis Migraine, unspecified, without mention of intractable migraine without mention of status migrainosus- Primary Anxiety state, unspecified documented in this encounter Care Teams Manager Technology Relationship Specialty Start Date End Date Non-Staff, Physician NO ADDRESS ON FILE PCP - General 10/18/20 documented as of this encounter
--- OUTSIDE RECORDS SUMMARY | 2024-10-24 15:14 | XMS_ITS | Encounter Summary ---
Author Organization [facility] Address [address] [place] [address] Care Team Providers Care Environmental Services Specialist Name Role Phone Non-Staff, Physician Primary Care Provider Unava ilable Encounter Details Date Type Department Care Team (Latest Contact Info) Description 09/12/2003 Outpatient Historical [facility] Allergy and Asthma- [address] [place] [phone] Saúl Gallardo MD NO ADDRESS ON FILE ALLERGIC RHINITIS NOS (Primary Dx); RESPIRATORY ABNORM NEC Social History Tobacco Use Types Packs/Day Years Used Date Smoking Tobacco: Never Assessed Comments Unknown Sex and Gender Information Value Date Recorded Sex Assigned at Not on file Legal Sex Female 4:28 AM HIDE HANDLER Gender Identity Not on file Sexual Orientation Not on file documented as of this encounter Plan of Treatment Not on file documented as of this encounter Visit Diagnoses Diagnosis Allergic rhinitis, cause unspecified- Primary Other dyspnea and respiratory abnormality documented in this encounter Care Teams Environmental Services Specialist Relationship Specialty Start Date End Date Non-Staff, Physician NO ADDRESS ON FILE PCP - General 10/18/20 documented as of this encounter
--- OUTSIDE RECORDS SUMMARY | 2024-10-24 15:14 | XMS_ITS | Encounter Summary ---
Author Organization [facility] Address [address] [place] [address] Care Team Providers Care Cafe Lead Name Role Phone Non-Staff, Physician Primary Care Provider Unava ilable Encounter Details Date Type Department Care Team (Late st Contact Info) Description 04/22/2003 Outpatient Historical [facility] [address] [place] [address] Alex Prince MD [address] [place] [address] VIRAL WARTS NOS (Primary Dx) Social History Tobacco Use Types Packs/Day Years Used Date Smoking Tobacco: Never Assessed Comments Unknown Sex and Gender Information Value Date Recorded Sex Assigned at Not on file Legal Sex Female 4:28 AM [employer] Gender Identity Not on file Sexual Orientation Not on file documented as of this encounter Plan of Treatment Not on file documented as of this encounter Visit Diagnoses Diagnosis Viral warts, unspecified- Primary documented in this encounter Care Teams Cafe Lead Relationship Specialty Start Date End Date Non-Staff, Physician NO ADDRESS ON FILE PCP - General 10/18/20 documented as of this encounter
[2024-10-24 16:25] LABS: Bilirubin Urine 1+ (Negative); Blood Urine Negative (Negative); Glucose Urine UA Negative (Normal); Ketones Urine 1+ (Negative); Leukocyte Esterase Urine 1+ (Negative); Nitrate Urine Negative (Negative); Protein Urine Trace (Negative); Specific Gravity, Urine 1.026 (1.005-1.030); Urine Appearance Clear (CLEAR); Urine Color Dark Yellow (Yellow); pH Urine 5.5 (5-7)
--- NOTE | 2024-10-24 16:25 | PM.HP ---
Providers/Chief Complaint Admitting Physician: Marcus Da Silva MD Primary Care Provider: Chad De La Fuente DO Chief Complaint: right hip pain s/p fall History of Present Illness Elisabeth Brown is a 79 year old female with a past medical history of acute CVA, depression, hypertension, who presents [facility] for a fall. Patient reports that she had turned today, and she lost her balance and fell on her right hip, no loss of consciousness no significant head trauma, no preceding chest pain or palpitations or strokelike symptoms. Patient was found to have a displaced left trochanteric fracture of the right femur, hospitalist team was called for admission, currently patient alert oriented x 3, following all commands, patient's daughters at bedside Review of Systems Const: Denies: fever(s) Card: Denies: chest pain Resp: Denies: dyspnea GI: Denies: abdominal pain Neuro: Denies: headache(s) Medications/Allergies Home Medications ?Medication ?Instructions ?Recorded ?Confirmed ?Last Taken ?Type aspirin 81 mg tablet,delayed 81 mg PO QPM 07/20/24 10/24/24 10/23/24 History release atorvastatin 40 mg tablet 40 mg PO QPM 07/20/24 10/24/24 10/23/24 History multivitamin 1 tab PO QPM 07/20/24 10/24/24 10/23/24 History hydrocodone 5 mg-acetaminophen 325 1 tab PO DAILY PRN pain 30 days 10/14/24 10/24/24 Unknown Rx mg tablet #30 tabs amlodipine 5 mg tablet 5 mg PO QPM bp 10/24/24 10/24/24 10/23/24 History fluoxetine 20 mg capsule 20 mg PO QPM depression 10/24/24 10/24/24 10/23/24 History Allergies Allergy/AdvReac Type Severity Reaction Status Date / Time sumatriptan (From Imitrex) Allergy ADR/ALGY-Pa Verified 10/12/24 16:09 lpitations PFSH Acute PFSH: Medical History Enrolled in chronic care management please do not remove from active Environmental and seasonal allergies Essential hypertension Patient was seen in the office several months ago and instructed to take home blood pressure readings and return to the office. Patient did not followup, but today has elevated pressure of 160/100. She states it goes up and down at home. GERD (gastroesophageal reflux disease) Surgical History Status post Hope fundoplication Patient reports GERD Wrap Surgery Status post total right knee replacement S/P cholecystectomy Social History Smoking and tobacco/nicotine status: never used tobacco/nicotine Second hand smoke exposure: No Alcohol intake: never Substance/Drug Use: never Lives independently: Yes Household members: none Marital status: / Current occupational status: retired Do you think of yourself as: Straight/Heterosexual Current gender identity: Female Vitals/I&O/Wt Last Vital Signs Temp 98.2 F 10/24/24 13:58 Pulse 72 10/24/24 16:04 Resp 16 10/24/24 13:58 BP 136/78 10/24/24 16:04 Pulse Ox 99 10/24/24 16:04 O2 Del Method Room Air 10/24/24 13:58 Physical Exam Const: COMMON NORMALS: no acute distress and patient oriented x3 HENMT: COMMON NORMALS: normocephalic HEAD & SCALP: normocephalic Resp: COMMON NORMALS: normal respiratory effort, No retractions, No use of accessory muscles and clear to auscultation bilaterally AUSCULTATION: clear to auscultation bilaterally Cardio: COMMON NORMALS: no JVD, regular rate, regular rhythm, S1 normal heart sound present and S2 normal heart sound present RATE: regular rate RHYTHM: regular rhythm HEART SOUNDS: S1 normal heart sound present and S2 normal heart sound present GI: COMMON NORMALS: Normal to inspection, nondistended, normoactive bowel sounds present, Soft to palpation and non-tender Extremity: COMMON NORMALS: no calf tenderness and no pedal edema NARRATIVE EXTREMITY EXAM: DP PT pulses palpable bilateral extremity Neuro: COMMON NORMALS: patient oriented x3, CN's II-XII intact bilaterally and moves all extremities Psych: COMMON NORMALS: mental status grossly normal Data 10/24/24 14:02 10/24/24 14:02 A&P Assessment and plan (1) Essential hypertension: (2) Subtrochanteric fracture of right femur: Plan Acute intertrochanteric fracture of the right hip - X-ray shows Bones/joints: There is an acute transverse displaced intertrochanteric fracture involving the proximal right femur. No other fracture noted. Soft tissues: Unremarkable. Plan - Orthopedic service has been consulted - N.p.o. midnight, for possible surgical invention tomorrow - Dilaudid for pain control - IV for fluids -Zofran for nausea - Full code - Lovenox for DVT prophylaxis PDMP PDMP Reviewed: Not Reviewed Attestations Medical Necessity Statement*: Patient requires hospitalization, inpatient, greater than 2 midnights, for right hip fracture Diagnoses Essential hypertension I10 Subtrochanteric fracture of right femur S72.21XA Encounter type: initial encounter Fracture alignment: displaced Fracture type: closed
[2024-10-24 16:28] LABS: Bacteria Urine None Seen /hpf; Hyaline Casts Urine 2.05 /lpf; Squamous Epithelial Cell Urine 0-5 /hpf (0-5); Universal Test for UA Present (0)
[2024-10-24] MEDS: HYDROmorphone 0.5 MG/0.5 ML INJ IVP ×3 (16:38→20:46)
[2024-10-24] MEDS: enoxaparin 40 mg/0.4 mL Syringe SUBCUT (16:39)
[2024-10-24 16:49] LABS: UA Slide Review UA Slide Review Perf
[2024-10-24 16:55] LABS: Procalcitonin 0.08 ng/mL (0-0.5); Thyroid Stimulating Hormone 7.01 uIU/mL (0.27-4.20)
[2024-10-24] MEDS: dextrose 5%-sod chloride 0.9% 1,000 ML 75 ML IV (17:04)
[2024-10-24] MEDS: pantoprazole 40 mg SDV IVP (17:04)
[2024-10-24] MEDS: atorvastatin 40 mg Tablet PO (17:04)
[2024-10-24] MEDS: fluoxetine 20 mg Capsule PO (17:05)
[2024-10-24] MEDS: aspirin 81 mg EC Tablet PO (17:05)
[2024-10-24] MEDS: amlodipine 5 mg Tablet PO (18:16)
[2024-10-24] MEDS: sodium chloride 0.45% 1,000 ML 200 ML IV (21:32)
[2024-10-25] VITALS (24 sets, daily range): BP systolic 94–148; BP diastolic 20–72; PULSE 60–88; RESP 13–24; TEMP 36.4–37.4; O2SAT 92–100
--- NOTE | 2024-10-25 | XR_ITS ---
WS: [id number] C-ARM RADIOGRAPHS RIGHT HIP; 6 IMAGES HISTORY: OR PICS COMPARISON: Radiograph 10/24/2024 Intraoperative imaging during ORIF RIGHT intertrochanteric hip fracture. Gamma nail has been placed and short intramedullary keyana with distal locking screw. Fracture in good position and alignment. XR/XR hip RT 2-3V wo/w pel* [id number] IMPRESSION: Status post ORIF RIGHT intertrochanteric hip fracture in good alignment.
[2024-10-25] MEDS: HYDROmorphone 0.5 MG/0.5 ML INJ IVP ×3 (00:31→08:26)
[2024-10-25] MEDS: dextrose 5%-sod chloride 0.9% 1,000 ML 75 ML IV (07:26)
[2024-10-25 07:38] LABS: Basophils % 0.5 %; Eosinophils # 0.2 10^3/uL (0.0-0.8); Eosinophils % 2.5 %; Hematocrit 39.4 % (36-47); Lymphocytes # 1.9 10^3/uL (0.8-4.8); Lymphocytes % 21.4 %; Mean Corpuscular Hemoglobin 33.2 pg (27-33); Mean Platelet Volume 10.6 fL (7.4-10.4); Monocytes % 11.1 %; Neutrophils # 5.59 10^3/uL (1.8-7.7); Neutrophils % 64.4 %; Nucleated Red Blood Cells % 0 %; Platelet Count 153 10^3/cmm (157-399); Red Blood Count 3.79 10^6/uL (3.85-5.65); Red Cell Distribution Width 13.2 % (12.1-15.1); White Blood Count 8.68 10^3/uL (3.29-11.43)
--- NOTE | 2024-10-25 08:53 | PC.NURSE ---
bmp and type and screen (not ordered) but just in case it was needed from peripheral iv site after withdrawing 10mls of blood prior to draw.
[2024-10-25 09:21] LABS: Anion Gap 10.1 (5-19); Blood Urea Nitrogen 20 mg/dL (8-23); Calcium 8.1 mg/dL (8.5-10.5); Carbon Dioxide 26 mmol/L (22-29); Chloride 103 mmol/L (98-107); Creatinine Clr Calc Pharmacy 48.3061; Glucose 164 mg/dL (65-115); Osmolality Calculated 286 mOsm/kg (285-295); Potassium 4.1 mmol/L (3.5-5.1); Sodium 135 mmol/L (136-145)
[2024-10-25] MEDS: HYDROmorphone 0.5 MG/0.5 ML INJ 1 MG IVP ×2 (11:58→21:15)
[2024-10-25 12:40] LABS: Hematocrit 35.6 % (36-47)
--- NOTE | 2024-10-25 12:41 | P.PN_ITS ---
Subjective 2 Subjective: Patient was seen this morning, currently alert oriented x 3, following all commands, denies any fever, chills, cough Vitals/I&O/Wt Last Vital Signs Temp 98.4 F 10/25/24 07:50 Pulse 78 10/25/24 07:50 Resp 18 10/25/24 07:50 BP 117/69 10/25/24 07:50 Pulse Ox 96 10/25/24 10:54 O2 Del Method Nasal Cannula 10/25/24 10:54 O2 Flow Rate 2 10/25/24 10:54 10/24/24 10/25/24 10/25/24 22:59 06:59 14:59 Intake Total 335 / 335 1000 / 1335 315 / 315 Output Total 80 / 80 190 / 270 90 / 90 Balance 255 / 255 810 / 1065 225 / 225 Weight last 48 hrs Weight 74.843 kg Physical Exam 2 Const: COMMON NORMALS: no acute distress and patient oriented x3 Resp: COMMON NORMALS: normal respiratory effort, No retractions, No use of accessory muscles and clear to auscultation bilaterally AUSCULTATION: clear to auscultation bilaterally Cardio: COMMON NORMALS: regular rate, regular rhythm, S1 normal heart sound present and S2 normal heart sound present RATE: regular rate RHYTHM: r egular rhythm HEART SOUNDS: S1 normal heart sound present and S2 normal heart sound present GI: COMMON NORMALS: Normal to inspection, nondistended, normoactive bowel sounds present and non-tender Extremity: COMMON NORMALS: no pedal edema Neuro: COMMON NORMALS: patient oriented x3 Psych: COMMON NORMALS: mental status grossly normal Data 10/25/24 12:25 10/25/24 08:45 A&P Assessment and plan (1) Essential hypertension: (2) Subtrochanteric fracture of right femur: Plan Acute intertrochanteric fracture of the right hip - X-ray shows Bones/joints: There is an acute transverse displaced intertrochanteric fracture involving the proximal right femur. No other fracture noted. Soft tissues: Unremarkable. Plan - Orthopedic service has been consulted - N.p.o. midnight, for possible surgical invention today - Dilaudid for pain control - IV for fluids -Zofran for nausea - Full code - Lovenox for DVT prophylaxis PDMP PDMP Reviewed: Not Reviewed Attestations 2 Medical Necessity Statement*: Patient requires hospitalization for right hip fracture requiring surgical intervention Diagnoses Essential hypertension I10 Subtrochanteric fracture of right femur S72.21XA Encounter type: initial encounter Fracture alignment: displaced Fracture type: closed
--- NOTE | 2024-10-25 12:43 | PM.CONSULT ---
Providers/Reason For Consult Consulting Physician/Specialty*: Hospitalist Reason for Consult*: Right hip fracture Attending Physician: Marcus Da Silva MD Primary Care Provider: Chad De La Fuente DO History of Present Illness History of Present Illness Elisabeth Brown is a 79 year old female presents [facility] for a fall. Patient reports that she had turned today, and she lost her balance and fell on her right hip. X-ray shows a right reverse obliquity hip fracture Review of Systems Const: Denies: fever(s) Card: Denies: chest pain Resp: Denies: dyspnea GI: Denies: abdominal pain Neuro: Denies: headache(s) Medications/Allergies Home Medications ?Medication ?Instructions ?Recorded ?Confirmed ?Last Taken ?Type aspirin 81 mg tablet,delayed 81 mg PO QPM 07/20/24 10/24/24 10/23/24 History release atorvastatin 40 mg tablet 40 mg PO QPM 07/20/24 10/24/24 10/23/24 History multivitamin 1 tab PO QPM 07/20/24 10/24/24 10/23/24 History hydrocodone 5 mg-acetaminophen 325 1 tab PO DAILY PRN pain 30 days 10/14/24 10/24/24 Unknown Rx mg tablet #30 tabs amlodipine 5 mg tablet 5 mg PO QPM bp 10/24/24 10/24/24 10/23/24 History fluoxetine 20 mg capsule 20 mg PO QPM depression 10/24/24 10/24/24 10/23/24 History Allergies Allergy/AdvReac Type Severity Reaction Status Date / Time sumatriptan (From Imitrex) Allergy ADR/ALGY-Pa Verified 10/12/24 16:09 lpitations Current Medications Generic Name Dose Route Start Last Admin Trade Name Freq PRN Reason Stop Dose Admin Amlodipine Besylate 5 mg 10/24/24 18:00 10/24/24 18:16 Amlodipine 5 Mg Tablet PO 5 mg QPM VIANEY Administration Aspirin 81 mg 10/24/24 18:00 10/24/24 17:05 Aspirin 81 Mg Ec Tablet PO 81 mg QPM VIANEY Administration Atorvastatin Calcium 40 mg 10/24/24 18:00 10/24/24 17:04 Atorvastatin 40 Mg Tablet PO 40 mg QPM VIANEY Administration Enoxaparin Sodium 40 mg 10/24/24 16:30 10/24/24 16:39 Enoxaparin 40 Mg/0.4 Ml Syringe SUBCUT 40 mg Q24H VIANEY Administration Fluoxetine HCl 20 mg 10/24/24 18:00 10/24/24 17:05 Fluoxetine 20 Mg Capsule PO 20 mg QPM VIANEY Administration Hydromorphone HCl 1 mg 10/25/24 09:40 10/25/24 11:58 Hydromorphone 0.5 Mg/0.5 Ml Inj IVP 1 mg Q4H PRN Administration PAIN Dextrose/Sodium Chloride 1,000 mls @ 75 mls/hr 10/24/24 16:30 10/25/24 07:26 Dextrose 5%-Sod Chloride 0.9% IV 75 mls/hr .[id number] VIANEY Administration Sodium Chloride 1,000 mls @ 200 mls/hr 10/24/24 21:15 10/25/24 03:14 Sodium Chloride 0.45% IV Infused .Q5H VIANEY Infusion Pantoprazole Sodium 40 mg 10/24/24 17:00 10/24/24 17:04 Pantoprazole 40 Mg Sdv IVP 40 mg Q24H VIANEY Administration PFSH Acute PFSH: Medical History Enrolled in chronic care management please do not remove from active Environmental and seasonal allergies Essential hypertension Patient was seen in the office several months ago and instructed to take home blood pressure readings and return to the office. Patient did not followup, but today has elevated pressure of 160/100. She states it goes up and down at home. GERD (gastroesophageal reflux disease) Surgical History Status post Hope fundoplication Patient reports GERD Wrap Surgery Status post total right knee replacement S/P cholecystectomy Social History Smoking and tobacco/nicotine status: never used tobacco/nicotine Second hand smoke exposure: No Alcohol intake: never Substance/Drug Use: never Lives independently: Yes Household members: none Marital status: / Current occupational status: retired Do you think of yourself as: Straight/Heterosexual Current gender identity: Female Vitals/I&O/Wt Last Vital Signs Temp 98.4 F 10/25/24 07:50 Pulse 78 10/25/24 07:50 Resp 18 10/25/24 07:50 BP 117/69 10/25/24 07:50 Pulse Ox 96 10/25/24 10:54 O2 Del Method Nasal Cannula 10/25/24 10:54 O2 Flow Rate 2 10/25/24 10:54 10/24/24 10/25/24 10/25/24 22:59 06:59 14:59 Intake Total 335 / 335 1000 / 1335 315 / 315 Output Total 80 / 80 190 / 270 90 / 90 Balance 255 / 255 810 / 1065 225 / 225 Weight last 48 hrs Weight 165 lb Physical Exam Narrative: Alert and oriented x 3 Head is normocephalic atraumatic Respirations are intact Right leg shortened externally rotated Data 10/25/24 12:25 10/25/24 08:45 A&P Assessment and plan (1) Subtrochanteric fracture of right femur: Plan for intramedullary nail today PDMP PDMP Reviewed: Not Reviewed Coding Level of Care Code Acute Code for [facility] Fwd Diagnoses Subtrochanteric fracture of right femur S72.21XA Encounter type: initial encounter Fracture alignment: displaced Fracture type: closed
--- NOTE | 2024-10-25 13:55 | PC.OT ---
Hold OT eval due to surgery today; will attempt OT evaluation again at later time.
--- NOTE | 2024-10-25 16:44 | ANES.PREANE2 ---
Pre-Anesthetic Assessment Height/Weight: Height 1.6 m Weight 74.843 kg Temp Pulse Resp BP Pulse Ox O2 Del Method O2 Flow Rate 98.4 F 78 18 117/69 96 Nasal Cannula 2 10/25/24 12:00 10/25/24 12:00 10/25/24 12:00 10/25/24 12:00 10/25/24 10:54 10/25/24 10:54 10/25/24 10:54 Operation Date: 10/25/24 18:30 Proposed Procedures p Trochanteric Femoral Nail(Right) - Herminio Barrios, DO Familial anesthetic complications: None Was Beta Danya taken within 24 hours: N/A Was Clonidine taken within 24 hours: N/A Last intake: > 8 hrs Social No alcohol and No tobacco Exam alert, oriented x 3, clear to auscultation bilaterally and regular rate & rhythm Airway Mallampati: Class I Pulmonary Asthma CV/HEM Hypertension Neuropsych Cerebrovascular Accident Anesthetic Plan ASA status: 3 Anesthesia: General Risk of > 500 ml blood loss (7ml/kg in children): No Medications/Allergies Home Medications ?Medication ?Instructions ?Recorded ?Confirmed ?Last Taken ?Type aspirin 81 mg tablet,delayed 81 mg PO QPM 07/20/24 10/24/24 10/23/24 History release atorvastatin 40 mg tablet 40 mg PO QPM 07/20/24 10/24/24 10/23/24 History multivitamin 1 tab PO QPM 07/20/24 10/24/24 10/23/24 History hydrocodone 5 mg-acetaminophen 325 1 tab PO DAILY PRN pain 30 days 10/14/24 10/24/24 Unknown Rx mg tablet #30 tabs amlodipine 5 mg tablet 5 mg PO QPM bp 10/24/24 10/24/24 10/23/24 History fluoxetine 20 mg capsule 20 mg PO QPM depression 10/24/24 10/24/24 10/23/24 History Allergies Allergy/AdvReac Type Severity Reaction Status Date / Time sumatriptan (From Imitrex) Allergy ADR/ALGY-Pa Verified 10/12/24 16:09 lpitations Current Medications Generic Name Dose Route Start Last Admin Trade Name Freq PRN Reason Stop Dose Admin Amlodipine Besylate 5 mg 10/24/24 18:00 10/24/24 18:16 Amlodipine 5 Mg Tablet PO 5 mg QPM VIANEY Administration Aspirin 81 mg 10/24/24 18:00 10/24/24 17:05 Aspirin 81 Mg Ec Tablet PO 81 mg QPM VIANEY Administration Atorvastatin Calcium 40 mg 10/24/24 18:00 10/24/24 17:04 Atorvastatin 40 Mg Tablet PO 40 mg QPM VIANEY Administration Enoxaparin Sodium 40 mg 10/24/24 16:30 10/24/24 16:39 Enoxaparin 40 Mg/0.4 Ml Syringe SUBCUT 40 mg Q24H VIANEY Administration Fluoxetine HCl 20 mg 10/24/24 18:00 10/24/24 17:05 Fluoxetine 20 Mg Capsule PO 20 mg QPM VIANEY Administration Hydromorphone HCl 1 mg 10/25/24 09:40 10/25/24 11:58 Hydromorphone 0.5 Mg/0.5 Ml Inj IVP 1 mg Q4H PRN Administration PAIN Dextrose/Sodium Chloride 1,000 mls @ 75 mls/hr 10/24/24 16:30 10/25/24 07:26 Dextrose 5%-Sod Chloride 0.9% IV 75 mls/hr .[id number] VIANEY Administration Sodium Chloride 1,000 mls @ 200 mls/hr 10/24/24 21:15 10/25/24 03:14 Sodium Chloride 0.45% IV Infused .Q5H VIANEY Infusion Pantoprazole Sodium 40 mg 10/24/24 17:00 10/24/24 17:04 Pantoprazole 40 Mg Sdv IVP 40 mg Q24H VIANEY Administration PFS Anesthesia Medical History Enrolled in chronic care management please do not remove from active Environmental and seasonal allergies Essential hypertension Patient was seen in the office several months ago and instructed to take home blood pressure readings and return to the office. Patient did not followup, but today has elevated pressure of 160/100. She states it goes up and down at home. GERD (gastroesophageal reflux disease) Surgical History Status post Hope fundoplication Patient reports GERD Wrap Surgery Status post total right knee replacement S/P cholecystectomy Social History Smoking and tobacco/nicotine status: never used tobacco/nicotine Second hand smoke exposure: No Alcohol intake: never Substance/Drug Use: never Lives independently: Yes Household members: none Marital status: / Current occupational status: retired Do you think of yourself as: Straight/Heterosexual Current gender identity: Female Data Anesthesia 10/25/24 12:25 10/25/24 08:45 Short CBC 10/24/24 10/25/24 10/25/24 Range/Units 14:02 07:15 12:25 WBC 10.55 8.68 (3.29-11.43) 10^3/uL Hgb 15.20 12.60 11.50 (11.27-16.99) g/dL Hct 45.1 39.4 35.6 L (36-47) % MCV 97.4 104.0 H D (85-98) fl Plt Count 182 153 L (157-399) 10^3/cmm Neut % (Auto) 48.3 64.4 % Neut # (Auto) 5.10 5.59 (1.8-7.7) 10^3/uL BMP 10/24/24 10/25/24 10/25/24 14:02 07:19 08:45 Sodium 142 Cancelled 135 L Potassium 4.4 Cancelled 4.1 Chloride 102 Cancelled 103 Carbon Dioxide 25 Cancelled 26 BUN 18 Cancelled 20 Creatinine 0.9 Cancelled 0.9 Glucose 104 Cancelled 164 H Calcium 9.6 Cancelled 8.1 L Liver Function 10/24/24 Range/Units 14:02 Total Bilirubin 0.9 (0.15-1.2) mg/dL AST 38 H (0-32) U/L ALT 15 (0-33) U/L Alkaline Phosphatase 102 (35-105) U/L Albumin 4.1 (3.5-5.2) g/dL Urine 10/24/24 Range/Units Unknown Urine Color Dark yellow A (Yellow) Urine Appearance Clear (CLEAR) Urine pH 5.5 (5-7) Ur Specific [place] 1.026 (1.005-1.030) Urine Protein Trace A (Negative) Urine Glucose (UA) Negative (Normal) Urine Ketones 1+ H (Negative) Urine Nitrate Negative (Negative) Urine Bilirubin 1+ H (Negative) Ur Leukocyte Esterase 1+ A (Negative) Urine RBC 3-5 (0-2) /hpf Urine WBC 6-10 (0-5) /hpf Cardiac Studies: Echocardiogram 08/21/23
--- NOTE | 2024-10-25 16:54 | PC.NURSE ---
PATIENT TO OR VIA BED
[2024-10-25] MEDS: ceFAZolin 2,000 mg SDV 2000 MG IVP ×2 (17:20→21:16)
--- NOTE | 2024-10-25 18:15 | PM.OP ---
Operative Report Date of procedure: October 25, 2024 Pre-op diagnosis: Right intertrochanteric hip fracture Post-op diagnosis: same Procedure done: Right intramedullary hip nail Surgeon: Herminio Barrios DO Estimated blood loss (mL): 30 Procedure: Right intramedullary hip nail Patient brought the op suite after undergoing anesthesia was placed in the supine position on the pressure stable. Traction was applied and hip was reduced patient then prepped draped sterile fashion. Skin incision made proximal to the greater trochanter. The starting wire was inserted. Once is inserted then attention was brought to open reamer of the greater trochanter. The opening was inserted the intramedullary nail was inserted. And then attention was brought to the placement lesser. This was done at the 125 degree lag screw. Wire was inserted first followed by the reamer followed by the screw. Was then 9 mm screw was placed. The locking cap was placed proximally. Distally in the distal locking screw was placed as a 35 mm screw canal was drilled the screw was placed. AP lateral fluoroscopy showed the fracture in good position and the hardware is in good position. Wounds irrigated closed with Vicryl and tristian. Sterile dressings applied patient transferred the PACU in stable addition.
[2024-10-25] MEDS: fluoxetine 20 mg Capsule PO (21:03)
[2024-10-25] MEDS: aspirin 81 mg EC Tablet PO (21:03)
[2024-10-25] MEDS: amlodipine 5 mg Tablet PO (21:03)
[2024-10-25] MEDS: atorvastatin 40 mg Tablet PO (21:04)
[2024-10-25] MEDS: enoxaparin 40 mg/0.4 mL Syringe SUBCUT (21:11)
[2024-10-25] MEDS: pantoprazole 40 mg SDV IVP (21:24)
[2024-10-26] VITALS (13 sets, daily range): BP systolic 91–118; BP diastolic 45–65; PULSE 64–93; RESP 15–18; TEMP 36.5–36.9; O2SAT 96–98
[2024-10-26] MEDS: sodium chloride 0.9% 1,000 ML 100 ML IV (02:03)
[2024-10-26] MEDS: acetaminophen 325 mg Tablet 650 MG PO (03:07)
[2024-10-26 04:12] LABS: Basophils % 0.1 %; Hematocrit 30.3 % (36-47); Lymphocytes # 1.1 10^3/uL (0.8-4.8); Lymphocytes % 10.6 %; Mean Corpuscular HGB Conc 32.3 g/dL (30-55); Mean Corpuscular Hemoglobin 32.9 pg (27-33); Mean Corpuscular Volume 101.7 fl (85-98); Mean Platelet Volume 10.7 fL (7.4-10.4); Monocytes # 0.6 10^3/uL (0.2-0.9); Monocytes % 5.8 %; Neutrophils # 8.27 10^3/uL (1.8-7.7); Neutrophils % 83.1 %; Nucleated Red Blood Cells % 0 %; Platelet Count 111 10^3/cmm (157-399); Red Blood Count 2.98 10^6/uL (3.85-5.65); Red Cell Distribution Width 12.9 % (12.1-15.1); White Blood Count 9.95 10^3/uL (3.29-11.43)
[2024-10-26 04:27] LABS: Anion Gap 14.6 (5-19); Blood Urea Nitrogen 21 mg/dL (8-23); Calcium 7.8 mg/dL (8.5-10.5); Carbon Dioxide 23 mmol/L (22-29); Chloride 105 mmol/L (98-107); Creatinine Clr Calc Pharmacy 43.4755; Glucose 132 mg/dL (65-115); Osmolality Calculated 291 mOsm/kg (285-295); Potassium 4.6 mmol/L (3.5-5.1); Sodium 138 mmol/L (136-145)
[2024-10-26] MEDS: sodium chloride 0.9% 1,000 ML 500 ML IV (04:45)
[2024-10-26] MEDS: ceFAZolin 2,000 mg SDV 2000 MG IVP (04:45)
[2024-10-26] MEDS: oxyCODONE-APAP 5-325 mg Tablet 1 TAB PO ×3 (08:34→21:39)
--- NOTE | 2024-10-26 14:46 | P.PN_ITS ---
Subjective 2 Subjective: Patient was seen this morning, she is alert oriented x 3, following commands, working with physical therapy Vitals/I&O/Wt Last Vital Signs Temp 98.4 F 10/26/24 12:00 Pulse 70 10/26/24 12:00 Resp 16 10/26/24 12:00 BP 104/52 10/26/24 12:00 Pulse Ox 97 10/26/24 08:35 O2 Del Method Room Air 10/26/24 12:00 O2 Flow Rate 2 10/26/24 07:05 10/25/24 10/26/24 10/26/24 22:59 06:59 14:59 Intake Total 0 / 315 400 / 400 Output Total 180 / 270 Balance -180 / 45 400 / 400 Weight last 48 hrs Weight 74.843 kg Physical Exam 2 Const: COMMON NORMALS: no acute distress and patient oriented x3 Resp: COMMON NORMALS: normal respiratory effort, No retractions, No use of accessory muscles and clear to auscultation bilaterally AUSCULTATION: clear to auscultation bilaterally Cardio: COMMON NORMALS: regular rate, regular rhythm, S1 normal heart sound present and S2 normal heart sound present RATE: regular rate RHYTHM: r egular rhythm HEART SOUNDS: S1 normal heart sound present and S2 normal heart sound present GI: COMMON NORMALS: Normal to inspection, nondistended, normoactive bowel sounds present and non-tender Extremity: COMMON NORMALS: no pedal edema Neuro: COMMON NORMALS: patient oriented x3 Psych: COMMON NORMALS: mental status grossly normal Data 10/26/24 03:58 10/26/24 03:58 A&P Assessment and plan (1) Essential hypertension: (2) Subtrochanteric fracture of right femur: Plan Acute intertrochanteric fracture of the right hip - X-ray shows Bones/joints: There is an acute transverse displaced intertrochanteric fracture involving the proximal right femur. No other fracture noted. Soft tissues: Unremarkable. - Status post right intramedullary hip nail Plan - PT OT - OxyContin as needed for pain -Monitor hemoglobin -Zofran for nausea - Full code - Lovenox for DVT prophylaxis PDMP PDMP Reviewed: Not Reviewed Attestations 2 Medical Necessity Statement*: Patient requires hospitalization right hip fracture s/p surgical invention, requiring PT OT Diagnoses Essential hypertension I10 Subtrochanteric fracture of right femur S72.21XA Encounter type: initial encounter Fracture alignment: displaced Fracture type: closed
[2024-10-26] MEDS: enoxaparin 40 mg/0.4 mL Syringe SUBCUT (17:30)
[2024-10-26] MEDS: fluoxetine 20 mg Capsule PO (17:30)
[2024-10-26] MEDS: atorvastatin 40 mg Tablet PO (17:30)
[2024-10-26] MEDS: aspirin 81 mg EC Tablet PO (17:30)
[2024-10-26] MEDS: pantoprazole 40 mg SDV IVP (17:33)
--- NOTE | 2024-10-26 18:03 | PC.NURSE ---
PT REQUESTING TO G BACK TO BED. THIS FUR FINISHER ALONG WITH 2 OTHER STAFF MEMBERS ASSISTED HER TO STANDING WITH GAIT BELT AND WALKER AND SHE WAS ASSISTED TO BED. PATIENT PRETTY UNSTEADY BUT BACK TO BED WITHOUT DIFFICULTY. PATIENT STATES THAT SHE IS INCONTINENT OF URINE AT TIMES AND SO WE HAVE LEFT COLE CATH IN PLACE BECAUSE I DO NOT BELIEVER SHE WOULD BE ABLE TO MAKE IT TO BATHROOM OR EVEN A BEDSIDE COMMODE WITHOUT HAVING AN ACCIDENT. SHE CAN BARELY TAKE 2 STEPS TO GET INTO BED.
[2024-10-27] VITALS (7 sets, daily range): BP systolic 94–104; BP diastolic 53–64; PULSE 67–75; RESP 15–17; TEMP 36.5–36.6; O2SAT 93–96
[2024-10-27 04:39] LABS: Basophils % 0.1 %; Eosinophils # 0.1 10^3/uL (0.0-0.8); Eosinophils % 0.8 %; Hematocrit 25.7 % (36-47); Lymphocytes # 1.4 10^3/uL (0.8-4.8); Lymphocytes % 15.8 %; Mean Corpuscular HGB Conc 33.1 g/dL (30-55); Mean Corpuscular Hemoglobin 33.1 pg (27-33); Mean Platelet Volume 10.4 fL (7.4-10.4); Monocytes # 0.7 10^3/uL (0.2-0.9); Monocytes % 8.1 %; Neutrophils # 6.73 10^3/uL (1.8-7.7); Neutrophils % 74.9 %; Nucleated Red Blood Cells % 0 %; Platelet Count 92 10^3/cmm (157-399); Red Blood Count 2.57 10^6/uL (3.85-5.65); White Blood Count 8.99 10^3/uL (3.29-11.43)
[2024-10-27 04:58] LABS: Anion Gap 11.1 (5-19); Blood Urea Nitrogen 26 mg/dL (8-23); Calcium 8.4 mg/dL (8.5-10.5); Carbon Dioxide 24 mmol/L (22-29); Chloride 108 mmol/L (98-107); Creatinine Clr Calc Pharmacy 43.4755; Glucose 107 mg/dL (65-115); Osmolality Calculated 293 mOsm/kg (285-295); Potassium 4.1 mmol/L (3.5-5.1); Sodium 139 mmol/L (136-145)
[2024-10-27] MEDS: oxyCODONE-APAP 5-325 mg Tablet 1 TAB PO ×2 (08:18→14:21)
[2024-10-27 11:29] LABS: SARS Covid-2 Antigen Negative (Negative)
--- NOTE | 2024-10-27 11:40 | PM.DCS ---
Discharge Providers Date of Admission: 10/24/24 14:47 Date of Discharge: October 27, 2024 Attending Provider at Admission: Marcus Da Silva MD Attending Provider at Discharge: Marcus Da Silva MD Primary Care Provider: Chad De La Fuente DO Diagnoses at Discharge Discharge Diagnosis (1) Essential hypertension: Status: Chronic Permanent problem details: Patient was seen in the office several months ago and instructed to take home blood pressure readings and return to the office. Patient did not followup, but today has elevated pressure of 160/100. She states it goes up and down at home. (2) Subtrochanteric fracture of right femur: Status: Acute Qualifiers: Encounter type: initial encounter Fracture alignment: displaced Fracture type: closed Qualified Code(s): S72.21XA - Displaced subtrochanteric fracture of right femur, initial encounter for closed fracture Reason for Visit Reason for Visit: right hip pain s/p fall Hospital Course Hospital Course Elisabeth Brown is a 79 year old female with a past medical history of acute CVA, depression, hypertension, who presents [facility] for a fall. Patient reports that she had turned today, and she lost her balance and fell on her right hip, no loss of consciousness no significant head trauma, no preceding chest pain or palpitations or strokelike symptoms. Patient was found to have a displaced left trochanteric fracture of the right femur, hospitalist team was called for admission, currently patient alert oriented x 3, following all commands, patient's daughters at bedside Patient was admitted to [facility] for acute right hip fracture, status post right intramedullary hip nail by Dr. Barrios, tolerated procedure well, discharged on oxycodone for pain control, aspirin for DVT prophylaxis, with a close follow-up with Dr. Barrios as outpatient, [facility] Concerns for UTI, discharged on cefdinir Postoperative anemia, hemoglobin 8.5, no bloody or black stools reported, repeat hemoglobin tomorrow Thrombocytopenia, repeat platelet count tomorrow, 92,000 on discharge, no reported bleeding, surgical site looks clean and dry Physical Exam Const: COMMON NORMALS: no acute distress and patient oriented x3 Cardio: COMMON NORMALS: regular rate, regular rhythm, S1 normal heart sound present and S2 normal heart sound present RATE: regular rate RHYTHM: regular rhythm HEART SOUNDS: S1 normal heart sound present and S2 normal heart sound present GI: COMMON NORMALS: Normal to inspection, nondistended, normoactive bowel sounds present and non-tender Extremity: COMMON NORMALS: no pedal edema Neuro: COMMON NORMALS: patient oriented x3 Psych: COMMON NORMALS: mental status grossly normal Discharge Data Studies Completed and Pending Completed Studies During Hospitalization Category Date Time Status XR chest 1V portable [id number] Stat Exams 10/24/24 14:03 Completed XR hip RT 2-3V wo/w pel* [id number] Routine Exams 10/25/24 00:00 Completed XR hip RT 2-3V wo/w pel* [id number] Stat Exams 10/24/24 14:03 Completed Radiology Impressions Chest X-Ray 10/24/24 14:03 IMPRESSION: No acute findings. Hip/Pelvis X-Ray 10/25/24 00:00 IMPRESSION: Status post ORIF RIGHT intertrochanteric hip fracture in good alignment. Laboratory Results WBC 8.99 10^3/uL (3.29-11.43) 10/27/24 04:33 RBC 2.57 10^6/uL (3.85-5.65) L 10/27/24 04:33 Hgb 8.50 g/dL (11.27-16.99) L 10/27/24 04:33 Hct 25.7 % (36-47) L 10/27/24 04:33 MCV 100.0 fl (85-98) H 10/27/24 04:33 MCH 33.1 pg (27-33) H 10/27/24 04:33 MCHC 33.1 g/dL (30-55) 10/27/24 04:33 RDW 13.0 % (12.1-15.1) 10/27/24 04:33 Plt Count 92 10^3/cmm (157-399) L 10/27/24 04:33 MPV 10.4 fL (7.4-10.4) 10/27/24 04:33 Neut % (Auto) 74.9 % 10/27/24 04:33 Lymph % (Auto) 15.8 % 10/27/24 04:33 Emery % (Auto) 8.1 % 10/27/24 04:33 Eos % (Auto) 0.8 % 10/27/24 04:33 Baso % (Auto) 0.1 % 10/27/24 04:33 Neut # (Auto) 6.73 10^3/uL (1.8-7.7) 10/27/24 04:33 Lymph # (Auto) 1.4 10^3/uL (0.8-4.8) 10/27/24 04:33 Emery # (Auto) 0.7 10^3/uL (0.2-0.9) 10/27/24 04:33 Eos # (Auto) 0.1 10^3/uL (0.0-0.8) 10/27/24 04:33 Baso # (Auto) 0.0 10^3/uL (0.0-0.1) 10/27/24 04:33 Nucleated RBC % (auto) 0 % 10/27/24 04:33 Nucleated RBCs # 0.0 /100WBC 10/27/24 04:33 Sodium 139 mmol/L (136-145) 10/27/24 04:33 Potassium 4.1 mmol/L (3.5-5.1) 10/27/24 04:33 Chloride 108 mmol/L (98-107) H 10/27/24 04:33 Carbon Dioxide 24 mmol/L (22-29) 10/27/24 04:33 Anion Gap 11.1 (5-19) 10/27/24 04:33 BUN 26 mg/dL (8-23) H 10/27/24 04:33 Creatinine 1.0 mg/dL (0.5-0.9) H 10/27/24 04:33 GFR Calculation Not Reportable 10/27/24 04:33 Glucose 107 mg/dL (65-115) 10/27/24 04:33 Calculated Osmolality 293 mOsm/kg (285-295) 10/27/24 04:33 Calcium 8.4 mg/dL (8.5-10.5) L 10/27/24 04:33 Total Bilirubin 0.9 mg/dL (0.15-1.2) 10/24/24 14:02 AST 38 U/L (0-32) H 10/24/24 14:02 ALT 15 U/L (0-33) 10/24/24 14:02 Alkaline Phosphatase 102 U/L (35-105) 10/24/24 14:02 Total Protein 7.8 g/dL (6.6-8.7) 10/24/24 14:02 Albumin 4.1 g/dL (3.5-5.2) 10/24/24 14:02 Globulin 3.7 g/dL (1.3-4.6) 10/24/24 14:02 Procalcitonin 0.08 ng/mL (0-0.5) 10/24/24 14:02 TSH 7.01 uIU/mL (0.27-4.20) H 10/24/24 14:02 Urine Color Dark yellow (Yellow) A 10/24/24 Unknown Urine Appearance Clear (CLEAR) 10/24/24 Unknown Urine pH 5.5 (5-7) 10/24/24 Unknown Ur Specific Dougherty 1.026 (1.005-1.030) 10/24/24 Unknown Urine Protein Trace (Negative) A 10/24/24 Unknown Urine Glucose (UA) Negative (Normal) 10/24/24 Unknown Urine Ketones 1+ (Negative) H 10/24/24 Unknown Urine Blood Negative (Negative) 10/24/24 Unknown Urine Nitrate Negative (Negative) 10/24/24 Unknown Urine Bilirubin 1+ (Negative) H 10/24/24 Unknown Urine Urobilinogen 1.0 mg/dL (Negative) 10/24/24 Unknown Ur Leukocyte Esterase 1+ (Negative) A 10/24/24 Unknown Urine RBC 3-5 /hpf (0-2) 10/24/24 Unknown Urine WBC 6-10 /hpf (0-5) 10/24/24 Unknown Ur Squamous Epith Cells 0-5 /hpf (0-5) 10/24/24 Unknown Amorphous Sediment Not Reportable 10/24/24 Unknown Urine Bacteria None seen /hpf (NONE) 10/24/24 Unknown Hyaline Casts 2.05 /lpf 10/24/24 Unknown SARS-CoV-2 Ag (Rapid) Negative (Negative) 10/27/24 10:05 Vitals Last Vital Signs Temp 97.8 F 10/27/24 00:00 Pulse 67 10/27/24 04:00 Resp 15 10/27/24 08:18 BP 94/53 10/27/24 04:00 Pulse Ox 95 10/27/24 08:18 O2 Del Method Nasal Cannula 10/27/24 04:00 O2 Flow Rate 2 10/27/24 04:00 Discharge Plan Discharge Patient Disposition: Xfer SNF Condition: Stable Prescriptions: New oxycodone-acetaminophen 5-325 mg Tablet 1 tab PO Q4H PRN (Reason: Moderate Pain) 5 Days Qty: 30 0RF cefdinir 300 mg capsule 300 mg PO BID 5 Days Qty: 10 0RF Continued atorvastatin 40 mg tablet 40 mg PO QPM aspirin 81 mg tablet,delayed release (DR/EC) 81 mg PO QPM multivitamin Tablet 1 tab PO QPM fluoxetine 20 mg capsule 20 mg PO QPM Discontinued hydrocodone-acetaminophen 5-325 mg tablet 1 tab PO DAILY PRN (Reason: pain) 30 Days Qty: 30 0RF amlodipine 5 mg tablet 5 mg PO QPM Discharge Orders: Discharge Order (Routine); Ordered 10/27/24 Ordered By: Marcus Da Silva Referrals: [facility] [Outside] Herminio Barrios DO [Physician, Orthopedics] - 2 weeks Chad De La Fuente DO [Primary Care Provider, Family Practice] Discharge Diet: Cardiac Discharge Activity: Resume usual activity Patient Instructions: Acute Wound Care (DC), Opioid Safety (DC), OB Discharge Report, OB Food/Drug Interaction Guide, Post Anesthesia Care, Pain Management Activity Restrictions/Additional Instructions: - Please recheck hemoglobin and platelet count tomorrow - Hemoglobin 8.5, platelet count 92,000 Discharge Attestations Time Spent in Discharge Care*: greater than 30 min Quality Metrics Clinical Quality Measures [ No reported AMI, CVA or VTE this stay] Coding Level of Care Code 96511 Total time (in minutes) for Discharge: 45 Diagnoses Essential hypertension I10 Subtrochanteric fracture of right femur S72.21XA Encounter type: initial encounter Fracture alignment: displaced Fracture type: closed
--- NOTE | 2024-10-27 12:07 | PC.SOCIAL ---
IMM Update pg 2 of IMM Updated and reviewed w/ patient. Copy provided and copy dated, initialed and placed in chart.
--- NOTE | 2024-10-27 12:10 | PC.SOCIAL ---
IMM Update pg 2 of IMM Updated and reviewed w/ patient. Copy provided and copy dated, initialed and placed in chart.
--- NOTE | 2024-10-27 13:10 | PC.NURSE ---
Report called to Kim at [facility] at 1300. Will call her back with an update once we know an ETA
--- NOTE | 2024-10-27 15:52 | PC.NURSE ---
this nurse called Jasmin at [facility] to let her know transport is on their way and this nurse gave her percocet @ 1420 and she had a bowel movement right before transport arrived.pt is a 2 assist and the gait belt is on pt for transport, pt is in wheel chair.
== END 2024-10-27 15:54 | disposition skilled nursing facility (03) | DRG 481 ==
LOC: ER 14:51 → ER IP 14:59 → OBGYN 15:10
PROVIDERS: Orthopaedic Surgery; Admitting Provider Family Medicine; Emergency Provider Student in an Organized Health Care Education/Training Program; PCP Family Medicine; Visit Provider Family Medicine
PROC: 0QS606Z Reposition Right Upper Femur with Intramedullary Internal Fixation Device, Open Approach (ICD-10-PCS; CPT 27245; principal; 2024-10-25 18:00)
DX: S72.21XA Displaced subtrochanteric fracture of right femur, initial encounter for closed fracture (principal); N39.0 Urinary tract infection, site not specified; W19.XXXA Unspecified fall, initial encounter; I10 Essential (primary) hypertension; F32.A Depression, unspecified; D64.89 Other specified anemias; D69.6 Thrombocytopenia, unspecified; Z86.73 Personal history of transient ischemic attack (TIA), and cerebral infarction without residual deficits; Z79.82 Long term (current) use of aspirin
CPT/HCPCS: 36415; 71045; 73502; 76000; 80048; 80053; 81001; 84145; 84443; 85014; 85018; 85025; 87426; 93005; 94664; 96372; 96374; 97110; 97116; 97162; 97167; 97530; 97535; 99285; A4216; C1713; J0690; J1100; J1171; J1650; J2405; J2470; J2704; J3010; J3490; J7030; J7042; J9999

== ENCOUNTER → 2024-11-11 15:39 | Outpatient (BNVA) | payer MEDICARE, MEDICAID, SELFPAY | PROVIDERS: PCP Family Medicine; Visit Provider Orthopaedic Surgery | DX: Z48.89 Encounter for other specified surgical aftercare (principal); S72.141D Displaced intertrochanteric fracture of right femur, subsequent encounter for closed fracture with routine healing; W19.XXXD Unspecified fall, subsequent encounter; M25.551 Pain in right hip | CPT/HCPCS: 73502; 99024 ==

== ENCOUNTER 2024-12-01 12:08 | Inpatient (IN) | payer MEDICARE, MEDICAID, SELFPAY ==
[2024-12-01] VITALS (12 sets, daily range): BP systolic 116–158; BP diastolic 41–73; PULSE 75–89; RESP 16–18; TEMP 36.7–36.9; O2SAT 90–100; BMI 29.0; BMI 28.3
--- NOTE | 2024-12-01 12:10 | XRR_ITS ---
PROCEDURE INFORMATION: Exam: XR Right Hip Exam date and time: 12/01/2024 12:15 PM Age: 79 years old Clinical indication: Injury or trauma; Other: Not specified; Blunt trauma (contusions or hematomas); Right; Hip TECHNIQUE: Imaging protocol: Radiologic exam of the right hip. Views: 1 view hip with pelvis when performed. COMPARISON: CR (PELVIS AP, HIP, PELVIS AP) 11/11/2024 3:49 PM FINDINGS: Bones/joints: Short intramedullary keyana and compression screw are again seen internally fixating the intertrochanteric fracture. There is no interval change. Hip joint is normal. Soft tissues: Unremarkable. XR/XR hip RT 2-3V wo/w pel* [id number] IMPRESSION: Unchanged postoperative right hip. No acute findings.
--- NOTE | 2024-12-01 12:10 | W.ED.FALL ---
HPI - Fall General: Chief Complaint: Fall Stated Complaint: fall, right hip pain Time Seen by Provider: 12/01/24 12:10 History of Present Illness: 79-year-old female presents emergency room from home via ambulance. She had a proximal femur fracture extending into the trochanter on the right in October and had an ORIF for that with a keyana and screw placed she did not have a hemiarthroplasty. Today she was at home she bent over to last picker her dog and fell when she had a sharp pain sensation in her upper thigh near the hip. She did not hit her head did not strike her head there is no other injury or loss of consciousness. No episodes of chest pain. Associated symptoms-after fall: Denies abdominal pain, chest pain or neck pain Related Data Home Medications ?Medication ?Instructions ?Recorded ?Confirmed aspirin 81 mg tablet,delayed 81 mg PO QPM 07/20/24 12/01/24 release atorvastatin 40 mg tablet 40 mg PO QPM 07/20/24 12/01/24 multivitamin 1 tab PO QPM 07/20/24 12/01/24 fluoxetine 20 mg capsule 20 mg PO QPM depression 10/24/24 12/01/24 Allergies Allergy/AdvReac Type Severity Reaction Status Date / Time sumatriptan (From Imitrex) Allergy ADR/ALGY-Pa Verified 11/11/24 15:44 lpitations Review of Systems Const: Denies: fever(s) or chills Card: Denies: chest pain Resp: Denies: dyspnea GI: Denies: abdominal pain : Denies: dysuria, urinary frequency or urinary urgency Musc: Denies: neck pain or back pain Skin/Breast: Denies: rash [facility] ED PFSH: Medical History Enrolled in chronic care management please do not remove from active Environmental and seasonal allergies Essential hypertension Patient was seen in the office several months ago and instructed to take home blood pressure readings and return to the office. Patient did not followup, but today has elevated pressure of 160/100. She states it goes up and down at home. GERD (gastroesophageal reflux disease) Surgical History Status post Hope fundoplication Patient reports GERD Wrap Surgery Status post total right knee replacement S/P cholecystectomy Social History Smoking and tobacco/nicotine status: never used tobacco/nicotine Second hand smoke exposure: No Alcohol intake: never Substance/Drug Use: never Lives independently: Yes Household members: none Marital status: / Current occupational status: retired Do you think of yourself as: Straight/Heterosexual Current gender identity: Female Physical Exam Const: COMMON NORMALS: no acute distress GENERAL APPEARANCE: cooperative and comfortable ORIENTATION/CONSCIOUSNESS: Yes awake, Yes oriented to person, Yes oriented to place and Yes oriented to time HENMT: COMMON NORMALS: normocephalic, atraumatic and hearing grossly normal bilaterally HEAD & SCALP: normocephalic and atraumatic Resp: COMMON NORMALS: normal respiratory effort, No retractions, No use of accessory muscles and clear to auscultation bilaterally AUSCULTATION: clear to auscultation bilaterally Cardio: COMMON NORMALS: regular rate, regular rhythm and No murmurs present (Cardio) RATE: regular rate RHYTHM: regular rhythm GI: COMMON NORMALS: Soft to palpation and No hepatosplenomegaly present AUSCULTATION: Yes normoactive bowel sounds PALPATION: Yes Soft to palpation, No Tenderness to palpation present (GI), No Guarding due to palpation present (GI) and Yes No hepatosplenomegaly present Extremity: COMMON NORMALS: normal to inspection, capillary refill normal, no clubbing, cyanosis or edema, no calf tenderness and no pedal edema Neuro: SENSORIUM/ORIENTATION: Yes oriented to person, Yes oriented to place and Yes oriented to time Skin: COMMON NORMALS: no rashes or lesions noted GENERAL SKIN EXAM: no rashes or lesions noted Course Vital Signs: Vital signs: Vital Signs Temperature 98.4 F 12/01/24 16:06 Pulse Rate 79 12/01/24 16:06 Respiratory Rate 18 12/01/24 16:06 Blood Pressure 124/73 12/01/24 16:06 Pulse Oximetry 92 12/01/24 16:06 Oxygen Delivery Me thod Nasal Cannula 12/01/24 16:06 MDM - Fall Medical Decision Making A Bleich supracondylar fracture mildly displaced on the right leg the original hip fracture appears to be in place with no worsening. Discussed with orthopedics recommended admission either Dr. Osullivan or Dr. Chacon will address this. Will admit to the hospitalist reviewed findings with patient and family. Medical Records I reviewed the patient's medical records. Lab Data I reviewed the patient's lab results. 12/01/24 12:51 12/01/24 12:51 Radiology Impressions Hip/Pelvis X-Ray 12/01/24 12:10 IMPRESSION: Unchanged postoperative right hip. No acute findings. Femur X-Ray 12/01/24 12:13 IMPRESSION: Essentially nondisplaced fracture of the distal femoral diaphysis. Chest X-Ray 12/01/24 12:35 Impression: Atherosclerosis. Femur CT 12/01/24 13:16 IMPRESSION: 1. Acute supracondylar fracture of the distal right femur with mild displacement 2. Healing intertrochanteric fractures Laboratory Results WBC 11.56 10^3/uL (3.29-11.43) H 12/01/24 12:51 RBC 4.24 10^6/uL (3.85-5.65) 12/01/24 12:51 Hgb 13.60 g/dL (11.27-16.99) 12/01/24 12:51 Hct 42.9 % (36-47) 12/01/24 12:51 MCV 101.2 fl (85-98) H 12/01/24 12:51 MCH 32.1 pg (27-33) 12/01/24 12:51 MCHC 31.7 g/dL (30-55) 12/01/24 12:51 RDW 13.5 % (12.1-15.1) 12/01/24 12:51 Plt Count 189 10^3/cmm (157-399) 12/01/24 12:51 MPV 10.2 fL (7.4-10.4) 12/01/24 12:51 Neut % (Auto) 69.7 % 12/01/24 12:51 Lymph % (Auto) 19.8 % 12/01/24 12:51 [place] % (Auto) 7.2 % 12/01/24 12:51 Eos % (Auto) 2.6 % 12/01/24 12:51 Baso % (Auto) 0.3 % 12/01/24 12:51 Neut # (Auto) 8.05 10^3/uL (1.8-7.7) H 12/01/24 12:51 Lymph # (Auto) 2.3 10^3/uL (0.8-4.8) 12/01/24 12:51 [place] # (Auto) 0.8 10^3/uL (0.2-0.9) 12/01/24 12:51 Eos # (Auto) 0.3 10^3/uL (0.0-0.8) 12/01/24 12:51 Baso # (Auto) 0.0 10^3/uL (0.0-0.1) 12/01/24 12:51 Nucleated RBC % (auto) 0 % 12/01/24 12:51 Nucleated RBCs # 0.0 /100WBC 12/01/24 12:51 PT 14.10 SECONDS (12.1-14.9) 12/01/24 12:51 INR 1.02 (0.8-1.2) 12/01/24 12:51 APTT 26.5 SECONDS (23.9-36.7) 12/01/24 12:51 Sodium 142 mmol/L (136-145) 12/01/24 12:51 Potassium 4.2 mmol/L (3.5-5.1) 12/01/24 12:51 Chloride 105 mmol/L (98-107) 12/01/24 12:51 Carbon Dioxide 27 mmol/L (22-29) 12/01/24 12:51 Anion Gap 14.2 (5-19) 12/01/24 12:51 BUN 16 mg/dL (8-23) 12/01/24 12:51 Creatinine 0.9 mg/dL (0.5-0.9) 12/01/24 12:51 GFR Calculation Not Reportable 12/01/24 12:51 Glucose 133 mg/dL (65-115) H 12/01/24 12:51 Calculated Osmolality 297 mOsm/kg (285-295) H 12/01/24 12:51 Calcium 9.1 mg/dL (8.5-10.5) 12/01/24 12:51 Total Bilirubin 0.8 mg/dL (0.15-1.2) 12/01/24 12:51 AST 24 U/L (0-32) 12/01/24 12:51 ALT 10 U/L (0-33) 12/01/24 12:51 Alkaline Phosphatase 110 U/L (35-105) H 12/01/24 12:51 Total Protein 6.9 g/dL (6.6-8.7) 12/01/24 12:51 Albumin 3.4 g/dL (3.5-5.2) L 12/01/24 12:51 Globulin 3.5 g/dL (1.3-4.6) 12/01/24 12:51 All radiology interpretation(s) finalized by discharge Discharge Plan Discharge Patient Disposition: Admitted As Inpatient Admit Provider: Charly Morrison Clinical Impression: Fracture of distal end of femur Condition: Stable Coding Level of Care Code ED Senior Python Developer for Jose Terrell
--- NOTE | 2024-12-01 12:13 | XRR_ITS ---
PROCEDURE INFORMATION: Exam: XR Right Femur Exam date and time: 12/01/2024 12:22 PM Age: 79 years old Clinical indication: Injury or trauma; Other: Not specified; Blunt trauma; Thigh or upper leg; Right TECHNIQUE: Imaging protocol: Radiologic exam of the right femur. Views: 2 views. COMPARISON: CR XR hip RT 2-3V wo/w pel* [id number] 12/01/2024 12:15 PM FINDINGS: Bones/joints: There is a fracture of the distal femoral diaphysis with no significant displacement. It extends down to the level of the femoral prosthesis laterally. Knee joint prosthesis is intact. Right hip internal fixation hardware is stable and is described separately. Soft tissues: Unremarkable. XR/XR femur RT min 2V* [id number] IMPRESSION: Essentially nondisplaced fracture of the distal femoral diaphysis.
--- OUTSIDE RECORDS SUMMARY | 2024-12-01 12:17 | XMS_ITS | Encounter Summary ---
Author Organization [facility] Address [address] [place] [address] Care Team Providers Care Radiology Technologist Name Role Phone Non-Staff, Physician Primary Care Provider Unava ilable Encounter Details Date Type Department Care Team (Late st Contact Info) Description 02/12/2005 Outpatient Historical [facility] Dermatology- 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
--- OUTSIDE RECORDS SUMMARY | 2024-12-01 12:17 | XMS_ITS | Encounter Summary ---
Author Organization [facility] Address [address] [place] [address] Care Team Providers Care Rehabilitation Services Manager Name Role Phone Non-Staff, Physician Primary Care Provider Unava ilable Encounter Details Date Type Department Care Team (Latest Contact Info) Description 07/20/2002 Outpatient Historical [facility] Ear, Nose and Throat 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
--- OUTSIDE RECORDS SUMMARY | 2024-12-01 12:17 | XMS_ITS | Encounter Summary ---
Author Organization [facility] Address [address] [place] [address] Care Team Providers Care Real Estate Analyst Name Role Phone Non-Staff, Physician Primary Care Provider Unava ilable Reason for Referral * Radiology Services (Routine) - Closed Specialty Diagnoses / Procedures Referred By Contac t Referred To Contact Radiology Diagnoses Breast cancer screening by mammogram Procedures MAMMO SCREEN BILAT W OR WO CAD Ulices Yadav, TOUR ESCORT [facility] [address] Phone: tel: fax: [facility] [address] [place] [address] Phone: tel: fax: Referral ID Status Reason Start Date Expiration Date V isits Requested Visits Authorized [id number] Closed [facility] View CTS to Schedule (SGF) 01/27/2019 02/27/2020 1 1 Encounter Details Date Type Department Care Team (Latest Contact Info) Description 01/27/2019 Ancillary Orders [facility] Centralized Scheduling [address] [facility] [address] [place] [address] Ulices Yadav, TOUR ESCORT [address] [place] [phone] Breast cancer screening by mammogram Social [...] on file 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 us Dj Gross TOUR ESCORT MAMMO ORDERABLES Final Result documented in this encounter Visit Diagnoses Diagnosis Breast cancer screening by mammogram Breast cancer screening by mammogram documented in this encounter Care Teams Real Estate Analyst Relationship Specialty Start Date End Date Non-Staff, Physician NO ADDRESS ON FILE PCP - General 10/18/20 documented as of this encounter
--- OUTSIDE RECORDS SUMMARY | 2024-12-01 12:17 | XMS_ITS | Clinical Summary ---
Author Organization [facility] Address [address] [place] [address] Phone Care Team Providers Care Assembler Camper Name Role Phone Non-Staff, Physician Primary Care Provider Unava ilable Allergies Active Allergy Reactions Criticality Noted Date Comments Sumatriptan Succinate Palpitations Low 10/11/2008 Medications DEXTRAN 70/HYPROMELLOSE (ARTIFICIAL TEARS, PF, OP) by Ophthalmic route. Active calcium as carbonate (TUMS ES) 750 mg (300 mg elemental) Tablet, Chewable Take by mouth 1 time daily as needed. Active fluticasone propionate (FLONASE) 50 mcg/spray [place], Suspension nasal inhalerIndicati ons:Respiratory tract infection ADMINISTER [...] on file Legal Sex Female 4:28 AM CEMENT CRUSHER OPERATOR Gender Identity Not on file Sexual [...] OSTEOPOROSIS SCREENING 08/11/2023 08/10/2018 INFLUENZA VACCINE (#1) 2024 8, 02/17/2017, 04/11/2016, Additional history exists PNEUMOCOCCAL VACCINE 50+ YEARS Completed 03/07/2015 , 02/05/2009 Medical Devices Implanted Type Area Manager Philosophy Device Identifier Shelf Expiration Date Model / Serial / Lot Cement Simplex Hvisc 6194-1-010 - [id number] Implanted:Qty: 1 on 11/08/2016 by Gibson Canas MD at [facility] Cement Right: Knee [employer]ANNE- [employer] 07/02/2018 6194-1-010 / / [id number] Cement Simplex Hvisc 6194-1-010 - [id number] Implanted:Qty: 1 on 11/08/2016 by Gibson Canas MD at [facility] Cement Right: Knee [employer]NE- [employer] 07/02/2018 6194-1-010 / / [id number] Patella Attune Fatuma 35mm 1518-10-035 - [id number] Implanted:Qty: 1 on 11/08/2016 by Gibson Canas MD at [facility] Knee Right: Knee [employer]- [employer] 08/02/2021 [id number] / / [id number] Ins Attn Fb Cr Sz5 5mm 1516-20-505 - [id number] Implanted:Qty: 1 on 11/08/2016 by Gibson Canas MD at [facility] Knee Right: Knee [employer]- [employer] 08/02/2021 [id number] / / [id number] Comp Fem Attn Cr Cmnt Sz5 1504-00-225 - [id number] Implanted:Qty: 1 on 11/08/2016 by Gibson Canas MD at [facility] Knee Right: Knee [employer] 09/01/2026 [id number] / / [id number] Comp Tib Attn Fb Cmnt Sz4 1506-00-004 - [id number] Implanted:Qty: 1 on 11/08/2016 by Gibson Canas MD at [facility] Knee Right: Knee [employer] 08/02/2026 [id number] / / [id number] Procedures Procedure Name Priority Date/Time Associated Diagnosis [...] Recently Relevant to Health Maintenance Insurance MEDICA[place] MED[place]ARE PART A [place] B Advance Directives For more information, please contact: [phone] * Full Code (Latest Code Status on [...] 7:41 AM 08/08/2011 11:34 AM Care Teams Assembler Camper Relationship Specialty Start Date End Date Non-Staff, Physician NO ADDRESS ON FILE PCP - General 10/18/20
--- OUTSIDE RECORDS SUMMARY | 2024-12-01 12:17 | XMS_ITS | Encounter Summary ---
Author Organization [facility] Address [address] [place] [address] Care Team Providers Care Depositing Machine Operator Name Role Phone Non-Staff, Physician Primary Care Provider Unava ilable Encounter Details Date Type Department Care Team (Latest Contact Info) Description 01/08/2005 Outpatient Historical [facility]- [address] [phone] Kit Bgogs MD [address] [address] HYPERTENSION NOS (Primary Dx) Social History Tobacco Use Types Packs/Day Years Used Date Smoking Tobacco: Never Assessed Comments Unknown Sex and Gender Information Value Date Recorded Sex Assigned at Not on file Legal Sex Female 4:28 AM ART CONSULTANT Gender Identity Not on file Sexual Orientation Not on file documented as of this encounter Plan of Treatment Not on file documented as of this encounter Visit Diagnoses Diagnosis Unspecified essential hypertension- Primary documented in this encounter Care Teams Depositing Machine Operator Relationship Specialty Start Date End Date Non-Staff, Physician NO ADDRESS ON FILE PCP - General 10/18/20 documented as of this encounter
--- OUTSIDE RECORDS SUMMARY | 2024-12-01 12:17 | XMS_ITS | Clinical Summary ---
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 JORDI (obstructive sleep apnea) 10/30/2016 Essential hypertension 10/30/2016 [...] on file Legal Sex Female 3:32 PM TELEPHONE CLAIMS REPRESENTATIVE Gender Identity Not on file Sexual Orientation [...] , 02/05/2009 Medical Devices Implanted Type Area Welder Explosion Device Identifier Shelf Expiration Date Model / Serial / Lot Cement Simplex Hvisc 6194-1-010 - [id number] Implanted:Qty : 1 on 11/08/2016 by Gibson Canas MD Cement Right: Knee [employer]NE[employer] 07/02/2018 6194-1-010 / / [id number] Cement Simplex Hvisc 6194-1-010 - [id number] Implanted:Qty : 1 on 11/08/2016 by Gibson Canas MD Cement Right: Knee [employer] 07/02/2018 6194-1-010 / / [id number] Comp Fem Attn Cr Cmnt Sz5 1504-00-225 - [id number] Implanted:Qty : 1 on 11/08/2016 by Gibson Canas MD Knee Right: Knee [employer] 09/01/2026 [id number] / / [id number] Comp Tib Attn Fb Cmnt Sz4 1506-00-004 - [id number] Implanted:Qty : 1 on 11/08/2016 by Gibson Canas MD Knee Right: Knee [employer] 08/02/2026 [id number] / / [id number] Ins Attn Fb Cr Sz5 5mm 1516-20-505 - [id number] Implanted:Qty : 1 on 11/08/2016 by Gibson Canas MD Knee Right: Knee [employer] 08/02/2021 [id number] / / [id number] Patella Attune Fatuma 35mm 1518-10-035 - [id number] Implanted:Qty : 1 on 11/08/2016 by Gibson Canas MD Knee Right: Knee [employer] 08/02/2021 [id number] / / [id number] Procedures Procedure Name Priority Date/Time Associated Diagnosis [...] Recently Relevant to Health Maintenance Care Teams Residence Manager Relationship Specialty Start Date End Date Non-Staff, Physician NO ADDRESS ON FILE PCP - General 10/18/20
--- OUTSIDE RECORDS SUMMARY | 2024-12-01 12:17 | XMS_ITS | Encounter Summary ---
Author Organization [facility] Address [address] [place] [address] Care Team Providers Care Garbage Collector Supervisor Name Role Phone Non-Staff, Physician Primary Care Provider Unava ilable Encounter Details Date Type Department Care Team (Latest Contact Info) Description 02/04/2019 Ancillary Orders [facility] [address] [facility] [address] [place] [address] Chelo Courtney MD [address] [place] [address] Inconclusive mammography Social History Tobacco Use Types Packs/Day Years Used Date Smoking Tobacco: Never Smokeless Tobacco: Never Alcohol Use Standard Drinks/Week Comments No 0 (1 standard drink = 0.6 oz pur e alcohol) 1 glass of wine 2-3 x weekly Comments No Sex and Gender Information Value Date Recorded Sex Assigned at Not on file Legal Sex Female 4:28 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
--- OUTSIDE RECORDS SUMMARY | 2024-12-01 12:17 | XMS_ITS | Encounter Summary ---
Author Organization [facility] Address [address] [place] [address] Care Team Providers Care Scaffolding Helper Name Role Phone Non-Staff, Physician Primary Care Provider Unava ilable Encounter Details Date Type Department Care Team (Late st Contact Info) Description 04/22/2003 Outpatient Historical [facility] [address] [place] [address] Alex Prince MD [address] [place] [address] VIRAL WARTS NOS (Primary Dx) Social History Tobacco Use Types Packs/Day Years Used Date Smoking Tobacco: Never Assessed Comments Unknown Sex and Gender Information Value Date Recorded Sex Assigned at Not on file Legal Sex Female 4:28 AM HOME APPLIANCE TECH Gender Identity Not on file Sexual Orientation Not on file documented as of this encounter Plan of Treatment Not on file documented as of this encounter Visit Diagnoses Diagnosis Viral warts, unspecified- Primary documented in this encounter Care Teams Scaffolding Helper Relationship Specialty Start Date End Date Non-Staff, Physician NO ADDRESS ON FILE PCP - General 10/18/20 documented as of this encounter
--- OUTSIDE RECORDS SUMMARY | 2024-12-01 12:17 | XMS_ITS | Encounter Summary ---
Author Organization [facility] Address [address] [place] [address] Care Team Providers Care Oracle Bpm Developer Name Role Phone Non-Staff, Physician Primary Care Provider Unava ilable Encounter Details Date Type Department Care Team ([facility] st Contact Info) Description 02/03/2019 Ancillary Orders [facility] [address] [facility] [address] [place] [address] Ulices Yadav, SERVICER [address] [facility] [address] [place] [address] Breast cancer screening by mammogram [...] on file Legal Sex Female 4:28 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 us Ulices Yadav SERVICER DIAGNOSTIC IMAGING ORDERABLES Fi nal Result * MAMMO PRIOR STUDY (03/24/2008 1:40 PM SUPERVISOR MOTORCYCLE REPAIR SHOP) Narrative 02/03/2019 1:39 PM CDT This exam was auto finalized to allow images to be scanned to PACS. us Dj Gross SERVICER DIAGNOSTIC IMAGING ORDERABLES Fi nal Result * MAMMO PRIOR STUDY (03/23/2007 1:40 PM SUPERVISOR MOTORCYCLE REPAIR SHOP) Narrative 02/03/2019 1:39 PM CDT This exam was auto finalized to allow images to be scanned to PACS. us Dj Gross SERVICER DIAGNOSTIC IMAGING ORDERABLES Fi nal Result documented in this encounter Visit Diagnoses Diagnosis Breast cancer screening by mammogram Breast cancer screening by mammogram Breast cancer screening by mammogram Breast cancer screening by mammogram documented in this encounter Care Teams Oracle Bpm Developer Relationship Specialty Start Date End Date Non-Staff, Physician NO ADDRESS ON FILE PCP - General 10/18/20 documented as of this encounter
--- OUTSIDE RECORDS SUMMARY | 2024-12-01 12:17 | XMS_ITS | Encounter Summary ---
Author Organization [facility] Address [address] [place] [address] Care Team Providers Care Assistant Branch Manager Name Role Phone Non-Staff, Physician Primary Care Provider Unava ilable Encounter Details Date Type Department Care Team (Late st Contact Info) Description 09/30/2007 Outpatient Historical [facility] [place] [address] [place] [address] Steve Winn MD NO ADDRESS ON FILE Social History Tobacco Use Types Packs/Day Years Used Date Smoking Tobacco: Never Assessed Comments Unknown Sex and Gender Information Value Date Recorded Sex Assigned at Not on file Legal Sex Female 4:28 AM AUTOMATIC CLIPPER Gender Identity Not on file Sexual Orientation Not on file documented as of this encounter Plan of Treatment Not on file documented as of this encounter Procedures Procedure Name Priority Date/Time Associated Diagnosis Comments PATHOLOGY Routine 10/08/2007 8:20 AM CDT documented in this encounter Results * PATHOLOGY (10/08/2007 8:20 AM CDT) PATHOLOGY/CYT OLOGY REPORT [facility] Anatomic Pathology Dept [address] [address] Patient: ELISABETH BROWN Accn No: [id number] Collected: 10/08/2007 8:20:00 AM SURGICAL PATHOLOGY FINAL [...] on filedocumented in this encounter Care Teams Assistant Branch Manager Relationship Specialty Start Date End Date Non-Staff, Physician NO ADDRESS ON FILE PCP - General 10/18/20 documented as of this encounter
--- OUTSIDE RECORDS SUMMARY | 2024-12-01 12:17 | XMS_ITS | Encounter Summary ---
Author Organization [facility] Address [address] [place] [address] Care Team Providers Care Jewelry Sales Coordinator Name Role Phone Non-Staff, Physician Primary Care Provider Unava ilable Encounter Details Date Type Department Care Team (Latest Contact Info) Description 09/10/2002 Outpatient Historical [facility]- [address] [phone] Elizabeth Sánchez MD NO ADDRESS ON FILE URINARY FREQUENCY (Primary Dx); TINNITUS NOS Social History Tobacco Use Types Packs/Day Years Used Date Smoking Tobacco: Never Assessed Comments Unknown Sex and Gender Information Value Date Recorded Sex Assigned at Not on file Legal Sex Female 4:28 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
--- OUTSIDE RECORDS SUMMARY | 2024-12-01 12:18 | XMS_ITS | Encounter Summary ---
Author Organization [facility] Address [address] [place] [address] Care Team Providers Care Director Museum Or Zoo Name Role Phone Non-Staff, Physician Primary Care Provider Unava ilable Encounter Details Date Type Department Care Team (Latest Contact Info) Description 06/16/2002 Outpatient Historical [facility]- [address] [phone] Kit Boggs MD [address] [phone] Dysfunct eustachian tube (Primary Dx) Social History Tobacco Use Types Packs/Day Years Used Date Smoking Tobacco: Never Assessed Comments Unknown Sex and Gender Information Value Date Recorded Sex Assigned at Not on file Legal Sex Female 4:28 AM PHYSICAL SCIENCE AIDE Gender Identity Not on file Sexual Orientation Not on file documented as of this encounter Plan of Treatment Not on file documented as of this encounter Visit Diagnoses Diagnosis Dysfunct eustachian tube- Primary Dysfunction of Eustachian tube documented in this encounter Care Teams Director Museum Or Zoo Relationship Specialty Start Date End Date Non-Staff, Physician NO ADDRESS ON FILE PCP - General 10/18/20 documented as of this encounter
--- OUTSIDE RECORDS SUMMARY | 2024-12-01 12:18 | XMS_ITS | Encounter Summary ---
Author Organization [facility] Address [address] [place] [address] Care Team Providers Care Provider Relations Advocate Name Role Phone Non-Staff, Physician Primary Care Provider Unava ilable Encounter Details Date Type Department Care Team (Latest Contact Info) Description 10/23/[address] [facility] [address] [phone] Chata John MD [address] [place] [phone] Personal history of malignant neoplasm of cervix uteri (Primary Dx); Other voice and resonance disorders Social History Tobacco Use Types Packs/Day Years Used Date Smoking Tobacco: Never Assessed Comments Unknown Sex and Gender Information Value Date Recorded Sex Assigned at Not on file Legal Sex Female 4:28 AM MANAGER LOSS PREVENTION Gender Identity Not on file Sexual Orientation Not on file documented as of this encounter Plan of Treatment Not on file documented as of this encounter Visit Diagnoses Diagnosis Personal history of malignant neoplasm of cervix uteri- Primary Other voice and resonance disorders documented in this encounter Care Teams Provider Relations Advocate Relationship Specialty Start Date End Date Non-Staff, Physician NO ADDRESS ON FILE PCP - General 10/18/20 documented as of this encounter
--- OUTSIDE RECORDS SUMMARY | 2024-12-01 12:18 | XMS_ITS | Encounter Summary ---
Author Organization [facility] Address [address] [place] [address] Care Team Providers Care Trauma Doctor Name Role Phone Non-Staff, Physician Primary Care Provider Unava ilable Encounter Details Date Type Department Care Team (Latest Contact Info) Description 02/11/2000 Outpatient Historical [facility] [address] [phone] Chata John MD [address] [place] [phone] Dysplasia of cervix (uteri) (Primary Dx); Hiccough Social History Tobacco Use Types Packs/Day Years Used Date Smoking Tobacco: Never Assessed Comments Unknown Sex and Gender Information Value Date Recorded Sex Assigned at Not on file Legal Sex Female 4:28 AM ARCHIVES SPECIALIST Gender Identity Not on file Sexual Orientation Not on file documented as of this encounter Plan of Treatment Not on file documented as of this encounter Visit Diagnoses Diagnosis Dysplasia of cervix (uteri)- Primary Hiccough documented in this encounter Care Teams Trauma Doctor Relationship Specialty Start Date End Date Non-Staff, Physician NO ADDRESS ON FILE PCP - General 10/18/20 documented as of this encounter
--- OUTSIDE RECORDS SUMMARY | 2024-12-01 12:18 | XMS_ITS | Encounter Summary ---
Author Organization [facility] Address [address] [place] [address] Care Team Providers Care Waterproofing Mixer Name Role Phone Non-Staff, Physician Primary Care Provider Unava ilable Encounter Details Date Type Department Care Team (Latest Contact Info) Description 08/20/1999 Outpatient Historical [facility] Medicine [address] [phone] Chata John MD [address] [place] [phone] Unspecified asthma(493.90) (Primary Dx); Abn Pap Smear-Cervix Social History Tobacco Use Types Packs/Day Years Used Date Smoking Tobacco: Never Assessed Comments Unknown Sex and Gender Information Value Date Recorded Sex Assigned at Not on file Legal Sex Female 4:28 AM DIRECTOR OF IN SERVICE EDUCATION Gender Identity Not on file Sexual Orientation Not on file documented as of this encounter Plan of Treatment Not on file documented as of this encounter Visit Diagnoses Diagnosis Unspecified asthma(493.90)- Primary Unspecified asthma Abn Pap Smear-Cervix Abnormal Papanicolaou smear of cervix and cervical HPV documented in this encounter Care Teams Waterproofing Mixer Relationship Specialty Start Date End Date Non-Staff, Physician NO ADDRESS ON FILE PCP - General 10/18/20 documented as of this encounter
--- OUTSIDE RECORDS SUMMARY | 2024-12-01 12:18 | XMS_ITS | Encounter Summary ---
Author Organization [facility] Address [address] [place] [address] Care Team Providers Care Fisher Trot Line Name Role Phone Non-Staff, Physician Primary Care Provider Unava ilable Encounter Details Date Type Department Care Team (Latest Contact Info) Description 02/20/1999 Outpatient Historical [facility] Medicine [address] [phone] Chata John MD [address] [place] [phone] Gynecologic examination (Primary Dx); Cuong Social History Tobacco Use Types Packs/Day Years Used Date Smoking Tobacco: Never Assessed Comments Unknown Sex and Gender Information Value Date Recorded Sex Assigned at Not on file Legal Sex Female 4:28 AM OCCASIONAL BABYSITTER Gender Identity Not on file Sexual Orientation Not on file documented as of this encounter Plan of Treatment Not on file documented as of this encounter Visit Diagnoses Diagnosis Gynecologic examination- Primary Gynecological examination Cuong documented in this encounter Care Teams Fisher Trot Line Relationship Specialty Start Date End Date Non-Staff, Physician NO ADDRESS ON FILE PCP - General 10/18/20 documented as of this encounter
--- OUTSIDE RECORDS SUMMARY | 2024-12-01 12:18 | XMS_ITS | Encounter Summary ---
Author Organization [facility] Address [address] [place] [address] Care Team Providers Care Data Center Solutions Architect Name Role Phone Non-Staff, Physician Primary Care Provider Unava ilable Encounter Details Date Type Department Care Team (Latest Contact Info) Description 12/08/2000 Outpatient Historical [facility]- [address] [phone] Jakub Sims DO NO ADDRESS ON FILE Headache(784.0) (Primary Dx); Unspecified asthma(493.90) Social History Tobacco Use Types Packs/Day Years Used Date Smoking Tobacco: Never Assessed Comments Unknown Sex and Gender Information Value Date Recorded Sex Assigned at Not on file Legal Sex Female 4:28 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
--- OUTSIDE RECORDS SUMMARY | 2024-12-01 12:18 | XMS_ITS | Encounter Summary ---
Author Organization [facility] Address [address] [place] [address] Care Team Providers Care Lock Up Worker Name Role Phone Non-Staff, Physician Primary Care Provider Unava ilable Encounter Details Date Type Department Care Team (Latest Contact Info) Description 01/28/2001 Outpatient Historical [facility]- [address] [phone] Jakub Sims DO NO ADDRESS ON FILE Migraine, unspecified, without mention of intractable migraine without mention of status migrainosus (Primary Dx); Unspecified essential hypertension Social History Tobacco Use Types Packs/Day Years Used Date Smoking Tobacco: Never Assessed Comments Unknown Sex and Gender Information Value Date Recorded Sex Assigned at Not on file Legal Sex Female 4:28 AM KIDNEY TRIMMER Gender Identity Not on file Sexual Orientation Not on file documented as of this encounter Plan of Treatment Not on file documented as of this encounter Visit Diagnoses Diagnosis Migraine, unspecified, without mention of intractable migraine without mention of status migrainosus- Primary Unspecified essential hypertension documented in this encounter Care Teams Lock Up Worker Relationship Specialty Start Date End Date Non-Staff, Physician NO ADDRESS ON FILE PCP - General 10/18/20 documented as of this encounter
--- OUTSIDE RECORDS SUMMARY | 2024-12-01 12:18 | XMS_ITS | Encounter Summary ---
Author Organization [facility] Address [address] [place] [address] Care Team Providers Care Driver Trainee Name Role Phone Non-Staff, Physician Primary Care Provider Unava ilable Encounter Details Date Type Department Care Team (Latest Contact Info) Description 06/29/2001 Outpatient Historical [facility] Medicine [address] [phone] Chata John MD [address] [place] [phone] Gynecologic examination (Primary Dx) Social History Tobacco Use Types Packs/Day Years Used Date Smoking Tobacco: Never Assessed Comments Unknown Sex and Gender Information Value Date Recorded Sex Assigned at Not on file Legal Sex Female 4:28 AM GRAIN SHOVELER Gender Identity Not on file Sexual Orientation Not on file documented as of this encounter Plan of Treatment Not on file documented as of this encounter Visit Diagnoses Diagnosis Gynecologic examination- Primary Gynecological examination documented in this encounter Care Teams Driver Trainee Relationship Specialty Start Date End Date Non-Staff, Physician NO ADDRESS ON FILE PCP - General 10/18/20 documented as of this encounter
--- OUTSIDE RECORDS SUMMARY | 2024-12-01 12:18 | XMS_ITS | Encounter Summary ---
Author Organization [facility] Address [address] [place] [address] Care Team Providers Care Ophthalmic Tech Name Role Phone Non-Staff, Physician Primary Care Provider Unava ilable Encounter Details Date Type Department Care Team (Latest Contact Info) Description 12/26/2000 Outpatient Historical [facility] Family Medicine- [place] [address] [place] [address] Jakub Sims DO NO ADDRESS ON FILE Headache(784.0) (Primary Dx); Unspecified asthma(493.90) Social History Tobacco Use Types Packs/Day Years Used Date Smoking Tobacco: Never Assessed Comments Unknown Sex and Gender Information Value Date Recorded Sex Assigned at Not on file Legal Sex Female 4:28 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
--- OUTSIDE RECORDS SUMMARY | 2024-12-01 12:18 | XMS_ITS | Encounter Summary ---
Author Organization [facility] Address [address] [place] [address] Care Team Providers Care Tax Assessor Name Role Phone Non-Staff, Physician Primary Care Provider Unava ilable Encounter Details Date Type Department Care Team (Latest Contact Info) Description 06/27/1999 Outpatient Historical [facility]- [address] [phone] Kit Boggs MD [address] [phone] Acute bronchitis (Primary Dx) Social History Tobacco Use Types Packs/Day Years Used Date Smoking Tobacco: Never Assessed Comments Unknown Sex and Gender Information Value Date Recorded Sex Assigned at Not on file Legal Sex Female 4:28 AM DIRECTOR GRAPHICS Gender Identity Not on file Sexual Orientation Not on file documented as of this encounter Plan of Treatment Not on file documented as of this encounter Visit Diagnoses Diagnosis Acute bronchitis- Primary documented in this encounter Care Teams Tax Assessor Relationship Specialty Start Date End Date Non-Staff, Physician NO ADDRESS ON FILE PCP - General 10/18/20 documented as of this encounter
--- OUTSIDE RECORDS SUMMARY | 2024-12-01 12:18 | XMS_ITS | Encounter Summary ---
Author Organization [facility] Address [address] [place] [address] Care Team Providers Care Certified Master Safecracker Name Role Phone Non-Staff, Physician Primary Care Provider Unava ilable Encounter Details Date Type Department Care Team (Latest Contact Info) Description 08/29/2003 Outpatient Historical [facility] Allergy [facility] Asthma- [address] [place] [phone] Saúl Gallardo MD NO ADDRESS ON FILE ALLERGIC RHINITIS NOS (Primary Dx); RESPIRATORY ABNORM NEC Social History Tobacco Use Types Packs/Day Years Used Date Smoking Tobacco: Never Assessed Comments Unknown Sex and Gender Information Value Date Recorded Sex Assigned at Not on file Legal Sex Female 4:28 AM CONSTRUCTION FLAGGER Gender Identity Not on file Sexual Orientation Not on file documented as of this encounter Plan of Treatment Not on file documented as of this encounter Visit Diagnoses Diagnosis Allergic rhinitis, cause unspecified- Primary Other dyspnea and respiratory abnormality documented in this encounter Care Teams Certified Master Safecracker Relationship Specialty Start Date End Date Non-Staff, Physician NO ADDRESS ON FILE PCP - General 10/18/20 documented as of this encounter
--- OUTSIDE RECORDS SUMMARY | 2024-12-01 12:18 | XMS_ITS | Encounter Summary ---
Author Organization [facility] Address [address] [place] [address] Care Team Providers Care Plastic Fixture Builder Name Role Phone Non-Staff, Physician Primary Care Provider Unava ilable Encounter Details Date Type Department Care Team (Latest Contact Info) Description 02/03/2001 Outpatient Historical [address] [phone] Daily Finney MD [address] [place] [address] Unspecified asthma(493.90) (Primary Dx); Acute upper respiratory infections of unspecified site; Nasal/sinus dis NEC Social History Tobacco Use Types Packs/Day Years Used Date Smoking Tobacco: Never Assessed Comments Unknown Sex and Gender Information Value Date Recorded Sex Assigned at Not on file Legal Sex Female 4:28 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
--- OUTSIDE RECORDS SUMMARY | 2024-12-01 12:18 | XMS_ITS | Encounter Summary ---
Author Organization [facility] Address [address] [place]: Epic Prelude [place]T [place] [address] Care Team Providers Care Traffic Maintenance Supervisor Name Role Phone Non-Staff, Physician Primary Care Provider Unava ilable Encounter Details Date Type Department Care Team (Late st Contact Info) Description 07/20/1999 Outpatient Historical Chata John MD [address] [place] [phone] Social History Tobacco Use Types Packs/Day Years Used Date Smoking Tobacco: Never Assessed Comments Unknown Sex and Gender Information Value Date Recorded Sex Assigned at Not on file Legal Sex Female 4:28 AM HUMAN SERVICES SUPERVISOR Gender Identity Not on file Sexual Orientation Not on file documented as of this encounter Plan of Treatment Not on file documented as of this encounter Visit Diagnoses Not on filedocumented in this encounter Care Teams Traffic Maintenance Supervisor Relationship Specialty Start Date End Date Non-Staff, Physician NO ADDRESS ON FILE PCP - General 10/18/20 documented as of this encounter
--- OUTSIDE RECORDS SUMMARY | 2024-12-01 12:18 | XMS_ITS | Encounter Summary ---
Author Organization [facility] Address [address] [place] [address] Care Team Providers Care Cleaning Handyman Name Role Phone Non-Staff, Physician Primary Care Provider Unava ilable Encounter Details Date Type Department Care Team (Late st Contact Info) Description 02/06/2015 Ancillary Orders [facility] [address] [place] [address] Wendy Zeng, ALGOLOGIST [address] [place] [address] Finger pain, right (Primary Dx) Social History Tobacco Use Types Packs/Day Years Used Date Smoking Tobacco: Never Smokeless Tobacco: Never Alcohol Use Standard Drinks/Week Comments No 0 (1 standard drink = 0.6 oz pur e alcohol) Comments No Sex and Gender Information Value Date Recorded Sex Assigned at Not on file Legal Sex Female 4:28 AM RATE INSERTER Gender Identity Not on file Sexual [...] limb documented in this encounter Care Teams Cleaning Handyman Relationship Specialty Start Date End Date Non-Staff, Physician NO ADDRESS ON FILE PCP - General 10/18/20 documented as of this encounter
--- OUTSIDE RECORDS SUMMARY | 2024-12-01 12:18 | XMS_ITS | Encounter Summary ---
Author Organization [facility] Address [address] [place] [address] Care Team Providers Care Machine Carton Marker Name Role Phone Non-Staff, Physician Primary Care Provider Unava ilable Encounter Details Date Type Department Care Team (Latest Contact Info) Description 02/17/1998 Outpatient Historical [facility] Medicine [address] [phone] Chata John MD [address] [place] [phone] Gynecologic examination (Primary Dx) Social History Tobacco Use Types Packs/Day Years Used Date Smoking Tobacco: Never Assessed Comments Unknown Sex and Gender Information Value Date Recorded Sex Assigned at Not on file Legal Sex Female 4:28 AM BARYTES GRINDER Gender Identity Not on file Sexual Orientation Not on file documented as of this encounter Plan of Treatment Not on file documented as of this encounter Visit Diagnoses Diagnosis Gynecologic examination- Primary Gynecological examination documented in this encounter Care Teams Machine Carton Marker Relationship Specialty Start Date End Date Non-Staff, Physician NO ADDRESS ON FILE PCP - General 10/18/20 documented as of this encounter
--- OUTSIDE RECORDS SUMMARY | 2024-12-01 12:18 | XMS_ITS | Encounter Summary ---
Author Organization [facility] Address [address] [place] [address] Care Team Providers Care Roving Frame Tender Name Role Phone Non-Staff, Physician Primary Care Provider Unava ilable Encounter Details Date Type Department Care Team (Latest Contact Info) Description 09/12/2003 Outpatient Historical [facility] Allergy and Asthma- [address] [place] [phone] Saúl Gallardo MD NO ADDRESS ON FILE ALLERGIC RHINITIS NOS (Primary Dx); RESPIRATORY ABNORM NEC Social History Tobacco Use Types Packs/Day Years Used Date Smoking Tobacco: Never Assessed Comments Unknown Sex and Gender Information Value Date Recorded Sex Assigned at Not on file Legal Sex Female 4:28 AM SCUTCHER TENDER Gender Identity Not on file Sexual Orientation Not on file documented as of this encounter Plan of Treatment Not on file documented as of this encounter Visit Diagnoses Diagnosis Allergic rhinitis, cause unspecified- Primary Other dyspnea and respiratory abnormality documented in this encounter Care Teams Roving Frame Tender Relationship Specialty Start Date End Date Non-Staff, Physician NO ADDRESS ON FILE PCP - General 10/18/20 documented as of this encounter
--- OUTSIDE RECORDS SUMMARY | 2024-12-01 12:18 | XMS_ITS | Encounter Summary ---
Author Organization [facility] Address [address] [place] [address] Care Team Providers Care Orthopedic Physical Therapist Name Role Phone Non-Staff, Physician Primary Care Provider Unava ilable Encounter Details Date Type Department Care Team (Latest Contact Info) Description 07/20/1999 Outpatient Historical [facility] Medicine [address] [phone] Chata John MD [address] [place] [phone] Dysplasia of cervix (uteri) (Primary Dx) Social History Tobacco Use Types Packs/Day Years Used Date Smoking Tobacco: Never Assessed Comments Unknown Sex and Gender Information Value Date Recorded Sex Assigned at Not on file Legal Sex Female 4:28 AM DIRECTOR OF AUDIOLOGY Gender Identity Not on file Sexual Orientation Not on file documented as of this encounter Plan of Treatment Not on file documented as of this encounter Visit Diagnoses Diagnosis Dysplasia of cervix (uteri)- Primary documented in this encounter Care Teams Orthopedic Physical Therapist Relationship Specialty Start Date End Date Non-Staff, Physician NO ADDRESS ON FILE PCP - General 10/18/20 documented as of this encounter
--- OUTSIDE RECORDS SUMMARY | 2024-12-01 12:18 | XMS_ITS | Encounter Summary ---
Author Organization [facility] Address [address] [place] [address] Care Team Providers Care Subassembler Name Role Phone Non-Staff, Physician Primary Care Provider Unava ilable Encounter Details Date Type Department Care Team (Latest Contact Info) Description 07/02/2002 Outpatient Historical [address] [phone] Elizabeth Sánchez MD NO ADDRESS ON FILE TINNITUS NOS (Primary Dx) Social History Tobacco Use Types Packs/Day Years Used Date Smoking Tobacco: Never Assessed Comments Unknown Sex and Gender Information Value Date Recorded Sex Assigned at Not on file Legal Sex Female 4:28 AM BIOLOGICAL PHOTOGRAPHER Gender Identity Not on file Sexual Orientation Not on file documented as of this encounter Plan of Treatment Not on file documented as of this encounter Visit Diagnoses Diagnosis Unspecified tinnitus- Primary documented in this encounter Care Teams Subassembler Relationship Specialty Start Date End Date Non-Staff, Physician NO ADDRESS ON FILE PCP - General 10/18/20 documented as of this encounter
--- OUTSIDE RECORDS SUMMARY | 2024-12-01 12:18 | XMS_ITS | Encounter Summary ---
Author Organization [facility] Address [address] [place] [address] Care Team Providers Care Application Security Architect Name Role Phone Non-Staff, Physician Primary Care Provider Unava ilable Encounter Details Date Type Department Care Team (Latest Contact Info) Description 01/11/2004 Outpatient Historical [facility]- [address] [phone] Kit Boggs MD [address] [phone] HYPERTENSION NOS (Primary Dx) Social History Tobacco Use Types Packs/Day Years Used Date Smoking Tobacco: Never Assessed Comments Unknown Sex and Gender Information Value Date Recorded Sex Assigned at Not on file Legal Sex Female 4:28 AM POWDER GUARD Gender Identity Not on file Sexual Orientation Not on file documented as of this encounter Plan of Treatment Not on file documented as of this encounter Visit Diagnoses Diagnosis Unspecified essential hypertension- Primary documented in this encounter Care Teams Application Security Architect Relationship Specialty Start Date End Date Non-Staff, Physician NO ADDRESS ON FILE PCP - General 10/18/20 documented as of this encounter
--- OUTSIDE RECORDS SUMMARY | 2024-12-01 12:18 | XMS_ITS | Encounter Summary ---
Author Organization [facility] Address [address] [place] [address] Care Team Providers Care Television Operator Name Role Phone Non-Staff, Physician Primary Care Provider Unava ilable Encounter Details Date Type Department Care Team (Latest Contact Info) Description 02/11/2001 Outpatient Historical [facility] Medicine- [address] [phone] Kit Boggs MD [address] [phone] Migraine, unspecified, without mention of intractable migraine without mention of status migrainosus (Primary Dx) Social History Tobacco Use Types Packs/Day Years Used Date Smoking Tobacco: Never Assessed Comments Unknown Sex and Gender Information Value Date Recorded Sex Assigned at Not on file Legal Sex Female 4:28 AM HOT OILER Gender Identity Not on file Sexual Orientation Not on file documented as of this encounter Plan of Treatment Not on file documented as of this encounter Visit Diagnoses Diagnosis Migraine, unspecified, without mention of intractable migraine without mention of status migrainosus- Primary documented in this encounter Care Teams Television Operator Relationship Specialty Start Date End Date Non-Staff, Physician NO ADDRESS ON FILE PCP - General 10/18/20 documented as of this encounter
--- OUTSIDE RECORDS SUMMARY | 2024-12-01 12:18 | XMS_ITS | Encounter Summary ---
Author Organization [facility] Address [address] [place] [address] Care Team Providers Care Retail Product Demo Specialist Name Role Phone Non-Staff, Physician Primary Care Provider Unava ilable Encounter Details Date Type Department Care Team (Latest Contact Info) Description 02/13/2001 Outpatient Historical [facility] Medicine- [address] [phone] Kit Boggs MD [address] [phone] Migraine, unspecified, without mention of intractable migraine without mention of status migrainosus (Primary Dx); Anxiety state, unspecified Social History Tobacco Use Types Packs/Day Years Used Date Smoking Tobacco: Never Assessed Comments Unknown Sex and Gender Information Value Date Recorded Sex Assigned at Not on file Legal Sex Female 4:28 AM FACILITY ENGINEER Gender Identity Not on file Sexual Orientation Not on file documented as of this encounter Plan of Treatment Not on file documented as of this encounter Visit Diagnoses Diagnosis Migraine, unspecified, without mention of intractable migraine without mention of status migrainosus- Primary Anxiety state, unspecified documented in this encounter Care Teams Retail Product Demo Specialist Relationship Specialty Start Date End Date Non-Staff, Physician NO ADDRESS ON FILE PCP - General 10/18/20 documented as of this encounter
--- OUTSIDE RECORDS SUMMARY | 2024-12-01 12:18 | XMS_ITS | Encounter Summary ---
Author Organization [facility] Address [address] [place] [address] Care Team Providers Care Quality Controller Name Role Phone Non-Staff, Physician Primary Care Provider Unava ilable Encounter Details Date Type Department Care Team (Latest Contact Info) Description 04/13/2002 Outpatient Historical [facility]- [address] [phone] Kit Boggs MD [address] [phone] URIN TRACT INFECTION NOS (Primary Dx) Social History Tobacco Use Types Packs/Day Years Used Date Smoking Tobacco: Never Assessed Comments Unknown Sex and Gender Information Value Date Recorded Sex Assigned at Not on file Legal Sex Female 4:28 AM 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
--- OUTSIDE RECORDS SUMMARY | 2024-12-01 12:18 | XMS_ITS | Encounter Summary ---
Author Organization [facility] Address [address] [place] [address] Care Team Providers Care Trial Attorney Name Role Phone Non-Staff, Physician Primary Care Provider Unava ilable Encounter Details Date Type Department Care Team (Latest Contact Info) Description 01/07/2001 Outpatient Historical [facility] Medicine- [address] [phone] Kit Boggs MD [address] [phone] Unspecified essential hypertension (Primary Dx); Dietary surveil/phone counselor Social History Tobacco Use Types Packs/Day Years Used Date Smoking Tobacco: Never Assessed Comments Unknown Sex and Gender Information Value Date Recorded Sex Assigned at Not on file Legal Sex Female 4:28 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
--- OUTSIDE RECORDS SUMMARY | 2024-12-01 12:18 | XMS_ITS | Encounter Summary ---
Author Organization [facility] Address [address] [place] [address] Care Team Providers Care Paper Machine Operator Name Role Phone Non-Staff, Physician Primary Care Provider Unava ilable Encounter Details Date Type Department Care Team (Latest Contact Info) Description 03/29/2002 Outpatient Historical [facility]- [address] [phone] Kit Boggs MD [address] [phone] URIN TRACT INFECTION NOS (Primary Dx) Social History Tobacco Use Types Packs/Day Years Used Date Smoking Tobacco: Never Assessed Comments Unknown Sex and Gender Information Value Date Recorded Sex Assigned at Not on file Legal Sex Female 4:28 AM CURRICULUM DEVELOPMENT COORDINATOR Gender Identity Not on file Sexual Orientation Not on file documented as of this encounter Plan of Treatment Not on file documented as of this encounter Visit Diagnoses Diagnosis Urinary tract infection, site not specified- Primary documented in this encounter Care Teams Paper Machine Operator Relationship Specialty Start Date End Date Non-Staff, Physician NO ADDRESS ON FILE PCP - General 10/18/20 documented as of this encounter
--- OUTSIDE RECORDS SUMMARY | 2024-12-01 12:18 | XMS_ITS | Encounter Summary ---
Author Organization [facility] Address [address] [place] [address] Care Team Providers Care Document Design Specialist Name Role Phone Non-Staff, Physician Primary Care Provider Unava ilable Encounter Details Date Type Department Care Team (Latest Contact Info) Description 03/20/1999 Outpatient Historical [facility] Medicine [address] [phone] Chata John MD [address] [place] [phone] Unspecified asthma(493.90) (Primary Dx); [place]cough Social History Tobacco Use Types Packs/Day Years Used Date Smoking Tobacco: Never Assessed Comments Unknown Sex and Gender Information Value Date Recorded Sex Assigned at Not on file Legal Sex Female 4:28 AM PATCH DRILLER Gender Identity Not on file Sexual Orientation Not on file documented as of this encounter Plan of Treatment Not on file documented as of this encounter Visit Diagnoses Diagnosis Unspecified asthma(493.90)- Primary Unspecified asthma Cuong documented in this encounter Care Teams Document Design Specialist Relationship Specialty Start Date End Date Non-Staff, Physician NO ADDRESS ON FILE PCP - General 10/18/20 documented as of this encounter
--- OUTSIDE RECORDS SUMMARY | 2024-12-01 12:18 | XMS_ITS | Encounter Summary ---
Author Organization [facility] Address [address] [place] [address] Care Team Providers Care Roller Bearing Inspector Name Role Phone Non-Staff, Physician Primary Care Provider Unava ilable Encounter Details Date Type Department Care Team (Latest Contact Info) Description 11/21/2000 Outpatient Historical [address] [phone] Jakub Sims DO NO ADDRESS ON FILE Wheezing (Primary Dx) Social History Tobacco Use Types Packs/Day Years Used Date Smoking Tobacco: Never Assessed Comments Unknown Sex and Gender Information Value Date Recorded Sex Assigned at Not on file Legal Sex Female 4:28 AM TODDLER NANNY Gender Identity Not on file Sexual Orientation Not on file documented as of this encounter Plan of Treatment Not on file documented as of this encounter Visit Diagnoses Diagnosis Wheezing- Primary documented in this encounter Care Teams Roller Bearing Inspector Relationship Specialty Start Date End Date Non-Staff, Physician NO ADDRESS ON FILE PCP - General 10/18/20 documented as of this encounter
--- OUTSIDE RECORDS SUMMARY | 2024-12-01 12:18 | XMS_ITS | Encounter Summary ---
Author Organization [facility] Address [address] [place] [address] Care Team Providers Care Name Role Phone Non-Staff, Physician Primary Care Provider Unava ilable Encounter Details Date Type Department Care Team (Latest Contact Info) Description 07/08/2002 Outpatient Historical [facility] Nose [facility] Thro[facility] [address] [place] [address] Chad Magana MD [address] [facility] [address] [place] [address] CHR NONSUP OM NOS/NEC (Primary Dx); TINNITUS NOS; PERIPHERAL VERTIGO NOS Social History Tobacco Use Types Packs/Day Years Used Date Smoking Tobacco: Never Assessed Comments Unknown Sex and Gender Information Value Date Recorded Sex Assigned at Not on file Legal Sex Female 4:28 AM PSYCHOLOGIST ENGINEERING Gender Identity Not on file Sexual Orientation Not on file documented as of this encounter Plan of Treatment Not on file documented as of this encounter Visit Diagnoses Diagnosis Other and unspecified chronic nonsuppurative otitis media- Primary Unspecified tinnitus Peripheral vertigo, unspecified documented in this encounter Care Teams Relationship Specialty Start Date End Date Non-Staff, Physician NO ADDRESS ON FILE PCP - General 10/18/20 documented as of this encounter
--- OUTSIDE RECORDS SUMMARY | 2024-12-01 12:18 | XMS_ITS | Encounter Summary ---
Author Organization [facility] Address [address] [place] [address] Care Team Providers Care Composite Technician Name Role Phone Non-Staff, Physician Primary Care Provider Unava ilable Encounter Details Date Type Department Care Team (Latest Contact Info) Description 06/25/1999 Outpatient Historical [facility]- [address] [phone] Jakub Sims DO NO ADDRESS ON FILE Acute upper respiratory infections of unspecified site (Primary Dx); Unspecified asthma(493.90) Social History Tobacco Use Types Packs/Day Years Used Date Smoking Tobacco: Never Assessed Comments Unknown Sex and Gender Information Value Date Recorded Sex Assigned at Not on file Legal Sex Female 4:28 AM FISCAL MANAGER Gender Identity Not on file Sexual Orientation Not on file documented as of this encounter Plan of Treatment Not on file documented as of this encounter Visit Diagnoses Diagnosis Acute upper respiratory infections of unspecified site- Primary Unspecified asthma(493.90) Unspecified asthma documented in this encounter Care Teams Composite Technician Relationship Specialty Start Date End Date Non-Staff, Physician NO ADDRESS ON FILE PCP - General 10/18/20 documented as of this encounter
--- OUTSIDE RECORDS SUMMARY | 2024-12-01 12:18 | XMS_ITS | Encounter Summary ---
Author Organization [facility] Address [address] [place] [address] Care Team Providers Care Surgical Scrub Technician Name Role Phone Non-Staff, Physician Primary Care Provider Unava ilable Encounter Details Date Type Department Care Team (Late st Contact Info) Description 12/19/1999 Outpatient Historical [facility]- [address] [place] [phone] Alex Prince MD [address] [place] [address] Actinic keratosis (Primary Dx) Social History Tobacco Use Types Packs/Day Years Used Date Smoking Tobacco: Never Assessed Comments Unknown Sex and Gender Information Value Date Recorded Sex Assigned at Not on file Legal Sex Female 4:28 AM SLAT BASKET TOP MAKER Gender Identity Not on file Sexual Orientation Not on file documented as of this encounter Plan of Treatment Not on file documented as of this encounter Visit Diagnoses Diagnosis Actinic keratosis- Primary documented in this encounter Care Teams Surgical Scrub Technician Relationship Specialty Start Date End Date Non-Staff, Physician NO ADDRESS ON FILE PCP - General 10/18/20 documented as of this encounter
--- OUTSIDE RECORDS SUMMARY | 2024-12-01 12:18 | XMS_ITS | Encounter Summary ---
Author Organization [facility] Address [address] [place] [address] Care Team Providers Care Dry Cell Sealer Name Role Phone Non-Staff, Physician Primary Care Provider Unava ilable Encounter Details Date Type Department Care Team (Late st Contact Info) Description 10/16/2000 Outpatient Historical [facility] D[facility]- [address] [place] [address] Alex Prince MD [address] [place] [address] Foreign body granuloma of skin and subcutaneous tissue (Primary Dx) Social History Tobacco Use Types Packs/Day Years Used Date Smoking Tobacco: Never Assessed Comments Unknown Sex and Gender Information Value Date Recorded Sex Assigned at Not on file Legal Sex Female 4:28 AM COLLECTION ADMINISTRATOR Gender Identity Not on file Sexual Orientation Not on file documented as of this encounter Plan of Treatment Not on file documented as of this encounter Visit Diagnoses Diagnosis Foreign body granuloma of skin and subcutaneous tissue- Primary documented in this encounter Care Teams Dry Cell Sealer Relationship Specialty Start Date End Date Non-Staff, Physician NO ADDRESS ON FILE PCP - General 10/18/20 documented as of this encounter
--- OUTSIDE RECORDS SUMMARY | 2024-12-01 12:18 | XMS_ITS | Encounter Summary ---
Author Organization [facility] Address [address] [place] [address] Care Team Providers Care Advertising Project Manager Name Role Phone Non-Staff, Physician Primary Care Provider Unava ilable Encounter Details Date Type Department Care Team (Late st Contact Info) Description 02/04/2003 Outpatient Historical [facility] D[facility]- [address] [place] [address] Alex Prince MD [address] [place] [address] DYSCHROMIA OTHER (Primary Dx); Inflamed seborr keratos Social History Tobacco Use Types Packs/Day Years Used Date Smoking Tobacco: Never Assessed Comments Unknown Sex and Gender Information Value Date Recorded Sex Assigned at Not on file Legal Sex Female 4:28 AM STEFFEN HOUSE SUPERVISOR Gender Identity Not on file Sexual Orientation Not on file documented as of this encounter Plan of Treatment Not on file documented as of this encounter Visit Diagnoses Diagnosis Other dyschromia- Primary Inflamed seborr keratos Inflamed seborrheic keratosis documented in this encounter Care Teams Advertising Project Manager Relationship Specialty Start Date End Date Non-Staff, Physician NO ADDRESS ON FILE PCP - General 10/18/20 documented as of this encounter
--- OUTSIDE RECORDS SUMMARY | 2024-12-01 12:18 | XMS_ITS | Encounter Summary ---
Author Organization [facility] Address [address] [place] [address] Care Team Providers Care Payroll Accounting Manager Name Role Phone Non-Staff, Physician Primary Care Provider Unava ilable Encounter Details Date Type Department Care Team (Latest Contact Info) Description 07/28/2000 Outpatient Historical [facility] Medicine [address] [phone] Chata John MD [address] [place] [phone] Gynecologic examination (Primary Dx) Social History Tobacco Use Types Packs/Day Years Used Date Smoking Tobacco: Never Assessed Comments Unknown Sex and Gender Information Value Date Recorded Sex Assigned at Not on file Legal Sex Female 4:28 AM MAINTENANCE SERVICE SUPERVISOR Gender Identity Not on file Sexual Orientation Not on file documented as of this encounter Plan of Treatment Not on file documented as of this encounter Visit Diagnoses Diagnosis Gynecologic examination- Primary Gynecological examination documented in this encounter Care Teams Payroll Accounting Manager Relationship Specialty Start Date End Date Non-Staff, Physician NO ADDRESS ON FILE PCP - General 10/18/20 documented as of this encounter
--- OUTSIDE RECORDS SUMMARY | 2024-12-01 12:18 | XMS_ITS | Encounter Summary ---
Author Organization [facility] Address [address] [place] [address] Care Team Providers Care Courtroom Reporter Name Role Phone Non-Staff, Physician Primary Care Provider Unava ilable Encounter Details Date Type Department Care Team (Latest Contact Info) Description 01/26/2002 Outpatient Historical [address] [phone] Jakub Sims DO NO ADDRESS ON FILE ACUTE URI NOS (Primary Dx) Social History Tobacco Use Types Packs/Day Years Used Date Smoking Tobacco: Never Assessed Comments Unknown Sex and Gender Information Value Date Recorded Sex Assigned at Not on file Legal Sex Female 4:28 AM BIOPSYCHOLOGIST Gender Identity Not on file Sexual Orientation Not on file documented as of this encounter Plan of Treatment Not on file documented as of this encounter Visit Diagnoses Diagnosis Acute upper respiratory infections of unspecified site- Primary documented in this encounter Care Teams Courtroom Reporter Relationship Specialty Start Date End Date Non-Staff, Physician NO ADDRESS ON FILE PCP - General 10/18/20 documented as of this encounter
--- OUTSIDE RECORDS SUMMARY | 2024-12-01 12:18 | XMS_ITS | Encounter Summary ---
Author Organization [facility] Address [address] [place] [address] Care Team Providers Care Bakery Machine Mechanic Name Role Phone Non-Staff, Physician Primary Care Provider Unava ilable Encounter Details Date Type Department Care Team (Late st Contact Info) Description 07/08/2002 Outpatient Historical [facility] [address] [place] [address] Social History Tobacco Use Types Packs/Day Years Used Date Smoking Tobacco: Never Assessed Comments Unknown Sex and Gender Information Value Date Recorded Sex Assigned at Not on file Legal Sex Female 4:28 AM GRAVURE PRESS SET UP OPERATOR Gender Identity Not on file Sexual Orientation Not on file documented as of this encounter Plan of Treatment Not on file documented as of this encounter Visit Diagnoses Not on filedocumented in this encounter Care Teams Bakery Machine Mechanic Relationship Specialty Start Date End Date Non-Staff, Physician NO ADDRESS ON FILE PCP - General 10/18/20 documented as of this encounter
--- OUTSIDE RECORDS SUMMARY | 2024-12-01 12:18 | XMS_ITS | Encounter Summary ---
Author Organization [facility] Address [address] [place] [address] Care Team Providers Care Job Change Crew Member Name Role Phone Non-Staff, Physician Primary Care Provider Unava ilable Encounter Details Date Type Department Care Team (Latest Contact Info) Description 04/13/1999 Outpatient Historical [facility] Medicine [address] [phone] Chata John MD [address] [place] [phone] Abn Pap Smear-Cervix (Primary Dx) Social History Tobacco Use Types Packs/Day Years Used Date Smoking Tobacco: Never Assessed Comments Unknown Sex and Gender Information Value Date Recorded Sex Assigned at Not on file Legal Sex Female 4:28 AM SENIOR COMMUNICATIONS SPECIALIST Gender Identity Not on file Sexual Orientation Not on file documented as of this encounter Plan of Treatment Not on file documented as of this encounter Visit Diagnoses Diagnosis Abn Pap Smear-Cervix- Primary Abnormal Papanicolaou smear of cervix and cervical HPV documented in this encounter Care Teams Job Change Crew Member Relationship Specialty Start Date End Date Non-Staff, Physician NO ADDRESS ON FILE PCP - General 10/18/20 documented as of this encounter
--- OUTSIDE RECORDS SUMMARY | 2024-12-01 12:18 | XMS_ITS | Encounter Summary ---
Author Organization [facility] Address [address] [place] [address] Care Team Providers Care Global Compensation Analyst Name Role Phone Non-Staff, Physician Primary Care Provider Unava ilable Encounter Details Date Type Department Care Team (Latest Contact Info) Description 09/01/2000 Outpatient Historical [facility] Medicine- [address] [phone] Kit Boggs MD [address] [phone] Allergy, unspecified not elsewhere classified (Primary Dx); Acute upper respiratory infections of unspecified site Social History Tobacco Use Types Packs/Day Years Used Date Smoking Tobacco: Never Assessed Comments Unknown Sex and Gender Information Value Date Recorded Sex Assigned at Not on file Legal Sex Female 4:28 AM COMMERCIAL LOAN COLLECTION OFFICER Gender Identity Not on file Sexual Orientation Not on file documented as of this encounter Plan of Treatment Not on file documented as of this encounter Visit Diagnoses Diagnosis Allergy, unspecified not elsewhere classified- Primary Acute upper respiratory infections of unspecified site documented in this encounter Care Teams Global Compensation Analyst Relationship Specialty Start Date End Date Non-Staff, Physician NO ADDRESS ON FILE PCP - General 10/18/20 documented as of this encounter
--- OUTSIDE RECORDS SUMMARY | 2024-12-01 12:18 | XMS_ITS | Encounter Summary ---
Author Organization [facility] Address [address] [place] [address] Care Team Providers Care Workers Compensation Claims Supervisor Name Role Phone Non-Staff, Physician Primary Care Provider Unava ilable Encounter Details Date Type Department Care Team (Latest Contact Info) Description 04/03/2001 Outpatient Historical [address] [phone] Jakub Sims DO NO ADDRESS ON FILE ACUTE BRONCHITIS (Primary Dx) Social History Tobacco Use Types Packs/Day Years Used Date Smoking Tobacco: Never Assessed Comments Unknown Sex and Gender Information Value Date Recorded Sex Assigned at Not on file Legal Sex Female 4:28 AM SQL SERVER DBA Gender Identity Not on file Sexual Orientation Not on file documented as of this encounter Plan of Treatment Not on file documented as of this encounter Visit Diagnoses Diagnosis Acute bronchitis- Primary documented in this encounter Care Teams Workers Compensation Claims Supervisor Relationship Specialty Start Date End Date Non-Staff, Physician NO ADDRESS ON FILE PCP - General 10/18/20 documented as of this encounter
--- OUTSIDE RECORDS SUMMARY | 2024-12-01 12:18 | XMS_ITS | Encounter Summary ---
Author Organization [facility] Address [address] [place] [address] Care Team Providers Care Sorter Pricer Name Role Phone Non-Staff, Physician Primary Care Provider Unava ilable Encounter Details Date Type Department Care Team (Latest Contact Info) Description 02/10/2004 Outpatient Historical [address] [phone] Diaz Le PA NO ADDRESS ON FILE Vaccine for influenza (Primary Dx) Social History Tobacco Use Types Packs/Day Years Used Date Smoking Tobacco: Never Assessed Comments Unknown Sex and Gender Information Value Date Recorded Sex Assigned at Not on file Legal Sex Female 4:28 AM INKER Gender Identity Not on file Sexual Orientation Not on file documented as of this encounter Plan of Treatment Not on file documented as of this encounter Visit Diagnoses Diagnosis Vaccine for influenza- Primary Need for prophylactic vaccination and inoculation against influenza documented in this encounter Care Teams Sorter Pricer Relationship Specialty Start Date End Date Non-Staff, Physician NO ADDRESS ON FILE PCP - General 10/18/20 documented as of this encounter
--- OUTSIDE RECORDS SUMMARY | 2024-12-01 12:18 | XMS_ITS | Encounter Summary ---
Author Organization [facility] Address [address] [place] [address] Care Team Providers Care Metal Bed Assembler Name Role Phone Non-Staff, Physician Primary Care Provider Unava ilable Encounter Details Date Type Department Care Team (Latest Contact Info) Description 02/04/2000 Outpatient Historical [facility]- [address] [phone] Kit Boggs MD [address] [phone] Contusion of unspecified part of lower limb (Primary Dx) Social History Tobacco Use Types Packs/Day Years Used Date Smoking Tobacco: Never Assessed Comments Unknown Sex and Gender Information Value Date Recorded Sex Assigned at Not on file Legal Sex Female 4:28 AM AUTOMATIC FOLDER SEAMER Gender Identity Not on file Sexual Orientation Not on file documented as of this encounter Plan of Treatment Not on file documented as of this encounter Visit Diagnoses Diagnosis Contusion of unspecified part of lower limb- Primary documented in this encounter Care Teams Metal Bed Assembler Relationship Specialty Start Date End Date Non-Staff, Physician NO ADDRESS ON FILE PCP - General 10/18/20 documented as of this encounter
--- OUTSIDE RECORDS SUMMARY | 2024-12-01 12:18 | XMS_ITS | Encounter Summary ---
Author Organization [facility] Address [address] [place] [address] Care Team Providers Care Cat Hooker Name Role Phone Non-Staff, Physician Primary Care Provider Unava ilable Encounter Details Date Type Department Care Team (Latest Contact Info) Description 09/22/2003 Outpatient Historical [facility]- [address] [place] [phone] Saúl Gallardo MD NO ADDRESS ON FILE ALLERGIC RHINITIS NOS (Primary Dx); RESPIRATORY ABNORM NEC Social History Tobacco Use Types Packs/Day Years Used Date Smoking Tobacco: Never Assessed Comments Unknown Sex and Gender Information Value Date Recorded Sex Assigned at Not on file 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
--- OUTSIDE RECORDS SUMMARY | 2024-12-01 12:18 | XMS_ITS | Encounter Summary ---
Author Organization [facility] Address [address] [place] [address] Care Team Providers Care Supervisor Mold Construction Name Role Phone Non-Staff, Physician Primary Care Provider Unava ilable Encounter Details Date Type Department Care Team (Latest Contact Info) Description 06/25/2002 Outpatient Historical [address] [phone] Jakub Sims DO NO ADDRESS ON FILE TINNITUS NOS (Primary Dx) Social History Tobacco Use Types Packs/Day Years Used Date Smoking Tobacco: Never Assessed Comments Unknown Sex and Gender Information Value Date Recorded Sex Assigned at Not on file 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
--- OUTSIDE RECORDS SUMMARY | 2024-12-01 12:18 | XMS_ITS | Encounter Summary ---
Author Organization [facility] Address [address] [place] [address] Care Team Providers Care Aquarium Specialist Name Role Phone Non-Staff, Physician Primary Care Provider Unava ilable Encounter Details Date Type Department Care Team (Latest Contact Info) Description 11/09/2003 Outpatient Historical [facility] Medicine- [address] [phone] Kit Boggs MD [address] [phone] ACUTE BRONCHITIS (Primary Dx) Social History Tobacco Use Types Packs/Day Years Used Date Smoking Tobacco: Never Assessed Comments Unknown Sex and Gender Information Value Date Recorded Sex Assigned at Not on file 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
--- NOTE | 2024-12-01 12:35 | ECG_ITS ---
[facility] Design Automation Test Date: 2024-12-01 Pat Name: Elisabeth Brown Department: Room: Gender: Female Data Security Administrator: : [id number] Requested By: Kevin Mg Order Number: [id number] Alexys MD: Dillon Horn M.D. Measurements Intervals Lyndon Rate: 76 P: 59 OK: 174 QRS: 22 QRSD: 78 T: 65 QT: 366 QTc: 413 Interpretive Statements SINUS RHYTHM MINIMAL ST DEPRESSION [0.025+ mV ST DEPRESSION] Compared to ECG 10/24/2024 14:24:54 ST (T wave) deviation now present Electronically Signed On 12-02-2024 10:24:14 CDT by Dillon Horn M.D. [email or web address]
--- NOTE | 2024-12-01 12:35 | XR_ITS ---
WS: [id number] Portable AP supine chest, 12/01/2024 Clinical Data: dyspnea/cough Comparison: Portable chest, 10/24/2024 Findings: No nodules, masses or effusions are seen. The heart is normal. The pulmonary vascularity is not increased. No pneumonia or pneumothorax is seen. There is elevation of the left diaphragm. The aortic arch shows tortuosity. There is vertebroplasty cement in the lower thoracic vertebral body. There is a right shoulder prosthesis. XR/XR chest 1V portable [id number] Impression: Atherosclerosis.
[2024-12-01 12:57] LABS: Hematocrit 42.9 % (36-47); Hemoglobin 13.60 g/dL (11.27-16.99); Mean Corpuscular HGB Conc 31.7 g/dL (30-55); Mean Corpuscular Hemoglobin 32.1 pg (27-33); Mean Corpuscular Volume 101.2 fl (85-98); Nucleated Red Blood Cells % 0 %; Platelet Count 189 10^3/cmm (157-399); Red Blood Count 4.24 10^6/uL (3.85-5.65); White Blood Count 11.56 10^3/uL (3.29-11.43)
[2024-12-01 13:07] LABS: INR 1.02 (0.8-1.2); Prothrombin Time 14.10 SECONDS (12.1-14.9)
[2024-12-01 13:09] LABS: Partial Thromboplastin Time 26.5 SECONDS (23.9-36.7)
[2024-12-01 13:13] LABS: Alanine Aminotransferase 10 U/L (0-33); Albumin Level 3.4 g/dL (3.5-5.2); Alkaline Phosphatase 110 U/L (35-105); Anion Gap 14.2 (5-19); Aspartate Amino Transferase 24 U/L (0-32); Blood Urea Nitrogen 16 mg/dL (8-23); Calcium 9.1 mg/dL (8.5-10.5); Carbon Dioxide 27 mmol/L (22-29); Chloride 105 mmol/L (98-107); Creatinine Clr Calc Pharmacy 48.1632; Globulin 3.5 g/dL (1.3-4.6); Glucose 133 mg/dL (65-115); Osmolality Calculated 297 mOsm/kg (285-295); Potassium 4.2 mmol/L (3.5-5.1); Sodium 142 mmol/L (136-145); Total Protein 6.9 g/dL (6.6-8.7)
--- NOTE | 2024-12-01 13:16 | CTR_ITS ---
PROCEDURE INFORMATION: Exam: CT Right Lower Extremity Without Contrast, Thigh Exam date and time: 12/01/2024 2:20 PM Age: 79 years old Clinical indication: Injury or trauma; Fall; Blunt trauma; Thigh or upper leg; Right; Injury details: Distal femur fracture. PT fell while picking her dog up to put them on the bed. Prior surgery; Surgery date: 6+ months; Surgery type: RT hip, knee TECHNIQUE: Imaging protocol: CT of the right lower extremity without contrast was performed. Exam focused on the thigh. Radiation optimization: All CT scans at this facility use at least one of these dose optimization techniques: automated exposure control; mA and/or kV adjustment per patient size (includes targeted exams where dose is matched to clinical indication); or iterative reconstruction. COMPARISON: CR XR femur RT min 2V* [id number] 12/01/2024 12:22 PM RADIATION DOSE METRICS: Total DLP (mGy-cm): 657.8 FINDINGS: Bones/joints: Metallic hardware transfix healing fractures of the proximal right femur. There is an acute longitudinal fracture involving the distal femur. The fracture extends through the supracondylar portion of the femur and exits the bone anteriorly immediately proximal to the knee prosthesis. The fracture does not involve the knee joint. There is mild posterior offset of the distal fracture fragment by about 1.5 cm distance. Soft tissues: Normal. CT/CT femur RT wo con* [id number] IMPRESSION: 1. Acute supracondylar fracture of the distal right femur with mild displacement 2. Healing intertrochanteric fractures
[2024-12-01] MEDS: ondansetron 2 mg/ML SDV 2 mL 4 MG IVP (13:57)
[2024-12-01] MEDS: morphine 4 mg/mL SDV 1 mL IVP (13:58)
[2024-12-01] MEDS: morphine 4 mg/mL SDV 1 mL 2 MG IVP (14:18)
--- NOTE | 2024-12-01 18:08 | PM.HP ---
Providers/Chief Complaint Admitting Physician: Charly Morrison MD Primary Care Provider: Chad De La Fuente DO Chief Complaint: fall, right hip pain History of Present Illness Elisabeth Brown is a 79 year old female admitted with right distal femur fracture. She is companied by her daughter Montserrat who is her youngest daughter her eldest daughter is Samantha Chavez and patient states that we could speak to either of them for medical problems and also for end-of-life decision making. Patient had right intertrochanteric hip fracture repaired by a right intra medullary hip nail on 10/25/2024. 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 This is confirmed by CT scan. Patient states her right leg has been a little weaker than the left since the fracture but prior to that she had some loss of balance after 2 strokes historically. She uses a walker outside the house. Patient says she fell in the kitchen for her last fracture similarly twisting and lost balance. Patient reports her right shoulder is weak but has a history of shoulder replacement 8 to 9 years ago in [place] around 2016. Patient denies chest pain shortness of breath history of cancer blood clots in legs or lungs or bleeding. Patient reports bowel movements about once every 2 to 3 days she denies dysuria Neuro patient reports her last stroke was 3 years ago she denies irregular heartbeat or history of SD Medications/Allergies Home Medications ?Medication ?Instructions ?Recorded ?Confirmed ?Last Taken ?Type aspirin 81 mg tablet,delayed 81 mg PO QPM 07/20/24 12/01/24 11/30/24 History release atorvastatin 40 mg tablet 40 mg PO QPM 07/20/24 12/01/24 11/30/24 19:00 History multivitamin 1 tab PO QPM 07/20/24 12/01/24 11/30/24 19:00 History fluoxetine 20 mg capsule 20 mg PO QPM depression 10/24/24 12/01/24 10/23/24 History Allergies Allergy/AdvReac Type Severity Reaction Status Date / Time sumatriptan (From Imitrex) Allergy ADR/ALGY-Pa Verified 11/11/24 15:44 lpitations PFSH Acute PFSH: Medical History (Updated 12/01/24 @ 18:16 by Charly Morrison MD) History of CVA with residual deficit Enrolled in chronic care management please do not remove from active Environmental and seasonal allergies Essential hypertension Patient was seen in the office several months ago and instructed to take home blood pressure readings and return to the office. Patient did not followup, but today has elevated pressure of 160/100. She states it goes up and down at home. 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 They also had a [employer]. They have since sold that business. She points out that [place] had only population of 600 but they have the largest cross[place]country trail ride in the [place] 7000 people out yearly. 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 [employer] in [facility] and [facility] Do you think of yourself as: Straight/Heterosexual Current gender identity: Female Vitals/I&O/Wt Last Vital Signs Temp 98.4 F 12/01/24 16:06 Pulse 79 12/01/24 16:06 Resp 18 12/01/24 16:06 BP 124/73 12/01/24 16:06 Pulse Ox 92 12/01/24 16:06 O2 Del Method Nasal Cannula 12/01/24 16:06 12/01/24 12/01/24 12/01/24 06:59 14:59 22:59 Intake Total 0 / 0 Balance 0 / 0 Weight last 48 hrs Weight 72.688 kg Weight 74.389 kg Physical Exam Narrative: General well-developed well-nourished female in no acute cardiopulmonary stress CV regular rate and rhythm Lungs clear to auscultation bilaterally Abdomen positive bowel tones soft nontender Calves no tenderness cords pretrip edema Thigh she has some enlargement and tenderness in the thigh but no obvious bruising. It is apparent that there is some swelling from bleeding and or edema Urinary Catheter Management: Burden: Cath Placed During This Visit: yes Urinary Catheter Date of Insertion: 12/01/24 Urinary Catheter Time of Insertion: 15:05 Data 12/01/24 12:51 12/01/24 12:51 A&P Assessment and plan 1. Fracture of distal end of femur: Patient twisted and fell. We discussed that it may be better to fully turn her body instead of twisting before she bends down. Patient agrees Dr. Barrios plans to consult tomorrow and to repair on Friday morning. I am going to limit anticoagulation to heparin 5000 units subcu twice a day because of the swelling that I am seeing 2. History of CVA with residual deficit: Patient had some loss of balance since remote history of strokes no stroke symptoms now she is on aspirin daily and has not had a stroke in 3 years PDMP PDMP Reviewed: Not Reviewed Attestations Medical Necessity Statement*: Patient be hospitalized for repair of her right hip per orthopedic service and will require greater than 2 midnights in hospital Coding Level of Care Code Acute Code for Chg Fwd Diagnoses Fracture of distal end of femur S72.409A History of CVA with residual deficit I69.30
[2024-12-01] MEDS: heparin 5,000 unit/mL INJ 1 mL 5000 UNIT SUBCUT (18:41)
[2024-12-01] MEDS: sodium chlor 0.9% + KCl 20 mEq 20 MEQ/1,000 ML BAG 85 MEQ IV (18:43)
[2024-12-01 20:17] LABS: Glucose Urine UA Negative (Normal); Nitrate Urine Negative (Negative); Specific Gravity, Urine 1.028 (1.005-1.030)
[2024-12-01 20:22] LABS: Add Urine Microscopic? YES
[2024-12-01 20:51] LABS: UA Slide Review UA Slide Review Perf
[2024-12-01] MEDS: oxyCODONE 5 mg IR Tab/Cap PO (21:25)
[2024-12-02] VITALS (8 sets, daily range): BP systolic 103–137; BP diastolic 63–77; PULSE 77–93; RESP 16–19; TEMP 36.7–37; O2SAT 90–91
[2024-12-02 04:16] LABS: Hematocrit 36.0 % (36-47); Hemoglobin 11.20 g/dL (11.27-16.99); Mean Corpuscular HGB Conc 31.1 g/dL (30-55); Mean Corpuscular Hemoglobin 33.2 pg (27-33); Mean Corpuscular Volume 106.8 fl (85-98); Nucleated Red Blood Cells % 0 %; Platelet Count 158 10^3/cmm (157-399); Red Blood Count 3.37 10^6/uL (3.85-5.65); White Blood Count 10.16 10^3/uL (3.29-11.43)
[2024-12-02 04:42] LABS: Anion Gap 11.6 (5-19); Blood Urea Nitrogen 18 mg/dL (8-23); Calcium 8.4 mg/dL (8.5-10.5); Carbon Dioxide 26 mmol/L (22-29); Chloride 107 mmol/L (98-107); Creatinine Clr Calc Pharmacy 42.8649; Glucose 102 mg/dL (65-115); Osmolality Calculated 292 mOsm/kg (285-295); Potassium 4.6 mmol/L (3.5-5.1); Sodium 140 mmol/L (136-145)
[2024-12-02] MEDS: heparin 5,000 unit/mL INJ 1 mL 5000 UNIT SUBCUT ×2 (05:56→17:33)
[2024-12-02] MEDS: sodium chlor 0.9% + KCl 20 mEq 20 MEQ/1,000 ML BAG 85 MEQ IV ×2 (05:58→21:21)
[2024-12-02] MEDS: cefTRIAXone 1,000 mg SDV 1000 MG IVP (09:13)
[2024-12-02] MEDS: oxyCODONE 5 mg IR Tab/Cap PO ×2 (09:13→17:32)
--- NOTE | 2024-12-02 09:27 | PC.CHAP ---
Pastoral Care Encounter/Spiritual Assessment Type of Contact [] Declined felt cementer visit [] Patient/Family/Request visit [] Outpatient visit [] Follow-up visit [] Physician referral [] Code/Alert [x] Routine visit [] Staff referral [] Actively dying [] Patient sleeping [] Family support [] [] Out of room [] Palliative care [] [] Receiving care in room [] Pre-surgical visit [] Trauma [] Long length of stay [] ICU visit [] Other: Relational/Emotional Strength [x] Patient feels connected with others/family/visitors/staff [] Distress [] Loneliness/isolation [] Abandonment Spirituality of Patient [x] Person of Gisella [] Attends Alevism of their Gisella [x] Believes in Prayer [] Reads Bible or Shinto materials [] There are Spiritual issues to be addressed Patient Representative Interventions [x] Prayer [x] Active listening [x] Non-anxious presence [x] Spiritual/emotional support [] Crisis/trauma care [] Spiritual counseling [] Bereavement support [] Provided bereavement packet [] Provided Bible/devotional materials [] Provided toy/stuffed animal, coloring book to patient or family member [] Provided Communion [] Anointing/[place] [] Salvation [x] Completed spiritual assessment [] Other: Impact on Illness or Injury [] Angry [] Fearful [] Anxious [] Often cries [] Exhaustion [] Unable to work [] Unable to attend sabianism [] Unable to walk/stand [] Unable to read [] Unable to drive [] Unable to eat/drink [] Unable to sleep [] Unable to be with family [] Patient intubated [] Other: Summary Time spent with patient 5 min
--- NOTE | 2024-12-02 15:42 | P.PN_ITS ---
Subjective 2 Subjective: 79-year-old female accompanied by her eldest daughter Page. Patient reports an aching in her right thigh but no other complaints. Vitals/I&O/Wt Last Vital Signs Temp 98.5 F 12/02/24 11:52 Pulse 88 12/02/24 11:52 Resp 17 12/02/24 11:52 BP 127/77 12/02/24 11:52 Pulse Ox 90 12/02/24 11:52 O2 Del Method Nasal Cannula 12/02/24 07:44 12/02/24 12/02/24 12/02/24 06:59 14:59 22:59 Intake Total 956.25 / 1316.25 600 / 600 Output Total 100 / 200 Balance 856.25 / 1116.25 600 / 600 Weight last 48 hrs Weight 74.871 kg Weight 72.688 kg Weight 74.389 kg Physical Exam 2 Narrative: General well-developed well-nourished female in no acute cardiopulmonary stress CV regular rate and rhythm Lungs clear to auscultation bilaterally Abdomen positive bowel tones soft nontender Calves no tenderness cords pretibial edema Urinary Catheter Management: Burden: Cath Placed During This Visit: yes Reason for Continuing Indwelling Catheter: Required Immobilization for Trauma or Surgery or Anesthesia Urinary Catheter Date of Insertion: 12/01/24 Urinary Catheter Time of Insertion: 15:05 Data 12/02/24 03:54 12/02/24 03:54 A&P Assessment and plan 1. Fracture of distal end of femur: Patient twisted and fell. We discussed that it may be better to fully turn her body instead of twisting before she bends down. Patient agrees Dr. Barrios plans to consult tomorrow and to repair on Friday morning. I am going to limit anticoagulation to heparin 5000 units subcu twice a day because of the swelling that I am seeing Hematocrit dropped from 42.9-36 will have Dimas wrap applied to the right thigh as tolerated to provide a little pressure and hopefully stanch the bleeding 2. History of CVA with residual deficit: Patient had some loss of balance since remote history of strokes no stroke symptoms now she is on aspirin daily and has not had a stroke in 3 years Fall was related to loss of balance and twisting and bending instead of turning first and then squatting PDMP PDMP Reviewed: Not Reviewed Attestations 2 Medical Necessity Statement*: Patient gómez in the hospital awaiting surgical repair of her right femur fracture distal to recent hip fracture repair Coding Level of Care Code 45338 Diagnoses Fracture of distal end of femur S72.491A Encounter type: initial encounter Fracture morphology: other fracture Fracture type: closed Laterality: right History of CVA with residual deficit I69.30 Time Spent (min) 25
[2024-12-03] VITALS (21 sets, daily range): BP systolic 95–160; BP diastolic 54–103; PULSE 69–97; RESP 12–23; TEMP 36.4–37.3; O2SAT 90–97
[2024-12-03] MEDS: oxyCODONE 5 mg IR Tab/Cap PO ×3 (02:20→17:29)
[2024-12-03 05:06] LABS: Hematocrit 31.5 % (36-47); Hemoglobin 9.80 g/dL (11.27-16.99); Mean Corpuscular HGB Conc 31.1 g/dL (30-55); Mean Corpuscular Hemoglobin 32.5 pg (27-33); Mean Corpuscular Volume 104.3 fl (85-98); Nucleated Red Blood Cells % 0 %; Platelet Count 128 10^3/cmm (157-399); Red Blood Count 3.02 10^6/uL (3.85-5.65); White Blood Count 8.89 10^3/uL (3.29-11.43)
[2024-12-03 05:34] LABS: Anion Gap 13.2 (5-19); Blood Urea Nitrogen 14 mg/dL (8-23); Calcium 8.1 mg/dL (8.5-10.5); Carbon Dioxide 24 mmol/L (22-29); Chloride 104 mmol/L (98-107); Creatinine Clr Calc Pharmacy 54.3543; Glucose 97 mg/dL (65-115); Osmolality Calculated 284 mOsm/kg (285-295); Potassium 4.2 mmol/L (3.5-5.1); Sodium 137 mmol/L (136-145)
--- NOTE | 2024-12-03 07:02 | PM.CONSULT ---
Providers/Reason For Consult Consulting Physician/Specialty*: Hospitalist Reason for Consult*: Fracture of her right femur Attending Physician: Charly Morrison MD Primary Care Provider: Chad De La Fuente DO History of Present Illness History of Present Illness Elisabeth Brown is a 79 year old female had her hip fixed back in October. 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 At this point plan is to take her to surgery today for open reduction internal fixation. Review of Systems Const: Denies: fever(s) or chills Card: Denies: chest pain Resp: Denies: dyspnea GI: Denies: abdominal pain : Denies: dysuria, urinary frequency or urinary urgency Musc: Denies: neck pain or back pain Skin/Breast: Denies: rash Medications/Allergies Home Medications ?Medication ?Instructions ?Recorded ?Confirmed ?Last Taken ?Type aspirin 81 mg tablet,delayed 81 mg PO QPM 07/20/24 12/01/24 11/30/24 History release atorvastatin 40 mg tablet 40 mg PO QPM 07/20/24 12/01/24 11/30/24 19:00 History multivitamin 1 tab PO QPM 07/20/24 12/01/24 11/30/24 19:00 History fluoxetine 20 mg capsule 20 mg PO QPM depression 10/24/24 12/01/24 10/23/24 History Allergies Allergy/AdvReac Type Severity Reaction Status Date / Time sumatriptan (From Imitrex) Allergy ADR/ALGY-Pa Verified 11/11/24 15:44 lpitations Current Medications Generic Name Dose Route Start Last Admin Trade Name Freq PRN Reason Stop Dose Admin Acetaminophen 650 mg 12/01/24 17:01 12/02/24 12:40 Acetaminophen 325 Mg Tablet PO 650 mg Q6H PRN Administration Mild/Mod Pain Or Temp >/= 101 Aspirin 81 mg 12/01/24 18:00 12/02/24 17:33 Aspirin 81 Mg Ec Tablet PO 81 mg QPM VIANEY Administration Atorvastatin Calcium 40 mg 12/01/24 18:00 12/02/24 17:33 Atorvastatin 40 Mg Tablet PO 40 mg QPM VIANEY Administration Ceftriaxone Sodium 1,000 mg 12/02/24 07:45 12/02/24 09:13 Ceftriaxone 1,000 Mg Sdv IVP 12/05/24 07:44 1,000 mg Q24H VIANEY Administration Protocol Docusate Sodium 100 mg 12/01/24 18:00 12/02/24 17:32 Docusate Sodium 100 Mg Capsule PO 100 mg BID VIANEY Administration Fluoxetine HCl 20 mg 12/01/24 18:00 12/02/24 17:33 Fluoxetine 20 Mg Capsule PO 20 mg QPM VIANEY Administration Heparin Sodium (Porcine) 5,000 unit 12/01/24 17:15 12/03/24 06:05 Heparin 5,000 Unit/Ml Inj 1 Ml SUBCUT Not Given Q12H VIANEY Potassium Chloride/Sodium Chloride 20 meq in 1,000 mls @ 85 mls/hr 12/01/24 17:15 12/02/24 21:21 Sodium Chlor 0.9% + Kcl 20 Meq IV 85 mls/hr .[id number] VIANEY Administration Oxycodone HCl 5 mg 12/01/24 17:01 12/03/24 02:20 Oxycodone 5 Mg Ir Tab/Cap PO 5 mg Q6H PRN Administration SEVERE PAIN PFSH Acute PFSH: Medical History (Updated 12/03/24 @ 07:04 by Herminio Barrios DO) History of CVA with residual deficit Enrolled in chronic care management please do not remove from active Environmental and seasonal allergies Essential hypertension Patient was seen in the office several months ago and instructed to take home blood pressure readings and return to the office. Patient did not followup, but today has elevated pressure of 160/100. She states it goes up and down at home. 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 She points out that [place] had only population of 600 but they have the largest cross[place]country trail ride in the [place] 7000 people out yearly. 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 [facility] and [facility] [employer] Do you think of yourself as: Straight/Heterosexual Current gender identity: Female Vitals/I&O/Wt Last Vital Signs Temp 98.1 F 12/03/24 04:00 Pulse 90 12/03/24 04:00 Resp 17 12/03/24 04:00 BP 118/58 12/03/24 04:00 Pulse Ox 91 12/03/24 04:00 O2 Del Method Nasal Cannula 12/03/24 04:00 O2 Flow Rate 1 12/03/24 04:00 12/02/24 12/03/24 12/03/24 22:59 06:59 14:59 Intake Total 1600 / 2200 Output Total 600 / 600 400 / 1000 Balance 1000 / 1600 -400 / 1200 Weight last 48 hrs Weight 168 lb 7 oz Weight 165 lb 1 oz Weight 160 lb 4 oz Weight 164 lb Physical Exam Narrative: Alert and oriented x 3 Head is normocephalic atraumatic Respirations are intact No evidence of any rashes or infection Right leg externally rotated to the right. Urinary Catheter Management: Burden: Cath Placed During This Visit: yes Reason for Continuing Indwelling Catheter: Perioperative Use in Selected Surgeries Urinary Catheter Date of Insertion: 12/01/24 Urinary Catheter Time of Insertion: 15:05 Data 12/03/24 04:38 12/03/24 04:38 A&P Assessment and plan 1. Other closed fracture of distal end of right femur, initial encounter: open reduction internal fixation of the right distal femur plan for today. PDMP PDMP Reviewed: Not Reviewed Coding Level of Care Code Acute Code for Chg Fwd Diagnoses Other closed fracture of distal end of right femur, initial encounter S72.491A Encounter type: initial encounter Fracture type: closed Fracture morphology: other fracture Laterality: right
[2024-12-03] MEDS: cefTRIAXone 1,000 mg SDV 1000 MG IVP (08:22)
[2024-12-03] MEDS: sodium chlor 0.9% + KCl 20 mEq 20 MEQ/1,000 ML BAG 85 MEQ IV (08:31)
--- NOTE | 2024-12-03 10:03 | PC.SOCIAL ---
IMM Updated Updated pt on IMM. No questions voiced. Provided pt a copy. Initialed, dated, & timed a copy & placed in chart.
--- NOTE | 2024-12-03 11:33 | ANES.PREANE2 ---
Pre-Anesthetic Assessment Height/Weight: Height 1.6 m Weight 76.402 kg Temp Pulse Resp BP Pulse Ox O2 Del Method O2 Flow Rate 99.2 F 97 16 150/103 97 Nasal Cannula 2 12/03/24 11:30 12/03/24 11:30 12/03/24 11:30 12/03/24 11:30 12/03/24 11:30 12/03/24 11:30 12/03/24 11:30 Operation Date: 12/03/24 13:05 Proposed Procedures p ORIF of right femur(Right) - Herminio Barrios, DO Familial anesthetic complications: None Was Beta Danya taken within 24 hours: N/A Was Clonidine taken within 24 hours: N/A Last intake: Intake Last Liquid Date 12/02/24 Last Liquid Time 22:00 Last Solid Date 12/02/24 Last Solid Time 17:30 Social No alcohol and No tobacco Exam alert, oriented x 3, clear to auscultation bilaterally and regular rate & rhythm Airway Mallampati: Class I Pulmonary Asthma CV/HEM Hypertension Neuropsych Cerebrovascular Accident Anesthetic Plan ASA status: 3 Anesthesia: General Risk of > 500 ml blood loss (7ml/kg in children): No Medications/Allergies Home Medications ?Medication ?Instructions ?Recorded ?Confirmed ?Last Taken ?Type aspirin 81 mg tablet,delayed 81 mg PO QPM 07/20/24 12/01/24 11/30/24 History release atorvastatin 40 mg tablet 40 mg PO QPM 07/20/24 12/01/24 11/30/24 19:00 History multivitamin 1 tab PO QPM 07/20/24 12/01/24 11/30/24 19:00 History fluoxetine 20 mg capsule 20 mg PO QPM depression 10/24/24 12/01/24 10/23/24 History Allergies Allergy/AdvReac Type Severity Reaction Status Date / Time sumatriptan (From Imitrex) Allergy ADR/ALGY-Pa Verified 11/11/24 15:44 lpitations Current Medications Generic Name Dose Route Start Last Admin Trade Name Freq PRN Reason Stop Dose Admin Acetaminophen 650 mg 12/01/24 17:01 12/02/24 12:40 Acetaminophen 325 Mg Tablet PO 650 mg On Hold: 12/03/24 11:25 Q6H PRN Administration Comment: Order held by Process Mild/Mod Pain Or Temp >/= 101 Transfer Aspirin 81 mg 12/01/24 18:00 12/02/24 17:33 Aspirin 81 Mg Ec Tablet PO 81 mg On Hold: 12/03/24 11:25 QPM VIANEY Administration Comment: Order held by Process Transfer Atorvastatin Calcium 40 mg 12/01/24 18:00 12/02/24 17:33 Atorvastatin 40 Mg Tablet PO 40 mg On Hold: 12/03/24 11:25 QPM VIANEY Administration Comment: Order held by Process Transfer Ceftriaxone Sodium 1,000 mg 12/02/24 07:45 12/03/24 08:22 Ceftriaxone 1,000 Mg Sdv IVP 12/05/24 07:44 1,000 mg On Hold: 12/03/24 11:25 Q24H VIANEY Administration Comment: Order held by Process Protocol Transfer Docusate Sodium 100 mg 12/01/24 18:00 12/03/24 08:21 Docusate Sodium 100 Mg Capsule PO 100 mg On Hold: 12/03/24 11:25 BID VIANEY Administration Comment: Order held by Process Transfer Fluoxetine HCl 20 mg 12/01/24 18:00 12/02/24 17:33 Fluoxetine 20 Mg Capsule PO 20 mg On Hold: 12/03/24 11:25 QPM VIANEY Administration Comment: Order held by Process Transfer Heparin Sodium (Porcine) 5,000 unit 12/01/24 17:15 12/03/24 06:05 Heparin 5,000 Unit/Ml Inj 1 Ml SUBCUT Not Given On Hold: 12/03/24 11:25 Q12H VIANEY Comment: Order held by Process Transfer Potassium Chloride/Sodium Chloride 20 meq in 1,000 mls @ 85 mls/hr 12/01/24 17:15 12/03/24 08:31 Sodium Chlor 0.9% + Kcl 20 Meq IV 85 mls/hr On Hold: 12/03/24 11:25 .[id number] VIANEY Administration Comment: Order held by Process Transfer Oxycodone HCl 5 mg 12/01/24 17:01 12/03/24 08:21 Oxycodone 5 Mg Ir Tab/Cap PO 5 mg On Hold: 12/03/24 11:25 Q6H PRN Administration Comment: Order held by Process SEVERE PAIN Transfer [facility] Anesthesia Medical History (Updated 12/03/24 @ 07:04 by Herminio Barrios DO) History of CVA with residual deficit Enrolled in chronic care management please do not remove from active Environmental and seasonal allergies Essential hypertension Patient was seen in the office several months ago and instructed to take home blood pressure readings and return to the office. Patient did not followup, but today has elevated pressure of 160/100. She states it goes up and down at home. 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 They also had a [employer]. They have since sold that business. She points out that [place] had only population of 600 but they have the largest cross[place]country trail ride [place] the [place] 7000 people out yearly. 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 [employer] in [facility] and [facility] Do you think of yourself as: Straight/Heterosexual Current gender identity: Female Data Anesthesia 12/03/24 04:38 12/03/24 04:38 Short CBC 12/01/24 12/02/24 12/03/24 Range/Units 12:51 03:54 04:38 WBC 11.56 H 10.16 8.89 (3.29-11.43) 10^3/uL Hgb 13.60 11.20 L 9.80 L (11.27-16.99) g/dL Hct 42.9 36.0 31.5 L (36-47) % MCV 101.2 H 106.8 H D 104.3 H (85-98) fl Plt Count 189 158 128 L (157-399) 10^3/cmm Neut % (Auto) 69.7 60.7 65.9 % Neut # (Auto) 8.05 H 6.17 5.85 (1.8-7.7) 10^3/uL BMP 12/01/24 12/02/24 12/03/24 12:51 03:54 04:38 Sodium 142 140 137 Potassium 4.2 4.6 4.2 Chloride 105 107 104 Carbon Dioxide 27 26 24 BUN 16 18 14 Creatinine 0.9 1.0 H 0.7 Glucose 133 H 102 97 Calcium 9.1 8.4 L 8.1 L Liver Function 12/01/24 Range/Units 12:51 Total Bilirubin 0.8 (0.15-1.2) mg/dL AST 24 (0-32) U/L ALT 10 (0-33) U/L Alkaline Phosphatase 110 H (35-105) U/L Albumin 3.4 L (3.5-5.2) g/dL Urine 12/01/24 Range/Units 15:06 Urine Color Dark yellow A (Yellow) Urine Appearance Turbid A (CLEAR) Urine pH 5.5 (5-7) Ur Specific [place] 1.028 (1.005-1.030) Urine Protein 1+ A (Negative) Urine Glucose (UA) Negative (Normal) Urine Ketones Trace (Negative) Urine Nitrate Negative (Negative) Urine Bilirubin Negative (Negative) Ur Leukocyte Esterase 2+ A (Negative) Urine RBC 6-10 (0-2) /hpf Urine WBC >100 H (0-5) /hpf Coags 12/01/24 12:51 PT 14.10 INR 1.02 APTT 26.5 Microbiology 12/01/24 15:06 Urine Culture - Preliminary Urine,Clean Catch Gram Negative Rods Cardiac Studies: Echocardiogram 08/21/23
[2024-12-03] MEDS: ceFAZolin 2,000 mg SDV 2000 MG IVP ×2 (13:12→22:03)
[2024-12-03] MEDS: tranexamic acid 1,000 mg/10mL SDV 1000 MG (13:13)
[2024-12-03] MEDS: tobramycin 40 mg/mL SDV 2mL 120 MG XX (13:54)
--- NOTE | 2024-12-03 14:30 | XRR_ITS ---
PROCEDURE INFORMATION: Exam: XR Right Femur Exam date and time: 12/03/2024 3:18 PM Age: 79 years old Clinical indication: Device placement; Other: RT femoral orif; Prior surgery; Surgery date: Post-operative (0-2 days); Additional info: Postop RT femoral orif, ap and lateral TECHNIQUE: Imaging protocol: Radiologic exam of the right femur. Views: 2 views. COMPARISON: OT XR femur RT min 2V* [id number] 12/03/2024 12:51 PM FINDINGS: Bones/joints: Compared with 12/01/2024 exam, internal fixation plate and screws are seen for stabilization of spiral or oblique fracture through the distal right femoral diaphysis. Satisfactory alignment and position noted postop. Continued findings of prior internal fixation hardware of the right hip for previous intertrochanteric fracture with ongoing healing. Continued findings of right knee prosthesis. Hip and knee joints appear intact. Soft tissues: Postsurgical soft tissue changes. XR/XR femur RT min 2V* [id number] IMPRESSION: Internal fixation hardware plate and screws for stabilization of spiral fracture distal right femoral diaphysis when correlated with prior exam 12/01/2024. Satisfactory alignment and position post op. Hardware appears intact. Continued findings of previous internal fixation of the right hip for intertrochanteric fracture in right knee prosthesis.
--- NOTE | 2024-12-03 14:44 | P.OP_ITS ---
Operative Report Date of procedure: December 03, 2024 Pre-op diagnosis: Periprosthetic distal femur fracture Post-op diagnosis: same Procedure done: Open reduction internal fixation of right periprosthetic distal femur fracture. Surgeon: Herminio Barrios DO Estimated blood loss (mL): 250 Procedure: Open reduction internal fixation of right periprosthetic distal femur fracture Patient is brought to the operative suite after undergoing anesthesia patient was placed in the supine position all areas of impingement were well-padded. Patient was prepped and draped in the normal sterile fashion. Skin incision was made laterally along the right thigh. IT band was split vastus lateralis was brought anteriorly fracture was identified and 2 anterior to posterior lag screws were placed to hold the fracture reduced. Then a [place] plate was slid up submuscularly to the proximal femur to the point of the hip nail. 2 screws were placed in the distal part of the plate. And then a cortical screw was at the most proximal end of the plate was placed around the hip nail. And then 2 locking screws were placed distal to this. And then 4 more screws were placed in the distal end of the plate. These were all locking screws. AP and lateral fluoroscopy of the femur were taken the femur was in good alignment and the plate was in good position. Wounds were irrigated calcium sulfate beads with tobramycin and vancomycin were placed in the wound. Wounds then closed in layered fashion with 0 Vicryl 2-0 Vicryl and Monocryl suture. Sterile dressings were applied and patient is transferred to the PACU in stable condition.
--- NOTE | 2024-12-03 14:52 | XR_ITS ---
WS: [id number] XR femur RT min 2V* [id number] REASON FOR EXAM: OR PICS FINDINGS: Previous short intramedullary keyana and long femoral nail fixation of intertrochanteric fracture. Current long lateral plate and screw fixation of distal femoral shaft fracture. Surgical appliances are intact and in proper position and alignment. Fracture fragments are in good apposition and alignment. XR/XR femur RT min 2V* [id number] IMPRESSION: Internal fixation of femoral shaft fracture as above.
--- NOTE | 2024-12-03 15:35 | ANE.PACU2 ---
Inpatient post-anesthesia follow up: Airway intact: Yes Vital signs: Temperature 98.5 F Pulse Rate 84 Respiratory Rate 18 Blood Pressure 116/59 Pulse Oximetry 95 Oxygen Delivery Me thod Room Air Oxygen Flow Rate 2 Fraction of Inspir ed Oxygen Hydration adequate: Yes Nausea and vomiting: No Pain level: 1 Mental status: Baseline
[2024-12-03 16:01] LABS: Hematocrit 33.3 % (36-47); Hemoglobin 10.30 g/dL (11.27-16.99)
[2024-12-03] MEDS: heparin 5,000 unit/mL INJ 1 mL 5000 UNIT SUBCUT (17:29)
--- NOTE | 2024-12-03 19:35 | P.PN_ITS ---
Subjective 2 Subjective: 79-year-old female post right distal femur fracture ORIF by Dr. Barrios. Patient states she feels fine. I told her that films are done and looks like a great job was done on her leg Vitals/I&O/Wt Last Vital Signs Temp 98.4 F 12/03/24 18:40 Pulse 83 12/03/24 18:40 Resp 17 12/03/24 18:40 BP 112/60 12/03/24 18:40 Pulse Ox 94 12/03/24 18:40 O2 Del Method Nasal Cannula 12/03/24 18:40 O2 Flow Rate 2 12/03/24 11:30 12/03/24 12/03/24 12/03/24 06:59 14:59 22:59 Intake Total 1049.167 / 1049.167 360 / 1409.167 Output Total 400 / 1000 350 / 350 800 / 1150 Balance -400 / 1200 699.167 / 699.167 -440 / 259.167 Weight last 48 hrs Weight 76.402 kg Weight 74.871 kg Physical Exam 2 Narrative: General well-developed well-nourished female in no acute cardiopulmonary stress CV regular rate and rhythm Lungs clear to auscultation bilaterally Calves no edema on the left the right 1 is in a Dimas wrap. The right thigh is enlarged versus the left underneath Dimas wrap and a brace Urinary Catheter Management: Burden: Cath Placed During This Visit: yes Reason for Continuing Indwelling Catheter: Required Immobilization for Trauma or Surgery or Anesthesia Urinary Catheter Date of Insertion: 12/01/24 Urinary Catheter Time of Insertion: 15:05 Data 12/03/24 15:00 12/03/24 04:38 Micro: Microbiology 12/01/24 15:06 Urine Culture - Preliminary Urine,Clean Catch Gram Negative Rods A&P Assessment and plan 1. Other closed fracture of distal end of right femur, initial encounter: Patient twisted and fell. No syncope Right femur was repaired. Patient is hoping to go home under the care of her granddaughter who is 21 and not working outside the home and can help her. 1 thing to note granddaughter has a young child though 2. History of CVA with residual deficit: Patient had some loss of balance since remote history of strokes no stroke symptoms now she is on aspirin daily and has not had a stroke in 3 years Fall was related to loss of balance and twisting and bending instead of turning first and then squatting PDMP PDMP Reviewed: Not Reviewed Attestations 2 Medical Necessity Statement*: Patient remains in the hospital under postoperative care and physical therapy anticipated greater than 2 midnights prior to discharge Coding Level of Care Code 41738 Diagnoses Other closed fracture of distal end of right femur, initial encounter S72.491A Encounter type: initial encounter Fracture morphology: other fracture Fracture type: closed Laterality: right History of CVA with residual deficit I69.30 Time Spent (min) 50
[2024-12-04] VITALS (8 sets, daily range): BP systolic 94–121; BP diastolic 53–81; PULSE 66–84; RESP 16–18; TEMP 36.6–36.8; O2SAT 93–97
[2024-12-04 04:08] LABS: Hematocrit 32.3 % (36-47); Hemoglobin 9.70 g/dL (11.27-16.99); Mean Corpuscular HGB Conc 30.0 g/dL (30-55); Mean Corpuscular Hemoglobin 31.6 pg (27-33); Mean Corpuscular Volume 105.2 fl (85-98); Nucleated Red Blood Cells % 0 %; Platelet Count 129 10^3/cmm (157-399); Red Blood Count 3.07 10^6/uL (3.85-5.65); White Blood Count 11.59 10^3/uL (3.29-11.43)
[2024-12-04 04:32] LABS: Blood Urea Nitrogen 13 mg/dL (8-23); Calcium 8.2 mg/dL (8.5-10.5); Carbon Dioxide 24 mmol/L (22-29); Chloride 106 mmol/L (98-107); Creatinine Clr Calc Pharmacy 54.8965; Glucose 162 mg/dL (65-115); Osmolality Calculated 294 mOsm/kg (285-295); Sodium 140 mmol/L (136-145)
[2024-12-04 04:34] LABS: Anion Gap 14.9 (5-19); Potassium 4.9 mmol/L (3.5-5.1)
[2024-12-04] MEDS: ceFAZolin 2,000 mg SDV 2000 MG IVP ×2 (05:52→13:32)
[2024-12-04] MEDS: sodium chlor 0.9% + KCl 20 mEq 20 MEQ/1,000 ML BAG 85 MEQ IV (05:52)
[2024-12-04] MEDS: heparin 5,000 unit/mL INJ 1 mL 5000 UNIT SUBCUT ×2 (05:52→17:37)
[2024-12-04] MEDS: oxyCODONE 5 mg IR Tab/Cap PO ×2 (05:52→13:32)
[2024-12-04] MEDS: cefTRIAXone 1,000 mg SDV 1000 MG IVP (08:46)
--- NOTE | 2024-12-04 13:58 | P.PN_ITS ---
Subjective 2 Subjective: Patient's pain is well-controlled sitting up in bed today. Vitals/I&O/Wt Last Vital Signs Temp 98.0 F 12/04/24 12:00 Pulse 74 12/04/24 12:00 Resp 18 12/04/24 13:32 BP 94/54 12/04/24 12:00 Pulse Ox 95 12/04/24 12:00 O2 Del Method Room Air 12/04/24 12:00 O2 Flow Rate 2 12/03/24 11:30 12/03/24 12/04/24 12/04/24 22:59 06:59 14:59 Intake Total 2360 / 3409.167 480 / 480 Output Total 800 / 1150 350 / 1500 Balance 1560 / 2259.167 -350 / 1909.167 480 / 480 Weight last 48 hrs Weight 177 lb 1.6 oz Weight 168 lb 7 oz Physical Exam 2 Narrative: Dressing and splint intact. Urinary Catheter Management: Burden: Cath Placed During This Visit: yes Reason for Continuing Indwelling Catheter: Required Immobilization for Trauma or Surgery or Anesthesia Urinary Catheter Date of Insertion: 12/01/24 Urinary Catheter Time of Insertion: 15:05 Data 12/04/24 03:28 12/04/24 03:28 A&P Assessment and plan 1. Other closed fracture of distal end of right femur, initial encounter: Patient is postop day 1 periprosthetic femur fracture Up with physical therapy Toe-touch weightbearing PDMP PDMP Reviewed: Not Reviewed Attestations 2 Medical Necessity Statement*: Per primary service Coding Level of Care Code Acute Code for g Fwd Diagnoses Other closed fracture of distal end of right femur, initial encounter S72.491A Encounter type: initial encounter Fracture morphology: other fracture Fracture type: closed Laterality: right
--- NOTE | 2024-12-04 16:13 | P.PN_ITS ---
Subjective 2 Subjective: Patient's pain is well-controlled and says she has been up with therapy already today Vitals/I&O/Wt Last Vital Signs Temp 98.3 F 12/04/24 15:00 Pulse 82 12/04/24 15:00 Resp 16 12/04/24 15:00 BP 113/53 12/04/24 15:00 Pulse Ox 93 12/04/24 15:00 O2 Del Method Room Air 12/04/24 15:00 O2 Flow Rate 2 12/03/24 11:30 12/04/24 12/04/24 12/04/24 06:59 14:59 22:59 Intake Total 480 / 480 Output Total 350 / 1500 Balance -350 / 1909.167 480 / 480 Weight last 48 hrs Weight 80.331 kg Weight 76.402 kg Physical Exam 2 Narrative: General well-developed well-nourished female in no acute cardiopulmonary stress CV regular rate and rhythm Lungs clear to auscultation bilaterally Calves no edema on the left. the right 1 is in a Dimas wrap. The right thigh is enlarged versus the left underneath Dimas wrap and a brace Urinary Catheter Management: Burden: Cath Placed During This Visit: yes Reason for Continuing Indwelling Catheter: Required Immobilization for Trauma or Surgery or Anesthesia Urinary Catheter Date of Insertion: 12/01/24 Urinary Catheter Time of Insertion: 15:05 Data 12/04/24 03:28 12/04/24 03:28 A&P Assessment and plan 1. Other closed fracture of distal end of right femur, initial encounter: Status postrepair there is some blood loss anemia but hematocrit is actually stable the last 2 days If hematocrit still stable the morning anticipate changing to apixaban DVT prophylaxis 2.5 mg twice a day for 35 days 2. History of CVA with residual deficit: Patient had some loss of balance since remote history of strokes no stroke symptoms now she is on aspirin daily and has not had a stroke in 3 years Fall was related to loss of balance and twisting and bending instead of turning first and then squatting PDMP PDMP Reviewed: Not Reviewed Attestations 2 Medical Necessity Statement*: Patient monitored in the hospital for 1-2 more days with physical therapy and mobility plans to go to group home on Friday Coding Level of Care Code 90896 Diagnoses Other closed fracture of distal end of right femur, initial encounter S72.491A Encounter type: initial encounter Fracture morphology: other fracture Fracture type: closed Laterality: right History of CVA with residual deficit I69.30 Time Spent (min) 25
[2024-12-04] MEDS: polyethylene glycol 3350 Pkt 17 gm PO (17:37)
[2024-12-05] VITALS: BP 133/73; PULSE 82; RESP 18; TEMP 36.9; O2SAT 92
[2024-12-05 02:22] LABS: Hematocrit 26.2 % (36-47); Hemoglobin 7.90 g/dL (11.27-16.99); Mean Corpuscular HGB Conc 30.2 g/dL (30-55); Mean Corpuscular Hemoglobin 31.7 pg (27-33); Mean Corpuscular Volume 105.2 fl (85-98); Nucleated Red Blood Cells % 0 %; Platelet Count 117 10^3/cmm (157-399); Red Blood Count 2.49 10^6/uL (3.85-5.65); White Blood Count 10.35 10^3/uL (3.29-11.43)
[2024-12-05 02:51] LABS: Thyroid Stimulating Hormone 4.54 uIU/mL (0.27-4.20)
[2024-12-05 03:00] LABS: Estmated Average Glucose 88; Hemoglobin A1C 4.7 % (4.0-6.0)
[2024-12-05 04:00] VITALS: BP 110/61; PULSE 78; RESP 18; TEMP 36.8; O2SAT 92
[2024-12-05] MEDS: heparin 5,000 unit/mL INJ 1 mL 5000 UNIT SUBCUT ×2 (05:17→18:24)
[2024-12-05 07:35] VITALS: BP 126/60; PULSE 78; RESP 18; TEMP 36.6; O2SAT 95
[2024-12-05] MEDS: polyethylene glycol 3350 Pkt 17 gm PO (10:31)
[2024-12-05 11:12] VITALS: BP 137/62; PULSE 89; RESP 18; TEMP 36.5; O2SAT 96
--- NOTE | 2024-12-05 14:01 | P.PN_ITS ---
Subjective 2 Subjective: Patient states she has not had therapy today but is ready to get up when anybody asks her to do so. Vitals/I&O/Wt Last Vital Signs Temp 97.7 F 12/05/24 11:12 Pulse 89 12/05/24 11:12 Resp 18 12/05/24 11:12 BP 137/62 12/05/24 11:12 Pulse Ox 96 12/05/24 11:12 O2 Del Method Room Air 12/05/24 11:12 O2 Flow Rate 2 12/03/24 11:30 12/04/24 12/05/24 12/05/24 22:59 06:59 14:59 Intake Total 1240 / 1720 480 / 480 Output Total 500 / 500 250 / 750 Balance 740 / 1220 -250 / 970 480 / 480 Weight last 48 hrs Weight 80.15 kg Weight 80.331 kg Physical Exam 2 Narrative: General well-developed well-nourished female in no acute cardiopulmonary stress CV regular rate and rhythm Lungs clear to auscultation bilaterally Calves no edema on the left. the right 1 is in a Dimas wrap. The right thigh is enlarged versus the left underneath Dimas wrap and a brace. Objectively a little bit larger but not measured Mentation alert and oriented x 3 Urinary Catheter Management: Burden: Cath Placed During This Visit: yes Reason for Continuing Indwelling Catheter: Required Immobilization for Trauma or Surgery or Anesthesia Urinary Catheter Date of Insertion: 12/01/24 Urinary Catheter Time of Insertion: 15:05 Data 12/05/24 01:43 12/04/24 03:28 Micro: Microbiology 12/01/24 15:06 Urine Culture - Final Urine,Clean Catch Klebsiella pneumoniae A&P Assessment and plan 1. Other closed fracture of distal end of right femur, initial encounter: Status postrepair there is some blood loss anemia but hematocrit is actually stable the last 2 days If hematocrit still stable the morning anticipate changing to apixaban DVT prophylaxis 2.5 mg twice a day for 35 days Hematocrit dropped. Continue on twice a day subcu heparin but hold off on apixaban 2. History of CVA with residual deficit: Patient had some loss of balance since remote history of strokes no stroke symptoms now she is on aspirin daily and has not had a stroke in 3 years Fall was related to loss of balance and twisting and bending instead of turning first and then squatting PDMP PDMP Reviewed: Not Reviewed Attestations 2 Medical Necessity Statement*: If hematocrit is stable potential discharge tomorrow or Friday to care home facility for rehab Coding Level of Care Code Acute Code for Chg Fwd Diagnoses Other closed fracture of distal end of right femur, initial encounter S72.491A Encounter type: initial encounter Fracture morphology: other fracture Fracture type: closed Laterality: right History of CVA with residual deficit I69.30 Time Spent (min) 25
--- NOTE | 2024-12-05 15:28 | P.PN_ITS ---
Subjective 2 Subjective: Patient is having more pain today. At this point patient was resting when I walked in the room. Vitals/I&O/Wt Last Vital Signs Temp 97.7 F 12/05/24 11:12 Pulse 89 12/05/24 11:12 Resp 18 12/05/24 11:12 BP 137/62 12/05/24 11:12 Pulse Ox 96 12/05/24 11:12 O2 Del Method Room Air 12/05/24 11:12 O2 Flow Rate 2 12/03/24 11:30 12/05/24 12/05/24 12/05/24 06:59 14:59 22:59 Intake Total 480 / 480 Output Total 250 / 750 Balance -250 / 970 480 / 480 Weight last 48 hrs Weight 176 lb 11.2 oz Weight 177 lb 1.6 oz Physical Exam 2 Narrative: Right leg neurovascular intact Urinary Catheter Management: Burden: Cath Placed During This Visit: yes Reason for Continuing Indwelling Catheter: Required Immobilization for Trauma or Surgery or Anesthesia Urinary Catheter Date of Insertion: 12/01/24 Urinary Catheter Time of Insertion: 15:05 Data 12/05/24 01:43 12/04/24 03:28 Micro: Microbiology 12/01/24 15:06 Urine Culture - Final Urine,Clean Catch Klebsiella pneumoniae A&P Assessment and plan 1. Other closed fracture of distal end of right femur, initial encounter: Postop day #2 right distal femur ORIF Up with therapy toe-touch weightbearing PDMP PDMP Reviewed: Not Reviewed Attestations 2 Medical Necessity Statement*: Per primary service Coding Level of Care Code Acute Code for [facility] Fwd Diagnoses Other closed fracture of distal end of right femur, initial encounter S72.491A Encounter type: initial encounter Fracture morphology: other fracture Fracture type: closed Laterality: right
[2024-12-05 17:11] VITALS: BP 125/67; PULSE 94; RESP 19; TEMP 36.4; O2SAT 94
[2024-12-05] MEDS: ondansetron 2 mg/ML SDV 2 mL 4 MG IVP (18:24)
[2024-12-05 20:00] VITALS: BP 113/49; PULSE 103; RESP 18; TEMP 38.4; O2SAT 93
--- NOTE | 2024-12-05 21:42 | PC.NURSE ---
2030 pt temp 101.1, c/o nausea and emesis present, unable to give tylenol for fever due to emesis present, cool compress to head at this time. call placed to Dr. Carrasco and order received for compazine, cbc, cmp, blood culture. Dr. carrasco stated she will be ordering ABT but do not give until blood culture has been drawn. 2129 compazine administered, unable to give tylenol yet due to N/V. pt cool compress to head continue at this time
[2024-12-05 22:43] LABS: Hematocrit 28.2 % (36-47); Hemoglobin 9.10 g/dL (11.27-16.99); Mean Corpuscular HGB Conc 32.3 g/dL (30-55); Mean Corpuscular Hemoglobin 32.5 pg (27-33); Mean Corpuscular Volume 100.7 fl (85-98); Nucleated Red Blood Cells % 0 %; Platelet Count 144 10^3/cmm (157-399); Red Blood Count 2.80 10^6/uL (3.85-5.65); White Blood Count 12.53 10^3/uL (3.29-11.43)
[2024-12-05] MEDS: piperacillin-tazobactam 3.375 GM in sodium chloride 0.9% (plus) 50 ML IV (22:48)
[2024-12-05 23:00] LABS: Alanine Aminotransferase 6 U/L (0-33); Albumin Level 3.1 g/dL (3.5-5.2); Alkaline Phosphatase 86 U/L (35-105); Anion Gap 13.2 (5-19); Aspartate Amino Transferase 39 U/L (0-32); Blood Urea Nitrogen 11 mg/dL (8-23); Calcium 8.8 mg/dL (8.5-10.5); Carbon Dioxide 26 mmol/L (22-29); Chloride 100 mmol/L (98-107); Creatinine Clr Calc Pharmacy 56.2240; Globulin 3.0 g/dL (1.3-4.6); Glucose 128 mg/dL (65-115); Osmolality Calculated 281 mOsm/kg (285-295); Potassium 4.2 mmol/L (3.5-5.1); Sodium 135 mmol/L (136-145); Total Protein 6.1 g/dL (6.6-8.7)
[2024-12-06] VITALS: BP 114/54; PULSE 97; RESP 17; TEMP 37.4; O2SAT 90
[2024-12-06] MEDS: vancomycin 1,750 MG/350 ML PIGGYBACK 175 MG IV (00:13)
[2024-12-06 04:00] VITALS: BP 116/59; PULSE 84; RESP 18; TEMP 36.9; O2SAT 95
[2024-12-06 04:48] LABS: Hematocrit 26.8 % (36-47); Hemoglobin 8.20 g/dL (11.27-16.99); Mean Corpuscular HGB Conc 30.6 g/dL (30-55); Mean Corpuscular Hemoglobin 32.2 pg (27-33); Mean Corpuscular Volume 105.1 fl (85-98); Nucleated Red Blood Cells % 0 %; Platelet Count 132 10^3/cmm (157-399); Red Blood Count 2.55 10^6/uL (3.85-5.65); White Blood Count 10.23 10^3/uL (3.29-11.43)
--- NOTE | 2024-12-06 05:03 | ECG_ITS ---
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
[2024-12-06] MEDS: heparin 5,000 unit/mL INJ 1 mL 5000 UNIT SUBCUT ×2 (05:48→17:02)
[2024-12-06] MEDS: piperacillin-tazobactam 3.375 GM in sodium chloride 0.9% (plus) 50 ML IV ×3 (07:11→23:39)
[2024-12-06 07:28] VITALS: BP 106/51; PULSE 98; RESP 16; TEMP 37.2; O2SAT 93
--- NOTE | 2024-12-06 07:28 | P.PN_ITS ---
Subjective 2 Subjective: Resting comfortable in bed. He was complaining about nausea and fevers last night. Vitals/I&O/Wt Last Vital Signs Temp 98.5 F 12/06/24 04:00 Pulse 84 12/06/24 04:00 Resp 18 12/06/24 04:00 BP 116/59 12/06/24 04:00 Pulse Ox 95 12/06/24 04:00 O2 Del Method Room Air 12/06/24 04:00 O2 Flow Rate 2 12/03/24 11:30 12/05/24 12/06/24 12/06/24 22:59 06:59 14:59 Intake Total 400 / 880 1000 / 1000 Output Total 1201 / 1201 1125 / 2326 Balance -1201 / -721 -725 / -1446 1000 / 1000 Weight last 48 hrs Weight 174 lb 8 oz Weight 176 lb 11.2 oz Physical Exam 2 Narrative: Dressings clean dry intact right lower extremity neurovasc intact Urinary Catheter Management: Burden: Cath Placed During This Visit: yes Reason for Continuing Indwelling Catheter: Other Urinary Catheter Date of Insertion: 12/01/24 Urinary Catheter Time of Insertion: 15:05 Data 12/06/24 03:47 12/05/24 22:18 Micro: Microbiology 12/05/24 22:18 Blood Culture - Preliminary Blood SPECIMEN COLLECTED 12/05/24 22:18 Blood Culture - Preliminary Blood SPECIMEN COLLECTED A&P Assessment and plan 1. Other closed fracture of distal end of right femur, initial encounter: Up with therapy Discharge planning PDMP PDMP Reviewed: Not Reviewed Attestations 2 Medical Necessity Statement*: Per primary service Coding Level of Care Code Acute Code for Chg Fwd Diagnoses Other closed fracture of distal end of right femur, initial encounter S72.491A Encounter type: initial encounter Fracture morphology: other fracture Fracture type: closed Laterality: right
--- NOTE | 2024-12-06 07:38 | PM.MISC ---
Miscellaneous Note Purpose of Documentation: Febrile illness in the setting of hip surgery and on antibiotics for a UTI that was completed on this day Note: This is an 79-year-old who had had hip fracture coming from the skilled nursing and receiving care but started having febrile illness beyond 101 ?F. I did not feel that the source is the urine I worry about the recent procedures. Patient had undergone 2 procedures within the space of time regarding the fracture of the hip. I panculture patient from blood, covered patient with empiric antibiotics with vancomycin for pharmacy to dose and Zosyn as well. I ordered also CBC for care. Will defer to the primary team rounding to continue care and further evaluate.
[2024-12-06] MEDS: polyethylene glycol 3350 Pkt 17 gm PO (08:27)
--- NOTE | 2024-12-06 08:46 | XR_ITS ---
WS: [id number] XR chest 1V portable [id number] REASON FOR EXAM: fever FINDINGS: The chest is unchanged compared to 12/01/2024. Calcification and tortuosity of the thoracic aorta. Normal heart size. Eventration of the left hemidiaphragm. Calcified granulomatous disease bilaterally. No acute pulmonary parenchymal or pleural abnormality. Previous L1 vertebroplasty. Previous right burst shoulder right shoulder arthroplasty. XR/XR chest 1V portable [id number] IMPRESSION: Stable chest without acute abnormality.
--- NOTE | 2024-12-06 12:29 | P.PN_ITS ---
Subjective 2 Subjective: Patient developed a fever to 101 Fahrenheit last evening. Additionally reports she had multiple episodes of vomiting through the course of the night. [place] sick to her stomach. No abdominal pain. No diarrhea. She feels much better this morning. Hemoglobin at 8.2 this morning. Medications: Reviewed: Yes Vitals/I&O/Wt Last Vital Signs Temp 98.8 F 12/06/24 16:10 Pulse 89 12/06/24 16:10 Resp 17 12/06/24 16:10 BP 106/66 12/06/24 16:10 Pulse Ox 93 12/06/24 16:10 O2 Del Method Room Air 12/06/24 04:00 O2 Flow Rate 2 12/03/24 11:30 12/06/24 12/06/24 12/06/24 06:59 14:59 22:59 Intake Total 400 / 880 1530 / 1530 Output Total 1125 / 2326 800 / 800 Balance -725 / -1446 730 / 730 Weight last 48 hrs Weight 79.152 kg Weight 80.15 kg Physical Exam 2 Narrative: General: No acute distress, AO x3 HEENT: PERRLA, pupils bilaterally equal and reactive, pallors not present Chest: Normal vesicular breath sounds, no added sounds, equal good air entry bilaterally CVS: S1-S2 regular, no murmurs, no tachycardia, no gallops, no rubs Abdomen: Soft, nontender, no organomegaly, bowel sounds present Neuro: No focal deficits, no facial deformity, AO x3, power 5/5 in all limbs Extremities: Immobilizer over right leg. Urinary Catheter Management: Burden: Cath Placed During This Visit: yes, but has since been removed by the nurse Reason for Continuing Indwelling Catheter: Decision to DC Catheter Urinary Catheter Date of Insertion: 12/01/24 Urinary Catheter Time of Insertion: 15:05 Date Urinary Catheter Removed: 12/06/24 Time Urinary Catheter Discontinued: 14:00 Data 12/06/24 03:47 12/05/24 22:18 Micro: Microbiology 12/05/24 22:18 Blood Culture - Preliminary Blood SPECIMEN COLLECTED 12/05/24 22:18 Blood Culture - Preliminary Blood SPECIMEN COLLECTED A&P Assessment and plan 1. Other closed fracture of distal end of right femur, initial encounter: Status postrepair there is some blood loss anemia but hematocrit is actually stable the last 2 days If hematocrit still stable the morning anticipate changing to apixaban DVT prophylaxis 2.5 mg twice a day for 35 days Hematocrit dropped. Continue on twice a day subcu heparin but hold off on apixaban 2. History of CVA with residual deficit: Patient had some loss of balance since remote history of strokes no stroke symptoms now she is on aspirin daily and has not had a stroke in 3 years Fall was related to loss of balance and twisting and bending instead of turning first and then squatting Plan: December 06, 2024 Patient was febrile overnight to 101 Fahrenheit. WBC count test stable today. Additionally had multiple episodes of vomiting overnight. This is resolved now. Will check respiratory viral panel as viral gastroenteritis may explain both fever and vomiting that she developed overnight. Patient was diagnosed with a UTI when she came in. Urine culture is showing Klebsiella pneumonia sensitive to ceftriaxone. Patient has been on treatment with ceftriaxone therefore doubt worsening UTI to be the cause of her symptoms. Chest x-ray was taken which did not show any consolidation. Abdominal exam is benign.patient's antibiotics were changed from ceftriaxone to Zosyn overnight.. We will continue to monitor her over the next 24 hours for any recurrence of fever or worsening symptoms. Encourage participation with PT OT. Remove Burden catheter. PDMP PDMP Reviewed: Not Reviewed Attestations 2 Medical Necessity Statement*: Febrile overnight, needs fever source evaluation. Coding Level of Care Code Acute Code for Chg Fwd Moderate MDM includes number and complexity of problems actively addressed during encounter, amount and/or complexity of data reviewed/ordered and described risk of complication, morbidity or mortality of management as documented Diagnoses Other closed fracture of distal end of right femur, initial encounter S72.491A Encounter type: initial encounter Fracture morphology: other fracture Fracture type: closed Laterality: right History of CVA with residual deficit I69.30
[2024-12-06 14:25] LABS: Coronavirus 229E,HKU1,NL63,OC4 Not Detected (NOT DETECT); Parainfluenza Virus Type 1 Not Detected (NOT DETECT); Parainfluenza Virus Type 2 Not Detected (NOT DETECT); Parainfluenza Virus Type 3 Not Detected (NOT DETECT); Parainfluenza Virus Type 4 Not Detected (NOT DETECT); SARS-COV-2 Not Detected (NOT DETECT)
--- NOTE | 2024-12-06 14:27 | PC.SOCIAL ---
IMM Updated Updated pt on IMM. No questions voiced. Provided pt a copy. Initialed, dated, & timed copy in chart.
[2024-12-06 16:10] VITALS: BP 106/66; PULSE 89; RESP 17; TEMP 37.1; O2SAT 93
[2024-12-06 19:50] VITALS: BP 114/68; PULSE 93; RESP 16; TEMP 37.6; O2SAT 94
[2024-12-07] VITALS: BP 118/70; PULSE 90; RESP 17; TEMP 37.3; O2SAT 95
[2024-12-07 03:53] VITALS: BP 120/72; PULSE 80; RESP 16; TEMP 36.6; O2SAT 94
[2024-12-07 05:03] LABS: Hematocrit 25.7 % (36-47); Hemoglobin 8.10 g/dL (11.27-16.99); Mean Corpuscular HGB Conc 31.5 g/dL (30-55); Mean Corpuscular Hemoglobin 32.1 pg (27-33); Mean Corpuscular Volume 102.0 fl (85-98); Nucleated Red Blood Cells % 0 %; Platelet Count 131 10^3/cmm (157-399); Red Blood Count 2.52 10^6/uL (3.85-5.65); White Blood Count 6.62 10^3/uL (3.29-11.43)
[2024-12-07 05:23] LABS: Alanine Aminotransferase 6 U/L (0-33); Albumin Level 2.5 g/dL (3.5-5.2); Alkaline Phosphatase 69 U/L (35-105); Anion Gap 12.1 (5-19); Aspartate Amino Transferase 31 U/L (0-32); Blood Urea Nitrogen 11 mg/dL (8-23); Calcium 8.3 mg/dL (8.5-10.5); Carbon Dioxide 27 mmol/L (22-29); Chloride 106 mmol/L (98-107); Creatinine Clr Calc Pharmacy 55.8705; Globulin 2.7 g/dL (1.3-4.6); Glucose 103 mg/dL (65-115); Osmolality Calculated 292 mOsm/kg (285-295); Potassium 4.1 mmol/L (3.5-5.1); Sodium 141 mmol/L (136-145); Total Protein 5.2 g/dL (6.6-8.7)
[2024-12-07] MEDS: heparin 5,000 unit/mL INJ 1 mL 5000 UNIT SUBCUT (05:55)
[2024-12-07] MEDS: piperacillin-tazobactam 3.375 GM in sodium chloride 0.9% (plus) 50 ML IV (06:45)
[2024-12-07 07:22] VITALS: BP 119/62; PULSE 78; RESP 16; TEMP 36.7; O2SAT 90
[2024-12-07] MEDS: polyethylene glycol 3350 Pkt 17 gm PO (08:44)
[2024-12-07 10:51] VITALS: RESP 16
[2024-12-07] MEDS: oxyCODONE 5 mg IR Tab/Cap PO (10:51)
[2024-12-07 10:54] VITALS: BP 103/66; PULSE 84; RESP 16; TEMP 36.8; O2SAT 98
--- NOTE | 2024-12-07 11:17 | PC.NURSE ---
Report called to Jasmin at [facility]. All questions answered. IVs removed.
[2024-12-07 11:19] VITALS: BP 103/66; PULSE 84; RESP 16; TEMP 36.8; O2SAT 98
--- NOTE | 2024-12-07 15:18 | P.DS_ITS ---
Discharge Providers Date of Admission: 12/01/24 14:30 Date of Discharge: December 07, 2024 Attending Provider at Admission: Charly Morrison MD Attending Provider at Discharge: Donna Eric MD Primary Care Provider: Chad De La Fuente DO Diagnoses at Discharge Discharge Diagnosis 1. Other closed fracture of distal end of right femur, initial encounter: 2. History of CVA with residual deficit: 3. Anemia: Reason for Visit Reason for Visit: fall, right hip pain Hospital Course Hospital Course Eilsabeth Brown is a 79 year old female who recently underwent a right intramedullary hip nail on October 25, 2024. 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 This resulted in a femur fracture distal to the recent hip repair. On December 03, 2024 she underwent open reduction internal fixation of the right periprosthetic distal femur fracture. Hospital course was notable for a UTI for which she received treatment with IV ceftriaxone. Urine culture showed Klebsiella pneumoniae which was sensitive to the medication. Burden catheter was removed on December 06, 2024. Hospital course was also notable for acute on chronic anemia, her hemoglobin stabilized at 8.1 on day of discharge. She has been discharged with oral iron 325 mg twice daily, and therapeutic multivitamin. There was no hematemesis melena or other gross hematoma encountered at the surgical site. On the evening of December 05, 2024 at 8 PM, patient developed a fever of 101 Fahrenheit along with abdominal discomfort and multiple episodes of vomiting. This resolved by the next morning. Fever source evaluation overall remained unrevealing. No leukocytosis. Chest x-ray did not show any consolidation. Patient's abdominal exam was benign. She did not have any diarrhea. There was no tenderness on exam. Blood cultures remain negative to date. She was on appropriate for UTI at this time with ceftriaxone. She did not have any recurrence of fever or vomiting. Perhaps symptoms may have been related to transient viral gastroenteritis which resolved. Respiratory viral panel was negative. Patient feels well on the day of discharge. She denies any pain. Saturating 98% on room air. Participating with physical therapy. Aspirin was changed to 325 mg p.o. daily for the next 3 weeks which will also suffice for DVT prophylaxis. Thereafter patient can resume her usual dose of 81 mg p.o. daily. Physical Exam Narrative: General: No acute distress, AO x3 HEENT: PERRLA, pupils bilaterally equal and reactive, pallors not present Chest: Normal vesicular breath sounds, no added sounds, equal good air entry bilaterally CVS: S1-S2 regular, no murmurs, no tachycardia, no gallops, no rubs Abdomen: Soft, nontender, no organomegaly, bowel sounds present Neuro: No focal deficits, no facial deformity, AO x3, power 5/5 in all limbs Urinary Catheter Management: Burden: Cath Placed During This Visit: yes, but has since been removed by the nurse Reason for Continuing Indwelling Catheter: Decision to DC Catheter Urinary Catheter Date of Insertion: 12/01/24 Urinary Catheter Time of Insertion: 15:05 Date Urinary Catheter Removed: 12/06/24 Time Urinary Catheter Discontinued: 14:00 Discharge Data Studies Completed and Pending Completed Studies During Hospitalization Category Date Time Status CT femur RT wo con* [id number] Stat Cat Scan 12/01/24 13:16 Completed CXRP [XR chest 1V portable [id number]] Routine Exams 12/06/24 08:46 Completed XR chest 1V portable [id number] Stat Exams 12/01/24 12:35 Completed XR femur RT min 2V* [id number] Routine Exams 12/03/24 14:30 Completed XR femur RT min 2V* [id number] Routine Exams 12/03/24 14:52 Completed XR femur RT min 2V* [id number] Stat Exams 12/01/24 12:13 Completed XR hip RT 2-3V wo/w pel* [id number] Stat Exams 12/01/24 12:10 Completed Pending at discharge Category Date Time Status Blood Culture Stat Lab 12/05/24 22:18 Results Radiology Impressions Hip/Pelvis X-Ray 12/01/24 12:10 IMPRESSION: Unchanged postoperative right hip. No acute findings. Femur CT 12/01/24 13:16 IMPRESSION: 1. Acute supracondylar fracture of the distal right femur with mild displacement 2. Healing intertrochanteric fractures Femur X-Ray 12/03/24 14:52 IMPRESSION: Internal fixation of femoral shaft fracture as above. Chest X-Ray 12/06/24 08:46 IMPRESSION: Stable chest without acute abnormality. Laboratory Results WBC 6.62 10^3/uL (3.29-11.43) 12/07/24 04:49 RBC 2.52 10^6/uL (3.85-5.65) L 12/07/24 04:49 Hgb 8.10 g/dL (11.27-16.99) L 12/07/24 04:49 Hct 25.7 % (36-47) L 12/07/24 04:49 MCV 102.0 fl (85-98) H 12/07/24 04:49 MCH 32.1 pg (27-33) 12/07/24 04:49 MCHC 31.5 g/dL (30-55) 12/07/24 04:49 RDW 14.0 % (12.1-15.1) 12/07/24 04:49 Plt Count 131 10^3/cmm (157-399) L 12/07/24 04:49 MPV 10.1 fL (7.4-10.4) 12/07/24 04:49 Neut % (Auto) 63.3 % 12/07/24 04:49 Lymph % (Auto) 21.0 % 12/07/24 04:49 Boyle % (Auto) 10.9 % 12/07/24 04:49 Eos % (Auto) 4.2 % 12/07/24 04:49 Baso % (Auto) 0.3 % 12/07/24 04:49 Neut # (Auto) 4.19 10^3/uL (1.8-7.7) 12/07/24 04:49 Lymph # (Auto) 1.4 10^3/uL (0.8-4.8) 12/07/24 04:49 Boyle # (Auto) 0.7 10^3/uL (0.2-0.9) 12/07/24 04:49 Eos # (Auto) 0.3 10^3/uL (0.0-0.8) 12/07/24 04:49 Baso # (Auto) 0.0 10^3/uL (0.0-0.1) 12/07/24 04:49 Nucleated RBC % (auto) 0 % 12/07/24 04:49 Nucleated RBCs # 0.0 /100WBC 12/07/24 04:49 PT 14.10 SECONDS (12.1-14.9) 12/01/24 12:51 INR 1.02 (0.8-1.2) 12/01/24 12:51 APTT 26.5 SECONDS (23.9-36.7) 12/01/24 12:51 Sodium 141 mmol/L (136-145) 12/07/24 04:49 Potassium 4.1 mmol/L (3.5-5.1) 12/07/24 04:49 Chloride 106 mmol/L (98-107) 12/07/24 04:49 Carbon Dioxide 27 mmol/L (22-29) 12/07/24 04:49 Anion Gap 12.1 (5-19) 12/07/24 04:49 BUN 11 mg/dL (8-23) 12/07/24 04:49 Creatinine 0.8 mg/dL (0.5-0.9) 12/07/24 04:49 GFR Calculation Not Reportable 12/07/24 04:49 Glucose 103 mg/dL (65-115) 12/07/24 04:49 Estimat Average Glucose 88 12/05/24 01:43 Hemoglobin A1c 4.7 % (4.0-6.0) 12/05/24 01:43 Calculated Osmolality 292 mOsm/kg (285-295) 12/07/24 04:49 Calcium 8.3 mg/dL (8.5-10.5) L 12/07/24 04:49 Total Bilirubin 0.9 mg/dL (0.15-1.2) 12/07/24 04:49 AST 31 U/L (0-32) 12/07/24 04:49 ALT 6 U/L (0-33) 12/07/24 04:49 Alkaline Phosphatase 69 U/L (35-105) 12/07/24 04:49 Total Protein 5.2 g/dL (6.6-8.7) L 12/07/24 04:49 Albumin 2.5 g/dL (3.5-5.2) L 12/07/24 04:49 Globulin 2.7 g/dL (1.3-4.6) 12/07/24 04:49 TSH 4.54 uIU/mL (0.27-4.20) H 12/05/24 01:43 Urine Color Dark yellow (Yellow) A 12/01/24 15:06 Urine Appearance Turbid (CLEAR) A 12/01/24 15:06 Urine pH 5.5 (5-7) 12/01/24 15:06 Ur Specific [place] 1.028 (1.005-1.030) 12/01/24 15:06 Urine Protein 1+ (Negative) A 12/01/24 15:06 Urine Glucose (UA) Negative (Normal) 12/01/24 15:06 Urine Ketones Trace (Negative) 12/01/24 15:06 Urine Blood Trace (Negative) A 12/01/24 15:06 Urine Nitrate Negative (Negative) 12/01/24 15:06 Urine Bilirubin Negative (Negative) 12/01/24 15:06 Urine Urobilinogen 1.0 mg/dL (Negative) 12/01/24 15:06 Ur Leukocyte Esterase 2+ (Negative) A 12/01/24 15:06 Urine RBC 6-10 /hpf (0-2) 12/01/24 15:06 Urine WBC >100 /hpf (0-5) H 12/01/24 15:06 Ur Squamous Epith Cells 6-10 /hpf (0-5) 12/01/24 15:06 Calcium Oxalate Crystal 0-4 /hpf H 12/01/24 15:06 Amorphous Sediment 2+ /hpf 12/01/24 15:06 Urine Bacteria Trace /hpf (NONE) 12/01/24 15:06 Hyaline Casts 2.46 /lpf 12/01/24 15:06 Adenovirus (PCR) Not detected (NOT DETECT) 12/06/24 12:30 C. pneumoniae DNA (PCR) Not detected (NOT DETECT) 12/06/24 12:30 Coronavirus 229E (PCR) Not detected (NOT DETECT) 12/06/24 12:30 Human Metapneumovir PCR Not detected (NOT DETECT) 12/06/24 12:30 Influenza A (H1) PCR Not detected (NOT DETECT) 12/06/24 12:30 Influ A (H1/09) PCR Not detected (NOT DETECT) 12/06/24 12:30 Influenza A (H3) PCR Not detected (NOT DETECT) 12/06/24 12:30 Influenza Type A (PCR) Not detected (NOT DETECT) 12/06/24 12:30 Influenza Type B (PCR) Not detected (NOT DETECT) 12/06/24 12:30 M. pneumoniae (PCR) Not detected (NOT DETECT) 12/06/24 12:30 Parainfluenza 1 (PCR) Not detected (NOT DETECT) 12/06/24 12:30 Parainfluenza 2 (PCR) Not detected (NOT DETECT) 12/06/24 12:30 Parainfluenza 3 (PCR) Not detected (NOT DETECT) 12/06/24 12:30 Parainfluenza 4 (PCR) Not detected (NOT DETECT) 12/06/24 12:30 RSV Type A (PCR) Not detected (NOT DETECT) 12/06/24 12:30 RSV Type B (PCR) Not detected (NOT DETECT) 12/06/24 12:30 Entero/Rhino (PCR) Not detected (NOT DETECT) 12/06/24 12:30 SARS-CoV-2 (PCR) Not detected (NOT DETECT) 12/06/24 12:30 Blood Type A Positive 12/03/24 11:11 Rho(D) Type Rh positive 12/03/24 11:11 Antibody Screen Negative 12/03/24 11:11 Vitals Last Vital Signs Temp 98.2 F 12/07/24 11:19 Pulse 84 12/07/24 11:19 Resp 16 12/07/24 11:19 BP 103/66 12/07/24 11:19 Pulse Ox 98 12/07/24 11:19 O2 Del Method Room Air 12/07/24 10:54 O2 Flow Rate 2 12/03/24 11:30 Discharge Plan Discharge Patient Disposition: Xfer SNF Condition: Stable Prescriptions: New oxycodone 5 mg Tablet 5 mg PO Q6H PRN (Reason: Severe Pain) 5 Days Qty: 20 0RF aspirin 325 mg tablet 325 mg PO DAILY 21 Days Qty: 20 0RF ondansetron HCl 4 mg tablet 4 mg PO Q8H PRN (Reason: nausea and vomiting) 5 Days Qty: 15 0RF polyethylene glycol 3350 [Miralax] 17 gram/dose powder 4 g PO DAILY Qty: 119 0RF ferrous sulfate 325 mg (65 mg iron) tablet,delayed release (DR/EC) 325 mg PO BID 30 Days Qty: 60 0RF lactulose 10 gram/15 mL solution 10 g PO DAILY Qty: 300 0RF Rx Instructions: can discontinue use when constipation resolves multivitamin Tablet 1 tab PO DAILY Qty: 30 0RF Continued multivitamin Tablet 1 tab PO QPM fluoxetine 20 mg capsule 20 mg PO QPM Held aspirin 81 mg tablet,delayed release (DR/EC) 81 mg PO QPM Hold Instructions: Resume on 12/28/24. hold for 3 weeks while you are on ASA 325mg No Action atorvastatin 40 mg tablet 40 mg PO QPM Qty: 30 0RF [employer] OK for DC: Orthopedics Discharge Order = DC NOW: Discharge Order (Routine); Ordered 12/07/24 Ordered By: Donna Eric Referrals: [facility] [Outside] Herminio Barrios DO [Physician, Orthopedics] - 12/16/24 2:45 pm Chad De La Fuente DO [Primary Care Provider, Family Practice] - 7-10 days Patient Instructions: Oxycodone, Slow Release (By mouth), Acute Wound Care (DC), ORIF of a Leg Fracture (GEN), Opioid Safety, Post Anesthesia Care, Patient Portal & Leonel Instructions Activity Restrictions/Additional Instructions: You are being discharged from the hospital today during which time you have been under the care of Dr. Barrios. You had a femur fracture. You were treated for this injury with open reduction internal fixation of right femur. You may resume you normal diet (including any special diets as directed by your primary doctor) as well as your home medications. You should follow up with you primary doctor if you have any questions regarding medication you took prior to your stay in the hospital. You may take your pain medication as prescribed. After the first few days, take your pain medication as needed. Do not drive or drink alcohol while taking your pain medication. Your injury may increase your risk of developing a blood clot,or DVT, in your arm or leg. This could potentially dislodge and travel to your lungs and become a life threatening condition called apulmonary embolus,or PE. You have been prescribed aspirin to be taken to prevent this. Frequent movement of the legs will also help prevent this from occurring. If you develop any new or worsening cough, chestpain, bloody sputum or shortness of breath, call 911 or go to the EmergencyRoom. Always keep your surgical incision/dressing clean and dry. If you experience increasing pain at your incision site, redness, swelling, increasing discharge, foul odors, or fevers (greater than 100.4), night sweats or chills you should call the office at the above number. If you feel this is an emergency you should be evaluated in the Emergency Department of a nearby hospital. Orthopedic Patient Instructions Summary: Weight Bearing: Toe-touch weightbearing Activity: As tolerated. Diet: Regular. Splint Care: Keep splint clean and dry. Cover with a plastic bag for bathing. Wound Care: Keep dressing clean and dry. Anticoagulation: Aspirin Pain Medication: Take only as needed. Ice, rest and elevation will be of great benefit. Please plan to follow-up [facility] Dr. Barrios in 2 weeks. You will need to call the clinic [phone] to schedule this visit. Thank you far allowing me to participate in your care. Do not hesitate to call the office with any questions or concerns. Patient's Health Concerns: You are being discharged with higher dose of aspirin today at 325 mg for 3 weeks for DVT prophylaxis. Please hold ASA 81mg po daily while you are on the higher dose Discharge Attestations Time Spent in Discharge Care*: greater than 30 min Quality Metrics Clinical Quality Measures [ No reported AMI, CVA or VTE this stay] Coding Level of Care Code Acute Code for [facility] Fwd Diagnoses Other closed fracture of distal end of right femur, initial encounter S72.491A Encounter type: initial encounter Fracture morphology: other fracture Fracture type: closed Laterality: right History of CVA with residual deficit I69.30 Anemia D64.9
--- OUTSIDE RECORDS SUMMARY | 2025-01-22 19:00 | XMS_ITS | Clinical Summary ---
Author Organization Unknown Care Team Providers Care Box Tender Name Role Phone ANDERSON SUAREZ DO Unavailable Unavailable NICANOR HEBERT, VASQUEZ Unavailable Unavailable Payers Payer Name Policy Type Policy Number Effective Date Expira tion Date MEDICARE - [facility] [place] [id number] Problems Condition Name Condition Details Condition Category Status Onset Date Resolution Date Last Treatment Date Treating Clinician Comments NONDISP SUBTROCHNT FX R FEMUR, SUBS FOR CLOS FX W ROUTN HEAL Active 05-05 00:00: 00 ESSENTIAL (PRIMARY) HYPERTENSION Active 05-05 00:00: 00 OTHER SEQUELAE OF CEREBRAL INFARCTION Active 05-05 00:00: 00 UNSTEADINESS ON FEET Active 05-05 00:00: 00 OTHER SPECIFIED ANEMIAS Active 05-05 00:00: 00 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) USE OF 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 Active 05-05 00:00: 00 HISTORY OF FALLING Active 05-05 00:00: 00 Allergies, Adverse Reactions, Alerts Allergy Name Allergy Type Status Severity Reaction(s) Onset Date Inactive Date Treating Clinician Comments IMITREX Propensity to adverse reactions Active 2024-11 06:26:2 3 Vital Signs Vital Name Observation Time Observation Value Commen ts Temperature 2024-11-25 12:33:00.000 97.1 [degF] BMI (%) 2024-11-25 12:33:00.000 29 kg/m2 Height 2024-11-25 12:33:00.000 63 [in_us] Pulse 2024-11-25 12:33:00.000 71 /min O2 Saturation (%) 2024-11-25 12:33:00.000 98 % Respirations 2024-11-25 12:33:00.000 16 /min Weight (lbs) 2024-11-25 12:33:00.000 164 [lb_av] Systolic Blood Pressure 2024-11-25 12:33:00.000 126 mm [Hg] Diastolic Blood Pressure 2024-11-25 12:33:00.000 76 mm [Hg] Plan of Treatment Planned Activity Planned Date Details Comments Future Scheduled Test SKILLED NU RSE TO EVALUATE PATIENT, IDENTIFY PRIMARY AND CO-MORBID CONDITIONS CODED PER CODING GUIDELINES, AND DEVELOP PATIENT SPECIFIC PLAN OF CARE THAT INCLUDES PATIENT GOAL FOR HOME HEALTH. [code = SKILLED NURSE TO EVALUATE PATIENT, IDENTIFY PRIMARY AND CO-MORBID CONDITIONS CODED PER CODING GUIDELINES, AND DEVELOP PATIENT SPECIFIC PLAN OF CARE THAT INCLUDES PATIENT GOAL FOR HOME HEALTH.] Future Scheduled Test [facility] AGENCY MAY ACCEPT ORDERS FROM THE FOLLOWING PHYSICIANS: ALL PROVIDERS INVOLVED IN CARE ASSESSMENT [code = HOME HEALTH AGENCY MAY ACCEPT ORDERS FROM THE FOLLOWING PHYSICIANS: ALL PROVIDERS INVOLVED IN CARE ASSESSMENT ] Future Scheduled Test SKILLED NU RSE FOR O/A OF MUSCULOSKELETAL STATUS AND TEACHING ON MEASURES TO MANAGE RIGHT FEMUR FRACTURE AND TO MAINTAIN SAFETY WITH ACTIVITY [code = SKILLED NURSE FOR O/A OF MUSCULOSKELETAL STATUS AND TEACHING ON MEASURES TO MANAGE RIGHT FEMUR FRACTURE AND TO MAINTAIN SAFETY WITH ACTIVITY] Future Scheduled Test SKILLED NU RSE TO PROVIDE TEACHING ON SIGNS AND SYMPTOMS AND MANAGEMENT OF HYPERTENSION. [code = SKILLED NURSE TO PROVIDE TEACHING ON SIGNS AND SYMPTOMS AND MANAGEMENT OF HYPERTENSION.] Future Scheduled Test SKILLED NU RSE FOR O/A AND SKILLED TEACHING RELATED TO SIGNS AND SYMPTOMS AND MANAGEMENT OF RIGHT FEMUR FRACTURE [code = SKILLED NURSE FOR O/A AND SKILLED TEACHING RELATED TO SIGNS AND SYMPTOMS AND MANAGEMENT OF RIGHT FEMUR FRACTURE ] Future Scheduled Test VIRTUAL SIT FREQUENCY: 12 PRN VIRTUAL VISITS MAY BE PERFORMED UTILIZING TELECOMMUNICATIONS SYSTEM TO OPTIMIZE SKILLED SERVICES FURNISHED ON THE PLAN OF CARE. SKILLED NURSE TO ESTABLISH SUPPORT MEASURES TO MINIMIZE RISK OF REHOSPITALIZATION, AND INSTRUCT PATIENT/CAREGIVER ON METHODS TO REDUCE AVOIDABLE HOSPITALIZATION. [code = VIRTUAL VISIT FREQUENCY: 12 PRN VIRTUAL VISITS MAY BE PERFORMED UTILIZING TELECOMMUNICATIONS SYSTEM TO OPTIMIZE SKILLED SERVICES FURNISHED ON THE PLAN OF CARE. SKILLED NURSE TO ESTABLISH SUPPORT MEASURES TO MINIMIZE RISK OF REHOSPITALIZATION, AND INSTRUCT PATIENT/CAREGIVER ON METHODS TO REDUCE AVOIDABLE HOSPITALIZATION.] Future Scheduled Test PATIENT LOGAN S A RISK OF HOSPITALIZATION AND ED USE. SKILLED NURSE TO ESTABLISH SUPPORT MEASURES TO MINIMIZE RISK OF HOSPITALIZATION AND ED USE, AND INSTRUCT PATIENT/CAREGIVER ON METHODS TO REDUCE AVOIDABLE HOSPITALIZATION AND ED USE. [code = PATIENT HAS A RISK OF HOSPITALIZATION AND ED USE. SKILLED NURSE TO ESTABLISH SUPPORT MEASURES TO MINIMIZE RISK OF HOSPITALIZATION AND ED USE, AND INSTRUCT PATIENT/CAREGIVER ON METHODS TO REDUCE AVOIDABLE HOSPITALIZATION AND ED USE.] Future Scheduled Test SKILLED NU RSE TO PROVIDE INSTRUCTION TO PATIENT/CAREGIVER RELATED TO DISCHARGE PLANNING. [code = SKILLED NURSE TO PROVIDE INSTRUCTION TO PATIENT/CAREGIVER RELATED TO DISCHARGE PLANNING.] Future Scheduled Test SKILLED NU RSE TO PERFORM ENVIRONMENTAL SAFETY RISK ASSESSMENT AND FALL RISK ASSESSMENT AND PROVIDE INSTRUCTION TO IMPLEMENT ENVIRONMENTAL SAFETY AND FALL PREVENTION STRATEGIES THROUGHOUT THE CERTIFICATION PERIOD. SKILLED NURSE WILL MAINTAIN SITUATIONAL AWARENESS AND WILL NOTIFY CLINICAL BRAKE OPERATOR AND PHYSICIAN/PROVIDER WITH ANY CHANGE IN CONDITION. [code = SKILLED NURSE TO PERFORM ENVIRONMENTAL SAFETY RISK ASSESSMENT AND FALL RISK ASSESSMENT AND PROVIDE INSTRUCTION TO IMPLEMENT ENVIRONMENTAL SAFETY AND FALL PREVENTION STRATEGIES THROUGHOUT THE CERTIFICATION PERIOD. SKILLED NURSE WILL MAINTAIN SITUATIONAL AWARENESS AND WILL NOTIFY CLINICAL BRAKE OPERATOR AND PHYSICIAN/PROVIDER WITH ANY CHANGE IN CONDITION.] Future Scheduled Test SKILLED NU RSE FOR OBSERVATION AND ASSESSMENT OF PATIENTS PAIN LEVEL AND EFFECTIVENESS OF PAIN MANAGEMENT REGIMEN. SKILLED NURSE TO INSTRUCT PATIENT/CAREGIVER REGARDING PHARMACOLOGIC AND NON-PHARMACOLOGIC PAIN CONTROL MEASURES. SKILLED NURSE TO REPORT TO PHYSICIAN IF PAIN LEVEL IS OUTSIDE OF ESTABLISHED PARAMETERS. [code = SKILLED NURSE FOR OBSERVATION AND ASSESSMENT OF PATIENTS PAIN LEVEL AND EFFECTIVENESS OF PAIN MANAGEMENT REGIMEN. SKILLED NURSE TO INSTRUCT PATIENT/CAREGIVER REGARDING PHARMACOLOGIC AND NON-PHARMACOLOGIC PAIN CONTROL MEASURES. SKILLED NURSE TO REPORT TO PHYSICIAN IF PAIN LEVEL IS OUTSIDE OF ESTABLISHED PARAMETERS.] Future Scheduled Test SKILLED NU RSE TO ASSESS PATIENT'S SKIN INTEGRITY AND INSTRUCT PATIENT/CAREGIVER ON MEASURES TO PREVENT PRESSURE ULCERS. [code = SKILLED NURSE TO ASSESS PATIENT'S SKIN INTEGRITY AND INSTRUCT PATIENT/CAREGIVER ON MEASURES TO PREVENT PRESSURE ULCERS.] Future Scheduled Test SKILLED NU RSE TO PROVIDE ASSESSMENT AND TEACHING/REINFORCEMENT OF MANAGEMENT OF DEPRESSION INCLUDING DISEASE PROCESS, MEDICATION MANAGEMENT, COPING SKILLS AND IDENTIFY CHANGES ASSOCIATED WITH DEPRESSIVE DISORDERS FOR EARLY INTERVENTION. [code = SKILLED NURSE TO PROVIDE ASSESSMENT AND TEACHING/REINFORCEMENT OF MANAGEMENT OF DEPRESSION INCLUDING DISEASE PROCESS, MEDICATION MANAGEMENT, COPING SKILLS AND IDENTIFY CHANGES ASSOCIATED WITH DEPRESSIVE DISORDERS FOR EARLY INTERVENTION. ] Future Scheduled Test SKILLED NU RSE TO REVIEW PATIENT MEDICATIONS (PRESCRIPTION/OTC). INSTRUCT PATIENT/CAREGIVER ON ALL MEDICATIONS INCLUDING PURPOSE, WHEN TO TAKE, IMPORTANCE OF MEDICATION ADHERENCE, MONITORING OF EFFECTIVENESS, ADVERSE DRUG REACTIONS, POSSIBLE SIDE EFFECTS, AND WHEN TO NOTIFY AGENCY OR PHYSICIAN/PROVIDER OF ANY CONCERNS. [code = SKILLED NURSE TO REVIEW PATIENT MEDICATIONS (PRESCRIPTION/OTC). INSTRUCT PATIENT/CAREGIVER ON ALL MEDICATIONS INCLUDING PURPOSE, WHEN TO TAKE, IMPORTANCE OF MEDICATION ADHERENCE, MONITORING OF EFFECTIVENESS, ADVERSE DRUG REACTIONS, POSSIBLE SIDE EFFECTS, AND WHEN TO NOTIFY AGENCY OR PHYSICIAN/PROVIDER OF ANY CONCERNS.] Goal Patient Goal - GET STRONGER Goal Provider Goal - A PLAN OF CARE WILL BE ESTABLISHED THAT MEETS PATIENT'S SHELTER NEEDS AND INCLUDES PATIENT GOAL FOR HOME HEALTH. Goal Provider Goal - ADDITIONAL ORDERS WILL BE RECEIVED FROM ALTERNATE PHYSICIAN IN A TIMELY MANNER THROUGHOUT THE CERTIFICATION PERIOD. Goal Provider Goal - PATIENT/CAREGIVER WILL VERBALIZE/DEMONSTRATE ABILITY TO MANAGE RIGHT FEMUR FRACTURE WHILE MAINTAINING SAFETY THROUGHOUT THE EPISODE. Goal Provider Goal - PATIENT/CAREGIVER WILL VERBALIZE SIGNS AND SYMPTOMS OF HYPERTENSION AND WILL BE ABLE TO DEMONSTRATE ABILITY TO MANAGE EXACERBATION BY END OF THE EPISODE. Goal Provider Goal - PATIENT/CAREGIVER WILL VERBALIZE UNDERSTANDING OF FRACTURE OF RIGHT FEMUR INCLUDING SIGNS AND SYMPTOMS, MANAGEMENT, AND PRESCRIBED TREATMENT REGIMEN BY END OF EPISODE. Goal Provider Goal - PATIENT/CAREGIVER WILL UTILIZE VIRTUAL VISITS TO ACHIEVE GOALS OUTLINED ON THE PLAN OF CARE. PATIENT WILL HAVE SUPPORT MEASURES ESTABLISHED TO PREVENT HOSPITALIZATION AND PATIENT/CAREGIVER WILL VERBALIZE/DEMONSTRATE METHODS TO REDUCE AVOIDABLE HOSPITALIZATION THROUGHOUT THE CERTIFICATION PERIOD. Goal Provider Goal - PATIENT WILL HAVE SUPPORT MEASURES ESTABLISHED TO PREVENT HOSPITALIZATION AND ED USE AND PATIENT/CAREGIVER WILL VERBALIZE/DEMONSTRATE METHODS TO REDUCE AVOIDABLE HOSPITALIZATION AND ED USE BY END OF EPISODE. Goal Provider Goal - PATIENT/CAREGIVER WILL VERBALIZE UNDERSTANDING OF DISCHARGE PLANNING INSTRUCTIONS BY DATE OF DISCHARGE. Goal Provider Goal - PATIENT/CAREGIVER WILL VERBALIZE/DEMONSTRATE EFFECTIVE ENVIRONMENTAL SAFETY AND FALL PREVENTION STRATEGIES, WILL REMAIN SAFE IN THE COMMUNITY, AND WILL BE FREE OF DANGER TO SELF AND OTHERS THROUGHOUT THE CERTIFICATION PERIOD. Goal Provider Goal - PATIENT/CAREGIVER WILL DEMONSTRATE UNDERSTANDING OF PHARMACOLOGIC AND NONPHARMACOLOGIC PAIN CONTROL MEASURES AND PATIENT WILL HAVE IMPROVEMENT IN PAIN INTERFERING WITH ACTIVITY EVIDENCED BY PAIN AT A LEVEL THAT IS ACCEPTABLE TO THE PATIENT AND PAIN LEVEL WITHIN ESTABLISHED PARAMETERS BY END OF CERTIFICATION PERIOD. Goal Provider Goal - PATIENT/CAREGIVER WILL VERBALIZE UNDERSTANDING OF PRESSURE ULCER PREVENTION BY END OF THE EPISODE. Goal Provider Goal - PATIENT/CAREGIVER WILL VERBALIZE/DEMONSTRATE UNDERSTANDING OF THE MANAGEMENT OF DEPRESSION THROUGHOUT THE CERTIFICATION PERIOD AND SYMPTOMS ARE IDENTIFIED AND MANAGED TO MAINTAIN PATIENT SAFETY IN THE HOME. Goal Provider Goal - PATIENT/CAREGIVER WILL VERBALIZE UNDERSTANDING OF EDUCATION PROVIDED ON MEDICATIONS BY THE END OF THE CERTIFICATION PERIOD. Progress Notes Progress Notes <paragraph>[Visit Date: 2024 by VASQUEZ VICK RN]:</paragraph><paragraph>SN INITIATED START OF CARE VISIT FOR PATIENT RECENTLY DISCHARGED FROM SHELTER FACILITY FOLLOWING A RIGHT FEMUR FRACTURE SUSTAINED IN A FALL. PATIENT RESIDES IN THE HOME WITH HER DAUGHTER, WHO PROVIDES ASSISTANCE WITH ACTIVITIES OF DAILY LIVING. PATIENT AMBULATES WITH A ROLLATOR BUT REPORTS ONGOING UNSTEADINESS AND OCCASIONAL NEAR LOSS OF BALANCE. PATIENT WAS EDUCATED ON FALL SAFETY PRECAUTIONS AND FALL PREVENTION STRATEGIES. SURGICAL INCISIONS ON THE RIGHT LEG ARE WELL HEALED, WITH NO SIGNS OF INFECTION, DEHISCENCE, OR OTHER COMPLICATIONS OBSERVED DURING THE VISIT. PATIENT IS CURRENTLY COMPLETING THE PRESCRIBED COURSE OF ANTIBIOTICS FOR RECENT BRONCHITIS. AT TIME OF ASSESSMENT, LUNG SOUNDS WERE CLEAR BILATERALLY. HEART RATE REGULAR, NO PERIPHERAL EDEMA NOTED IN LOWER EXTREMITIES. SKIN INTACT. PATIENT IS ALERT AND ORIENTED TO PERSON, PLACE, AND TIME. [employer] FOLDER CONTENTS WERE REVIEWED WITH PATIENT AND CAREGIVER. EDUCATION PROVIDED ON THE SCOPE OF SHELTER SERVICES. PATIENT WAS INFORMED OF AGENCY CONTACT NUMBER AND PROCEDURE FOR ADDRESSING QUESTIONS OR CONCERNS. CONSENT FORM WAS REVIEWED IN DETAIL. PATIENT VERBALIZED UNDERSTANDING AND SIGNED ELECTRONICALLY VIA TABLET. MEDICATION RECONCILIATION COMPLETED. PATIENT HAS A GOOD UNDERSTANDING OF HER CURRENT MEDICATIONS AND DENIED ANY CONCERNS OR QUESTIONS. NO DISCREPANCIES NOTED. A CALL WAS PLACED TO THE PATIENT'S PRIMARY CARE PROVIDER TO NOTIFY OF START OF SHELTER SERVICES. PATIENT STATED HER DAUGHTER WILL CALL PCP OFFICE TO ARRANGE AN APPOINTMENT. PATIENT APPEARS STABLE AT THIS TIME. WILL CONTINUE TO MONITOR PROGRESS, REINFORCED SAFETY MEASURES, AND SUPPORT MEDICATION COMPLIANCE AND CARE COORDINATION.</paragraph> Encounters Start Date/Time End Date/Time Encounter Type Admission Type Attending [facility] Care Department Encounter ID Discharge Date Discharge Status Discharge Condition Discharge Reason Percent Goals Met 2024-11-25 00:00:00 2025-01-23 00:00:00 Outpatient NEW ADMISSION [facility] [id number] 100.00
== END 2024-12-07 12:30 | disposition skilled nursing facility (03) | DRG 481 ==
LOC: ER 12:32 → MEDSURG 14:30
PROVIDERS: Internal Medicine; Orthopaedic Surgery; Admitting Provider Internal Medicine; Emergency Provider Family Medicine; PCP Family Medicine; Visit Provider Student in an Organized Health Care Education/Training Program
PROC: 0QSB04Z Reposition Right Lower Femur with Internal Fixation Device, Open Approach (ICD-10-PCS; principal; 2024-12-03 12:45)
DX: S72.401A Unspecified fracture of lower end of right femur, initial encounter for closed fracture (principal); M97.01XA Periprosthetic fracture around internal prosthetic right hip joint, initial encounter; N39.0 Urinary tract infection, site not specified; W18.39XA Other fall on same level, initial encounter; D64.89 Other specified anemias; B96.1 Klebsiella pneumoniae [K. pneumoniae] as the cause of diseases classified elsewhere; A08.4 Viral intestinal infection, unspecified; I69.998 Other sequelae following unspecified cerebrovascular disease; Z79.82 Long term (current) use of aspirin
CPT/HCPCS: 36415; 51702; 71045; 73502; 73552; 73700; 76000; 80048; 80053; 81001; 83036; 84443; 85014; 85018; 85025; 85610; 85730; 86850; 86900; 87040; 87077; 87086; 87186; 87486; 87581; 87633; 93005; 94664; 96372; 96374; 96375; 96376; 97110; 97161; 97165; 97530; 97535; 99285; C1713 ×2; C1776; J0131; J0690; J0696; J0780; J1100; J1644; J2270; J2405; J2543; J2704; J3010; J3260; J3372; J3373; J3480; J7030; J9999; P9047

== ENCOUNTER → 2024-12-09 08:33 | Outpatient (BNVA) | payer MEDICARE, MEDICAID, SELFPAY | PROVIDERS: PCP Family Medicine; Visit Provider Orthopaedic Surgery | DX: Z98.890 Other specified postprocedural states (principal); Z48.89 Encounter for other specified surgical aftercare | CPT/HCPCS: 73552; 99024 ==

== ENCOUNTER → 2024-12-21 14:37 | Outpatient (BNVA) | payer MEDICARE, MEDICAID, SELFPAY | PROVIDERS: PCP Family Medicine; Visit Provider Orthopaedic Surgery | DX: Z98.890 Other specified postprocedural states (principal); Z48.89 Encounter for other specified surgical aftercare | CPT/HCPCS: 73552; 99024 ==

== ENCOUNTER → 2025-01-18 10:19 | Outpatient (BNVA) | payer MEDICARE, MEDICAID, SELFPAY | PROVIDERS: PCP Family Medicine; Visit Provider Orthopaedic Surgery | DX: Z98.890 Other specified postprocedural states (principal) | CPT/HCPCS: 73552; 99024 ==

== ENCOUNTER 2025-01-27 14:35 | Emergency (ER) | payer MEDICARE, MEDICAID, SELFPAY ==
[2025-01-27 14:31] VITALS: BP 136/87; PULSE 89; RESP 16; TEMP 36.6; O2SAT 96; BMI 28.3
--- NOTE | 2025-01-27 14:42 | XR_ITS ---
WS: [id number] Exam: XR femur RT min 2V* 19110 Date/Time of Exam: 01/27/2025 2:42 PM Reason For Exam: Trauma Comparison 01/18/2025. Stable appearing fractures of the subtrochanteric RIGHT hip and also of the lower femoral diaphysis are noted. Both fractures are stabilized with internal fixation. No sign of hardware failure or malposition. No new fractures are noted. XR/XR femur RT min 2V* [id number] IMPRESSION: 1. Stable appearing fractures of the proximal and distal femur stabilized with internal fixation. No new fractures are noted.
--- NOTE | 2025-01-27 14:42 | ED_ITS ---
HPI - Fall General: Chief Complaint: Fall Stated Complaint: FALL History of Present Illness: 79-year-old female who presents emergenc y room with complaints of a fall. She arrives via EMS she was discharged from the senior care yesterday. She had been in the senior care for extended period of time due to a right femur fracture which required surgery. She was using her walker at home today had a ground-level mechanical fall and she lost her balance using the walker and went down she did hit her head there is no loss of consciousness she is complaining of pain in her right hip and femur as well as complaining of a headache. She denies any wrist or arm pain denies any neck pain. Denies any other injuries. Associated symptoms-after fall: Denies abdominal pain, chest pain or neck pain Related Data Home Medications ?Medication ?Instructions ?Recorded ?Confirmed aspirin 81 mg tablet,delayed 81 mg PO QPM 07/20/24 release Held on 12/07/24. Instructions: Resume on 12/28/24. hold for 3 weeks while you are on ASA 325mg multivitamin 1 tab PO QPM 07/20/24 fluoxetine 20 mg capsule 20 mg PO QPM depression 10/0401/27/25 amlodipine 5 mg tablet 5 mg PO DAILY 01/27/2501/27 baclofen 5 mg tablet 5 mg PO BID 01/27/25 5 lactulose 10 gram/15 mL oral 10 g PO DAILY constipatio n 01/27/25 01/27/25 solution polyethylene glycol 3350 17 17 g PO DAILY PRN Constipa tion 01/27/25 01/27/25 gram/dose oral powder (Miralax) Previous Rx's ?Medication ?Instructions ?Recorded atorvastatin 40 mg tablet 40 mg PO QPM #30 tabs cyclobenzaprine 10 mg tablet 10 mg PO TID PRN muscle s pasm 30 12/09/24 days #90 tabs Allergies Allergy/AdvReac Type Severity Reaction Status Date / Time sumatriptan (From Imitrex) Allergy ADR/ALGY-Pa Verified 01/18/25 07:43 lpitations Review of Systems Const: Denies: fever(s) or chills Card: Denies: chest pain Resp: Denies: dyspnea GI: Denies: abdominal pain : Denies: dysuria, urinary frequency or urinary urgency Musc: Denies: neck pain or back pain Skin/Breast: Denies: rash PFSH ED PFSH: Medical History History of CVA with residual deficit Enrolled in chronic care management please do not remove from active Environmental and seasonal allergies Essential hypertension Patient was seen in the office several months ago and instructed to take home blood pressure readings and return to the office. Patient did not followup, but today has elevated pressure of 160/100. She states it goes up and down at home. 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 They also had a [employer].. They have since sold that business. She points out that [place] had only population of 600 but they have the largest cross[place]country trail ride [place] the [place] 7000 people out yearly. 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 [employer] in [facility] Do you think of yourself as: Straight/Heterosexual Current gender identity: Female Physical Exam Const: GENERAL APPEARANCE: cooperative ORIENTATION/CONSCIOUSNESS: Yes awake, Yes oriented to person, Yes oriented to place and Yes oriented to time HENMT: COMMON NORMALS: normocephalic, atraumatic and hearing grossly normal bilaterally HEAD & SCALP: normocephalic and atraumatic Resp: COMMON NORMALS: normal respiratory effort, No retractions, No use of accessory muscles and clear to auscultation bilaterally AUSCULTATION: clear to auscultation bilaterally Cardio: COMMON NORMALS: regular rate, regular rhythm and No murmurs present (Cardio) RATE: regular rate RHYTHM: regular rhythm GI: COMMON NORMALS: Soft to palpation and No hepatosplenomegaly present AUSCULTATION: Yes normoactive bowel sounds PALPATION: Yes Soft to palpation, No Tenderness to palpation present (GI), No Guarding due to palpation present (GI) and Yes No hepatosplenomegaly present Extremity: COMMON NORMALS: normal to inspection, capillary refill normal, no clubbing, cyanosis or edema, no calf tenderness and no pedal edema Neuro: SENSORIUM/ORIENTATION: Yes oriented to person, Yes oriented to place and Yes oriented to time Skin: COMMON NORMALS: no rashes or lesions noted GENERAL SKIN EXAM: no rashes or lesions noted Course Vital Signs: Vital signs: Vital Signs Temperature 97.9 F 01/27/25 14:31 Pulse Rate 81 01/27/25 14:53 Respiratory Rate 16 01/27/25 14:31 Blood Pressure 136/87 01/27/25 14:53 Pulse Oximetry 98 01/27/25 14:53 MDM - Fall Medical Decision Making X-ray shows a stable femur no new fractures no sign of any injury is unchanged from previous. Fixation is stable as well. Will discharge patient home have her follow-up with orthopedics as previously scheduled Medical Records I reviewed the patient's medical records. Lab Data I reviewed the patient's lab results. Radiology Impressions Femur X-Ray 01/27/25 14:42 IMPRESSION: 1. Stable appearing fractures of the proximal and distal femur stabilized with internal fixation. No new fractures are noted. All radiology interpretation(s) finalized by discharge Discharge Plan Discharge Patient Disposition: Home Clinical Impression: Fall, Right leg pain Condition: Stable Prescriptions: No Action cyclobenzaprine 10 mg tablet 10 mg PO TID PRN (Reason: muscle spasm) 30 Days Qty: 90 3RF atorvastatin 40 mg tablet 40 mg PO QPM Qty: 30 0RF aspirin 81 mg tablet,delayed release (DR/EC) 81 mg PO QPM multivitamin Tablet 1 tab PO QPM amlodipine 5 mg tablet 5 mg PO DAILY baclofen 5 mg tablet 5 mg PO BID polyethylene glycol 3350 [Miralax] 17 gram/dose powder 17 g PO DAILY PRN (Reason: Constipation) lactulose 10 gram/15 mL solution 10 g PO DAILY Rx Instructions: can discontinue use when constipation resolves fluoxetine 20 mg capsule 20 mg PO QPM Discharge Orders: Discharge ED (Routine); Ordered 01/27/25 Ordered By: Kevin Arce Referrals: Chad De La Fuente, DO [Primary Care Provider, Family Practice] Discharge Diet: Usual diet Discharge Activity: Increase activity as tolerated Patient Instructions: Opioid Safety, Pain Management, Patient Portal & Leonel Instructions Activity Restrictions/Additional Instructions: [facility]. It is very important that you follow up as instructed or that you return to the Emergency Department should you have concerns or if your condition changes or worsens in any way. Emergency department visits are focused on emergent conditions, in some cases you may require further evaluation on an outpatient basis. You were seen in the emergency room after a fall while using your walker. X-ray of your right femur did not show any fractures. We had recommended head CT you declined. If you have any further symptoms you can return to the emergency room at any time. Continue to use your walker and take all medications you are prescribed when you left the senior care yesterday. (Please note that included in your discharge packet is information concerning opioid safety and pain management. This information is given to all patients were discharged from the ER regardless of their discharge diagnosis or the medicines they usually take or are prescribed.) Print Language: Polish Coding Level of Care Code ED Field Producer for Jose Terrell
[2025-01-27 14:53] VITALS: BP 136/87; PULSE 81; O2SAT 98
--- NOTE | 2025-01-27 15:32 | PC.PHAR ---
Pt states she is at home now, not in senior living.
--- OUTSIDE RECORDS SUMMARY | 2025-01-27 16:19 | XMS_ITS | Encounter Summary ---
Author Organization [facility] Address [address] 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
--- OUTSIDE RECORDS SUMMARY | 2025-01-27 16:19 | XMS_ITS | Encounter Summary ---
Author Organization [facility] Address [address] [place] [address] Care Team Providers Care Watch Band Assembler Name Role Phone Non-Staff, Physician Primary Care Provider Unava ilable Encounter Details Date Type Department Care Team (Latest Contact Info) Description 09/22/2003 Outpatient Historical [facility]- [facility] [address] [place] [id number] Saúl Gallardo MD NO ADDRESS ON FILE ALLERGIC RHINITIS NOS (Primary Dx); RESPIRATORY ABNORM NEC Social History Tobacco Use Types Packs/Day Years Used Date Smoking Tobacco: Never Assessed Comments Unknown Sex and Gender Information Value Date Recorded Sex Assigned at Not on file Legal Sex 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
--- OUTSIDE RECORDS SUMMARY | 2025-01-27 16:19 | XMS_ITS | Encounter Summary ---
Author Organization [facility] Address [address] [place] [address] Care Team Providers Care Registered Private Duty Nurse Name Role Phone Non-Staff, Physician Primary Care Provider Unava ilable Encounter Details Date Type Department Care Team (Latest Contact Info) Description 01/07/2001 Outpatient Historical [facility] Medicine- [address] [phone] Kit Boggs MD [address] [phone] Unspecified essential hypertension (Primary Dx); Dietary surveil/intellectual property counsel Social History Tobacco Use Types Packs/Day Years Used Date Smoking Tobacco: Never Assessed Comments Unknown Sex and Gender Information Value Date Recorded Sex Assigned at Not on file 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
--- OUTSIDE RECORDS SUMMARY | 2025-01-27 16:19 | XMS_ITS | Encounter Summary ---
Author Organization [facility] Address [address] [place] [address] Care Team Providers Care Certified Alcohol And Drug Counselor Name Role Phone Non-Staff, Physician Primary Care Provider Unava ilable Encounter Details Date Type Department Care Team (Latest Contact Info) Description 08/29/[address] 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
--- OUTSIDE RECORDS SUMMARY | 2025-01-27 16:19 | XMS_ITS | Encounter Summary ---
Author Organization [facility] Address [address] [place] [address] Care Team Providers Care Pest Controller Name Role Phone Non-Staff, Physician Primary Care Provider Unava ilable Encounter Details Date Type Department Care Team (Latest Contact Info) Description 07/20/1999 Outpatient Historical [facility] Medicine [address] [phone] Chata John MD [address] [place] [phone] Dysplasia of cervix (uteri) (Primary Dx) Social History Tobacco Use Types Packs/Day Years Used Date Smoking Tobacco: Never Assessed Comments Unknown Sex and Gender Information Value Date Recorded Sex Assigned at Not on file Legal Sex Female 4:28 AM CUT OFF MAN Gender Identity Not on file Sexual Orientation Not on file documented as of this encounter Plan of Treatment Not on file documented as of this encounter Visit Diagnoses Diagnosis Dysplasia of cervix (uteri)- Primary documented in this encounter Care Teams Pest Controller Relationship Specialty Start Date End Date Non-Staff, Physician NO ADDRESS ON FILE PCP - General 10/18/20 documented as of this encounter
--- OUTSIDE RECORDS SUMMARY | 2025-01-27 16:19 | XMS_ITS | Encounter Summary ---
Author Organization [facility] Address [address] [place] [address] Care Team Providers Care Print Shop Manager Name Role Phone Non-Staff, Physician Primary Care Provider Unava ilable Encounter Details Date Type Department Care Team (Latest Contact Info) Description 06/25/1999 Outpatient Historical [facility]- [address] [phone] Jakub Sims DO NO ADDRESS ON FILE Acute upper respiratory infections of unspecified site (Primary Dx); Unspecified asthma(493.90) Social History Tobacco Use Types Packs/Day Years Used Date Smoking Tobacco: Never Assessed Comments Unknown Sex and Gender Information Value Date Recorded Sex Assigned at Not on file 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
--- OUTSIDE RECORDS SUMMARY | 2025-01-27 16:19 | XMS_ITS | Encounter Summary ---
Author Organization [facility] Address [address] [place] [address] Care Team Providers Care Waist Cutter Name Role Phone Non-Staff, Physician Primary Care Provider Unava ilable Encounter Details Date Type Department Care Team (Latest Contact Info) Description 02/11/2000 Outpatient Historical [facility] Medicine [address] [phone] Chata John MD [address] [place] [phone] Dysplasia of cervix (uteri) (Primary Dx); Hiccough Social History Tobacco Use Types Packs/Day Years Used Date Smoking Tobacco: Never Assessed Comments Unknown Sex and Gender Information Value Date Recorded Sex Assigned at Not on file 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
--- OUTSIDE RECORDS SUMMARY | 2025-01-27 16:19 | XMS_ITS | Encounter Summary ---
Author Organization [facility] Address [address] [place] [address] Care Team Providers Care Life Cycle Assessment Analyst Name Role Phone Non-Staff, Physician Primary Care Provider Unava ilable Encounter Details Date Type Department Care Team (Late st Contact Info) Description 02/12/2005 Outpatient Historical [facility] Dermatology- 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
--- OUTSIDE RECORDS SUMMARY | 2025-01-27 16:19 | XMS_ITS | Encounter Summary ---
Author Organization [facility] Address [address] [place] [address] Care Team Providers Care Warehouse Traffic Supervisor Name Role Phone Non-Staff, Physician Primary Care Provider Unava ilable Encounter Details Date Type Department Care Team ([facility] st Contact Info) Description 02/03/2019 Ancillary Orders [facility] [address] [facility] [address] [place] [address] Ulices Yadav, STORAGE BATTERY CHARGER [address] [facility] [address] [place] [address] Breast cancer screening by mammogram [...] on file Legal Sex Female 4:28 AM COIN MACHINE COLLECTOR SUPERVISOR Gender Identity Not on file Sexual [...] be scanned to PACS. us Ulices Yadav STORAGE BATTERY CHARGER DIAGNOSTIC IMAGING ORDERABLES Fi nal Result * MAMMO PRIOR STUDY (03/24/2008 1:40 PM COIN MACHINE COLLECTOR SUPERVISOR) Narrative 02/03/2019 1:39 PM CDT This exam was auto finalized to allow images to be scanned to PACS. us Dj Gross STORAGE BATTERY CHARGER DIAGNOSTIC IMAGING ORDERABLES Fi nal Result * MAMMO PRIOR STUDY (03/23/2007 1:40 PM COIN MACHINE COLLECTOR SUPERVISOR) Narrative 02/03/2019 1:39 PM CDT This exam was auto finalized to allow images to be scanned to PACS. us Dj Gross STORAGE BATTERY CHARGER DIAGNOSTIC IMAGING ORDERABLES Fi nal Result documented in this encounter Visit Diagnoses Diagnosis Breast cancer screening by mammogram Breast cancer screening by mammogram Breast cancer screening by mammogram Breast cancer screening by mammogram documented in this encounter Care Teams Warehouse Traffic Supervisor Relationship Specialty Start Date End Date Non-Staff, Physician NO ADDRESS ON FILE PCP - General 10/18/20 documented as of this encounter
--- OUTSIDE RECORDS SUMMARY | 2025-01-27 16:19 | XMS_ITS | Encounter Summary ---
Author Organization [facility] Address [address] [place] [address] Care Team Providers Care Plastic Die Maker Apprentice Name Role Phone Non-Staff, Physician Primary Care Provider Unava ilable Encounter Details Date Type Department Care Team (Late st Contact Info) Description 07/08/2002 Outpatient Historical [facility] Ear, Nose and Throat 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
--- OUTSIDE RECORDS SUMMARY | 2025-01-27 16:19 | XMS_ITS | Encounter Summary ---
Author Organization [facility] Address [address] [place] [address] Care Team Providers Care Assistant Principal Name Role Phone Non-Staff, Physician Primary Care Provider Unava ilable Encounter Details Date Type Department Care Team (Late st Contact Info) Description 10/16/2000 Outpatient Historical [facility] Dermatology- [address] [place] [address] Alex Prince MD [address] [place] [address] Foreign body granuloma of skin and subcutaneous tissue (Primary Dx) Social History Tobacco Use Types Packs/Day Years Used Date Smoking Tobacco: Never Assessed Comments Unknown Sex and Gender Information Value Date Recorded Sex Assigned at Not on file Legal Sex Female 4:28 AM CHART READER Gender Identity Not on file Sexual Orientation Not on file documented as of this encounter Plan of Treatment Not on file documented as of this encounter Visit Diagnoses Diagnosis Foreign body granuloma of skin and subcutaneous tissue- Primary documented in this encounter Care Teams Assistant Principal Relationship Specialty Start Date End Date Non-Staff, Physician NO ADDRESS ON FILE PCP - General 10/18/20 documented as of this encounter
--- OUTSIDE RECORDS SUMMARY | 2025-01-27 16:19 | XMS_ITS | Encounter Summary ---
Author Organization [facility] Address [address] [place] [address] Care Team Providers Care Bag Machine Tender Name Role Phone Non-Staff, Physician Primary Care Provider Unava ilable Encounter Details Date Type Department Care Team (Latest Contact Info) Description 07/28/2000 Outpatient Historical [facility] Medicine [address] [phone] Chata John MD [address] [place] [phone] Gynecologic examination (Primary Dx) Social History Tobacco Use Types Packs/Day Years Used Date Smoking Tobacco: Never Assessed Comments Unknown Sex and Gender Information Value Date Recorded Sex Assigned at Not on file Legal Sex Female 4:28 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
--- OUTSIDE RECORDS SUMMARY | 2025-01-27 16:19 | XMS_ITS | Encounter Summary ---
Author Organization [facility] Address [address] [place] [address] Care Team Providers Care Contracting Engineer Name Role Phone Non-Staff, Physician Primary Care Provider Unava ilable Encounter Details Date Type Department Care Team (Latest Contact Info) Description 08/20/1999 Outpatient Historical [facility] Medicine [address] [phone] Chata John MD [address] [place] [phone] Unspecified asthma(493.90) (Primary Dx); Abn Pap Smear-Cervix Social History Tobacco Use Types Packs/Day Years Used Date Smoking Tobacco: Never Assessed Comments Unknown Sex and Gender Information Value Date Recorded Sex Assigned at Not on file 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
--- OUTSIDE RECORDS SUMMARY | 2025-01-27 16:19 | XMS_ITS | Encounter Summary ---
Author Organization [facility] Address [address] [place] [address] Care Team Providers Care Technical Sales Specialist Name Role Phone Non-Staff, Physician Primary Care Provider Unava ilable Encounter Details Date Type Department Care Team (Latest Contact Info) Description 09/01/[address] Outpatient [address] [facility] Medicine- [address] [phone] Kit Boggs MD [address] [phone] Allergy, unspecified not elsewhere classified (Primary Dx); Acute upper respiratory infections of unspecified site Social History Tobacco Use Types Packs/Day Years Used Date Smoking Tobacco: Never Assessed Comments Unknown Sex and Gender Information Value Date Recorded Sex Assigned at Not on file Legal Sex Female 4:28 AM GUEST SERVICES Gender Identity Not on file Sexual Orientation Not on file documented as of this encounter Plan of Treatment Not on file documented as of this encounter Visit Diagnoses Diagnosis Allergy, unspecified not elsewhere classified- Primary Acute upper respiratory infections of unspecified site documented in this encounter Care Teams Technical Sales Specialist Relationship Specialty Start Date End Date Non-Staff, Physician NO ADDRESS ON FILE PCP - General 10/18/20 documented as of this encounter
--- OUTSIDE RECORDS SUMMARY | 2025-01-27 16:19 | XMS_ITS | Encounter Summary ---
Author Organization [facility] Address [address] [place] [address] Care Team Providers Care Forestry Aid Technician Name Role Phone Non-Staff, Physician Primary Care Provider Unava ilable Encounter Details Date Type Department Care Team (Latest Contact Info) Description 12/08/2000 Outpatient Historical [facility]- [address] [phone] Jakub Sims DO NO ADDRESS ON FILE Headache(784.0) (Primary Dx); Unspecified asthma(493.90) Social History Tobacco Use Types Packs/Day Years Used Date Smoking Tobacco: Never Assessed Comments Unknown Sex and Gender Information Value Date Recorded Sex Assigned at Not on file 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
--- OUTSIDE RECORDS SUMMARY | 2025-01-27 16:19 | XMS_ITS | Encounter Summary ---
Author Organization [facility] Address [address] [place] [address] Care Team Providers Care Qa Software Test Engineer Name Role Phone Non-Staff, Physician Primary Care Provider Unava ilable Encounter Details Date Type Department Care Team (Late st Contact Info) Description 02/06/2015 Ancillary Orders [facility] [address] [place] [address] Wendy Zeng, THREAD DRESSER [address] [place] [address] Finger pain, right (Primary Dx) Social History Tobacco Use Types Packs/Day Years Used Date Smoking Tobacco: Never Smokeless Tobacco: Never Alcohol Use Standard Drinks/Week Comments No 0 (1 standard drink = 0.6 oz pur e alcohol) Comments No Sex and Gender Information Value Date Recorded Sex Assigned at Not on file Legal Sex Female 4:28 AM INVESTOR RELATIONS ANALYST Gender Identity Not on file Sexual [...] limb documented in this encounter Care Teams Qa Software Test Engineer Relationship Specialty Start Date End Date Non-Staff, Physician NO ADDRESS ON FILE PCP - General 10/18/20 documented as of this encounter
--- OUTSIDE RECORDS SUMMARY | 2025-01-27 16:19 | XMS_ITS | Encounter Summary ---
Author Organization [facility] Address [address] [place] [address] Care Team Providers Care Radiation Protection Technician Name Role Phone Non-Staff, Physician Primary Care Provider Unava ilable Encounter Details Date Type Department Care Team (Latest Contact Info) Description 06/27/1999 Outpatient Historical [facility]- [address] [phone] Kit Boggs MD [address] [phone] Acute bronchitis (Primary Dx) Social History Tobacco Use Types Packs/Day Years Used Date Smoking Tobacco: Never Assessed Comments Unknown Sex and Gender Information Value Date Recorded Sex Assigned at Not on file 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
--- OUTSIDE RECORDS SUMMARY | 2025-01-27 16:19 | XMS_ITS | Encounter Summary ---
Author Organization [facility] Address [address] [place] [address] Care Team Providers Care Gritting Machine Operator Name Role Phone Non-Staff, Physician Primary Care Provider Unava ilable Encounter Details Date Type Department Care Team (Latest Contact Info) Description 02/03/[address]patient [address] [phone] Daily Finney MD [address] [place] [address] Unspecified asthma(493.90) (Primary Dx); Acute upper respiratory infections of unspecified site; Nasal/sinus dis NEC Social History Tobacco Use Types Packs/Day Years Used Date Smoking Tobacco: Never Assessed Comments Unknown Sex and Gender Information Value Date Recorded Sex Assigned at Not on file Legal Sex Female 4:28 AM GRILL CHEF Gender Identity Not on file Sexual Orientation Not on file documented as of this encounter Plan of Treatment Not on file documented as of this encounter Visit Diagnoses Diagnosis Unspecified asthma(493.90)- Primary Unspecified asthma Acute upper respiratory infections of unspecified site Nasal/sinus dis NEC Other diseases of nasal cavity and sinuses documented in this encounter Care Teams Gritting Machine Operator Relationship Specialty Start Date End Date Non-Staff, Physician NO ADDRESS ON FILE PCP - General 10/18/20 documented as of this encounter
--- OUTSIDE RECORDS SUMMARY | 2025-01-27 16:19 | XMS_ITS | Clinical Summary ---
Author Organization [facility] Address [address] [place] [address] Phone Care Team Providers Care Radio Program Checker Name Role Phone Non-Staff, Physician Primary Care Provider Unava ilable Allergies Active Allergy Reactions Criticality Noted Date Comments Sumatriptan Succinate Palpitations Low 10/11/2008 Medications DEXTRAN 70/HYPROMELLOSE (ARTIFICIAL TEARS, PF, OP) by Ophthalmic route. Active calcium as carbonate (TUMS ES) 750 mg (300 mg elemental) Tablet, Chewable Take by mouth 1 time daily as needed. Active fluticasone propionate (FLONASE) 50 mcg/spray [place], Suspension nasal inhalerIndicati ons:Respiratory tract infection ADMINISTER [...] on file Legal Sex Female 4:28 AM PROOF PRESS OPERATOR Gender Identity Not on file Sexual [...] , 02/05/2009 Medical Devices Implanted Type Area [employer] Member Device Identifier Shelf Expiration Date Model / Serial / Lot Cement Simplex Hvisc 6194-1-010 - [id number] Implanted:Qty: 1 on 11/08/2016 by Gibson Canas MD at [facility] Cement Right: Knee [employer] 07/02/2018 6194-1-010 / / [id number] Cement Simplex Hvisc 6194-1-010 - [id number] Implanted:Qty: 1 on 11/08/2016 by Gibson Canas MD at [facility] Cement Right: Knee [employer]- [employer] 07/02/2018 6194-1-010 / / [id number] Patella Attune Fatuma 35mm 1518-10-035 - [id number] Implanted:Qty: 1 on 11/08/2016 by Gibson Canas MD at [facility] Knee Right: Knee [employer] 08/02/2021 [id number] / / [id number] Ins Attn Fb Cr Sz5 5mm 1516-20-505 - [id number] Implanted:Qty: 1 on 11/08/2016 by Gibson Canas MD at [facility] Knee Right: Knee [employer] 08/02/2021 [id number] / / [id number] Comp Fem Attn Cr Cmnt Sz5 1504-00-225 - [id number] Implanted:Qty: 1 on 11/08/2016 by Gibson Canas MD at [facility] Knee Right: Knee [employer] 09/01/2026 [id number] / / [id number] Comp Tib Attn Fb Cmnt Sz4 1506-00-004 - [id number] Implanted:Qty: 1 on 11/08/2016 by Gibson Canas MD at [facility] Knee Right: Knee [employer] 08/02/2026 [id number] / / [id number] Procedures Procedure Name Priority Date/Time Associated Diagnosis [...] Recently Relevant to Health Maintenance Insurance MEDICA[place] PART A [place] B Advance Directives For more information, please contact: [phone] * Full Code (Latest Code Status on [...] 7:41 AM 08/08/2011 11:34 AM Care Teams Radio Program Checker Relationship Specialty Start Date End Date Non-Staff, Physician NO ADDRESS ON FILE PCP - General 10/18/20
--- OUTSIDE RECORDS SUMMARY | 2025-01-27 16:19 | XMS_ITS | Encounter Summary ---
Author Organization [facility] Address [address] [place] [address] Care Team Providers Care Operator Catalyst Concentration Name Role Phone Non-Staff, Physician Primary Care Provider Unava ilable Encounter Details Date Type Department Care Team (Latest Contact Info) Description 02/10/2004 Outpatient Historical [address] [phone] Diaz Le PA NO ADDRESS ON FILE Vaccine for influenza (Primary Dx) Social History Tobacco Use Types Packs/Day Years Used Date Smoking Tobacco: Never Assessed Comments Unknown Sex and Gender Information Value Date Recorded Sex Assigned at Not on file Legal Sex Female 4:28 AM FROZEN YOGURT MAKER Gender Identity Not on file Sexual Orientation Not on file documented as of this encounter Plan of Treatment Not on file documented as of this encounter Visit Diagnoses Diagnosis Vaccine for influenza- Primary Need for prophylactic vaccination and inoculation against influenza documented in this encounter Care Teams Operator Catalyst Concentration Relationship Specialty Start Date End Date Non-Staff, Physician NO ADDRESS ON FILE PCP - General 10/18/20 documented as of this encounter
--- OUTSIDE RECORDS SUMMARY | 2025-01-27 16:19 | XMS_ITS | Clinical Summary ---
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 Gender Identity Not on file Sexual [...] , 02/05/2009 Medical Devices Implanted Type Area Cigarette Examiner Device Identifier Shelf Expiration Date Model / Serial / Lot Cement Simplex Hvisc 6194-1-010 - [id number] Implanted:Qty : 1 on 11/08/2016 by Gibson Canas MD Cement Right: Knee [employer]NE- [employer] 07/02/2018 6194-1-010 / / [id number] Cement Simplex Hvisc 6194-1-010 - [id number] Implanted:Qty : 1 on 11/08/2016 by Gibson Canas MD Cement Right: Knee [employer]NE- [employer] 07/02/2018 6194-1-010 / / [id number] Comp Fem Attn Cr Cmnt Sz5 1504-00-225 - [id number] Implanted:Qty : 1 on 11/08/2016 by Gibson Canas MD Knee Right: Knee [employer]- [employer] 09/01/2026 [id number] / / [id number] Comp Tib Attn Fb Cmnt Sz4 1506-00-004 - [id number] Implanted:Qty : 1 on 11/08/2016 by Gibson Canas MD Knee Right: Knee [employer] 08/02/2026 [id number] / / [id number] Ins Attn Fb Cr Sz5 5mm 1516-20-505 - [id number] Implanted:Qty : 1 on 11/08/2016 by Gibson Canas MD Knee Right: Knee [employer] 08/02/2021 [id number] / / [id number] Patella Attune Fatuma 35mm 1518-10-035 - [id number] Implanted:Qty : 1 on 11/08/2016 by Gibson Canas MD Knee Right: Knee [employer]- [employer] 08/02/2021 [id number] / / [id number] Procedures Procedure Name Priority Date/Time Associated Diagnosis [...] Recently Relevant to Health Maintenance Care Teams Supervisor Molding Relationship Specialty Start Date End Date Non-Staff, Physician NO ADDRESS ON FILE PCP - General 10/18/20
--- OUTSIDE RECORDS SUMMARY | 2025-01-27 16:19 | XMS_ITS | Encounter Summary ---
Author Organization [facility] Address [address] [place] [address] Care Team Providers Care Meeting Facilitator Name Role Phone Non-Staff, Physician Primary Care Provider Unava ilable Reason for Referral * Radiology Services (Routine) - Closed Specialty Diagnoses / Procedures Referred By Contac t Referred To Contact Radiology Diagnoses Breast cancer screening by mammogram Procedures MAMMO SCREEN BILAT W OR WO CAD Ulices Yadav, DRIVE SHAFT AND STEERING POST REPAIRER [facility] [address] Phone: tel: fax: [facility] [address] [place] [address] Phone: tel: fax: Referral ID Status Reason Start Date Expiration Date V isits Requested Visits Authorized [id number] Closed [facility] View CTS to Schedule (SGF) 01/27/2019 02/27/2020 1 1 Encounter Details Date Type Department Care Team (Latest Contact Info) Description 01/27/2019 Ancillary Orders [facility] Centralized Scheduling [address] [facility] [facility] [address] [place] [address] Ulices Yadav, DRIVE SHAFT AND STEERING POST REPAIRER [address] [place] [phone] Breast cancer screening by mammogram Social [...] on file 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 us Dj Gross DRIVE SHAFT AND STEERING POST REPAIRER MAMMO ORDERABLES Final Result documented in this encounter Visit Diagnoses Diagnosis Breast cancer screening by mammogram Breast cancer screening by mammogram documented in this encounter Care Teams Meeting Facilitator Relationship Specialty Start Date End Date Non-Staff, Physician NO ADDRESS ON FILE PCP - General 10/18/20 documented as of this encounter
--- OUTSIDE RECORDS SUMMARY | 2025-01-27 16:19 | XMS_ITS | Encounter Summary ---
Author Organization [facility] Address [address] [place] [address] Care Team Providers Care Tire Mold Engraver Name Role Phone Non-Staff, Physician Primary Care Provider Unava ilable Encounter Details Date Type Department Care Team (Late st Contact Info) Description 12/19/1999 Outpatient Historical [facility] Dermatology- 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
--- OUTSIDE RECORDS SUMMARY | 2025-01-27 16:19 | XMS_ITS | Encounter Summary ---
Author Organization [facility] Address [address] [place] [address] Care Team Providers Care Chiropractor Assistant Name Role Phone Non-Staff, Physician Primary Care Provider Unava ilable Encounter Details Date Type Department Care Team (Latest Contact Info) Description 07/20/2002 Outpatient Historical [facility] Ear, Nose and Throat 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
--- OUTSIDE RECORDS SUMMARY | 2025-01-27 16:19 | XMS_ITS | Encounter Summary ---
Author Organization [facility] Address [address] [place] [address] Care Team Providers Care Siderographer Name Role Phone Non-Staff, Physician Primary Care Provider Unava ilable Encounter Details Date Type Department Care Team (Latest Contact Info) Description 03/20/1999 Outpatient Historical [facility] Medicine [address] [phone] Chata John MD [address] [place] [phone] Unspecified asthma(493.90) (Primary Dx); Hiccough Social History Tobacco Use Types Packs/Day Years Used Date Smoking Tobacco: Never Assessed Comments Unknown Sex and Gender Information Value Date Recorded Sex Assigned at Not on file 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
--- OUTSIDE RECORDS SUMMARY | 2025-01-27 16:19 | XMS_ITS | Encounter Summary ---
Author Organization [facility] Address [address] [facility] [place] [address] Care Team Providers Care University Archivist Name Role Phone Non-Staff, Physician Primary Care Provider Unava ilable Encounter Details Date Type Department Care Team (Late st Contact Info) Description 09/30/2007 Outpatient Historical [facility] [place] [address] [place] [address] Steve Winn MD NO ADDRESS ON FILE Social History Tobacco Use Types Packs/Day Years Used Date Smoking Tobacco: Never Assessed Comments Unknown Sex and Gender Information Value Date Recorded Sex Assigned at Not on file 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 Sex Female 4:28 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 Gender Identity Not on file Sexual Orientation Not on file documented as of this encounter Plan of Treatment Not on file documented as of this encounter Procedures Procedure Name Priority Date/Time Associated Diagnosis Comments PATHOLOGY Routine 10/08/2007 8:20 AM CDT documented in this encounter Results * PATHOLOGY (10/08/2007 8:20 AM CDT) PATHOLOGY/CYT OLOGY REPORT [facility] Anatomic Pathology Dept [address] [facility] [address] Patient: ELISABETH BROWN Accn No: [id number] Collected: 10/08/2007 8:20:00 AM SURGICAL PATHOLOGY FINAL [...] on filedocumented in this encounter Care Teams University Archivist Relationship Specialty Start Date End Date Non-Staff, Physician NO ADDRESS ON FILE PCP - General 10/18/20 documented as of this encounter
--- OUTSIDE RECORDS SUMMARY | 2025-01-27 16:19 | XMS_ITS | Encounter Summary ---
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
--- OUTSIDE RECORDS SUMMARY | 2025-01-27 16:19 | XMS_ITS | Encounter Summary ---
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
--- OUTSIDE RECORDS SUMMARY | 2025-01-27 16:19 | XMS_ITS | Encounter Summary ---
Author Organization [facility] Address [address] [place] [address] Care Team Providers Care Votator Machine Operator Name Role Phone Non-Staff, Physician Primary Care Provider Unava ilable Encounter Details Date Type Department Care Team (Latest Contact Info) Description 04/03/2001 Outpatient Historical [address] [phone] Jakub Sims DO NO ADDRESS ON FILE ACUTE BRONCHITIS (Primary Dx) Social History Tobacco Use Types Packs/Day Years Used Date Smoking Tobacco: Never Assessed Comments Unknown Sex and Gender Information Value Date Recorded Sex Assigned at Not on file 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
--- OUTSIDE RECORDS SUMMARY | 2025-01-27 16:19 | XMS_ITS | Encounter Summary ---
Author Organization 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
--- OUTSIDE RECORDS SUMMARY | 2025-01-27 16:19 | XMS_ITS | Encounter Summary ---
Author Organization [facility] Address [address] [place] [address] Care Team Providers Care Employer Relations Representative Name Role Phone Non-Staff, Physician Primary Care Provider Unava ilable Encounter Details Date Type Department Care Team (Latest Contact Info) Description 04/13/2002 Outpatient Historical [facility]- [address] [phone] Kit Boggs MD [address] [phone] URIN TRACT INFECTION NOS (Primary Dx) Social History Tobacco Use Types Packs/Day Years Used Date Smoking Tobacco: Never Assessed Comments Unknown Sex and Gender Information Value Date Recorded Sex Assigned at Not on file Legal Sex Female 4:28 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
--- OUTSIDE RECORDS SUMMARY | 2025-01-27 16:19 | XMS_ITS | Encounter Summary ---
Author Organization [facility] Address [address] [place] [address] Care Team Providers Care Hoist Operator Name Role Phone Non-Staff, Physician Primary Care Provider Unava ilable Encounter Details Date Type Department Care Team (Latest Contact Info) Description 02/13/2001 Outpatient Historical [facility] Medicine- [address] [phone] Kit Boggs MD [address] [phone] Migraine, unspecified, without mention of intractable migraine without mention of status migrainosus (Primary Dx); Anxiety state, unspecified Social History Tobacco Use Types Packs/Day Years Used Date Smoking Tobacco: Never Assessed Comments Unknown Sex and Gender Information Value Date Recorded Sex Assigned at Not on file Legal Sex Female 4:28 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
--- OUTSIDE RECORDS SUMMARY | 2025-01-27 16:19 | XMS_ITS | Encounter Summary ---
Author Organization [facility] Address [address] [place] [address] Care Team Providers Care Early Childhood Worker Name Role Phone Non-Staff, Physician Primary Care Provider Unava ilable Encounter Details Date Type Department Care Team (Latest Contact Info) Description 02/20/1999 Outpatient Historical [facility] Medicine [address] [phone] Chata John MD [address] [place] [phone] Gynecologic examination (Primary Dx); Cuong Social History Tobacco Use Types Packs/Day Years Used Date Smoking Tobacco: Never Assessed Comments Unknown Sex and Gender Information Value Date Recorded Sex Assigned at Not on file Legal Sex Female 4:28 AM LEAKAGE TESTER Gender Identity Not on file Sexual Orientation Not on file documented as of this encounter Plan of Treatment Not on file documented as of this encounter Visit Diagnoses Diagnosis Gynecologic examination- Primary Gynecological examination Cuong documented in this encounter Care Teams Early Childhood Worker Relationship Specialty Start Date End Date Non-Staff, Physician NO ADDRESS ON FILE PCP - General 10/18/20 documented as of this encounter
--- OUTSIDE RECORDS SUMMARY | 2025-01-27 16:19 | XMS_ITS | Encounter Summary ---
Author Organization [facility] Address [address] [place] [address] Care Team Providers Care Supervisor Aluminum Boat Assembly Name Role Phone Non-Staff, Physician Primary Care Provider Unava ilable Encounter Details Date Type Department Care Team (Latest Contact Info) Description 10/23/[address] 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
--- OUTSIDE RECORDS SUMMARY | 2025-01-27 16:19 | XMS_ITS | Encounter Summary ---
Author Organization [facility] Address [address] [place] [address] Care Team Providers Care College Tutor Name Role Phone Non-Staff, Physician Primary Care Provider Unava ilable Encounter Details Date Type Department Care Team (Latest Contact Info) Description 09/10/2002 Outpatient Historical [facility]- [address] [phone] Elizabeth Sánchez MD NO ADDRESS ON FILE URINARY FREQUENCY (Primary Dx); TINNITUS NOS Social History Tobacco Use Types Packs/Day Years Used Date Smoking Tobacco: Never Assessed Comments Unknown Sex and Gender Information Value Date Recorded Sex Assigned at Not on file 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
--- OUTSIDE RECORDS SUMMARY | 2025-01-27 16:19 | XMS_ITS | Encounter Summary ---
Author Organization [facility] Address [address] [place] [address] Care Team Providers Care Napper Grinder Name Role Phone Non-Staff, Physician Primary Care Provider Unava ilable Encounter Details Date Type Department Care Team (Late st Contact Info) Description 04/22/2003 Outpatient Historical [facility] Dermatology- 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
--- OUTSIDE RECORDS SUMMARY | 2025-01-27 16:19 | XMS_ITS | Encounter Summary ---
Author Organization [facility] Address [address] [place] [address] Care Team Providers Care Furnace Loader Name Role Phone Non-Staff, Physician Primary Care Provider Unava ilable Encounter Details Date Type Department Care Team (Latest Contact Info) Description 09/12/2003 Outpatient Historical [facility] Allergy and Asthma- [address] [place] [phone] Saúl Gallardo MD NO ADDRESS ON FILE ALLERGIC RHINITIS NOS (Primary Dx); RESPIRATORY ABNORM NEC Social History Tobacco Use Types Packs/Day Years Used Date Smoking Tobacco: Never Assessed Comments Unknown Sex and Gender Information Value Date Recorded Sex Assigned at Not on file Legal Sex Female 4:28 AM PRODUCTION SOUND 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
--- OUTSIDE RECORDS SUMMARY | 2025-01-27 16:19 | XMS_ITS | Encounter Summary ---
Author Organization [facility] Address [address] [place] [address] Care Team Providers Care Retort Setter Name Role Phone Non-Staff, Physician Primary Care Provider Unava ilable Encounter Details Date Type Department Care Team (Latest Contact Info) Description 01/26/2002 Outpatient Historical [address] [phone] Jakub Sims DO NO ADDRESS ON FILE ACUTE URI NOS (Primary Dx) Social History Tobacco Use Types Packs/Day Years Used Date Smoking Tobacco: Never Assessed Comments Unknown Sex and Gender Information Value Date Recorded Sex Assigned at Not on file Legal Sex Female 4:28 AM COMPASS OPERATOR Gender Identity Not on file Sexual Orientation Not on file documented as of this encounter Plan of Treatment Not on file documented as of this encounter Visit Diagnoses Diagnosis Acute upper respiratory infections of unspecified site- Primary documented in this encounter Care Teams Retort Setter Relationship Specialty Start Date End Date Non-Staff, Physician NO ADDRESS ON FILE PCP - General 10/18/20 documented as of this encounter
--- OUTSIDE RECORDS SUMMARY | 2025-01-27 16:19 | XMS_ITS | Encounter Summary ---
Author Organization [facility] Address [address] [place] [address] Care Team Providers Care Merchandise Coordinator Name Role Phone Non-Staff, Physician Primary Care Provider Unava ilable Encounter Details Date Type Department Care Team (Latest Contact Info) Description 02/11/2001 Outpatient Historical [facility] Medicine- [address] [phone] Kit Boggs MD [address] [phone] Migraine, unspecified, without mention of intractable migraine without mention of status migrainosus (Primary Dx) Social History Tobacco Use Types Packs/Day Years Used Date Smoking Tobacco: Never Assessed Comments Unknown Sex and Gender Information Value Date Recorded Sex Assigned at Not on file Legal Sex Female 4:28 AM CERTIFIED FAMILY MEDIATOR Gender Identity Not on file Sexual Orientation Not on file documented as of this encounter Plan of Treatment Not on file documented as of this encounter Visit Diagnoses Diagnosis Migraine, unspecified, without mention of intractable migraine without mention of status migrainosus- Primary documented in this encounter Care Teams Merchandise Coordinator Relationship Specialty Start Date End Date Non-Staff, Physician NO ADDRESS ON FILE PCP - General 10/18/20 documented as of this encounter
--- OUTSIDE RECORDS SUMMARY | 2025-01-27 16:19 | XMS_ITS | Encounter Summary ---
Author Organization [facility] Address [address] [place] [address] Care Team Providers Care Semi Driver Name Role Phone Non-Staff, Physician Primary Care Provider Unava ilable Encounter Details Date Type Department Care Team (Latest Contact Info) Description 06/16/2002 Outpatient Historical [facility]- [address] [phone] Kit Boggs MD [address] [phone] Dysfunct eustachian tube (Primary Dx) Social History Tobacco Use Types Packs/Day Years Used Date Smoking Tobacco: Never Assessed Comments Unknown Sex and Gender Information Value Date Recorded Sex Assigned at Not on file Legal Sex Female 4:28 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
--- OUTSIDE RECORDS SUMMARY | 2025-01-27 16:19 | XMS_ITS ---
Author Organization [facility] are Care Team Providers Care Cap Parts Cutter Name Role Phone Erik Trinh Unavailable Unavailable Allergies and adverse reactions Code CodeSystem Substance Reaction Severity StartDate Concern Status 92194 RXNORM SUMAtriptan Unknown 10/27/2024 active Care Team Name Role Address Phone Organization Dates Erik Trinh PCP [address], [place], [facility], [place] States (Office): [facility] [place] 12/07/2024 - 01/26/2025 Encounters EncounterType Code CodeSystem Description Performer ServiceDe liveryLocation Date Ambulatory Encounter CPT Code = [id number] Closed fracture of femur, distal end [facility] Address: [address] [place] [address], [address] [place] [address]. 12/07 Ambulatory Encounter CPT Code = [address] Postoperative care [facility] Address: [address] [place] [address], [address] [place] [address]. 12/07 Ambulatory Encounter CPT Code = [address] Recurrent major depression [facility] Address: [address] [place] [address], [address] [place] [address]. 12/07 Ambulatory Encounter CPT Code = [address] Hypertensive heart disease without congestive heart failure [facility] Address: [address] [place] [address]. 12/07 Ambulatory Encounter CPT Code = [address] Spasm [facility] Address: [address] [place] [address]. 12/07 Ambulatory Encounter CPT Code = [address] Cerebrovascula r disease [facility] Address: [address] [place] [address]. 12/07 Ambulatory Encounter CPT Code = [address] Nonulcer dyspepsia [facility] Address: [address] [place] [address]. 12/07 Ambulatory Encounter CPT Code = [address] Abnormal [facility] Address: [address] [place] [address]. 12/07 Ambulatory Encounter CPT Code = [address] Anemia [facility] Address: [address] [place] [address]. 12/07 Functional Status Code Name Recorded Time Value Entered By Ambulation 01/26/2025 Independent DGoure Ambulation 01/26/2025 Independent DGoure Ambulation 01/26/2025 Not assessed DGoure Ambulation 01/26/2025 Not assessed DGoure Bathing 01/09/2025 Limited Assistance - Dressing 01/26/2025 Independent DGoure Feeding or Eating 01/26/2025 Independent DGoure Toileting 01/26/2025 Independent DGoure Transferring 01/26/2025 Independent DGoure Immunizations Immunization Status Vaccine Details Vaccine Code CodeSystem Date Notes Influenza cancelled Influenza, high-dose, split virus, quadrivalent, injectable, preservative free 197 CVX created date: 12/15/2024 consent date: 12/14/2024 TB 2 Step Mantoux Skin Test completed tuberculin skin test; unspecified formulation lotNumber: [id number] expiry: 03/04/2026 Mfg: PAR Given 0.1 ml Right Forearm intradermally Step 1 of Multi-step with next step required 98 CVX created date: 10/28/2024 consent date: 10/27/2024 administer ed date: 10/28/2024 Educated by on 10/27/2024 Prevnar 23 cancelled pneumococcal polysaccharide vaccine, 23 valent 33 CVX created date: 12/15/2024 consent date: 12/14/2024 Moderna Bivalent cancelled SARS-COV-2 (COVID-19) vaccine, mRNA, spike protein, LNP, bivalent, preservative free, 50 mcg/0.5 mL or 25 mcg/0.25 mL dose 229 CVX created date: 12/15/2024 consent date: 12/14/2024 Medications Section Medication Name Status Code CodeSystem Dose Route Frequency Admin Type Sig Text Start Date End Date Indication Aspirin EC Tablet Delayed Release 81 MG active 51576 6 RXNORM 1 table t Oral one time a day Routin e Give 1 table t by mouth one time a day for proph ylact ic 2024 - prophylacti c Acetaminoph en Tablet 325 MG active 18283 2 RXNORM 2 table t Oral as needed PRN Give 2 table t by mouth every 4 hours as neede d for gener al disco mfort 2024 - general discomfort Ferrous Sulfate Oral Tablet 325 (65 Fe) MG active 43274 5 RXNORM 1 table t Oral two times a day Routin e Give 1 table t by mouth two times a day for ANEMI A, UNSPE CIFIE D 2024 - ANEMIA, UNSPECIFIED Lactulose Oral Solution 10 GM/15ML active 26824 7 RXNORM 15 ml Oral one time a day Routin e Give 15 ml by mouth one time a day for Const ipati on september disco ntinu e when const ipati on resol ves 2024 - Constipatio n Aspirin Oral Tablet 325 [place] [address] 3 RXNORM 1 table t Oral one time a day Routin e Give 1 table t by mouth one time a day for UNSPE CIFIE D FRACT URE OF LOWER END OF RIGHT FEMUR , SUBSE QUENT for 3 Weeks 12/29 UNSPECIFIED FRACTURE OF LOWER END OF RIGHT FEMUR, SUBSEQUENT Tuberculin PPD Solution 5 UNIT/0.[place] [address] 2 RXNORM 0.1 ml Intrad ermal one time a day Routin e Injec t 0.1 ml intra derma lly one time a day for TB (Tube rculo sis) Scree brian for 1 Admin istra tions AND Injec t 0.1 ml intra derma lly one time a day every 14 day(s ) for TB (Tube rculo sis) Scree brian for 1 Admin istra tions 12/08 TB (Tuberculos is) Screening 93843 2 RXNORM 0.1 ml Intrad ermal one time a day Routin e Injec t 0.1 ml intra derma lly one time a day for TB (Tube rculo sis) Scree brian for 1 Admin istra tions AND Injec t 0.1 ml intra derma lly one time a day every 14 day(s ) for TB (Tube rculo sis) Scree brian for 1 Admin istra tions 01/04 TB (Tuberculos is) Screening Multivitami n Oral Tablet active 1 Tbsp Oral one time a day Routin e Give 1 Tbsp by mouth one time a day for ANEMI A, UNSPE CIFIE D 2024 - ANEMIA, UNSPECIFIED Polyethylen e Glycol 3350 Powder active 0.25 scoop Oral one time a day Routin e Give 0.25 scoop by mouth one time a day for Const ipati on 2024 - Constipatio n PROzac Oral Capsule 20 MG active 13987 9 RXNORM 20 mg Oral one time a day Routin e Give 20 mg by mouth one time a day for depre ssion 2024 - depression Amoxicillin -Pot Clavulanate Tablet 875-125 [place] [address] 8 RXNORM 1 table t Oral every 12 hours Routin e Give 1 table t by mouth every 12 hours for bacte rial infec tion for 5 Days 01/01 bacterial infection Omeprazole Oral Capsule Delayed Release 20 MG active 1 RXNORM 1 capsu le Oral one time a day Routin e Give 1 capsu le by mouth one time a day 2024 - - Baclofen Oral Tablet 5 MG active 68355 2 RXNORM 1 table t Oral as needed PRN Give 1 table t by mouth every 12 hours as neede d for OTHER MUSCL E SPASM (M62. 838) 2024 - OTHER MUSCLE SPASM (M62.838) Mental Status Section Date Assessment Total Score Description 01/26/2025 BIMS 15 cognitively int act CAM 0 No delirium ind icated PHQ-9 00 12/14/2024 BIMS 15 cognitively int act CAM 0 No delirium ind icated PHQ-9 00 Problems Problem # Description Date of onset Resolved Date Code CodeSystem Concern Status 1 OTHER MUSCLE SPASM [address] active 2 PERSONAL HISTORY OF TRANSIENT ISCHEMIC ATTACK (TIA), AND CEREBRAL INFARCTION WITHOUT RESIDUAL DEFICITS [address] active 3 UNSPECIFIED FRACTURE OF LOWER END OF RIGHT FEMUR, SUBSEQUENT ENCOUNTER FOR CLOSED FRACTURE WITH ROUTINE HEALING [address] active 4 ACUTE BRONCHITIS DUE TO OTHER SPECIFIED ORGANISMS 5 11/23/[address] completed 5 ANEMIA, UNSPECIFIED [address] active 6 DISPLACED SUBTROCHANTERIC FRACTURE OF RIGHT FEMUR, SUBSEQUENT ENCOUNTER FOR CLOSED FRACTURE WITH ROUTINE HEALING 5 11/23/[address] completed 7 ENCOUNTER FOR OTHER SPECIFIED SURGICAL AFTERCARE [address] active 8 FUNCTIONAL DYSPEPSIA [address] active 9 HYPERTENSIVE HEART DISEASE WITHOUT HEART FAILURE [address] active 10 MAJOR DEPRESSIVE DISORDER, RECURRENT, UNSPECIFIED [address] active 11 OTHER ABNORMAL FINDINGS IN URINE [address] active Reason for Referral No Reasons for Referral Entered Diagnostic Results Result Code Code System Date Test Result Interpretation Reference Range Status Notes [id number] LOINC 01/13 BMP / Complete Blood Count / Cogent- Completed Result for: Elisabeth Brown ( 1945, F) [id number] 99-9 LOINC 01/12 Cogent- Value: See Attachment Units: Normal Final 5905-5 LOINC 01/12 MONO% Value: 7.9 Units: % Normal 4.7-12.5 Final 42157-5 [facility] 01/12 LYMPH% Value: 26.6 Units: % Normal 19.3-51.7 Final 770-8 [facility] 01/12 NEUT% Value: 62.8 Units: % Normal 34.0-71.1 Final 706-2 [facility] 01/12 BASO% Value: 0.8 Units: % Normal 0.1-1.2 Final 713-8 [facility] 01/12 EOS% Value: 1.9 Units: % Normal 0.7-5.8 Final 4544-3 [facility] 01/12 HCT Value: 46.1 Units: % High 34.1-44.9 Final 7880 [facility] 01/12 RDW Value: 14.1 Units: % Normal 11.7-14.4 Final 786 [facility] 01/12 MCHC Value: 33.2 Units: g/dL Normal 32.2-35.5 Final 7187 [facility] 01/12 HGB Value: 15.3 Units: g/dL Normal 11.2-15.7 Final Does not correlate with [place] KF [address]-0 [facility] 01/12 ANION GAP Value: 12.7 Units: mEq/L Normal 8-16 Final 2951-2 [facility] 01/12 SODIUM Value: 140 Units: mEq/L Normal 136-145 Final 2823-3 [facility] 01/12 POTASSIUM Value: 4.7 Units: mEq/L Normal 3.5-5.1 Final 0 [facility] 01/12 CHLORIDE Value: 104 Units: mEq/L Normal 98-107 Final 2028-01 [facility] 01/12 CARBON DIOXIDE (BICARB) Value: 28 Units: mEq/L Normal 21-31 Final 58290-7 [facility] 01/12 CALCIUM Value: 9.5 Units: mg/dL Normal 8.6-10.2 Final 309-0 [facility] 01/12 BLOOD UREA NITROGEN (BUN) Value: 23.5 Units: mg/dL Normal 7.0-25.0 Final 23457 [facility] 01/12 GLUCOSE Value: 91 Units: mg/dL Normal 74-109 Final 2160-0 [facility] 01/12 CREATININE Value: 0.99 Units: mg/dL Normal 0.6-1.3 Final 79754-2 [facility] 01/12 Estimated GFR AA Value: >60.0 Units: mL/min/{1.7 3_m2} Normal >60.0 Final 62280-7 [facility] 01/12 Estimated GFR Value: 57.4 Units: mL/min/{1.7 3_m2} Low >60.0 Final 785-6 [facility] 01/12 MCH Value: 33.1 Units: pg High 25.6-32.2 Final 704-7 [facility] 01/12 BASO# Value: 0.1 Units: x10^3/uL High 0.01-0.08 Final 711-2 [facility] 01/12 EOS# Value: 0.2 Units: x10^3/uL Normal 0.04-0.36 Final 742-7 [facility] 01/12 MONO# Value: 0.7 Units: x10^3/uL High 0.24-0.36 Final 6690-2 [facility] 01/12 WBC Value: 8.2 Units: x10^3/uL Normal 3.98-10.04 Final 3097-3 [facility] 01/12 BUN/CREAT RATIO Value: 23.7 Units: {calc} High 10-20 Final 787-2 [facility] 01/12 MCV Value: 99.8 Units: fL High 79.4-94.8 Final 777-3 [facility] 01/12 MPV Value: 9.3 Units: fL Low 9.4-12.3 Final 777-3 [facility] 01/12 PLT Value: 223 Units: x10^3/uL Normal 182-369 Final 736-9 [facility] 01/12 LYMPH# Value: 2.2 Units: x10^3/uL Normal 1.18-3.74 Final 751-8 [facility] 01/12 NEUT# Value: 5.1 Units: x10^3/uL Normal 1.56-6.13 Final 789-8 [facility] 01/12 RBC Value: 4.62 Units: 10*6/uL Normal 3.93-5.22 Final QE5681- 6 [facility] 12/29 BMP / Complete Blood Count / Cogent- Completed Result for: Elisabeth Brown ( 1945, F) [phone] 99-9 [facility] 12/28 Cogent- Value: See Attachment Units: Normal Final 7898 [facility] 12/28 RBC Value: 3.90 Units: 10*6/uL Low 3.93-5.22 Final 787-2 [facility] 12/28 MCV Value: 100.8 Units: fL High 79.4-94.8 Final 777-3 [facility] 12/28 MPV Value: 8.7 Units: fL Low 9.4-12.3 Final 785-6 [facility] 12/28 MCHC Value: 33.3 Units: g/dL Normal 32.2-35.5 Final 87 [facility] 12/28 HGB Value: 13.1 Units: g/dL Normal 11.2-15.7 Final 777-3 [facility] 12/28 PLT Value: 195 Units: x10^3/uL Normal 182-369 Final 736-9 [facility] 12/28 LYMPH# Value: 1.3 Units: x10^3/uL Normal 1.18-3.74 Final 751-8 [facility] 12/28 NEUT# Value: 3.9 Units: x10^3/uL Normal 1.56-6.13 Final 704-7 [facility] 12/28 BASO# Value: 0.0 Units: x10^3/uL Low 0.01-0.08 Final 711-2 [facility] 12/28 EOS# Value: 0.1 Units: x10^3/uL Normal 0.04-0.36 Final 742-7 [facility] 12/28 MONO# Value: 0.6 Units: x10^3/uL High 0.24-0.36 Final 90-2 [facility] 12/28 WBC Value: 5.9 Units: x10^3/uL Normal 3.98-10.04 Final 40006-4 [facility] 12/28 Estimated GFR AA Value: >60.0 Units: mL/min/{1.7 3_m2} Normal >60.0 Final 37594-0 [facility] 12/28 Estimated GFR Value: >60.0 Units: mL/min/{1.7 3_m2} Normal >60.0 Final 785-6 [facility] 12/28 MCH Value: 33.5 Units: pg High 25.6-32.2 Final 97289-0 [facility] 12/28 ANION GAP Value: 12.2 Units: mEq/L Normal 8-16 Final 2951-2 [facility] 12/28 SODIUM Value: 141 Units: mEq/L Normal 136-145 Final 2823-3 [facility] 12/28 POTASSIUM Value: 4.2 Units: mEq/L Normal 3.5-5.1 Final 2074-0 [facility] 12/28 CHLORIDE Value: 102 Units: mEq/L Normal 98-107 Final 9 [facility] 12/28 CARBON DIOXIDE (BICARB) Value: 31 Units: mEq/L Normal 21-31 Final 65304-7 [facility] 12/28 CALCIUM Value: 9.0 Units: mg/dL Normal 8.6-10.2 Final 3094-0 [facility] 12/28 BLOOD UREA NITROGEN (BUN) Value: 15.6 Units: mg/dL Normal 7.0-25.0 Final 2345-7 [facility] 12/28 GLUCOSE Value: 97 Units: mg/dL Normal 74-109 Final 2160-0 [facility] 12/28 CREATININE Value: 0.84 Units: mg/dL Normal 0.6-1.3 Final 788-0 [facility] 12/28 RDW Value: 13.9 Units: % Normal 11.7-14.4 Final 5905-5 [facility] 12/28 MONO% Value: 9.3 Units: % Normal 4.7-12.5 Final 26160-9 [facility] 12/28 LYMPH% Value: 21.7 Units: % Normal 19.3-51.7 Final 770-8 [facility] 12/28 NEUT% Value: 66.3 Units: % Normal 34.0-71.1 Final 706-2 [facility] 12/28 BASO% Value: 0.4 Units: % Normal 0.1-1.2 Final 713-8 [facility] 12/28 EOS% Value: 2.3 Units: % Normal 0.7-5.8 Final 4544-3 [facility] 12/28 HCT Value: 39.4 Units: % Normal 34.1-44.9 Final 3097-3 [facility] 12/28 BUN/CREAT RATIO Value: 18.6 Units: {calc} Normal 10-20 Final Test Code Code System Name Date 01/12/2025 Complete Blood Count 025 [facility] 01/12/2025 Complete Blood Count 025 [facility] 01/12/2025 Complete Blood Count 025 12/28/2024 Complete Blood Count 025 [facility] 12/28/2024 Complete Blood Count 025 [facility] 12/28/2024 Complete Blood Count 025 [facility] 12/28/2024 Social History Social History Observation Description Start Date End Date Code Code System Current Smoking Status Tobacco smoking consumption unknown 432542303 SNOMED CT Sex Assigned At Female 1945 11376-7 [facility] Gender Identity Female 47444902336789 [address] Sexual Orientation Vital Signs Code Code System Vitals Name Values and Units Timing Information 9279-1 [facility] Respiratory Rate Value=18.0 Units=/m in 01/26/2025 8462-4 [facility] Blood Pressure-Diastolic Value=76 Un its=mmHg 01/26/2025 8480-6 [facility] Blood Pressure-Systolic Gmljb=948 Un its=mmHg 01/26/2025 8310-5 [facility] Body Temperature Value=98.7 Units= F 01/26/2025 8867-4 [facility] Heart rate Value=89.0 Units=/min 07981-9 [facility] O2 % BldC Oximetry Value=92.0 Units= % 01/26/2025 95374-3 [facility] Weight Wbypj=052.0 Units=Lbs 48455-5 [facility] Pain Level Value=1.0 01/26/2025 8302-2 [facility] Height Value=63.0 Units=Inches 10/28/2024
--- OUTSIDE RECORDS SUMMARY | 2025-01-27 16:19 | XMS_ITS | Encounter Summary ---
Author Organization [facility] Address [address] [place] [address] Care Team Providers Care Mail Distributor Name Role Phone Non-Staff, Physician Primary Care Provider Unava ilable Encounter Details Date Type Department Care Team (Latest Contact Info) Description 02/17/1998 Outpatient Historical [facility] Medicine [address] [phone] Chata John MD [address] [place] [phone] Gynecologic examination (Primary Dx) Social History Tobacco Use Types Packs/Day Years Used Date Smoking Tobacco: Never Assessed Comments Unknown Sex and Gender Information Value Date Recorded Sex Assigned at Not on file 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
--- OUTSIDE RECORDS SUMMARY | 2025-01-27 16:19 | XMS_ITS | Encounter Summary ---
Author Organization [facility] Address [address] [place] [address] Care Team Providers Care Poultry Grader Name Role Phone Non-Staff, Physician Primary Care Provider Unava ilable Encounter Details Date Type Department Care Team (Late st Contact Info) Description 02/04/2003 Outpatient Historical [facility] Dermatology- 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
--- OUTSIDE RECORDS SUMMARY | 2025-01-27 16:19 | XMS_ITS | Encounter Summary ---
Author Organization [facility] Address [address] [place] [address] Care Team Providers Care Dice Manager Name Role Phone Non-Staff, Physician Primary Care Provider Unava ilable Encounter Details Date Type Department Care Team (Latest Contact Info) Description 06/29/2001 Outpatient Historical [facility] Medicine [address] [phone] Chata John MD [address] [place] [phone] Gynecologic examination (Primary Dx) Social History Tobacco Use Types Packs/Day Years Used Date Smoking Tobacco: Never Assessed Comments Unknown Sex and Gender Information Value Date Recorded Sex Assigned at Not on file Legal Sex Female 4:28 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
--- OUTSIDE RECORDS SUMMARY | 2025-01-27 16:19 | XMS_ITS | Encounter Summary ---
Author Organization [facility] Address [address] [place] [address] Care Team Providers Care Director Loss Prevention Name Role Phone Non-Staff, Physician Primary Care Provider Unava ilable Encounter Details Date Type Department Care Team (Latest Contact Info) Description 12/26/2000 Outpatient Historical [facility] Family Medicine- [place] [address] [place] [address] Jakub Sims DO NO ADDRESS ON FILE Headache(784.0) (Primary Dx); Unspecified asthma(493.90) Social History Tobacco Use Types Packs/Day Years Used Date Smoking Tobacco: Never Assessed Comments Unknown Sex and Gender Information Value Date Recorded Sex Assigned at Not on file Legal Sex Female 4: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
--- OUTSIDE RECORDS SUMMARY | 2025-01-27 16:19 | XMS_ITS | Encounter Summary ---
Author Organization [facility] Address [address] [place] [address] Care Team Providers Care Chief Information Security Officer Name Role Phone Non-Staff, Physician Primary Care Provider Unava ilable Encounter Details Date Type Department Care Team (Latest Contact Info) Description 01/08/2005 Outpatient Historical [facility]- [address] [phone] Kit Boggs MD [address] [phone] HYPERTENSION NOS (Primary Dx) Social History Tobacco Use Types Packs/Day Years Used Date Smoking Tobacco: Never Assessed Comments Unknown Sex and Gender Information Value Date Recorded Sex Assigned at Not on file Legal Sex Female 4:28 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
--- OUTSIDE RECORDS SUMMARY | 2025-01-27 16:19 | XMS_ITS | Encounter Summary ---
Author Organization [facility] Address [address] [place] [address] Care Team Providers Care Supervisor Aircraft Maintenance Name Role Phone Non-Staff, Physician Primary Care Provider Unava ilable Encounter Details Date Type Department Care Team (Latest Contact Info) Description 04/13/1999 Outpatient Historical [facility] Medicine [address] [phone] Chata John MD [address] [place] [phone] Abn Pap Smear-Cervix (Primary Dx) Social History Tobacco Use Types Packs/Day Years Used Date Smoking Tobacco: Never Assessed Comments Unknown Sex and Gender Information Value Date Recorded Sex Assigned at Not on file Legal Sex Female 4:28 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
--- OUTSIDE RECORDS SUMMARY | 2025-01-27 16:19 | XMS_ITS | Encounter Summary ---
Author Organization [facility] Address [address] [place] [address] Care Team Providers Care Retort Engineer Name Role Phone Non-Staff, Physician Primary Care Provider Unava ilable Encounter Details Date Type Department Care Team (Latest Contact Info) Description 07/08/2002 Outpatient Historical [facility] [address] [place] [address] Chad Magana MD [address] [facility] [address] [place] [address] CHR NONSUP OM NOS/NEC (Primary Dx); TINNITUS NOS; PERIPHERAL VERTIGO NOS Social History Tobacco Use Types Packs/Day Years Used Date Smoking Tobacco: Never Assessed Comments Unknown Sex and Gender Information Value Date Recorded Sex Assigned at Not on file Legal Sex Female 4:28 AM CLEAN IN PLACES OPERATOR Gender Identity Not on file Sexual Orientation Not on file documented as of this encounter Plan of Treatment Not on file documented as of this encounter Visit Diagnoses Diagnosis Other and unspecified chronic nonsuppurative otitis media- Primary Unspecified tinnitus Peripheral vertigo, unspecified documented in this encounter Care Teams Retort Engineer Relationship Specialty Start Date End Date Non-Staff, Physician NO ADDRESS ON FILE PCP - General 10/18/20 documented as of this encounter
--- OUTSIDE RECORDS SUMMARY | 2025-01-27 16:19 | XMS_ITS | Encounter Summary ---
Author Organization [facility] Address [address] [place] [address] Care Team Providers Care Aerospace Quality Engineer Name Role Phone Non-Staff, Physician Primary Care Provider Unava ilable Encounter Details Date Type Department Care Team (Latest Contact Info) Description 02/04/2019 Ancillary Orders [facility] [address] [facility] [address] [place] [address] Chelo Courtney MD [address] [place] [address] Inconclusive mammography Social History Tobacco Use Types Packs/Day Years Used Date Smoking Tobacco: Never Smokeless Tobacco: Never Alcohol Use Standard Drinks/Week Comments No 0 (1 standard drink = 0.6 oz pur e alcohol) 1 glass of wine 2-3 x weekly Comments No Sex and Gender Information Value Date Recorded Sex Assigned at Not on file 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
--- OUTSIDE RECORDS SUMMARY | 2025-01-27 16:19 | XMS_ITS | Encounter Summary ---
Author Organization [facility] Address [address] [place] [address] Care Team Providers Care Electric Locomotive Firer/Fireman Name Role Phone Non-Staff, Physician Primary Care Provider Unava ilable Encounter Details Date Type Department Care Team (Latest Contact Info) Description 03/29/2002 Outpatient Historical [facility]- [address] [phone] Kit Boggs MD [address] [phone] URIN TRACT INFECTION NOS (Primary Dx) Social History Tobacco Use Types Packs/Day Years Used Date Smoking Tobacco: Never Assessed Comments Unknown Sex and Gender Information Value Date Recorded Sex Assigned at Not on file 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
--- OUTSIDE RECORDS SUMMARY | 2025-01-27 16:19 | XMS_ITS | Encounter Summary ---
Author Organization [facility] Address [address] [place] [address] Care Team Providers Care Bolt Threader Name Role Phone Non-Staff, Physician Primary Care Provider Unava ilable Encounter Details Date Type Department Care Team (Latest Contact Info) Description 02/04/2000 Outpatient Historical [facility]- [address] [phone] Kit Boggs MD [address] [phone] Contusion of unspecified part of lower limb (Primary Dx) Social History Tobacco Use Types Packs/Day Years Used Date Smoking Tobacco: Never Assessed Comments Unknown Sex and Gender Information Value Date Recorded Sex Assigned at Not on file 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
--- OUTSIDE RECORDS SUMMARY | 2025-01-27 16:19 | XMS_ITS | Encounter Summary ---
Author Organization [facility] Address [address] [place] [address] Care Team Providers Care Ssn/Ssbn Assistant Navigator Name Role Phone Non-Staff, Physician Primary Care Provider Unava ilable Encounter Details Date Type Department Care Team (Latest Contact Info) Description 11/09/2003 Outpatient Historical 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
--- OUTSIDE RECORDS SUMMARY | 2025-01-27 16:19 | XMS_ITS | Encounter Summary ---
Author Organization [facility] Address [address] [place] [address] Care Team Providers Care Novelty Worker Name Role Phone Non-Staff, Physician Primary Care Provider Unava ilable Encounter Details Date Type Department Care Team (Latest Contact Info) Description 01/28/2001 Outpatient Historical [facility]- [address] [phone] Jakub Sims DO NO ADDRESS ON FILE Migraine, unspecified, without mention of intractable migraine without mention of status migrainosus (Primary Dx); Unspecified essential hypertension Social History Tobacco Use Types Packs/Day Years Used Date Smoking Tobacco: Never Assessed Comments Unknown Sex and Gender Information Value Date Recorded Sex Assigned at Not on file 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
--- OUTSIDE RECORDS SUMMARY | 2025-01-27 16:19 | XMS_ITS | Encounter Summary ---
Author Organization [facility] Address [address] [place] [address] Care Team Providers Care Commercial Production Editor Name Role Phone Non-Staff, Physician Primary Care Provider Unava ilable Encounter Details Date Type Department Care Team (Latest Contact Info) Description 01/11/2004 Outpatient Historical [facility]- [address] [phone] Kit Boggs MD [address] [phone] HYPERTENSION NOS (Primary Dx) Social History Tobacco Use Types Packs/Day Years Used Date Smoking Tobacco: Never Assessed Comments Unknown Sex and Gender Information Value Date Recorded Sex Assigned at Not on file 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
== END 2025-01-27 16:06 | disposition home or self-care (01) ==
PROVIDERS: Emergency Provider Family Medicine; PCP Family Medicine
DX: M79.604 Pain in right leg (principal); Z79.82 Long term (current) use of aspirin; I10 Essential (primary) hypertension; Z86.73 Personal history of transient ischemic attack (TIA), and cerebral infarction without residual deficits
CPT/HCPCS: 73552; 99284

== ENCOUNTER → 2025-03-01 08:56 | Outpatient (BNVA) | payer MEDICARE, MEDICAID, SELFPAY | PROVIDERS: PCP Family Medicine; Visit Provider Orthopaedic Surgery | DX: Z98.890 Other specified postprocedural states (principal) | CPT/HCPCS: 73552; 99024; 99213 ==

== ENCOUNTER 2025-03-16 08:36 | Outpatient (RCR) | payer MEDICARE, MEDICAID, SELFPAY | END 2025-04-03 23:59 | disposition home or self-care (01) | LOC: SPT 08:36 | PROVIDERS: PCP Family Medicine; Visit Provider Orthopaedic Surgery | DX: S72.491D Other fracture of lower end of right femur, subsequent encounter for closed fracture with routine healing (principal); X58.XXXD Exposure to other specified factors, subsequent encounter | CPT/HCPCS: 97110; 97162 ==

== ENCOUNTER 2025-04-04 05:00 | Outpatient (RCR) | payer MEDICARE, MEDICAID, SELFPAY | END 2025-05-04 23:59 | disposition home or self-care (01) | LOC: SPT 05:00 | PROVIDERS: PCP Family Medicine; Visit Provider Orthopaedic Surgery | DX: S72.491D Other fracture of lower end of right femur, subsequent encounter for closed fracture with routine healing (principal); X58.XXXD Exposure to other specified factors, subsequent encounter | CPT/HCPCS: 97110; 97530 ==